=== PATIENT | male | born 1960 | race Caucasian/White ===

== ENCOUNTER 2021-06-01 22:07 | Inpatient (IN) | payer MEDICARE ==
[~2021-06-01] VITALS: Ht 177.8 cm; Wt 138.5 kg
[2021-06-01] MEDS ORDERED: IV NORMAL SALINE 1000ML BAG 1,000 ML IV ONE ×2 (22:45→23:45)
[2021-06-01 23:13] LABS: BASO % 0 % (0-3); EOS % 0 % (0-3); HEMATOCRIT 36.7 % (39.0-53.0); HEMOGLOBIN 12.5 g/dL (13.0-17.5); LYMPH # 1.3 x10^3/uL (1.0-4.8); LYMPH % 7 % (24-48); MEAN CORPUSCULAR HEMOGLOBIN 28 pg (25-35); MEAN CORPUSCULAR HGB CONC 34 g/dL (31-37); MEAN CORPUSCULAR VOLUME 83 fL (79-100); MONO # 2.2 x10^3/uL (0.0-1.1); MONO % 12 % (0-9); NEUT # 15.6 x10^3/uL (1.8-7.7); NEUT % 81 % (31-73); PLATELET COUNT 576 x10^3/uL (140-400); RED BLOOD COUNT 4.44 x10^6/uL (4.30-5.70); RED CELL DISTRIBUTION WIDTH 17.9 % (11.5-14.5); WHITE BLOOD COUNT 19.2 x10^3/uL (4.0-11.0)
[2021-06-01 23:22] LABS: CALCIUM 8.9 mg/dL (8.5-10.1); CREATININE 10.7 mg/dL (0.7-1.3); GFR 4.9; POTASSIUM 5.5 mmol/L (3.5-5.1)
[2021-06-01 23:27] LABS: ALBUMIN 2.8 g/dL (3.4-5.0); ALBUMIN/GLOBULIN RATIO 0.5 (1.0-1.7); MAGNESIUM 2.2 mg/dL (1.8-2.4); TOTAL BILIRUBIN 0.7 mg/dL (0.2-1.0); TOTAL PROTEIN 7.9 g/dL (6.4-8.2)
--- NOTE | 2021-06-01 23:50 | PHYS DOC ---
Past Medical History Past Medical History: DVT General Adult EDM: Chief Complaint: WEAKNESS/GENERALIZED HPI: HPI: Patient is a 60 year old male who was brought here by EMS from home for generalized weakness. Patient lives alone by himself, he called EMS to come out to help lift him out of his bed. EMS stated that his house is really filthy, patient was covered in feces and urine in his lower extremity. Patient has history of hypertension and DVT in the past. Patient is currently on Coumadin. Patient denies any chest pain, denies any trouble breathing. Patient denies any abdominal pain, no nausea vomiting. Review of Systems: Review of Systems: Constitutional: Denies fever or chills. Positive for general weakness. Eyes: Denies change in visual acuity. [] HENT: Denies nasal congestion or sore throat. [] Respiratory: Denies cough or shortness of breath. [] Cardiovascular: Denies chest pain or edema. [] GI: Denies abdominal pain, nausea, vomiting, bloody stools or diarrhea. [] : Denies dysuria. [] Musculoskeletal: Denies back pain or joint pain. [] Integument: Positive for rash in lower extremity. Neurologic: Denies headache, focal weakness or sensory changes. [] Endocrine: Denies polyuria or polydipsia. [] Lymphatic: Denies swollen glands. [] Psychiatric: Denies depression or anxiety. [] Heart Score: C/O Chest Pain: N/A Risk Factors: Risk Factors: DM, Current or recent (<one month) smoker, HTN, HLP, family history of CAD, obesity. Risk Scores: Score 0 - 3: 2.5% MACE over next 6 weeks - Discharge Home Score 4 - 6: 20.3% MACE over next 6 weeks - Admit for Clinical Observation Score 7 - 10: 72.7% MACE over next 6 weeks - Early Invasive Strategies Current Medications: Current Medications Medications (Trade) Dose Ordered Sig/Steve Start Time Stop Time Status Last Admin Dose Admin Sodium Chloride 1,000 ml @ 1,000 mls/hr 1X ONCE 06/01/21 23:45 06/02/21 00:44 UNV Physical Exam: PE: Constitutional: Well developed, well nourished,MORBIDLY OBESE, PATIENT WAS SOILED WITH URINE AND FECES IN HIS PERIGENITAL AREA AND LOWER EXTREMITIES AREA. HENT: Normocephalic, atraumatic, bilateral external ears normal, oropharynx moist, no oral exudates, nose normal. [] Eyes: PERRLA, EOMI, conjunctiva normal, no discharge. [] Neck: Normal range of motion, no tenderness, supple, no stridor. [] Cardiovascular:Heart rate regular rhythm, no murmur [] Lungs & Thorax: Bilateral breath sounds clear to auscultation [] Abdomen: Bowel sounds normal, soft, no tenderness, no masses, no pulsatile masses. [] Skin: Warm, dry, SKIN BLISTER, ERYTHEMA WITH WEEPING CLEAR DRAINAGE IN LEGS. Back: No tenderness, no CVA tenderness. [] Extremities: ENTIRE BILATERAL LEGS WITH ERYTHEMA, SKIN BLISTERS AND EDEMA, WARM TO TOUCH. Neurologic: Alert and oriented X 3, normal motor function, normal sensory function, no focal deficits noted. [] Psychologic: Affect normal, judgement normal, mood normal. [] Current Patient Data: Labs: Laboratory Tests Test 06/01/21 23:00 White Blood Count 19.2 x10^3/uL (4.0-11.0) H Red Blood Count 4.44 x10^6/uL (4.30-5.70) Hemoglobin 12.5 g/dL (13.0-17.5) L Hematocrit 36.7 % (39.0-53.0) L Mean Corpuscular Volume 83 fL (79-100) Mean Corpuscular Hemoglobin 28 pg (25-35) Mean Corpuscular Hemoglobin Concent 34 g/dL (31-37) Red Cell Distribution Width 17.9 % (11.5-14.5) H Platelet Count 576 x10^3/uL (140-400) H Neutrophils (%) (Auto) 81 % (31-73) H Lymphocytes (%) (Auto) 7 % (24-48) L Monocytes (%) (Auto) 12 % (0-9) H Eosinophils (%) (Auto) 0 % (0-3) Basophils (%) (Auto) 0 % (0-3) Neutrophils # (Auto) 15.6 x10^3/uL (1.8-7.7) H Lymphocytes # (Auto) 1.3 x10^3/uL (1.0-4.8) Monocytes # (Auto) 2.2 x10^3/uL (0.0-1.1) H Eosinophils # (Auto) 0.0 x10^3/uL (0.0-0.7) Basophils # (Auto) 0.0 x10^3/uL (0.0-0.2) Platelet Estimate Pending Sodium Level 137 mmol/L (136-145) Potassium Level 5.5 mmol/L (3.5-5.1) H Chloride Level 99 mmol/L (98-107) Carbon Dioxide Level 18 mmol/L (21-32) L Anion Gap 20 (6-14) H Blood Urea Nitrogen 79 mg/dL (8-26) H Creatinine 10.7 mg/dL (0.7-1.3) H Estimated GFR (Cockcroft-Gault) 4.9 BUN/Creatinine Ratio 7 (6-20) Glucose Level 129 mg/dL (70-99) H Lactic Acid Level 3.3 mmol/L (0.4-2.0) H Calcium Level 8.9 mg/dL (8.5-10.1) Magnesium Level 2.2 mg/dL (1.8-2.4) Total Bilirubin 0.7 mg/dL (0.2-1.0) Aspartate Amino Transferase (AST) 89 U/L (15-37) H Alanine Aminotransferase (ALT) 35 U/L (16-63) Alkaline Phosphatase 66 U/L (46-116) Total Protein 7.9 g/dL (6.4-8.2) Albumin 2.8 g/dL (3.4-5.0) L Albumin/Globulin Ratio 0.5 (1.0-1.7) L Laboratory Tests 06/01/21 23:00 Laboratory Tests 06/01/21 23:00 EKG: EKG: [] Radiology/Procedures: Radiology/Procedures: [][facility] [address] [place] [address] IMAGING REPORT Signed PATIENT: TODD RICO ACCOUNT: [id number] : 1960 LOCATION: ER AGE: 60 SEX: M EXAM STATUS: REG ER ORD. PHYSICIAN: FANTASMA TOLEDO DO REASON: SOA PROCEDURE: CHEST AP ONLY EXAM: XR CHEST 1V 06/01/2021 12:05 AM CLINICAL INDICATION: Shortness of air COMPARISON: None TECHNIQUE: AP semierect view of the chest FINDINGS: The heart and mediastinum are normal. Lungs are adequately expanded. No consolidation, pleural effusion, or pneumothorax. Mild linear atelectasis in the left lower lobe. Pulmonary vascularity is normal. No acute osseous abnormality. IMPRESSION: No acute cardiopulmonary abnormality. Electronically signed by: Yuli Ramirez MD (06/02/2021 12:34 AM) [id number] DICTATED and SIGNED BY: YULI RAMIREZ MD DATE: 06/02/21 [id number] 0 Course & Med Decision Making: Course & Med Decision Making Pertinent Labs and Imaging studies reviewed. (See chart for details) Patient is a 60-year-old male who was brought here by EMS from home due to generalized weakness. Patient was found to be soiled with urine and feces in his extremity, patient has bilateral lower extremity cellulitis. EMS reported that his house was very filthy. Patient was found in acute renal failure, severe sepsis. Patient was given IV fluid in the ER, patient was started IV antibiotic in the ER. Patient will be admitted to hospital for further evaluation and treatment. Due to a high probability of clinically significant, life-threatening deterioration, the patient required my highest level of preparedness to intervene emergently and I personally spent this critical care time directly and personally managing the patient. This critical care time included obtaining the history; examining the patient; pulse oximetry; real-time ordering and review of studies; arranging urgent treatment with development of a management plan; evaluation of patient's response to treatment; frequent reassessment; and, discussions with other providers. This critical care time was performed to a ssess and manage the high probability of imminent, life-threatening deterioration that could result in multi-organ failure. It was not inclusive of separately billable procedures. Please see the Course and Medical Decision Making section and the rest of the note for further information on patient as sessment and treatment. Critical care time was [45] minutes which includes time at bedside, spent in discussion of patient's care with specialist and/or family members, with interpretation of laboratory and/or radiological studies and is exclusive of procedures. Guerita Disclaimer: Guerita Disclaimer: This electronic medical record was generated, in whole or in part, using a voice recognition dictation system. Departure Departure Impression: Primary Impression: Severe sepsis Additional Impressions: Bilateral cellulitis of lower leg Renal failure Disposition: ADMITTED INPATIENT Admitting Physician: ALEJANDRA (Dr. WILSON) Condition: IMPROVED Referrals: KEHINDE HOANG (PCP) FANTASMA TOLEDO DO Jun 01, 2021 23:50
[2021-06-02] VITALS (23 sets, daily range): BP systolic 57–159; BP diastolic 33–63
[2021-06-02] MEDS ORDERED: VANCOMYCIN PER PHARMACY MC PRN
[2021-06-02] MEDS ORDERED: IV NORMAL SALINE 1000ML BAG 1,000 ML IV ONE
[2021-06-02] MEDS ORDERED: ONDANSETRON PF 4 MG/2 ML VIAL. IVP PRN (00:30)
[2021-06-02] MEDS ORDERED: ACETAMINOPHEN 325 MG TABLET. PO PRN (00:30)
--- NOTE | 2021-06-02 00:36 | RAD ---
EXAM: XR CHEST 1V 06/01/2021 12:05 AM CLINICAL INDICATION: Shortness of air COMPARISON: None TECHNIQUE: AP semierect view of the chest FINDINGS: The heart and mediastinum are normal. Lungs are adequately expanded. No consolidation, pl eural effusion, or pneumothorax. Mild linear atelectasis in the left lower lobe. Pulmonary vascularit y is normal. No acute osseous abnormality. IMPRESSION: No acute cardiopulmonary abnormality. Electronically signed by: Yuli Ramirez MD (06/02/2021 12:34 AM) [id number]
[2021-06-02] MEDS: IV NORMAL SALINE 1000ML BAG 1,000 ML IV SCH ×3 (01:01→16:30)
[2021-06-02 03:11] LABS: PROTHROMBIN TIME PATIENT 36.4 SEC (11.7-14.0)
[2021-06-02 04:54] LABS: % BANDS 5 % (0-9); % LYMPHS 11 % (24-48); % MONOS 7 % (0-10); % SEGS 77 % (35-66); ANISOCYTOSIS SLIGHT; PLT ESTIMATE ADEQUATE (ADEQUATE); POLYCHROMASIA SLIGHT
--- NOTE | 2021-06-02 05:45 | NUR ---
Patient admitted to room 114 via cart from ED accompanied by ED RN. Patient alert/oriented x4, friendly, cooperative and denies pain. Patient reports weakness and unable to get up so EMS called for lift assist and EMS brought patient to ED. Per ED RN, patient with poor hygiene and found to have maggots in bilat LE dressing--patient bathed in ED. He reports living alone at home with use of wheelchair and lift chair. He states it is difficulty to clean himself and his mother helps when she can. Patient has multiple areas of wounds on bilat LE which are edematous and weeping, excoriation under pannus which is also weeping/bleeding, and excoriation under breasts. Will consult wound nurse for evaluation/picturing and care for wounds. Sepsis screen positive for severe Sepsis--treatment starte din ED with 3L NS administer and dose of Linezolid given. Patient oriented to room, Nursing call light, TV/Bed contol, diet, activity and POC. Patient verbalized understanding of above. See admission information and assessment.
[2021-06-02] MEDS ORDERED: NOREPINEPHRINE VIAL 8 MG in IV DEXTROSE 5% 250 ML IV PRN (06:15)
--- NOTE | 2021-06-02 07:31 | PDOC1 ---
History and Physical Date of Admission Date of Admission DATE: 06/02/21 TIME: 07:22 Identification/Chief Complaint Chief Complaint Weakness Source Source: Caregiver, Chart review, Patient History of Present Illness History of Present Illness Mr Du is a 60 year old male with PMHx Multiple sclerosis, lymphedema, HTN, RLE DVT and PE (2013) who was brought here by EMS from home for generalized weakness. Complain of increased tremors and weakness and multiple wounds. Patient's mother called EMS for help transferring. Patient does live alone. EMS stated that his house is in poor condition, patient was covered in feces and urine on his lower extremities which were found to be red, swollen, hot. Temp 98.8 F pulse 102 bpm respirations 24/min initial blood pressure 82/46. Patient denies any chest pain, denies any trouble breathing. Patient denies any abdominal pain, no nausea vomiting. WBC 19.2, Hb 12.5, platelets 576, NA 137, K5.5, BUN 79, CR 10.7, glucose 129, lactic acid 3.3 calcium 8.9, mag 2.2, bilirubin 0.7, AST 89, ALT 35, alk phos 66, albumin 2.8, NT proBNP 791, INR 3.8, rapid COVID-19 negative Chest radiograph no acute abnormalities. Given IV fluids and empiric antibiotics and admitted to ICU for severe sepsis. Past Medical History Cardiovascular: HTN CENTRAL NERVOUS SYSTEM: Other (MS) Past Surgical History Past Surgical History: No pertinent history Family History Family History: Hypertension Social History Smoke: No ALCOHOL: none Drugs: None Current Problem List Problem List Problems Medical Problems: (1) Bilateral cellulitis of lower leg Status: Acute (2) Renal failure Status: Acute (3) Severe sepsis Status: Acute Current Medications Current Medications Current Medications Sodium Chloride 1,000 ml @ 1,000 mls/hr 1X ONCE IV Last administered on 06/02/21at 01:00; Start 06/01/21 at 22:45; Stop 06/02/21 at 00:53; Status DC Sodium Chloride 1,000 ml @ 1,000 mls/hr 1X ONCE IV Last administered on 06/02/21at 01:00; Start 06/01/21 at 23:45; Stop 06/02/21 at 00:53; Status DC Vancomycin HCl (Vanco Per Pharmacy) 1 each PRN DAILY PRN MC SEE COMMENTS; St art 06/02/21 at 00:00; Status UNV Sodium Chloride 1,000 ml @ 1,000 mls/hr 1X ONCE IV Last administered on 06/02/21at 01:00; Start 06/02/21 at 00:00; Stop 06/02/21 at 00:59; Status DC Enoxaparin Sodium (Lovenox 150mg Syringe) 150 mg 1X ONCE SQ ; Start 06/02/21 at 00:30; Stop 06/02/21 at 01:05; Status DC Ondansetron HCl (Zofran) 4 mg PRN Q8HRS PRN IVP NAUSEA/VOMITING; Start 06/02/21 at 00:30; Stop 06/03/21 at 00:29 Sodium Chloride 1,000 ml @ 125 mls/hr Q8H IV Last administered on 06/02/21at 01:01; Start 06/02/21 at 00:30; Stop 06/03/21 at 00:29 Acetaminophen (Tylenol) 650 mg PRN Q4HRS PRN PO FEVER > 100.3'F; Start 06/02/21 at 00:30; Stop 06/03/21 at 00:29 Linezolid/Dextrose 300 ml @ 300 mls/hr Q12HR IV Last administered on 06/02/21at 02:39; Start 06/02/21 at 01:30 Norepinephrine Bitartrate 8 mg/ Dextrose 258 ml @ 8.708 mls/ hr CONT PRN IV PER PROTOCOL Last administered on 06/02/21at 06:27; Start 06/02/21 at 06:15 Allergies Allergies: Coded Allergies: No Known Drug Allergies (Unverified , 06/02/21) ROS General: YES: Fatigue, Malaise, Appetite; No: Chills, Night Sweats, Other PSYCHOLOGICAL ROS: No: Anxiety, Behavioral Disorder, Concentration difficultie, Decreased libido, Depression, Disorientation, Hallucinations, Hostility, Irritablity, Memory difficulties, Mood Swings, Obsessive thoughts, Physical abuse, Sexual abuse, Sleep disturbances, Suicidal ideation, Other Eyes: No Blurry vision, No Decreased vision, No Double vision, No Dry eyes, No Excessive tearing, No Eye Pain, No Itchy Eyes, No Loss of vision, No Photophobia, No Scotomata, No Uses contacts, No Uses glasses, No Other HEENT: No: Heacaches, Visual Changes, Hearing change, Nasal congestion, Nasal discharge, Oral lesions, Sinus pain, Sore Throat, Epistaxis, Sneezing, Snoring, Tinnitus, Vertigo, Vocal changes, Other ALLERGY AND IMMUNOLOGY: No: Hives, Insect Bite Sensitivity, Itchy/Watery Eyes, Nasal Congestion, Post Nasal Drip, Seasonal Allergies, Other Hematological and Lymphatic: YES: Blood Clots; No: Bleeding Problems, Blood Transfusions, Brusing, Night Sweats, Pallor, Swollen Lymph Nodes, Other ENDOCRINE: No: Breast Changes, Galactorrhea, Hair Pattern Changes, Hot Flashes, Malaise/lethargy, Mood Swings, Palpitations, Polydipsia/polyuria, Skin Changes, Temperature Intolerance, Unexpected Weight Changes, Other Breast: No New/Changing Breast Lumps, No Nipple changes, No Nipple discharge, No Other Respiratory: No: Cough, Hemoptysis, Orthopnea, Pleuritic Pain, Shortness of breath, SOB with excertion, Sputum Changes, Stridor, Tachypnea, Wheezing, Other Cardiovascular: No Chest Pain, No Palpitations, No Orthopnea, No Paroxysmal Noc. Dyspnea, No Edema, No Lt Headedness, No Other Gastrointestinal: No Nausea, No Vomiting, No Abdominal Pain, No Diarrhea, No Constipation, No Melena, No Hematochezia, No Other Genitourinary: No Dysuria, No Frequency, No Incontinence, No Hematuria, No Retention, No Discharge, No Urgency, No Pain, No Flank Pain, No Other, No , No , No , No , No , No , No Musculoskeletal: Yes Gait Disturbance; No Joint Pain, No Joint Stiffness, No Joint Swelling, No Muscle Pain, No Muscular Weakness, No Pain In:, No Swelling In:, No Other Neurological: No Behavorial Changes, No Bowel/Bladder ControlChng, No Confusion, No Dizziness, No Gait Disturbance, No Headaches, No Impaired Coord/balance, No Memory Loss, No Numbness/Tingling, No Seizures, No Speech Pro blems, No Tremors, No Visual Changes, No Weakness, No Other Skin: No Dry Skin, No Eczema, No Hair Changes, No Lumps, No Mole Changes, No Mottling, No Nail Changes, No Pruritus, No Rash, No Skin Lesion Changes, No Other, No Acne Physical Exam General: Alert, Oriented X3, Cooperative, moderate distress HEENT: PERRLA, Other (skin breakdown on face) Lungs: Clear to auscultation, Normal air movement Heart: S1S2, RRR, no thrills, no rubs, no gallops, no murmurs Abdomen: Normal bowel sounds, Soft, Other (Panniculitis) Extremities: No clubbing, No cyanosis, Other (Red, angry, swollen bilateral lower extremities with weeping, stool caked) Neuro: Other (Spasms bilaterally) Psych/Mental Status: Mental status NL, Mood NL Vitals Vitals Vital Signs Date Time Temp Pulse Resp B/P (MAP) Pulse Ox O2 Delivery O2 Flow Rate FiO2 06/02/21 04:21 92 32 102/56 (71) 99 Room Air 06/01/21 22:07 98.8 98.8 Labs Labs Laboratory Tests Test 06/01/21 23:00 06/02/21 02:40 06/02/21 02:45 White Blood Count 19.2 x10^3/uL (4.0-11.0) Red Blood Count 4.44 x10^6/uL (4.30-5.70) Hemoglobin 12.5 g/dL (13.0-17.5) Hematocrit 36.7 % (39.0-53.0) Mean Corpuscular Volume 83 fL (79-100) Mean Corpuscular Hemoglobin 28 pg (25-35) Mean Corpuscular Hemoglobin Concent 34 g/dL (31-37) Red Cell Distribution Width 17.9 % (11.5-14.5) Platelet Count 576 x10^3/uL (140-400) Neutrophils (%) (Auto) 81 % (31-73) Lymphocytes (%) (Auto) 7 % (24-48) Monocytes (%) (Auto) 12 % (0-9) Eosinophils (%) (Auto) 0 % (0-3) Basophils (%) (Auto) 0 % (0-3) Neutrophils # (Auto) 15.6 x10^3/uL (1.8-7.7) Lymphocytes # (Auto) 1.3 x10^3/uL (1.0-4.8) Monocytes # (Auto) 2.2 x10^3/uL (0.0-1.1) Eosinophils # (Auto) 0.0 x10^3/uL (0.0-0.7) Basophils # (Auto) 0.0 x10^3/uL (0.0-0.2) Segmented Neutrophils % 77 % (35-66) Band Neutrophils % 5 % (0-9) Lymphocytes % 11 % (24-48) Monocytes % 7 % (0-10) Platelet Estimate Adequate (ADEQUATE) Giant Platelets Polychromasia Slight Anisocytosis Slight Sodium Level 137 mmol/L (136-145) Potassium Level 5.5 mmol/L (3.5-5.1) Chloride Level 99 mmol/L (98-107) Carbon Dioxide Level 18 mmol/L (21-32) Anion Gap 20 (6-14) Blood Urea Nitrogen 79 mg/dL (8-26) Creatinine 10.7 mg/dL (0.7-1.3) Estimated GFR (Cockcroft-Gault) 4.9 BUN/Creatinine Ratio 7 (6-20) Glucose Level 129 mg/dL (70-99) Lactic Acid Level 3.3 mmol/L (0.4-2.0) 2.3 mmol/L (0.4-2.0) Calcium Level 8.9 mg/dL (8.5-10.1) Magnesium Level 2.2 mg/dL (1.8-2.4) Total Bilirubin 0.7 mg/dL (0.2-1.0) Aspartate Amino Transf (AST/SGOT) 89 U/L (15-37) Alanine Aminotransferase (ALT/SGPT) 35 U/L (16-63) Alkaline Phosphatase 66 U/L (46-116) IQ-Ikz-K-Type Natriuretic Peptide 791 pg/mL (0-124) Total Protein 7.9 g/dL (6.4-8.2) Albumin 2.8 g/dL (3.4-5.0) Albumin/Globulin Ratio 0.5 (1.0-1.7) SARS-CoV-2 Antigen (Rapid) Negative (NEGATIVE) Prothrombin Time 36.4 SEC (11.7-14.0) Prothromb Time International Ratio 3.8 (0.8-1.1) Activated Partial Thromboplast Time 75 SEC (24-38) Laboratory Tests Test 06/01/21 23:00 06/02/21 02:40 06/02/21 02:45 White Blood Count 19.2 x10^3/uL (4.0-11.0) Red Blood Count 4.44 x10^6/uL (4.30-5.70) Hemoglobin 12.5 g/dL (13.0-17.5) Hematocrit 36.7 % (39.0-53.0) Mean Corpuscular Volume 83 fL (79-100) Mean Corpuscular Hemoglobin 28 pg (25-35) Mean Corpuscular Hemoglobin Concent 34 g/dL (31-37) Red Cell Distribution Width 17.9 % (11.5-14.5) Platelet Count 576 x10^3/uL (140-400) Neutrophils (%) (Auto) 81 % (31-73) Lymphocytes (%) (Auto) 7 % (24-48) Monocytes (%) (Auto) 12 % (0-9) Eosinophils (%) (Auto) 0 % (0-3) Basophils (%) (Auto) 0 % (0-3) Neutrophils # (Auto) 15.6 x10^3/uL (1.8-7.7) Lymphocytes # (Auto) 1.3 x10^3/uL (1.0-4.8) Monocytes # (Auto) 2.2 x10^3/uL (0.0-1.1) Eosinophils # (Auto) 0.0 x10^3/uL (0.0-0.7) Basophils # (Auto) 0.0 x10^3/uL (0.0-0.2) Segmented Neutrophils % 77 % (35-66) Band Neutrophils % 5 % (0-9) Lymphocytes % 11 % (24-48) Monocytes % 7 % (0-10) Platelet Estimate Adequate (ADEQUATE) Giant Platelets Polychromasia Slight Anisocytosis Slight Sodium Level 137 mmol/L (136-145) Potassium Level 5.5 mmol/L (3.5-5.1) Chloride Level 99 mmol/L (98-107) Carbon Dioxide Level 18 mmol/L (21-32) Anion Gap 20 (6-14) Blood Urea Nitrogen 79 mg/dL (8-26) Creatinine 10.7 mg/dL (0.7-1.3) Estimated GFR (Cockcroft-Gault) 4.9 BUN/Creatinine Ratio 7 (6-20) Glucose Level 129 mg/dL (70-99) Lactic Acid Level 3.3 mmol/L (0.4-2.0) 2.3 mmol/L (0.4-2.0) Calcium Level 8.9 mg/dL (8.5-10.1) Magnesium Level 2.2 mg/dL (1.8-2.4) Total Bilirubin 0.7 mg/dL (0.2-1.0) Aspartate Amino Transf (AST/SGOT) 89 U/L (15-37) Alanine Aminotransferase (ALT/SGPT) 35 U/L (16-63) Alkaline Phosphatase 66 U/L (46-116) GT-Zft-Y-Type Natriuretic Peptide 791 pg/mL (0-124) Total Protein 7.9 g/dL (6.4-8.2) Albumin 2.8 g/dL (3.4-5.0) Albumin/Globulin Ratio 0.5 (1.0-1.7) SARS-CoV-2 Antigen (Rapid) Negative (NEGATIVE) Prothrombin Time 36.4 SEC (11.7-14.0) Prothromb Time International Ratio 3.8 (0.8-1.1) Activated Partial Thromboplast Time 75 SEC (24-38) Images Images Chest radiograph: The heart and mediastinum are normal. Lungs are adequately expanded. No consolidation, pleural effusion, or pneumothorax. Mild linear atelectasis in the left lower lobe. Pulmonary vascularity is normal. No acute osseous abnormality. IMPRESSION: No acute cardiopulmonary abnormality. VTE Prophylaxis Ordered VTE Prophylaxis Devices: No VTE Pharmacological Prophylaxi: Yes Assessment/Plan Assessment/Plan A/P: Bilateral lower extremity cellulitis - up to thighs with likely fungal involvement. ID consulted. Zyvox and diflucan Weakness and debility - worsening progressive MS combined with sepsis and renal failure Sepsis - given almost 5 liters NSS at this point. Albumin in addition to levophed. empiric antibiotics Lactic acidosis - with septic shock DIONNE - vasomotor nephropathy. Hydrate, hold HCTZ and lisinopril. 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 Hold today, decrease to 7.5mg while on diflucan FEN - General diet PPX - warfarin FULL CODE Dispo - ICU cc time 37 minutes Justifications for Admission Other Justification STEPHANIA LOZA MD Jun 02, 2021 07:31
[2021-06-02] MEDS ORDERED: ALBUMIN HUMAN 5% 500 ML IV ONE (07:45)
[2021-06-02] MEDS ORDERED: SAW160CA3 PO (08:00)
[2021-06-02] MEDS ORDERED: CHOL10004 PO (08:00)
[2021-06-02] MEDS ORDERED: WARF10TA40 PO (08:00)
[2021-06-02] MEDS ORDERED: AZAT50TA20 PO (08:00)
[2021-06-02] MEDS ORDERED: WARF7.5T45 PO (08:00)
[2021-06-02] MEDS ORDERED: LISI1TAB23 PO (08:00)
--- NOTE | 2021-06-02 08:26 | CONS ---
DATE OF CONSULTATION: 06/02/2021 REQUESTING PHYSICIAN: Hank Braswell MD REASON FOR CONSULTATION: Sepsis. HISTORY OF PRESENT ILLNESS: This is a 60-year-old gentleman who has multiple sclerosis and very limited ability to function in the house who called ambulance for weakness and muscle spasms in the leg and unable to do anything. The patient was brought in. The patient has extensive redness of both the legs, also redness under the pannus, lactic acidosis. Creatinine is up to 10, which we do not know the baseline. White count of 19,000. The patient is COVID negative. The patient is admitted, requiring vasopressor support, received about at least 3 liters, fourth liter going on fluids. The patient is started on linezolid and consult has been requested. The patient is alert, awake. The patient says he has been not feeling well for 2 weeks. Denies any nausea, vomiting, diarrhea. Denies any fever. Denies any chest pain, shortness of breath, abdominal pain. PAST MEDICAL HISTORY: Positive for multiple sclerosis, has history of deep venous thrombosis, pulmonary embolism, lymphedema, obesity, cardiac disorder. SOCIAL HISTORY: Negative for smoking, alcohol, illicit drug use. ALLERGIES: No known drug allergies. CURRENT MEDICATIONS: Reviewed. REVIEW OF SYSTEMS: As in HPI. All other systems reviewed are negative. PHYSICAL EXAMINATION: GENERAL: Alert, oriented gentleman, not in distress. VITAL SIGNS: Temperature 98.1, pulse 96, respirations 20, blood pressure 85/38 on vasopressor support. HEENT: Both pupils are round and reacting. No conjunctival lesion, no lesion in the mouth. NECK: Supple, no JVP, no lymphadenopathy. LUNGS: Clear. HEART: S1, S2 regular. ABDOMEN: Soft, nontender, no organomegaly. EXTREMITIES: Extensive erythema of both the legs present all the way to the groin and he has erythema under the pannus of the abdomen, some minor superficial skin breakdowns, edema of the legs. Peripheral pulses unable to palpate. NEUROLOGIC: The patient is alert, awake, and appropriate. No focal neurologic deficit. The patient also has a rash on the face, which he says is new in the last two weeks. LABORATORY DATA: White count is 19.2, hemoglobin 12.5, platelets are 576,000. BUN and creatinine 79 and 10.7. Lactic acid 3.3. Liver functions: AST is 89, ALT is 35. Chest x-ray unremarkable. Lower extremity ultrasound: Chronic unchanged deep venous thrombosis of the right lower extremity. IMPRESSION: 1. Leukocytosis. 2. Extensive cellulitis of the legs. 3. Sepsis with lactic acidosis. 4. Renal insufficiency. 5. Yeast under the skin into the pannus. 6. Morbid obesity. 7. Multiple sclerosis. RECOMMENDATIONS: Would use Zyvox, Zosyn and Diflucan, supportive care, hydration, may need dialysis. Thank you very much, Dr. Braswell, for giving me opportunity to participate in this patient's care. SHAWN/TRACY DR: Jose TID: [id number]
[2021-06-02 09:15] LABS: MAGNESIUM 2.2 mg/dL (1.8-2.4); POTASSIUM 4.7 mmol/L (3.5-5.1)
--- NOTE | 2021-06-02 09:15 | PDOC2 ---
CONSULT Date of Consult Date of Consult DATE: 06/02/21 TIME: 09:05 Reason for Consult Reason for Consult: Ac Renal failure Source Source: Chart review History of Present Illness Reason for Visit: Patient is a 60 year old CM with PMHx Multiple sclerosis, lymphedema, HTN, RLE DVT and PE (2013) who was brought here by EMS from home for generalized weakness. Complain of increased tremors and weakness and multiple wounds. Patient's mother called EMS for help transferring Per EMS his house was in poor condition, he was covered in feces and urine. His lower extremities were found to be red, swollen, hot. In the ED - Temp 98.8 F pulse 102 bpm , initial blood pressure 82/46. Patient denies any chest pain, denies any sob . Patient denies any abdominal pain, no nausea vomiting.Denies any urinary complaint Denies Dx of DM . No Hx of NSAID use. No Urinary complaints , No Hx of Kidney stones . He has been on Lisinopril/HCTZ at home- Not new. Not aware of Dx of CKD Chest radiograph no acute abnormalities. Past Medical History Cardiovascular: HTN CENTRAL NERVOUS SYSTEM: Other (MS) Past Surgical History Past Surgical History: No pertinent history Family History Family History: Hypertension Social History No ALCOHOL: none Drugs: None Current Problem List Problem List Problems Medical Problems: (1) Bilateral cellulitis of lower leg Status: Acute (2) Renal failure Status: Acute (3) Severe sepsis Status: Acute Current Medications Current Medications Current Medications Sodium Chloride 1,000 ml @ 1,000 mls/hr 1X ONCE IV Last administered on 06/02/21at 01:00; Start 06/01/21 at 22:45; Stop 06/02/21 at 00:53; Status DC Sodium Chloride 1,000 ml @ 1,000 mls/hr 1X ONCE IV Last administered on 06/02/21at 01:00; Start 06/01/21 at 23:45; Stop 06/02/21 at 00:53; Status DC Vancomycin HCl (Vanco Per Pharmacy) 1 each PRN DAILY PRN MC SEE COMMENTS; Start 06/02/21 at 00:00; Status UNV Sodium Chloride 1,000 ml @ 1,000 mls/hr 1X ONCE IV Last administered on 06/02/21at 01:00; Start 06/02/21 at 00:00; Stop 06/02/21 at 00:59; Status DC Enoxaparin Sodium (Lovenox 150mg Syringe) 150 mg 1X ONCE SQ ; Start 06/02/21 at 00:30; Stop 06/02/21 at 01:05; Status DC Ondansetron HCl (Zofran) 4 mg PRN Q8HRS PRN IVP NAUSEA/VOMITING; Start 06/02/21 at 00:30; Stop 06/03/21 at 00:29 Sodium Chloride 1,000 ml @ 125 mls/hr Q8H IV Last administered on 06/02/21at 01:01; Start 06/02/21 at 00:30; Stop 06/03/21 at 00:29 Acetaminophen (Tylenol) 650 mg PRN Q4HRS PRN PO FEVER > 100.3'F; Start 06/02/21 at 00:30; Stop 06/03/21 at 00:29 Linezolid/Dextrose 300 ml @ 300 mls/hr Q12HR IV Last administered on 06/02/21at 02:39; Start 06/02/21 at 01:30 Norepinephrine Bitartrate 8 mg/ Dextrose 258 ml @ 8.708 mls/ hr CONT PRN IV PER PROTOCOL Last administered on 06/02/21at 06:27; Start 06/02/21 at 06:15 Albumin Human 500 ml @ 125 mls/hr 1X ONCE IV ; Start 06/02/21 at 07:45; Stop 06/02/21 at 11:44 Piperacillin Sod/ Tazobactam Sod 2.25 gm/Sodium Chloride 50 ml @ 100 mls/hr Q6HRS IV ; Start 06/02/21 at 10:00 Fluconazole (Diflucan) 100 mg DAILY PO ; Start 06/02/21 at 09:00 Vitamin D (Vitamin D3) 1,000 unit DAILY PO ; Start 06/02/21 at 09:00 Warfarin Sodium (Coumadin) 7.5 mg DAILY16 PO ; Start 06/03/21 at 16:00 Warfarin Sodium (Coumadin Per Physician) 1 each PRN DAILY PRN [facility] SEE COMMENTS; Start 06/02/21 at 09:00 Active Scripts Active Reported [facility] 160 Mg Capsule 160 Mg PO BID Vitamin D3 (Vitamin D) 25 Mcg Tablet 1,000 Mg PO DAILY 1,000 UNITS = 25 MCG Imuran (Azathioprine) 50 Mg Tablet 50 Mg PO TID Lisinopril-Hctz 10-12.5 Mg Tab (Lisinopril/Hydrochlorothiazide) 1 Each Tablet 0.5 Tab PO DAILY Warfarin Sodium 10 Mg Tablet 10 Mg PO DAILY Warfarin Sodium 7.5 Mg Tablet 7.5 Mg PO DAILY Allergies Allergies: Coded Allergies: No Known Drug Allergies (Unverified , 06/02/21) ROS Review of System As per HPI, rest of the ROS is negative Physical Exam Physical Exam GENERAL: NAD HEENT: Both pupils are round and reacting. No conjunctival lesion OM dry NECK: Supple, LUNGS: Clear.Non labored HEART: S1, S2 regular. ABDOMEN: Soft, nontender, no organomegaly. EXTREMITIES: Extensive erythema of both the legs up to the groin, erythema und er the pannus of the abdomen NEUROLOGIC: alert, awake, and appropriate. No focal neurologic deficit. DERM rash on the face, new per patient in the last two weeks. PSYCH STABLE , Cooperative Fields + Vital Signs Vital Signs Date Time Temp Pulse Resp B/P (MAP) Pulse Ox O2 Delivery O2 Flow Rate FiO2 06/02/21 08:01 98.1 109 16 135/52 (79) 94 Room Air 98.1 Assessment & Plan DIONNE - baseline unknown , Non Oliguric suspect ATN 2/2 sepsis/Hypotension . UA not done in the ER , now has joseluis , Check UA, Renal US , supportive care, IVF , avoid nephrotoxins . Trialysis catheter ordered , monitor closely HyperKalemia- Mild Metabolic acidosis- 2/2AKI/sepsis switch to Bicarb gtt Extensive cellulitis of the legs/ Sepsis with lactic acidosis. Morbid obesity. Multiple sclerosis. Labs Labs Laboratory Tests Test 06/01/21 23:00 06/02/21 02:40 06/02/21 02:45 White Blood Count 19.2 x10^3/uL (4.0-11.0) Red Blood Count 4.44 x10^6/uL (4.30-5.70) Hemoglobin 12.5 g/dL (13.0-17.5) Hematocrit 36.7 % (39.0-53.0) Mean Corpuscular Volume 83 fL (79-100) Mean Corpuscular Hemoglobin 28 pg (25-35) Mean Corpuscular Hemoglobin Concent 34 g/dL (31-37) Red Cell Distribution Width 17.9 % (11.5-14.5) Platelet Count 576 x10^3/uL (140-400) Neutrophils (%) (Auto) 81 % (31-73) Lymphocytes (%) (Auto) 7 % (24-48) Monocytes (%) (Auto) 12 % (0-9) Eosinophils (%) (Auto) 0 % (0-3) Basophils (%) (Auto) 0 % (0-3) Neutrophils # (Auto) 15.6 x10^3/uL (1.8-7.7) Lymphocytes # (Auto) 1.3 x10^3/uL (1.0-4.8) Monocytes # (Auto) 2.2 x10^3/uL (0.0-1.1) Eosinophils # (Auto) 0.0 x10^3/uL (0.0-0.7) Basophils # (Auto) 0.0 x10^3/uL (0.0-0.2) Segmented Neutrophils % 77 % (35-66) Band Neutrophils % 5 % (0-9) Lymphocytes % 11 % (24-48) Monocytes % 7 % (0-10) Platelet Estimate Adequate (ADEQUATE) Giant Platelets Polychromasia Slight Anisocytosis Slight Sodium Level 137 mmol/L (136-145) Potassium Level 5.5 mmol/L (3.5-5.1) Chloride Level 99 mmol/L (98-107) Carbon Dioxide Level 18 mmol/L (21-32) Anion Gap 20 (6-14) Blood Urea Nitrogen 79 mg/dL (8-26) Creatinine 10.7 mg/dL (0.7-1.3) Estimated GFR (Cockcroft-Gault) 4.9 BUN/Creatinine Ratio 7 (6-20) Glucose Level 129 mg/dL (70-99) Lactic Acid Level 3.3 mmol/L (0.4-2.0) 2.3 mmol/L (0.4-2.0) Calcium Level 8.9 mg/dL (8.5-10.1) Magnesium Level 2.2 mg/dL (1.8-2.4) Total Bilirubin 0.7 mg/dL (0.2-1.0) Aspartate Amino Transf (AST/SGOT) 89 U/L (15-37) Alanine Aminotransferase (ALT/SGPT) 35 U/L (16-63) Alkaline Phosphatase 66 U/L (46-116) BW-Wgt-O-Type Natriuretic Peptide 791 pg/mL (0-124) Total Protein 7.9 g/dL (6.4-8.2) Albumin 2.8 g/dL (3.4-5.0) Albumin/Globulin Ratio 0.5 (1.0-1.7) SARS-CoV-2 Antigen (Rapid) Negative (NEGATIVE) Prothrombin Time 36.4 SEC (11.7-14.0) Prothromb Time International Ratio 3.8 (0.8-1.1) Activated Partial Thromboplast Time 75 SEC (24-38) Laboratory Tests Test 06/01/21 23:00 06/02/21 02:40 06/02/21 02:45 White Blood Count 19.2 x10^3/uL (4.0-11.0) Red Blood Count 4.44 x10^6/uL (4.30-5.70) Hemoglobin 12.5 g/dL (13.0-17.5) Hematocrit 36.7 % (39.0-53.0) Mean Corpuscular Volume 83 fL (79-100) Mean Corpuscular Hemoglobin 28 pg (25-35) Mean Corpuscular Hemoglobin Concent 34 g/dL (31-37) Red Cell Distribution Width 17.9 % (11.5-14.5) Platelet Count 576 x10^3/uL (140-400) Neutrophils (%) (Auto) 81 % (31-73) Lymphocytes (%) (Auto) 7 % (24-48) Monocytes (%) (Auto) 12 % (0-9) Eosinophils (%) (Auto) 0 % (0-3) Basophils (%) (Auto) 0 % (0-3) Neutrophils # (Auto) 15.6 x10^3/uL (1.8-7.7) Lymphocytes # (Auto) 1.3 x10^3/uL (1.0-4.8) Monocytes # (Auto) 2.2 x10^3/uL (0.0-1.1) Eosinophils # (Auto) 0.0 x10^3/uL (0.0-0.7) Basophils # (Auto) 0.0 x10^3/uL (0.0-0.2) Segmented Neutrophils % 77 % (35-66) Band Neutrophils % 5 % (0-9) Lymphocytes % 11 % (24-48) Monocytes % 7 % (0-10) Platelet Estimate Adequate (ADEQUATE) Giant Platelets Polychromasia Slight Anisocytosis Slight Sodium Level 137 mmol/L (136-145) Potassium Level 5.5 mmol/L (3.5-5.1) Chloride Level 99 mmol/L (98-107) Carbon Dioxide Level 18 mmol/L (21-32) Anion Gap 20 (6-14) Blood Urea Nitrogen 79 mg/dL (8-26) Creatinine 10.7 mg/dL (0.7-1.3) Estimated GFR (Cockcroft-Gault) 4.9 BUN/Creatinine Ratio 7 (6-20) Glucose Level 129 mg/dL (70-99) Lactic Acid Level 3.3 mmol/L (0.4-2.0) 2.3 mmol/L (0.4-2.0) Calcium Level 8.9 mg/dL (8.5-10.1) Magnesium Level 2.2 mg/dL (1.8-2.4) Total Bilirubin 0.7 mg/dL (0.2-1.0) Aspartate Amino Transf (AST/SGOT) 89 U/L (15-37) Alanine Aminotransferase (ALT/SGPT) 35 U/L (16-63) Alkaline Phosphatase 66 U/L (46-116) WZ-Wny-L-Type Natriuretic Peptide 791 pg/mL (0-124) Total Protein 7.9 g/dL (6.4-8.2) Albumin 2.8 g/dL (3.4-5.0) Albumin/Globulin Ratio 0.5 (1.0-1.7) SARS-CoV-2 Antigen (Rapid) Negative (NEGATIVE) Prothrombin Time 36.4 SEC (11.7-14.0) Prothromb Time International Ratio 3.8 (0.8-1.1) Activated Partial Thromboplast Time 75 SEC (24-38) Review All relevant outside records, renal labs, imaging studies, telemetry/EKG's were reviewed. TOBY BUSTILLO MD Jun 02, 2021 09:15
[2021-06-02] MEDS ORDERED: LIDOCAINE WITH 8.4% SOD BICARB 3 ML DISP.SYRIN. ONE (10:27)
--- NOTE | 2021-06-02 11:15 | RAD ---
EXAM: Renal sonogram. HISTORY: Renal insufficiency. TECHNIQUE: Sonographic imaging the kidneys and bladder was performed. COMPARISON: None. FINDINGS: The kidneys are normal in size. No solid or cystic renal lesion is seen. There is no hydron ephrosis. There is incidental hepatic steatosis. There is a Fields catheter within the bladder. IMPRESSION: 1. No acute sonographic finding. 2. Incidental hepatic steatosis. 3. Fields catheter within the bladder. Electronically signed by: Tammie Wolff MD (06/02/2021 11:12 AM) [id number]
[2021-06-02] MEDS ORDERED: LIDOCAINE WITH 8.4% SOD BICARB 3 ML DISP.SYRIN. INJ ONE (11:30)
--- NOTE | 2021-06-02 12:02 | RAD ---
AP chest. HISTORY: Dialysis catheter placement AP view was taken of the chest. There is a right temporary dialysis catheter extending to the right a trium. There is no pneumothorax. There are no new infiltrates. There is no effusion. IMPRESSION: 1. Right dialysis catheter extends to the right atrium. Electronically signed by: Lb Cody MD (06/02/2021 12:00 PM) [facility]
[2021-06-02] MEDS: SODIUM BICARBONATE VIAL 150 MEQ in IV DEXTROSE 5% 1,000 ML IV SCH ×2 (12:19→21:35)
[2021-06-02] MEDS: CHOLECALCIFEROL (VITAMIN D3) 1,000 UNIT TABLET PO SCH (12:20)
[2021-06-02] MEDS: FLUCONAZOLE 100 MG TABLET. PO SCH (12:20)
[2021-06-02] MEDS: PIPERACILLIN/TAZOBACTAM 2.25 GM in IV NORMAL SALINE 50ML 50 ML IV SCH ×2 (12:20→17:48)
[2021-06-02 12:57] LABS: BILIRUBIN,URINE NEGATIVE (NEG); CLARITY,URINE CLOUDY; COLOR,URINE YELLOW; NITRITE,URINE NEGATIVE (NEG); PH,URINE 5.5 (<5.0-8.0); PROTEIN,URINE 30 mg/dL (NEG-TRACE); UROBILINOGEN,URINE 0.2 mg/dL (0.2 mg/dL)
[2021-06-02 13:12] LABS: AMORPHOUS SEDIMENT,UR PRESENT /HPF; HYALINE CASTS, URINE MODERATE /HPF
[2021-06-02 13:13] LABS: BACTERIA,URINE 0 /HPF (0-FEW); RBC,URINE 20-40 /HPF (0-2)
--- NOTE | 2021-06-02 13:19 | RAD ---
Procedure: Ultrasound-guided placement of right internal jugular Temporary hemodialysis catheter Sterility: All elements of maximal sterile barrier technique including the use of a cap, mask, steril e gown, sterile gloves, large sterile sheet, appropriate hand hygiene, and 2% chlorhexidine for cutan eous antisepsis (or acceptable alternative antiseptic per current guidelines) were followed for this procedure. Consent: The procedure was explained in its entirety to the patient or the patients designated repres entative by a member of the treatment team, including a discussion of the risks, benefits and commonl y accepted alternatives to the procedure, as well as the expected consequences of no therapy whatsoev er. Discussion of the risks included, but was not limited to, those that are most frequent and thos e that are rare but possibly severe or life-threatening, as well as the possibility of unforeseen com plications. Technique and Findings: Following informed consent, the patient was prepped and draped in the usual s terile fashion. Ultrasound interrogation of the right neck revealed patency and compressibility of t he right internal jugular vein. A 21-gauge micropuncture was then used to gain access to this vein u nder ultrasound guidance. A hard copy ultrasound image was recorded. A guidewire was advanced centra lly over which, following dilatation, a temporary dialysis catheter was placed. The new catheter wa s found to flush and aspirate normally. The catheter was secured in place. Sterile dressings were pedro lied. No immediate complications were identified. IMPRESSION: Placement of a temporary dialysis catheter Electronically signed by: Aleksandar Damon MD (06/02/2021 1:16 PM) [id number]
--- NOTE | 2021-06-02 16:58 | NUR ---
Wound/Ostomy Care Wound Type/Assessment: Patient seen per wound care consult. See wound assessment. Patient was said to have been at home for several days laying in urine and feces, pt has MS and resides at home alone. Patient has excoriation, maceration, yeast, IAD all throughout his groins/pannus/under breasts, he has IAD with multiple stage II PU's with DTI throughout his coccyx/buttocks/posterior thighs, he has bilateral lower extremity VLUs and maceration to the left lateral heel. All areas caused for concern where cleansed, assessed, measured, and pictured. Its evident that he laid on something for quite sometime to have these noted wounds. Patient is very pleasant and cooperative but does not seem to be able to offer much information when asked about these wounds or his current living situation . Treatment Recommendations/Plan: Recommendations for lotion, xeroform gauze, ABD pads, and wrap with kerlix to bilateral lower extremities, to the coccyx/buttocks/posterior thighs apply A&D ointment, lastly apply Nystatin powder to groins/pannus/breast/scrotum and any area that is reddened with yeast, also chux should be cut and folded to be placed in these folds to keep skin from touching skin as much as possible. Patient should be turned every 2 hours right and left turns only; using the purple wedge and pillows, the only time patient should be on his back is during meals. all dressings applied and patient tolerated well. Education provided: Patient educated on dressing changes, pressure ulcer treatment and management, and current wound care POC. Offloading surface/device: Patient is currently on a P-500 bed, patient repositioned to the left side using wedge, and bilateral heels floated. Recommended Referrals/Tests: N/A Discharge Recommendations for dressings: Dressing change instructions left in room. Bed lowered and call light in reach. Spoke with RN regarding Nystain and A&D ointment, RN will order.Wound care will follow up with this patient on 06/08/21.
[2021-06-02] MEDS: NYSTATIN TOPICAL POWDER 15GM BOTTLE. TP SCH ×2 (17:00→21:37)
[2021-06-03] VITALS (16 sets, daily range): BP systolic 90–124; BP diastolic 40–60
[2021-06-03] MEDS: PIPERACILLIN/TAZOBACTAM 2.25 GM in IV NORMAL SALINE 50ML 50 ML IV SCH ×4 (00:13→18:00)
[2021-06-03 06:42] LABS: BASO # 0.1 x10^3/uL (0.0-0.2); BASO % 1 % (0-3); EOS # 0.1 x10^3/uL (0.0-0.7); EOS % 1 % (0-3); HEMATOCRIT 31.6 % (39.0-53.0); HEMOGLOBIN 10.9 g/dL (13.0-17.5); LYMPH # 1.7 x10^3/uL (1.0-4.8); LYMPH % 15 % (24-48); MEAN CORPUSCULAR HEMOGLOBIN 29 pg (25-35); MEAN CORPUSCULAR HGB CONC 34 g/dL (31-37); MEAN CORPUSCULAR VOLUME 83 fL (79-100); MONO # 1.3 x10^3/uL (0.0-1.1); MONO % 11 % (0-9); NEUT # 8.1 x10^3/uL (1.8-7.7); NEUT % 72 % (31-73); PLATELET COUNT 444 x10^3/uL (140-400); RED BLOOD COUNT 3.82 x10^6/uL (4.30-5.70); RED CELL DISTRIBUTION WIDTH 17.7 % (11.5-14.5); WHITE BLOOD COUNT 11.3 x10^3/uL (4.0-11.0)
[2021-06-03 06:50] LABS: PROTHROMBIN TIME PATIENT 32.6 SEC (11.7-14.0)
[2021-06-03] MEDS: CHOLECALCIFEROL (VITAMIN D3) 1,000 UNIT TABLET PO SCH (08:23)
[2021-06-03] MEDS: SODIUM BICARBONATE VIAL 150 MEQ in IV DEXTROSE 5% 1,000 ML IV SCH ×2 (08:23→14:06)
[2021-06-03] MEDS: VITS A & D/LANOLIN TOPICAL OINTMENT 42GM TUBE. TP PRN (08:24)
[2021-06-03] MEDS: FLUCONAZOLE 100 MG TABLET. PO SCH (08:24)
[2021-06-03] MEDS: NYSTATIN TOPICAL POWDER 15GM BOTTLE. TP SCH ×2 (08:24→21:00)
--- NOTE | 2021-06-03 10:22 | PDOC ---
[employer] PROGRESS NOTE Date of Service DOS: DATE: 06/03/21 TIME: 10:14 Chief Complaint Chief Complaint A/P: Bilateral lower extremity cellulitis - up to thighs with likely fungal involvement. ID consulted. Zyvox and diflucan Weakness and debility - worsening progressive MS combined with sepsis and renal failure Sepsis - given almost 5 liters NSS at this point. Albumin in addition to levophed. empiric antibiotics Lactic acidosis - with septic shock DIONNE - vasomotor nephropathy. Hydrate, hold HCTZ and lisinopril. 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 Will add marinol for appetite, anxiety, nausea H/o RLE DVT and PE - on warfarin, supratherapeutic. Hold today, decrease to 7.5mg while on diflucan FEN - General diet PPX - warfarin FULL CODE Dispo - ICU cc time 37 minutes History of Present Illness History of Present Illness Mr Du is a 60 year old male with PMHx Multiple sclerosis, lymphedema, HTN, RLE DVT and PE (2013) who was brought here by EMS from home for generalized weakness. Complain of increased tremors and weakness and multiple wounds. Patient's mother called EMS for help transferring. Patient does live alone. EMS stated that his house is in poor condition, patient was covered in feces and urine on his lower extremities which were found to be red, swollen, hot. Temp 98.8 F pulse 102 bpm respirations 24/min initial blood pressure 82/46. Patient denies any chest pain, denies any trouble breathing. Patient denies any abdominal pain, no nausea vomiting. WBC 19.2, Hb 12.5, platelets 576, NA 137, K5.5, BUN 79, CR 10.7, glucose 129, lactic acid 3.3 calcium 8.9, mag 2.2, bilirubin 0.7, AST 89, ALT 35, alk phos 66, albumin 2.8, NT proBNP 791, INR 3.8, rapid COVID-19 negative Chest radiograph no acute abnormalities. Given IV fluids and empiric antibiotics and admitted to ICU for severe sepsis. Consulted ID and nephrology. Trialysis catheter placed for pressor support and in anticipation of potential need for urgent renal replacement therapy. WBC down to 11.3, Hb 10.9, platelets 444, CR improved to 3.5 BUN 59, INR 3.3 urine output greater than 4 L. Vitals/I&O Vitals/I&O: Vital Signs Date Time Temp Pulse Resp B/P (MAP) Pulse Ox O2 Delivery O2 Flow Rate FiO2 06/03/21 06:15 80 26 90/47 (61) 99 Nasal Cannula 2.0 06/03/21 04:00 98.1 98.1 I & O 06/02/21 06/02/21 06/03/21 15:00 23:00 07:00 Intake Total 240 ml 170 ml 0 ml Output Total 1150 ml 850 ml 1750 ml Balance -910 ml -680 ml -1750 ml Physical Exam General: Alert, Oriented X3, Cooperative, moderate distress Abdomen: Normal bowel sounds, Soft, Other (Panniculitis) Extremities: No clubbing, No cyanosis, Other (Red, angry, swollen bilateral lower extremities with weeping, stool caked) Labs Labs: Laboratory Tests Test 06/02/21 12:30 06/03/21 06:15 Urine Color Yellow Urine Clarity Cloudy Urine pH 5.5 (<5.0-8.0) Urine Specific [place] 1.015 (1.000-1.030) Urine Protein 30 mg/dL (NEG-TRACE) Urine Glucose (UA) Negative mg/dL (NEG) Urine Ketones (Stick) Negative mg/dL (NEG) Urine Blood Large (NEG) Urine Nitrite Negative (NEG) Urine Bilirubin Negative (NEG) Urine Urobilinogen Dipstick 0.2 mg/dL (0.2 mg/dL) Urine Leukocyte Esterase Trace (NEG) Urine RBC 20-40 /HPF (0-2) Urine WBC 1-4 /HPF (0-4) Urine Amorphous Sediment Present /HPF Urine Bacteria 0 /HPF (0-FEW) Urine Hyaline Casts Moderate /HPF Urine Mucus Mod /LPF White Blood Count 11.3 x10^3/uL (4.0-11.0) Red Blood Count 3.82 x10^6/uL (4.30-5.70) Hemoglobin 10.9 g/dL (13.0-17.5) Hematocrit 31.6 % (39.0-53.0) Mean Corpuscular Volume 83 fL (79-100) Mean Corpuscular Hemoglobin 29 pg (25-35) Mean Corpuscular Hemoglobin Concent 34 g/dL (31-37) Red Cell Distribution Width 17.7 % (11.5-14.5) Platelet Count 444 x10^3/uL (140-400) Neutrophils (%) (Auto) 72 % (31-73) Lymphocytes (%) (Auto) 15 % (24-48) Monocytes (%) (Auto) 11 % (0-9) Eosinophils (%) (Auto) 1 % (0-3) Basophils (%) (Auto) 1 % (0-3) Neutrophils # (Auto) 8.1 x10^3/uL (1.8-7.7) Lymphocytes # (Auto) 1.7 x10^3/uL (1.0-4.8) Monocytes # (Auto) 1.3 x10^3/uL (0.0-1.1) Eosinophils # (Auto) 0.1 x10^3/uL (0.0-0.7) Basophils # (Auto) 0.1 x10^3/uL (0.0-0.2) Prothrombin Time 32.6 SEC (11.7-14.0) Prothromb Time International Ratio 3.3 (0.8-1.1) Sodium Level 143 mmol/L (136-145) Potassium Level 3.7 mmol/L (3.5-5.1) Chloride Level 108 mmol/L (98-107) Carbon Dioxide Level 29 mmol/L (21-32) Anion Gap 6 (6-14) Blood Urea Nitrogen 59 mg/dL (8-26) Creatinine 3.5 mg/dL (0.7-1.3) Estimated GFR (Cockcroft-Gault) 18.0 Glucose Level 156 mg/dL (70-99) Calcium Level 8.0 mg/dL (8.5-10.1) Assessment and Plan Assessmemt and Plan Problems Medical Problems: (1) Bilateral cellulitis of lower leg Status: Acute (2) Renal failure Status: Acute (3) Severe sepsis Status: Acute Comment Review of Relevant I have reviewed the following items taniya (where applicable) has been applied. Medications: Current Medications Medications (Trade) Dose Ordered Sig/Steve Route PRN Reason Start Time Stop Time Status Last Admin Dose Admin Sodium Bicarbonate 150 meq/Dextrose 1,150 ml @ 125 mls/hr Q9H12M IV 06/02/21 10:30 06/03/21 08:23 Lidocaine HCl (Buffered Lidocaine 1%) 3 ml 1X ONCE INJ 06/02/21 11:30 06/02/21 11:31 DC 06/02/21 11:26 Nystatin (Nystop) 1 pedro BID TP 06/02/21 17:00 06/03/21 08:24 Vitamin A/Vitamin D (Vitamin A & D Ointment) 1 pedro TID PRN TP SKIN PROTECTION 06/02/21 16:45 06/03/21 08:24 Justifications for Admission Other Justification STEPHANIA LOZA MD Jun 03, 2021 10:22
[2021-06-03 12:03] LABS: ALBUMIN/GLOBULIN RATIO 0.5 (1.0-1.7); CALCIUM 8.1 mg/dL (8.5-10.1); CREATININE 3.6 mg/dL (0.7-1.3); GFR 17.4; POTASSIUM 3.7 mmol/L (3.5-5.1); TOTAL BILIRUBIN 0.7 mg/dL (0.2-1.0)
--- NOTE | 2021-06-03 12:34 | PDOC ---
PROGRESS NOTES Date of Service DATE: 06/03/21 TIME: 12:32 Subjective Subjective SEEN IN FOLLOWUP OF ARF Objective Objective Vital Signs Date Time Temp Pulse Resp B/P (MAP) Pulse Ox O2 Delivery O2 Flow Rate FiO2 06/03/21 11:00 82 26 115/51 (72) 96 Room Air 2.0 06/03/21 08:00 98.5 98.5 Intake and Output 06/03/21 07:00 Intake Total 410 ml Output Total 3750 ml Balance -3340 ml Intake Oral 410 ml Output Urine Total 3750 ml Physical Exam Heart: Regular rate, Normal S1, Normal S2, No murmurs, Gallops Extremities: No clubbing, No cyanosis, No edema, Normal pulses, No tenderness/swelling General: Alert, Oriented X3, Cooperative, No acute distress Lungs: Clear to auscultation, Normal air movement Psych/Mental Status: Mental status NL, Mood NL Diagnosis RENAL FAILURE: Acute (Acute tubular necrosis) Assessment Assessment Problems Medical Problems: (1) Bilateral cellulitis of lower leg Status: Acute (2) Renal failure Status: Acute (3) Severe sepsis Status: Acute Plan Plan of Care RENAL FUNCTION IS IMPROVING. GFR NOW 18 CC/MIN. CONT ANTIBIOTICS AND FLUID BALANCE. TREND LAB Comment Review of Relevant I have reviewed the following items taniya (where applicable) has been applied. Labs Laboratory Tests Test 06/01/21 23:00 06/02/21 02:40 06/02/21 02:45 06/02/21 08:30 White Blood Count 19.2 x10^3/uL (4.0-11.0) Red Blood Count 4.44 x10^6/uL (4.30-5.70) Hemoglobin 12.5 g/dL (13.0-17.5) Hematocrit 36.7 % (39.0-53.0) Mean Corpuscular Volume 83 fL (79-100) Mean Corpuscular Hemoglobin 28 pg (25-35) Mean Corpuscular Hemoglobin Concent 34 g/dL (31-37) Red Cell Distribution Width 17.9 % (11.5-14.5) Platelet Count 576 x10^3/uL (140-400) Neutrophils (%) (Auto) 81 % (31-73) Lymphocytes (%) (Auto) 7 % (24-48) Monocytes (%) (Auto) 12 % (0-9) Eosinophils (%) (Auto) 0 % (0-3) Basophils (%) (Auto) 0 % (0-3) Neutrophils # (Auto) 15.6 x10^3/uL (1.8-7.7) Lymphocytes # (Auto) 1.3 x10^3/uL (1.0-4.8) Monocytes # (Auto) 2.2 x10^3/uL (0.0-1.1) Eosinophils # (Auto) 0.0 x10^3/uL (0.0-0.7) Basophils # (Auto) 0.0 x10^3/uL (0.0-0.2) Segmented Neutrophils % 77 % (35-66) Band Neutrophils % 5 % (0-9) Lymphocytes % 11 % (24-48) Monocytes % 7 % (0-10) Platelet Estimate Adequate (ADEQUATE) Giant Platelets Polychromasia Slight Anisocytosis Slight Sodium Level 137 mmol/L (136-145) 141 mmol/L (136-145) Potassium Level 5.5 mmol/L (3.5-5.1) 4.7 mmol/L (3.5-5.1) Chloride Level 99 mmol/L (98-107) 106 mmol/L (98-107) Carbon Dioxide Level 18 mmol/L (21-32) 18 mmol/L (21-32) Anion Gap 20 (6-14) 17 (6-14) Blood Urea Nitrogen 79 mg/dL (8-26) 83 mg/dL (8-26) Creatinine 10.7 mg/dL (0.7-1.3) 9.0 mg/dL (0.7-1.3) Estimated GFR (Cockcroft-Gault) 4.9 6.0 BUN/Creatinine Ratio 7 (6-20) Glucose Level 129 mg/dL (70-99) 102 mg/dL (70-99) Lactic Acid Level 3.3 mmol/L (0.4-2.0) 2.3 mmol/L (0.4-2.0) Calcium Level 8.9 mg/dL (8.5-10.1) 8.0 mg/dL (8.5-10.1) Magnesium Level 2.2 mg/dL (1.8-2.4) 2.2 mg/dL (1.8-2.4) Total Bilirubin 0.7 mg/dL (0.2-1.0) Aspartate Amino Transf (AST/SGOT) 89 U/L (15-37) Alanine Aminotransferase (ALT/SGPT) 35 U/L (16-63) Alkaline Phosphatase 66 U/L (46-116) XO-Wdh-Y-Type Natriuretic Peptide 791 pg/mL (0-124) Total Protein 7.9 g/dL (6.4-8.2) Albumin 2.8 g/dL (3.4-5.0) Albumin/Globulin Ratio 0.5 (1.0-1.7) SARS-CoV-2 RNA (HELEN) Negative (Negative) SARS-CoV-2 Antigen (Rapid) Negative (NEGATIVE) Prothrombin Time 36.4 SEC (11.7-14.0) Prothromb Time International Ratio 3.8 (0.8-1.1) Activated Partial Thromboplast Time 75 SEC (24-38) Test 06/02/21 12:30 06/03/21 06:15 Urine Color Yellow Urine Clarity Cloudy Urine pH 5.5 (<5.0-8.0) Urine Specific [place] 1.015 (1.000-1.030) Urine Protein 30 mg/dL (NEG-TRACE) Urine Glucose (UA) Negative mg/dL (NEG) Urine Ketones (Stick) Negative mg/dL (NEG) Urine Blood Large (NEG) Urine Nitrite Negative (NEG) Urine Bilirubin Negative (NEG) Urine Urobilinogen Dipstick 0.2 mg/dL (0.2 mg/dL) Urine Leukocyte Esterase Trace (NEG) Urine RBC 20-40 /HPF (0-2) Urine WBC 1-4 /HPF (0-4) Urine Amorphous Sediment Present /HPF Urine Bacteria 0 /HPF (0-FEW) Urine Hyaline Casts Moderate /HPF Urine Mucus Mod /LPF White Blood Count 11.3 x10^3/uL (4.0-11.0) Red Blood Count 3.82 x10^6/uL (4.30-5.70) Hemoglobin 10.9 g/dL (13.0-17.5) Hematocrit 31.6 % (39.0-53.0) Mean Corpuscular Volume 83 fL (79-100) Mean Corpuscular Hemoglobin 29 pg (25-35) Mean Corpuscular Hemoglobin Concent 34 g/dL (31-37) Red Cell Distribution Width 17.7 % (11.5-14.5) Platelet Count 444 x10^3/uL (140-400) Neutrophils (%) (Auto) 72 % (31-73) Lymphocytes (%) (Auto) 15 % (24-48) Monocytes (%) (Auto) 11 % (0-9) Eosinophils (%) (Auto) 1 % (0-3) Basophils (%) (Auto) 1 % (0-3) Neutrophils # (Auto) 8.1 x10^3/uL (1.8-7.7) Lymphocytes # (Auto) 1.7 x10^3/uL (1.0-4.8) Monocytes # (Auto) 1.3 x10^3/uL (0.0-1.1) Eosinophils # (Auto) 0.1 x10^3/uL (0.0-0.7) Basophils # (Auto) 0.1 x10^3/uL (0.0-0.2) Prothrombin Time 32.6 SEC (11.7-14.0) Prothromb Time International Ratio 3.3 (0.8-1.1) Sodium Level 141 mmol/L (136-145) Potassium Level 3.7 mmol/L (3.5-5.1) Chloride Level 104 mmol/L (98-107) Carbon Dioxide Level 29 mmol/L (21-32) Anion Gap 8 (6-14) Blood Urea Nitrogen 56 mg/dL (8-26) Creatinine 3.6 mg/dL (0.7-1.3) Estimated GFR (Cockcroft-Gault) 17.4 BUN/Creatinine Ratio 16 (6-20) Glucose Level 155 mg/dL (70-99) Calcium Level 8.1 mg/dL (8.5-10.1) Total Bilirubin 0.7 mg/dL (0.2-1.0) Aspartate Amino Transf (AST/SGOT) 115 U/L (15-37) Alanine Aminotransferase (ALT/SGPT) 35 U/L (16-63) Alkaline Phosphatase 50 U/L (46-116) Total Protein 6.0 g/dL (6.4-8.2) Albumin 2.0 g/dL (3.4-5.0) Albumin/Globulin Ratio 0.5 (1.0-1.7) Laboratory Tests Test 06/03/21 06:15 White Blood Count 11.3 x10^3/uL (4.0-11.0) Red Blood Count 3.82 x10^6/uL (4.30-5.70) Hemoglobin 10.9 g/dL (13.0-17.5) Hematocrit 31.6 % (39.0-53.0) Mean Corpuscular Volume 83 fL (79-100) Mean Corpuscular Hemoglobin 29 pg (25-35) Mean Corpuscular Hemoglobin Concent 34 g/dL (31-37) Red Cell Distribution Width 17.7 % (11.5-14.5) Platelet Count 444 x10^3/uL (140-400) Neutrophils (%) (Auto) 72 % (31-73) Lymphocytes (%) (Auto) 15 % (24-48) Monocytes (%) (Auto) 11 % (0-9) Eosinophils (%) (Auto) 1 % (0-3) Basophils (%) (Auto) 1 % (0-3) Neutrophils # (Auto) 8.1 x10^3/uL (1.8-7.7) Lymphocytes # (Auto) 1.7 x10^3/uL (1.0-4.8) Monocytes # (Auto) 1.3 x10^3/uL (0.0-1.1) Eosinophils # (Auto) 0.1 x10^3/uL (0.0-0.7) Basophils # (Auto) 0.1 x10^3/uL (0.0-0.2) Prothrombin Time 32.6 SEC (11.7-14.0) Prothromb Time International Ratio 3.3 (0.8-1.1) Sodium Level 141 mmol/L (136-145) Potassium Level 3.7 mmol/L (3.5-5.1) Chloride Level 104 mmol/L (98-107) Carbon Dioxide Level 29 mmol/L (21-32) Anion Gap 8 (6-14) Blood Urea Nitrogen 56 mg/dL (8-26) Creatinine 3.6 mg/dL (0.7-1.3) Estimated GFR (Cockcroft-Gault) 17.4 BUN/Creatinine Ratio 16 (6-20) Glucose Level 155 mg/dL (70-99) Calcium Level 8.1 mg/dL (8.5-10.1) Total Bilirubin 0.7 mg/dL (0.2-1.0) Aspartate Amino Transf (AST/SGOT) 115 U/L (15-37) Alanine Aminotransferase (ALT/SGPT) 35 U/L (16-63) Alkaline Phosphatase 50 U/L (46-116) Total Protein 6.0 g/dL (6.4-8.2) Albumin 2.0 g/dL (3.4-5.0) Albumin/Globulin Ratio 0.5 (1.0-1.7) Microbiology 06/02/21 Blood Culture - Preliminary, Resulted NO GROWTH AFTER 1 DAY Medications Current Medications Sodium Chloride 1,000 ml @ 1,000 mls/hr 1X ONCE IV Last administered on 06/02/21at 01:00; Start 06/01/21 at 22:45; Stop 06/02/21 at 00:53; Status DC Sodium Chloride 1,000 ml @ 1,000 mls/hr 1X ONCE IV Last administered on 06/02/21at 01:00; Start 06/01/21 at 23:45; Stop 06/02/21 at 00:53; Status DC Vancomycin HCl (Vanco Per Pharmacy) 1 each PRN DAILY PRN MC SEE COMMENTS; Start 06/02/21 at 00:00; Status UNV Sodium Chloride 1,000 ml @ 1,000 mls/hr 1X ONCE IV Last administered on 06/02/21at 01:00; Start 06/02/21 at 00:00; Stop 06/02/21 at 00:59; Status DC Enoxaparin Sodium (Lovenox 150mg Syringe) 150 mg 1X ONCE SQ ; Start 06/02/21 at 00:30; Stop 06/02/21 at 01:05; Status DC Ondansetron HCl (Zofran) 4 mg PRN Q8HRS PRN IVP NAUSEA/VOMITING; Start 06/02/21 at 00:30; Stop 06/03/21 at 00:29; Status DC Sodium Chloride 1,000 ml @ 125 mls/hr Q8H IV Last administered on 06/02/21at 01:01; Start 06/02/21 at 00:30; Stop 06/03/21 at 00:29; Status DC Acetaminophen (Tylenol) 650 mg PRN Q4HRS PRN PO FEVER > 100.3'F; Start 06/02/21 at 00:30; Stop 06/03/21 at 00:29; Status DC Linezolid/Dextrose 300 ml @ 300 mls/hr Q12HR IV Last administered on 06/02/21at 21:42; Start 06/02/21 at 01:30 Norepinephrine Bitartrate 8 mg/ Dextrose 258 ml @ 8.708 mls/ hr CONT PRN IV PER PROTOCOL Last administered on 06/02/21at 06:27; Start 06/02/21 at 06:15 Albumin Human 500 ml @ 125 mls/hr 1X ONCE IV Last administered on 06/02/21at 12:23; Start 06/02/21 at 07:45; Stop 06/02/21 at 11:44; Status DC Piperacillin Sod/ Tazobactam Sod 2.25 gm/Sodium Chloride 50 ml @ 100 mls/hr Q6HRS IV Last administered on 06/03/21at 06:19; Start 06/02/21 at 10:00 Fluconazole (Diflucan) 100 mg DAILY PO Last administered on 06/03/21at 08:24; Start 06/02/21 at 09:00 Vitamin D (Vitamin D3) 1,000 unit DAILY PO Last administered on 06/03/21at 08:23; Start 06/02/21 at 09:00 Warfarin Sodium (Coumadin) 7.5 mg DAILY16 PO ; Start 06/03/21 at 16:00 Warfarin Sodium (Coumadin Per Physician) 1 each PRN DAILY PRN MC SEE COMMENTS; Start 06/02/21 at 09:00 Lidocaine HCl (Buffered Lidocaine 1%) 3 ml STK-MED ONCE .ROUTE ; Start 06/02/21 at 10:27; Stop 06/02/21 at 10:27; Status DC Sodium Bicarbonate 150 meq/Dextrose 1,150 ml @ 125 mls/hr Q9H12M IV Last administered on 06/03/21at 08:23; Start 06/02/21 at 10:30 Lidocaine HCl (Buffered Lidocaine 1%) 3 ml 1X ONCE INJ Last administered on 06/02/21at 11:26; Start 06/02/21 at 11:30; Stop 06/02/21 at 11:31; Status DC Nystatin (Nystop) 1 pedro BID TP Last administered on 06/03/21at 08:24; Start 06/02/21 at 17:00 Vitamin A/Vitamin D (Vitamin A & D Ointment) 1 pedro TID PRN TP SKIN PROTECTION Last administered on 06/03/21at 08:24; Start 06/02/21 at 16:45 Dronabinol (Marinol) 2.5 mg BIDACLD PO ; Start 06/03/21 at 11:30 Active Scripts Active Reported [place] 160 Mg Capsule 160 Mg PO BID Vitamin D3 (Vitamin D) 25 Mcg Tablet 1,000 Mg PO DAILY 1,000 UNITS = 25 MCG Imuran (Azathioprine) 50 Mg Tablet 50 Mg PO TID Lisinopril-Hctz 10-12.5 Mg Tab (Lisinopril/Hydrochlorothiazide) 1 Each Tablet 0.5 Tab PO DAILY Warfarin Sodium 10 Mg Tablet 10 Mg PO DAILY Warfarin Sodium 7.5 Mg Tablet 7.5 Mg PO DAILY Vitals/I & O Vital Sign - Last 24 Hours 06/02/21 06/02/21 06/02/21 06/02/21 12:41 13:00 14:00 15:00 Temp 98.5 98.5 Pulse 109 114 104 Resp 20 B/P (MAP) 137/55 (82) 159/63 (95) 119/48 (71) Pulse Ox 94 96 98 O2 Delivery Room Air Room Air Room Air Room Air 06/02/21 06/02/21 06/02/21 06/02/21 15:52 16:00 17:00 18:00 Temp 98.2 98.2 Pulse 96 85 89 Resp 22 B/P (MAP) 100/51 (67) 96/42 (60) 103/55 (71) Pulse Ox 96 96 98 O2 Delivery Room Air Room Air Room Air Room Air 06/02/21 06/02/21 06/02/21 06/02/21 18:30 20:00 20:00 21:00 Temp 98.4 98.4 Pulse 91 90 88 Resp 24 29 B/P (MAP) 104/54 (71) 119/59 (79) 104/50 (68) Pulse Ox 98 97 97 O2 Delivery Room Air Nasal Cannula Nasal Cannula Nasal Cannula O2 Flow Rate 2.0 2.0 2.0 06/02/21 06/02/21 06/02/21 06/03/21 22:13 23:06 23:56 00:06 Temp 97.7 97.7 Pulse 90 86 88 Resp B/P (MAP) 102/51 (68) 116/48 (70) 94/41 (58) Pulse Ox 98 98 96 O2 Delivery Nasal Cannula Nasal Cannula Nasal Cannula Nasal Cannula O2 Flow Rate 2.0 2.0 2.0 2.0 06/03/21 06/03/21 06/03/21 06/03/21 01:00 02:00 03:07 04:00 Temp 98.1 98.1 Pulse 88 88 90 86 Resp B/P (MAP) 103/46 (65) 92/44 (60) 114/53 (73) 119/48 (71) Pulse Ox 97 99 98 96 O2 Delivery Nasal Cannula Nasal Cannula Nasal Cannula Nasal Cannula O2 Flow Rate 2.0 2.0 2.0 2.0 06/03/21 06/03/21 06/03/21 06/03/21 04:04 05:00 06:15 07:00 Pulse 84 80 84 Resp B/P (MAP) 115/54 (74) 90/47 (61) 113/54 (73) Pulse Ox 97 99 97 O2 Delivery Nasal Cannula Nasal Cannula Nasal Cannula Nasal Cannula O2 Flow Rate 2.0 2.0 2.0 2.0 06/03/21 06/03/21 06/03/21 06/03/21 08:00 08:00 09:00 10:00 Temp 98.5 98.5 Pulse 82 88 88 Resp B/P (MAP) 123/54 (77) 110/60 (77) 124/57 (79) Pulse Ox 99 97 95 O2 Delivery Nasal Cannula Nasal Cannula Room Air Room Air O2 Flow Rate 2.0 2.0 2.0 06/03/21 11:00 Pulse 82 Resp 26 B/P (MAP) 115/51 (72) Pulse Ox 96 O2 Delivery Room Air O2 Flow Rate 2.0 Intake and Output 06/02/21 06/02/21 06/03/21 15:00 23:00 07:00 Intake Total 240 ml 170 ml 0 ml Output Total 1150 ml 850 ml 1750 ml Balance -910 ml -680 ml -1750 ml Justifications for Admission Other Justification Nutrition Consultation Dietary Evaluation: Recommendations by RD: Dietary education by RD, Increase Calorie Intake, Protein supplementation Comments: Renal diet increased protein needs if HD:rec DBL meats, Oral nutrition supplements Nepro bid monitor po intake Expected Outcomes/Goals: to meet >75% est nutr needs via po intake Malnutrition Findings: Weight Status: Morbidly Obese Fluid Accumulation (Non-Severe: Mild depletion CELIO WILLSON MD Jun 03, 2021 12:34
--- NOTE | 2021-06-03 13:30 | PDOC ---
Infectious Disease Note Subjective Subjective Pt is alert awake afebrile ROS ROS no n/v/d/sob Vital Sign Vital Signs Vital Signs Date Time Temp Pulse Resp B/P (MAP) Pulse Ox O2 Delivery O2 Flow Rate FiO2 06/03/21 11:00 82 26 115/51 (72) 96 Room Air 2.0 06/03/21 08:00 98.5 98.5 Physical Exam PHYSICAL EXAM GENERAL: Alert, oriented gentleman, not in distress. HEENT: Both pupils are round and reacting. No conjunctival lesion, no lesion in the mouth. NECK: Supple, no JVP, no lymphadenopathy. LUNGS: Clear. HEART: S1, S2 regular. ABDOMEN: Soft, nontender, no organomegaly. EXTREMITIES: Extensive erythema of both the legs present all the way to the groin and he has erythema under the pannus of the abdomen, some minor superficial skin breakdowns, edema of the legs. Peripheral pulses unable to palpate. NEUROLOGIC: The patient is alert, awake, and appropriate. No focal neurologic deficit. The patient also has a rash on the face, which he says is new in the last two weeks. Labs Lab Laboratory Tests Test 06/03/21 06:15 White Blood Count 11.3 x10^3/uL (4.0-11.0) Red Blood Count 3.82 x10^6/uL (4.30-5.70) Hemoglobin 10.9 g/dL (13.0-17.5) Hematocrit 31.6 % (39.0-53.0) Mean Corpuscular Volume 83 fL (79-100) Mean Corpuscular Hemoglobin 29 pg (25-35) Mean Corpuscular Hemoglobin Concent 34 g/dL (31-37) Red Cell Distribution Width 17.7 % (11.5-14.5) Platelet Count 444 x10^3/uL (140-400) Neutrophils (%) (Auto) 72 % (31-73) Lymphocytes (%) (Auto) 15 % (24-48) Monocytes (%) (Auto) 11 % (0-9) Eosinophils (%) (Auto) 1 % (0-3) Basophils (%) (Auto) 1 % (0-3) Neutrophils # (Auto) 8.1 x10^3/uL (1.8-7.7) Lymphocytes # (Auto) 1.7 x10^3/uL (1.0-4.8) Monocytes # (Auto) 1.3 x10^3/uL (0.0-1.1) Eosinophils # (Auto) 0.1 x10^3/uL (0.0-0.7) Basophils # (Auto) 0.1 x10^3/uL (0.0-0.2) Prothrombin Time 32.6 SEC (11.7-14.0) Prothromb Time International Ratio 3.3 (0.8-1.1) Sodium Level 141 mmol/L (136-145) Potassium Level 3.7 mmol/L (3.5-5.1) Chloride Level 104 mmol/L (98-107) Carbon Dioxide Level 29 mmol/L (21-32) Anion Gap 8 (6-14) Blood Urea Nitrogen 56 mg/dL (8-26) Creatinine 3.6 mg/dL (0.7-1.3) Estimated GFR (Cockcroft-Gault) 17.4 BUN/Creatinine Ratio 16 (6-20) Glucose Level 155 mg/dL (70-99) Calcium Level 8.1 mg/dL (8.5-10.1) Total Bilirubin 0.7 mg/dL (0.2-1.0) Aspartate Amino Transf (AST/SGOT) 115 U/L (15-37) Alanine Aminotransferase (ALT/SGPT) 35 U/L (16-63) Alkaline Phosphatase 50 U/L (46-116) Total Protein 6.0 g/dL (6.4-8.2) Albumin 2.0 g/dL (3.4-5.0) Albumin/Globulin Ratio 0.5 (1.0-1.7) Micro Microbiology 06/02/21 Blood Culture - Preliminary, Resulted NO GROWTH AFTER 1 DAY Objective Assessment 1. Leukocytosis. 2. Extensive cellulitis of the legs. 3. Sepsis with lactic acidosis. 4. Renal insufficiency. 5. Yeast under the skin into the pannus. 6. Morbid obesity. 7. Multiple sclerosis. Plan Plan of Care Cont Zyvox, Zosyn and Diflucan, BC negative Monitor labs and cults supportive care, BREA BROWNE MD Jun 03, 2021 13:30
[2021-06-03] MEDS: DRONABINOL 2.5 MG CAPSULE. PO SCH ×2 (15:17→16:30)
[2021-06-03] MEDS ORDERED: WARFARIN 7.5 MG TABLET. PO SCH (16:00)
[2021-06-04] MEDS: PIPERACILLIN/TAZOBACTAM 2.25 GM in IV NORMAL SALINE 50ML 50 ML IV SCH ×4 (01:50→18:05)
[2021-06-04] MEDS: SODIUM BICARBONATE VIAL 150 MEQ in IV DEXTROSE 5% 1,000 ML IV SCH ×3 (01:50→16:49)
[2021-06-04 07:00] VITALS: BP 128/65
[2021-06-04] MEDS: CHOLECALCIFEROL (VITAMIN D3) 1,000 UNIT TABLET PO SCH (09:51)
[2021-06-04] MEDS: FLUCONAZOLE 100 MG TABLET. PO SCH (09:51)
[2021-06-04] MEDS: NYSTATIN TOPICAL POWDER 15GM BOTTLE. TP SCH ×2 (09:51→20:58)
[2021-06-04 10:47] LABS: BASO # 0.1 x10^3/uL (0.0-0.2); BASO % 1 % (0-3); EOS # 0.3 x10^3/uL (0.0-0.7); EOS % 3 % (0-3); HEMOGLOBIN 10.7 g/dL (13.0-17.5); LYMPH # 1.6 x10^3/uL (1.0-4.8); LYMPH % 19 % (24-48); MEAN CORPUSCULAR HEMOGLOBIN 28 pg (25-35); MEAN CORPUSCULAR HGB CONC 34 g/dL (31-37); MEAN CORPUSCULAR VOLUME 84 fL (79-100); MONO # 0.8 x10^3/uL (0.0-1.1); MONO % 10 % (0-9); NEUT # 5.4 x10^3/uL (1.8-7.7); NEUT % 67 % (31-73); PLATELET COUNT 408 x10^3/uL (140-400); RED BLOOD COUNT 3.83 x10^6/uL (4.30-5.70); RED CELL DISTRIBUTION WIDTH 18.2 % (11.5-14.5)
[2021-06-04 11:00] VITALS: BP 125/72
[2021-06-04 11:11] LABS: ALBUMIN 1.9 g/dL (3.4-5.0); ALBUMIN/GLOBULIN RATIO 0.5 (1.0-1.7); CREATININE 1.8 mg/dL (0.7-1.3); GFR 38.7; POTASSIUM 3.7 mmol/L (3.5-5.1); TOTAL BILIRUBIN 0.5 mg/dL (0.2-1.0); TOTAL PROTEIN 6.1 g/dL (6.4-8.2)
--- NOTE | 2021-06-04 12:44 | PDOC ---
[employer] PROGRESS NOTE Date of Service DOS: DATE: 06/04/21 TIME: 12:20 Chief Complaint Chief Complaint A/P: Bilateral lower extremity cellulitis - up to thighs with likely fungal involvement. ID consulted. Zyvox and diflucan Weakness and debility - worsening progressive MS combined with sepsis and renal failure Sepsis - given almost 5 liters NSS at this point. Albumin in addition to levophed. empiric antibiotics Lactic acidosis - with septic shock DIONNE - vasomotor nephropathy. Hydrate, hold HCTZ and lisinopril. 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 Will add marinol for appetite, anxiety, nausea H/o RLE DVT and PE - on warfarin, supratherapeutic. Hold today, decrease to 7.5mg while on diflucan FEN - General diet PPX - warfarin FULL CODE Dispo - ICU cc time 37 minutes History of Present Illness History of Present Illness Mr Du is a 60 year old male with PMHx Multiple sclerosis, lymphedema, HTN, RLE DVT and PE (2013) who was brought here by EMS from home for generalized weakness. Complain of increased tremors and weakness and multiple wounds. Patient's mother called EMS for help transferring. Patient does live alone. EMS stated that his house is in poor condition, patient was covered in feces and urine on his lower extremities which were found to be red, swollen, hot. Temp 98.8 F pulse 102 bpm respirations 24/min initial blood pressure 82/46. Patient denies any chest pain, denies any trouble breathing. Patient denies any abdominal pain, no nausea vomiting. WBC 19.2, Hb 12.5, platelets 576, NA 137, K5.5, BUN 79, CR 10.7, glucose 129, lactic acid 3.3 calcium 8.9, mag 2.2, bilirubin 0.7, AST 89, ALT 35, alk phos 66, albumin 2.8, NT proBNP 791, INR 3.8, rapid COVID-19 negative Chest radiograph no acute abnormalities. Given IV fluids and empiric antibiotics and admitted to ICU for severe sepsis. Consulted ID and nephrology. Trialysis catheter placed for pressor support and in anticipation of potential need for urgent renal replacement therapy. 06/03: WBC down to 11.3, Hb 10.9, platelets 444, CR improved to 3.5 BUN 59, INR 3.3 urine output greater than 4 L. Off pressors. Transferred from ICU. Afebrile. slept well overnight. WBC 8, Cr 1.8 BUN 28. Vitals/I&O Vitals/I&O: Vital Signs Date Time Temp Pulse Resp B/P (MAP) Pulse Ox O2 Delivery O2 Flow Rate FiO2 06/04/21 07:00 98.0 74 18 128/65 (86) 96 Room Air 98.0 06/03/21 20:00 2.0 I & O 06/03/21 06/03/21 06/04/21 15:00 23:00 07:00 Output Total 500 ml 900 ml Balance -500 ml -900 ml Physical Exam Physical Exam: GENERAL: Alert, oriented gentleman, not in distress. HEENT: Both pupils are round and reacting. No conjunctival lesion, no lesion in the mouth. NECK: Supple, no JVP, no lymphadenopathy. LUNGS: Clear. HEART: S1, S2 regular. ABDOMEN: Soft, nontender, no organomegaly. EXTREMITIES: Extensive erythema of both the legs present all the way to the groin and he has erythema under the pannus of the abdomen, some minor superficial skin breakdowns, edema of the legs. Peripheral pulses unable to palpate. NEUROLOGIC: The patient is alert, awake, and appropriate. No focal neurologic deficit. The patient also has a rash on the face, which he says is new in the last two weeks. General: Alert, Oriented X3, Cooperative, No acute distress Heart: Regular rate, Normal S1, Normal S2, No murmurs, Gallops Abdomen: Normal bowel sounds, Soft, Other (Panniculitis) Extremities: No clubbing, No cyanosis, No edema, Normal pulses, No tenderness/swelling Labs Labs: Laboratory Tests Test 06/04/21 09:42 White Blood Count 8.0 x10^3/uL (4.0-11.0) Red Blood Count 3.83 x10^6/uL (4.30-5.70) Hemoglobin 10.7 g/dL (13.0-17.5) Hematocrit 32.0 % (39.0-53.0) Mean Corpuscular Volume 84 fL (79-100) Mean Corpuscular Hemoglobin 28 pg (25-35) Mean Corpuscular Hemoglobin Concent 34 g/dL (31-37) Red Cell Distribution Width 18.2 % (11.5-14.5) Platelet Count 408 x10^3/uL (140-400) Neutrophils (%) (Auto) 67 % (31-73) Lymphocytes (%) (Auto) 19 % (24-48) Monocytes (%) (Auto) 10 % (0-9) Eosinophils (%) (Auto) 3 % (0-3) Basophils (%) (Auto) 1 % (0-3) Neutrophils # (Auto) 5.4 x10^3/uL (1.8-7.7) Lymphocytes # (Auto) 1.6 x10^3/uL (1.0-4.8) Monocytes # (Auto) 0.8 x10^3/uL (0.0-1.1) Eosinophils # (Auto) 0.3 x10^3/uL (0.0-0.7) Basophils # (Auto) 0.1 x10^3/uL (0.0-0.2) Sodium Level 143 mmol/L (136-145) Potassium Level 3.7 mmol/L (3.5-5.1) Chloride Level 104 mmol/L (98-107) Carbon Dioxide Level 34 mmol/L (21-32) Anion Gap 5 (6-14) Blood Urea Nitrogen 28 mg/dL (8-26) Creatinine 1.8 mg/dL (0.7-1.3) Estimated GFR (Cockcroft-Gault) 38.7 BUN/Creatinine Ratio 16 (6-20) Glucose Level 130 mg/dL (70-99) Calcium Level 8.0 mg/dL (8.5-10.1) Total Bilirubin 0.5 mg/dL (0.2-1.0) Aspartate Amino Transf (AST/SGOT) 81 U/L (15-37) Alanine Aminotransferase (ALT/SGPT) 36 U/L (16-63) Alkaline Phosphatase 52 U/L (46-116) Total Protein 6.1 g/dL (6.4-8.2) Albumin 1.9 g/dL (3.4-5.0) Albumin/Globulin Ratio 0.5 (1.0-1.7) Assessment and Plan Assessmemt and Plan Problems Medical Problems: (1) Bilateral cellulitis of lower leg Status: Acute (2) Renal failure Status: Acute (3) Severe sepsis Status: Acute Comment Review of Relevant I have reviewed the following items taniya (where applicable) has been applied. Justifications for Admission Other Justification STEPHANIA LOZA MD Jun 04, 2021 12:44
[2021-06-04] MEDS: DRONABINOL 2.5 MG CAPSULE. PO SCH ×2 (12:45→16:48)
--- NOTE | 2021-06-04 13:27 | PDOC ---
Infectious Disease Note Subjective Subjective Pt is alert awake afebrile ROS ROS no n/v/d/sob Vital Sign Vital Signs Vital Signs Date Time Temp Pulse Resp B/P (MAP) Pulse Ox O2 Delivery O2 Flow Rate FiO2 06/04/21 07:00 98.0 74 18 128/65 (86) 96 Room Air 98.0 06/03/21 20:00 2.0 Physical Exam PHYSICAL EXAM GENERAL: Alert, oriented gentleman, not in distress. HEENT: Both pupils are round and reacting. No conjunctival lesion, no lesion in the mouth. NECK: Supple, no JVP, no lymphadenopathy. LUNGS: Clear. HEART: S1, S2 regular. ABDOMEN: Soft, nontender, no organomegaly. EXTREMITIES: Extensive erythema of both the legs present all the way to the groin and he has erythema under the pannus of the abdomen, some minor superficial skin breakdowns, edema of the legs. Peripheral pulses unable to palpate. NEUROLOGIC: The patient is alert, awake, and appropriate. No focal neurologic deficit. The patient also has a rash on the face, which he says is new in the last two weeks. Labs Lab Laboratory Tests Test 06/04/21 09:42 White Blood Count 8.0 x10^3/uL (4.0-11.0) Red Blood Count 3.83 x10^6/uL (4.30-5.70) Hemoglobin 10.7 g/dL (13.0-17.5) Hematocrit 32.0 % (39.0-53.0) Mean Corpuscular Volume 84 fL (79-100) Mean Corpuscular Hemoglobin 28 pg (25-35) Mean Corpuscular Hemoglobin Concent 34 g/dL (31-37) Red Cell Distribution Width 18.2 % (11.5-14.5) Platelet Count 408 x10^3/uL (140-400) Neutrophils (%) (Auto) 67 % (31-73) Lymphocytes (%) (Auto) 19 % (24-48) Monocytes (%) (Auto) 10 % (0-9) Eosinophils (%) (Auto) 3 % (0-3) Basophils (%) (Auto) 1 % (0-3) Neutrophils # (Auto) 5.4 x10^3/uL (1.8-7.7) Lymphocytes # (Auto) 1.6 x10^3/uL (1.0-4.8) Monocytes # (Auto) 0.8 x10^3/uL (0.0-1.1) Eosinophils # (Auto) 0.3 x10^3/uL (0.0-0.7) Basophils # (Auto) 0.1 x10^3/uL (0.0-0.2) Sodium Level 143 mmol/L (136-145) Potassium Level 3.7 mmol/L (3.5-5.1) Chloride Level 104 mmol/L (98-107) Carbon Dioxide Level 34 mmol/L (21-32) Anion Gap 5 (6-14) Blood Urea Nitrogen 28 mg/dL (8-26) Creatinine 1.8 mg/dL (0.7-1.3) Estimated GFR (Cockcroft-Gault) 38.7 BUN/Creatinine Ratio 16 (6-20) Glucose Level 130 mg/dL (70-99) Calcium Level 8.0 mg/dL (8.5-10.1) Total Bilirubin 0.5 mg/dL (0.2-1.0) Aspartate Amino Transf (AST/SGOT) 81 U/L (15-37) Alanine Aminotransferase (ALT/SGPT) 36 U/L (16-63) Alkaline Phosphatase 52 U/L (46-116) Total Protein 6.1 g/dL (6.4-8.2) Albumin 1.9 g/dL (3.4-5.0) Albumin/Globulin Ratio 0.5 (1.0-1.7) Micro Microbiology 06/02/21 Blood Culture - Preliminary, Resulted NO GROWTH AFTER 1 DAY Objective Assessment 1. Leukocytosis. 2. Extensive cellulitis of the legs. 3. Sepsis with lactic acidosis. 4. Renal insufficiency. 5. Yeast under the skin into the pannus. 6. Morbid obesity. 7. Multiple sclerosis. Plan Plan of Care Cont Zyvox, Zosyn and Diflucan, BC negative Monitor labs and cults supportive care, BREA BROWNE MD Jun 04, 2021 13:27
[2021-06-04] MEDS: WARFARIN 7.5 MG TABLET. PO SCH (16:48)
[2021-06-04 19:55] VITALS: BP 123/50
[2021-06-04 22:35] VITALS: BP 124/52
[2021-06-05] MEDS: SODIUM BICARBONATE VIAL 150 MEQ in IV DEXTROSE 5% 1,000 ML IV SCH ×3 (02:54→21:25)
[2021-06-05 03:30] VITALS: BP 131/62
[2021-06-05] MEDS: PIPERACILLIN/TAZOBACTAM 2.25 GM in IV NORMAL SALINE 50ML 50 ML IV SCH ×5 (06:14→23:36)
[2021-06-05 07:04] LABS: BASO # 0.1 x10^3/uL (0.0-0.2); BASO % 1 % (0-3); EOS # 0.4 x10^3/uL (0.0-0.7); EOS % 4 % (0-3); HEMATOCRIT 33.4 % (39.0-53.0); HEMOGLOBIN 11.3 g/dL (13.0-17.5); LYMPH # 2.5 x10^3/uL (1.0-4.8); LYMPH % 27 % (24-48); MEAN CORPUSCULAR HEMOGLOBIN 28 pg (25-35); MEAN CORPUSCULAR HGB CONC 34 g/dL (31-37); MEAN CORPUSCULAR VOLUME 84 fL (79-100); MONO # 0.8 x10^3/uL (0.0-1.1); MONO % 9 % (0-9); NEUT # 5.5 x10^3/uL (1.8-7.7); NEUT % 60 % (31-73); PLATELET COUNT 401 x10^3/uL (140-400); RED BLOOD COUNT 3.99 x10^6/uL (4.30-5.70); RED CELL DISTRIBUTION WIDTH 17.9 % (11.5-14.5); WHITE BLOOD COUNT 9.2 x10^3/uL (4.0-11.0)
[2021-06-05 07:15] LABS: PROTHROMBIN TIME PATIENT 22.1 SEC (11.7-14.0)
[2021-06-05 07:20] VITALS: BP 132/49
[2021-06-05 07:49] LABS: ALBUMIN 1.9 g/dL (3.4-5.0); ALBUMIN/GLOBULIN RATIO 0.4 (1.0-1.7); CALCIUM 8.1 mg/dL (8.5-10.1); CREATININE 1.6 mg/dL (0.7-1.3); GFR 44.3; POTASSIUM 3.9 mmol/L (3.5-5.1); TOTAL BILIRUBIN 0.4 mg/dL (0.2-1.0); TOTAL PROTEIN 6.2 g/dL (6.4-8.2)
[2021-06-05] MEDS: NYSTATIN TOPICAL POWDER 15GM BOTTLE. TP SCH ×2 (08:17→20:58)
[2021-06-05] MEDS: FLUCONAZOLE 100 MG TABLET. PO SCH (08:17)
[2021-06-05] MEDS: CHOLECALCIFEROL (VITAMIN D3) 1,000 UNIT TABLET PO SCH (08:17)
--- NOTE | 2021-06-05 08:20 | PDOC ---
Infectious Disease Note Subjective Subjective Pt is alert awake afebrile Says feeling good ROS ROS No nausea vomiting diarrhea chest pain shortness of breath Vital Sign Vital Signs Vital Signs Date Time Temp Pulse Resp B/P (MAP) Pulse Ox O2 Delivery O2 Flow Rate FiO2 06/05/21 07:20 98.7 63 20 132/49 (76) 94 Room Air 98.7 06/04/21 20:00 2.0 Physical Exam PHYSICAL EXAM GENERAL: Alert, oriented gentleman, not in distress. HEENT: Both pupils are round and reacting. No conjunctival lesion, no lesion in the mouth. NECK: Supple, no JVP, no lymphadenopathy. LUNGS: Clear. HEART: S1, S2 regular. ABDOMEN: Soft, nontender, no organomegaly. EXTREMITIES: Extensive erythema of both the legs present all the way to the groin and he has erythema under the pannus of the abdomen, some minor superficial skin breakdowns, edema of the legs. Peripheral pulses unable to palpate. NEUROLOGIC: The patient is alert, awake, and appropriate. No focal neurologic deficit. The patient also has a rash on the face, which he says is new in the last two weeks. Labs Lab Laboratory Tests Test 06/04/21 09:42 06/05/21 06:45 White Blood Count 8.0 x10^3/uL (4.0-11.0) 9.2 x10^3/uL (4.0-11.0) Red Blood Count 3.83 x10^6/uL (4.30-5.70) 3.99 x10^6/uL (4.30-5.70) Hemoglobin 10.7 g/dL (13.0-17.5) 11.3 g/dL (13.0-17.5) Hematocrit 32.0 % (39.0-53.0) 33.4 % (39.0-53.0) Mean Corpuscular Volume 84 fL (79-100) 84 fL (79-100) Mean Corpuscular Hemoglobin 28 pg (25-35) 28 pg (25-35) Mean Corpuscular Hemoglobin Concent 34 g/dL (31-37) 34 g/dL (31-37) Red Cell Distribution Width 18.2 % (11.5-14.5) 17.9 % (11.5-14.5) Platelet Count 408 x10^3/uL (140-400) 401 x10^3/uL (140-400) Neutrophils (%) (Auto) 67 % (31-73) 60 % (31-73) Lymphocytes (%) (Auto) 19 % (24-48) 27 % (24-48) Monocytes (%) (Auto) 10 % (0-9) 9 % (0-9) Eosinophils (%) (Auto) 3 % (0-3) 4 % (0-3) Basophils (%) (Auto) 1 % (0-3) 1 % (0-3) Neutrophils # (Auto) 5.4 x10^3/uL (1.8-7.7) 5.5 x10^3/uL (1.8-7.7) Lymphocytes # (Auto) 1.6 x10^3/uL (1.0-4.8) 2.5 x10^3/uL (1.0-4.8) Monocytes # (Auto) 0.8 x10^3/uL (0.0-1.1) 0.8 x10^3/uL (0.0-1.1) Eosinophils # (Auto) 0.3 x10^3/uL (0.0-0.7) 0.4 x10^3/uL (0.0-0.7) Basophils # (Auto) 0.1 x10^3/uL (0.0-0.2) 0.1 x10^3/uL (0.0-0.2) Sodium Level 143 mmol/L (136-145) 139 mmol/L (136-145) Potassium Level 3.7 mmol/L (3.5-5.1) 3.9 mmol/L (3.5-5.1) Chloride Level 104 mmol/L (98-107) 103 mmol/L (98-107) Carbon Dioxide Level 34 mmol/L (21-32) 32 mmol/L (21-32) Anion Gap 5 (6-14) 4 (6-14) Blood Urea Nitrogen 28 mg/dL (8-26) 19 mg/dL (8-26) Creatinine 1.8 mg/dL (0.7-1.3) 1.6 mg/dL (0.7-1.3) Estimated GFR (Cockcroft-Gault) 38.7 44.3 BUN/Creatinine Ratio 16 (6-20) 12 (6-20) Glucose Level 130 mg/dL (70-99) 107 mg/dL (70-99) Calcium Level 8.0 mg/dL (8.5-10.1) 8.1 mg/dL (8.5-10.1) Total Bilirubin 0.5 mg/dL (0.2-1.0) 0.4 mg/dL (0.2-1.0) Aspartate Amino Transf (AST/SGOT) 81 U/L (15-37) 74 U/L (15-37) Alanine Aminotransferase (ALT/SGPT) 36 U/L (16-63) 42 U/L (16-63) Alkaline Phosphatase 52 U/L (46-116) 54 U/L (46-116) Total Protein 6.1 g/dL (6.4-8.2) 6.2 g/dL (6.4-8.2) Albumin 1.9 g/dL (3.4-5.0) 1.9 g/dL (3.4-5.0) Albumin/Globulin Ratio 0.5 (1.0-1.7) 0.4 (1.0-1.7) Prothrombin Time 22.1 SEC (11.7-14.0) Prothromb Time International Ratio 2.0 (0.8-1.1) Micro Microbiology 06/02/21 Blood Culture - Preliminary, Resulted NO GROWTH AFTER 1 DAY Objective Assessment 1. Leukocytosis. 2. Extensive cellulitis of the legs. 3. Sepsis with lactic acidosis. 4. Renal insufficiency. 5. Yeast under the skin into the pannus. 6. Morbid obesity. 7. Multiple sclerosis. Plan Plan of Care Extensive excoriation Cont Zyvox, Zosyn and Diflucan, BC negative Monitor labs and cults supportive care, PT OT BREA BROWNE MD Jun 05, 2021 08:20
[2021-06-05] MEDS: DRONABINOL 2.5 MG CAPSULE. PO SCH ×2 (11:02→17:48)
[2021-06-05 11:09] VITALS: BP 114/40
--- NOTE | 2021-06-05 13:21 | PDOC ---
PROGRESS NOTES Date of Service DATE: 06/05/21 TIME: 13:19 Subjective Subjective SEEN IN FOLLOW UP OF ARF Objective Objective Vital Signs Date Time Temp Pulse Resp B/P (MAP) Pulse Ox O2 Delivery O2 Flow Rate FiO2 06/05/21 11:09 98.3 58 18 114/40 (64) 94 Room Air 98.3 06/04/21 20:00 2.0 Intake and Output 06/05/21 07:00 Intake Total 100 ml Output Total 4050 ml Balance -3950 ml Intake Oral 100 ml Output Urine Total 4050 ml Physical Exam Heart: Regular rate, Normal S1, Normal S2, No murmurs, Gallops Extremities: No clubbing, No cyanosis, No edema, Normal pulses, No tenderness/swelling General: Alert, Oriented X3, Cooperative, No acute distress Lungs: Clear to auscultation, Normal air movement Psych/Mental Status: Mental status NL, Mood NL Diagnosis RENAL FAILURE: Acute (Acute tubular necrosis) Assessment Assessment Problems Medical Problems: (1) Bilateral cellulitis of lower leg Status: Acute (2) Renal failure Status: Acute (3) Severe sepsis Status: Acute Plan Plan of Care RENAL FUNCTION IS IMPROVING. WILL CONT IVF. CONT ANTIBIOTICS Comment Review of Relevant I have reviewed the following items taniya (where applicable) has been applied. Labs Laboratory Tests Test 06/04/21 09:42 06/05/21 06:45 White Blood Count 8.0 x10^3/uL (4.0-11.0) 9.2 x10^3/uL (4.0-11.0) Red Blood Count 3.83 x10^6/uL (4.30-5.70) 3.99 x10^6/uL (4.30-5.70) Hemoglobin 10.7 g/dL (13.0-17.5) 11.3 g/dL (13.0-17.5) Hematocrit 32.0 % (39.0-53.0) 33.4 % (39.0-53.0) Mean Corpuscular Volume 84 fL (79-100) 84 fL (79-100) Mean Corpuscular Hemoglobin 28 pg (25-35) 28 pg (25-35) Mean Corpuscular Hemoglobin Concent 34 g/dL (31-37) 34 g/dL (31-37) Red Cell Distribution Width 18.2 % (11.5-14.5) 17.9 % (11.5-14.5) Platelet Count 408 x10^3/uL (140-400) 401 x10^3/uL (140-400) Neutrophils (%) (Auto) 67 % (31-73) 60 % (31-73) Lymphocytes (%) (Auto) 19 % (24-48) 27 % (24-48) Monocytes (%) (Auto) 10 % (0-9) 9 % (0-9) Eosinophils (%) (Auto) 3 % (0-3) 4 % (0-3) Basophils (%) (Auto) 1 % (0-3) 1 % (0-3) Neutrophils # (Auto) 5.4 x10^3/uL (1.8-7.7) 5.5 x10^3/uL (1.8-7.7) Lymphocytes # (Auto) 1.6 x10^3/uL (1.0-4.8) 2.5 x10^3/uL (1.0-4.8) Monocytes # (Auto) 0.8 x10^3/uL (0.0-1.1) 0.8 x10^3/uL (0.0-1.1) Eosinophils # (Auto) 0.3 x10^3/uL (0.0-0.7) 0.4 x10^3/uL (0.0-0.7) Basophils # (Auto) 0.1 x10^3/uL (0.0-0.2) 0.1 x10^3/uL (0.0-0.2) Sodium Level 143 mmol/L (136-145) 139 mmol/L (136-145) Potassium Level 3.7 mmol/L (3.5-5.1) 3.9 mmol/L (3.5-5.1) Chloride Level 104 mmol/L (98-107) 103 mmol/L (98-107) Carbon Dioxide Level 34 mmol/L (21-32) 32 mmol/L (21-32) Anion Gap 5 (6-14) 4 (6-14) Blood Urea Nitrogen 28 mg/dL (8-26) 19 mg/dL (8-26) Creatinine 1.8 mg/dL (0.7-1.3) 1.6 mg/dL (0.7-1.3) Estimated GFR (Cockcroft-Gault) 38.7 44.3 BUN/Creatinine Ratio 16 (6-20) 12 (6-20) Glucose Level 130 mg/dL (70-99) 107 mg/dL (70-99) Calcium Level 8.0 mg/dL (8.5-10.1) 8.1 mg/dL (8.5-10.1) Total Bilirubin 0.5 mg/dL (0.2-1.0) 0.4 mg/dL (0.2-1.0) Aspartate Amino Transf (AST/SGOT) 81 U/L (15-37) 74 U/L (15-37) Alanine Aminotransferase (ALT/SGPT) 36 U/L (16-63) 42 U/L (16-63) Alkaline Phosphatase 52 U/L (46-116) 54 U/L (46-116) Total Protein 6.1 g/dL (6.4-8.2) 6.2 g/dL (6.4-8.2) Albumin 1.9 g/dL (3.4-5.0) 1.9 g/dL (3.4-5.0) Albumin/Globulin Ratio 0.5 (1.0-1.7) 0.4 (1.0-1.7) Prothrombin Time 22.1 SEC (11.7-14.0) Prothromb Time International Ratio 2.0 (0.8-1.1) Laboratory Tests Test 06/05/21 06:45 White Blood Count 9.2 x10^3/uL (4.0-11.0) Red Blood Count 3.99 x10^6/uL (4.30-5.70) Hemoglobin 11.3 g/dL (13.0-17.5) Hematocrit 33.4 % (39.0-53.0) Mean Corpuscular Volume 84 fL (79-100) Mean Corpuscular Hemoglobin 28 pg (25-35) Mean Corpuscular Hemoglobin Concent 34 g/dL (31-37) Red Cell Distribution Width 17.9 % (11.5-14.5) Platelet Count 401 x10^3/uL (140-400) Neutrophils (%) (Auto) 60 % (31-73) Lymphocytes (%) (Auto) 27 % (24-48) Monocytes (%) (Auto) 9 % (0-9) Eosinophils (%) (Auto) 4 % (0-3) Basophils (%) (Auto) 1 % (0-3) Neutrophils # (Auto) 5.5 x10^3/uL (1.8-7.7) Lymphocytes # (Auto) 2.5 x10^3/uL (1.0-4.8) Monocytes # (Auto) 0.8 x10^3/uL (0.0-1.1) Eosinophils # (Auto) 0.4 x10^3/uL (0.0-0.7) Basophils # (Auto) 0.1 x10^3/uL (0.0-0.2) Prothrombin Time 22.1 SEC (11.7-14.0) Prothromb Time International Ratio 2.0 (0.8-1.1) Sodium Level 139 mmol/L (136-145) Potassium Level 3.9 mmol/L (3.5-5.1) Chloride Level 103 mmol/L (98-107) Carbon Dioxide Level 32 mmol/L (21-32) Anion Gap 4 (6-14) Blood Urea Nitrogen 19 mg/dL (8-26) Creatinine 1.6 mg/dL (0.7-1.3) Estimated GFR (Cockcroft-Gault) 44.3 BUN/Creatinine Ratio 12 (6-20) Glucose Level 107 mg/dL (70-99) Calcium Level 8.1 mg/dL (8.5-10.1) Total Bilirubin 0.4 mg/dL (0.2-1.0) Aspartate Amino Transf (AST/SGOT) 74 U/L (15-37) Alanine Aminotransferase (ALT/SGPT) 42 U/L (16-63) Alkaline Phosphatase 54 U/L (46-116) Total Protein 6.2 g/dL (6.4-8.2) Albumin 1.9 g/dL (3.4-5.0) Albumin/Globulin Ratio 0.4 (1.0-1.7) Microbiology 06/02/21 Urine Culture - Final, Complete 06/02/21 Blood Culture - Preliminary, Resulted NO GROWTH AFTER 3 DAYS Medications Current Medications Sodium Chloride 1,000 ml @ 1,000 mls/hr 1X ONCE IV Last administered on at 01:00; Start 06/01/21 at 22:45; Stop 06/02/21 at 00:53; Status DC Sodium Chloride 1,000 ml @ 1,000 mls/hr 1X ONCE IV Last administered on 06/02/21at 01:00; Start 06/01/21 at 23:45; Stop 06/02/21 at 00:53; Status DC Vancomycin HCl (Vanco Per Pharmacy) 1 each PRN DAILY PRN MC SEE COMMENTS; Start 06/02/21 at 00:00; Status UNV Sodium Chloride 1,000 ml @ 1,000 mls/hr 1X ONCE IV Last administered on 06/02/21at 01:00; Start 06/02/21 at 00:00; Stop 06/02/21 at 00:59; Status DC Enoxaparin Sodium (Lovenox 150mg Syringe) 150 mg 1X ONCE SQ ; Start 06/02/21 at 00:30; Stop 06/02/21 at 01:05; Status DC Ondansetron HCl (Zofran) 4 mg PRN Q8HRS PRN IVP NAUSEA/VOMITING; Start 06/02/21 at 00:30; Stop 06/03/21 at 00:29; Status DC Sodium Chloride 1,000 ml @ 125 mls/hr Q8H IV Last administered on 06/02/21at 01:01; Start 06/02/21 at 00:30; Stop 06/03/21 at 00:29; Status DC Acetaminophen (Tylenol) 650 mg PRN Q4HRS PRN PO FEVER > 100.3'F; Start 06/02/21 at 00:30; Stop 06/03/21 at 00:29; Status DC Linezolid/Dextrose 300 ml @ 300 mls/hr Q12HR IV Last administered on 06/05/21at 08:17; Start 06/02/21 at 01:30 Norepinephrine Bitartrate 8 mg/ Dextrose 258 ml @ 8.708 mls/ hr CONT PRN IV PER PROTOCOL Last administered on 06/02/21at 06:27; Start 06/02/21 at 06:15; Stop 06/03/21 at 15:29; Status DC Albumin Human 500 ml @ 125 mls/hr 1X ONCE IV Last administered on 06/02/21at 12:23; Start 06/02/21 at 07:45; Stop 06/02/21 at 11:44; Status DC Piperacillin Sod/ Tazobactam Sod 2.25 gm/Sodium Chloride 50 ml @ 100 mls/hr Q6HRS IV Last administered on 06/05/21at 11:02; Start 06/02/21 at 10:00 Fluconazole (Diflucan) 100 mg DAILY PO Last administered on 06/05/21at 08:17; Start 06/02/21 at 09:00 Vitamin D (Vitamin D3) 1,000 unit DAILY PO Last administered on 06/05/21at 08:17; Start 06/02/21 at 09:00 Warfarin Sodium (Coumadin) 7.5 mg DAILY16 PO ; Start 06/03/21 at 16:00; Stop 06/03/21 at 14:24; Status DC Warfarin Sodium (Coumadin Per Physician) 1 each PRN DAILY PRN MC SEE COMMENTS Last administered on 06/03/21at 14:26; Start 06/02/21 at 09:00 Lidocaine HCl (Buffered Lidocaine 1%) 3 ml STK-MED ONCE .ROUTE ; Start 06/02/21 at 10:27; Stop 06/02/21 at 10:27; Status DC Sodium Bicarbonate 150 meq/Dextrose 1,150 ml @ 125 mls/hr Q9H12M IV Last administered on 06/05/21at 11:03; Start 06/02/21 at 10:30 Lidocaine HCl (Buffered Lidocaine 1%) 3 ml 1X ONCE INJ Last administered on 06/02/21at 11:26; Start 06/02/21 at 11:30; Stop 06/02/21 at 11:31; Status DC Nystatin (Nystop) 1 pedro BID TP Last administered on 06/05/21at 08:17; Start 06/02/21 at 17:00 Vitamin A/Vitamin D (Vitamin A & D Ointment) 1 pedro TID PRN TP SKIN PROTECTION Last administered on 06/03/21at 08:24; Start 06/02/21 at 16:45 Dronabinol (Marinol) 2.5 mg BIDACLD PO Last administered on 06/05/21at 11:02; Start 06/03/21 at 11:30 Warfarin Sodium (Coumadin) 7.5 mg DAILY16 PO Last administered on 06/04/21at 16:48; Start 06/04/21 at 16:00 Active Scripts Active Reported Saw Crucible 160 Mg Capsule 160 Mg PO BID Vitamin D3 (Vitamin D) 25 Mcg Tablet 1,000 Mg PO DAILY 1,000 UNITS = 25 MCG Imuran (Azathioprine) 50 Mg Tablet 50 Mg PO TID Lisinopril-Hctz 10-12.5 Mg Tab (Lisinopril/Hydrochlorothiazide) 1 Each Tablet 0.5 Tab PO DAILY Warfarin Sodium 10 Mg Tablet 10 Mg PO DAILY Warfarin Sodium 7.5 Mg Tablet 7.5 Mg PO DAILY Vitals/I & O Vital Sign - Last 24 Hours 06/04/21 06/04/21 06/04/21 06/05/21 19:55 20:00 22:35 03:30 Temp 98.9 98.5 98.4 98.9 98.5 98.4 Pulse 69 67 60 Resp 24 24 22 B/P (MAP) 123/50 (74) 124/52 (76) 131/62 (85) Pulse Ox 92 92 92 O2 Delivery Room Air Nasal Cannula Room Air Room Air O2 Flow Rate 2.0 06/05/21 06/05/21 07:20 11:09 Temp 98.7 98.3 98.7 98.3 Pulse 63 58 Resp 20 18 B/P (MAP) 132/49 (76) 114/40 (64) Pulse Ox 94 94 O2 Delivery Room Air Room Air Intake and Output 06/04/21 06/04/21 06/05/21 15:00 23:00 07:00 Intake Total 100 ml Output Total 1950 ml 1400 ml 700 ml Balance -1950 ml -1400 ml -600 ml Justifications for Admission Other Justification Nutrition Consultation Dietary Evaluation: Recommendations by RD: Dietary education by RD, Increase Calorie Intake, Protein supplementation Comments: Renal diet increased protein needs if HD:rec DBL meats, Oral nutrition supplements Nepro bid monitor po intake Expected Outcomes/Goals: to meet >75% est nutr needs via po intake Malnutrition Findings: Weight Status: Morbidly Obese Fluid Accumulation (Non-Severe: Mild depletion CELIO WILLSON MD Jun 05, 2021 13:21
--- NOTE | 2021-06-05 13:38 | PDOC ---
[employer] PROGRESS NOTE Date of Service DOS: DATE: 06/05/21 TIME: 13:22 Chief Complaint Chief Complaint Bilateral lower extremity cellulitis Weakness and debility Sepsis Lactic acidosis DIONNE - vasomotor nephropathy Fungal dermatitis Morbid obesity Multiple sclerosis H/o RLE DVT and PE History of Present Illness History of Present Illness Mr Du is a 60 year old male with PMHx Multiple sclerosis, lymphedema, HTN, RLE DVT and PE (2013) who was brought here by EMS from home for generalized weakness. Complain of increased tremors and weakness and multiple wounds. Patient's mother called EMS for help transferring. Patient does live alone. EMS stated that his house is in poor condition, patient was covered in feces and urine on his lower extremities which were found to be red, swollen, hot. Temp 98.8 F pulse 102 bpm respirations 24/min initial blood pressure 82/46. Patient denies any chest pain, denies any trouble breathing. Patient denies any abdominal pain, no nausea vomiting. WBC 19.2, Hb 12.5, platelets 576, NA 137, K5.5, BUN 79, CR 10.7, glucose 129, lactic acid 3.3 calcium 8.9, mag 2.2, bilirubin 0.7, AST 89, ALT 35, alk phos 66, albumin 2.8, NT proBNP 791, INR 3.8, rapid COVID-19 negative Chest radiograph no acute abnormalities. Given IV fluids and empiric antibiotics and admitted to ICU for severe sepsis. Consulted ID and nephrology. Trialysis catheter placed for pressor support and in anticipation of potential need for urgent renal replacement therapy. 06/03: WBC down to 11.3, Hb 10.9, platelets 444, CR improved to 3.5 BUN 59, INR 3.3 urine output greater than 4 L. 06/04: Off pressors. Transferred from ICU. Afebrile. slept well overnight. WBC 8, Cr 1.8 BUN 28. 06/05: Patient seen and examined. Discussed with RN. Chart reviewed. Patient in NAD. Cr trending down (1.6); BUN has normalized (19). PT (22.1) and INR (2) decreased from previous day. Tinea Unguium identified on foot exam, consult podiatry. Patient has Fields to BSD. Discussed with patients's mother (Blessing). Vitals/I&O Vitals/I&O: Vital Signs Date Time Temp Pulse Resp B/P (MAP) Pulse Ox O2 Delivery O2 Flow Rate FiO2 06/05/21 11:09 98.3 58 18 114/40 (64) 94 Room Air 98.3 06/04/21 20:00 2.0 I & O 06/04/21 06/04/21 06/05/21 15:00 23:00 07:00 Intake Total 100 ml Output Total 1950 ml 1400 ml 700 ml Balance -1950 ml -1400 ml -600 ml Physical Exam Physical Exam: GENERAL: Alert, oriented gentleman, not in distress. HEENT: Both pupils are round and reacting. No conjunctival lesion, no lesion in the mouth. NECK: Supple, no JVP, no lymphadenopathy. LUNGS: Clear. HEART: S1, S2 regular. ABDOMEN: Soft, nontender, no organomegaly. EXTREMITIES: Extensive erythema of both the legs present all the way to the groin and he has erythema under the pannus of the abdomen, some minor superficial skin breakdowns, edema of the legs. Peripheral pulses unable to palpate. NEUROLOGIC: The patient is alert, awake, and appropriate. No focal neurologic deficit. The patient also has a rash on the face, which he says is new in the last two weeks. General: Alert, Oriented X3, Cooperative, No acute distress Heart: Regular rate, Normal S1, Normal S2, No murmurs, Gallops Abdomen: Normal bowel sounds, Soft, Other (Panniculitis) Extremities: No clubbing, No cyanosis, No edema, Normal pulses, No tenderness/swelling Labs Labs: Laboratory Tests Test 06/05/21 06:45 White Blood Count 9.2 x10^3/uL (4.0-11.0) Red Blood Count 3.99 x10^6/uL (4.30-5.70) Hemoglobin 11.3 g/dL (13.0-17.5) Hematocrit 33.4 % (39.0-53.0) Mean Corpuscular Volume 84 fL (79-100) Mean Corpuscular Hemoglobin 28 pg (25-35) Mean Corpuscular Hemoglobin Concent 34 g/dL (31-37) Red Cell Distribution Width 17.9 % (11.5-14.5) Platelet Count 401 x10^3/uL (140-400) Neutrophils (%) (Auto) 60 % (31-73) Lymphocytes (%) (Auto) 27 % (24-48) Monocytes (%) (Auto) 9 % (0-9) Eosinophils (%) (Auto) 4 % (0-3) Basophils (%) (Auto) 1 % (0-3) Neutrophils # (Auto) 5.5 x10^3/uL (1.8-7.7) Lymphocytes # (Auto) 2.5 x10^3/uL (1.0-4.8) Monocytes # (Auto) 0.8 x10^3/uL (0.0-1.1) Eosinophils # (Auto) 0.4 x10^3/uL (0.0-0.7) Basophils # (Auto) 0.1 x10^3/uL (0.0-0.2) Prothrombin Time 22.1 SEC (11.7-14.0) Prothromb Time International Ratio 2.0 (0.8-1.1) Sodium Level 139 mmol/L (136-145) Potassium Level 3.9 mmol/L (3.5-5.1) Chloride Level 103 mmol/L (98-107) Carbon Dioxide Level 32 mmol/L (21-32) Anion Gap 4 (6-14) Blood Urea Nitrogen 19 mg/dL (8-26) Creatinine 1.6 mg/dL (0.7-1.3) Estimated GFR (Cockcroft-Gault) 44.3 BUN/Creatinine Ratio 12 (6-20) Glucose Level 107 mg/dL (70-99) Calcium Level 8.1 mg/dL (8.5-10.1) Total Bilirubin 0.4 mg/dL (0.2-1.0) Aspartate Amino Transf (AST/SGOT) 74 U/L (15-37) Alanine Aminotransferase (ALT/SGPT) 42 U/L (16-63) Alkaline Phosphatase 54 U/L (46-116) Total Protein 6.2 g/dL (6.4-8.2) Albumin 1.9 g/dL (3.4-5.0) Albumin/Globulin Ratio 0.4 (1.0-1.7) Review of Systems Review of Systems: Patient denied nausea and vomiting. Assessment and Plan Assessmemt and Plan Problems Medical Problems: (1) Bilateral cellulitis of lower leg Status: Acute (2) Renal failure Status: Acute (3) Severe sepsis Status: Acute Assessment: Bilateral lower extremity cellulitis Weakness and debility Sepsis Lactic acidosis DIONNE - vasomotor nephropathy Fungal dermatitis Morbid obesity Multiple sclerosis H/o RLE DVT and PE Plan: 1. Wound care 2. Continue IV Antibiotics and Anti-fungals (Zyvox, Zosyn, Diflucan) 3. Consult Podiatry (tinea unguium) 4. Appreciate Nephrology subspecialty input 5. Appreciate Infectious Disease subspecialty input 6. DVT Prophylaxis - Warfarin 7. Trend labs 8. Continue Marinol for appetite, anxiety, nausea 9. Encourage PO intake-general diet 10. Home meds 11. FULL CODE 12. Discharge disposition pending Comment Review of Relevant I have reviewed the following items taniya (where applicable) has been applied. Medications: Current Medications Medications (Trade) Dose Ordered Sig/Steve Route PRN Reason Start Time Stop Time Status Last Admin Dose Admin Warfarin Sodium (Coumadin) 7.5 mg DAILY16 PO 06/04/21 16:00 06/04/21 16:48 Justifications for Admission Other Justification XIAO WILSON III DO Jun 05, 2021 13:38
[2021-06-05 14:49] VITALS: BP 123/46
[2021-06-05] MEDS: WARFARIN 7.5 MG TABLET. PO SCH (17:48)
[2021-06-05 19:00] VITALS: BP 110/65
[2021-06-05 23:00] VITALS: BP 108/65
[2021-06-06 03:00] VITALS: BP 121/54
[2021-06-06] MEDS: PIPERACILLIN/TAZOBACTAM 2.25 GM in IV NORMAL SALINE 50ML 50 ML IV SCH (05:27)
[2021-06-06] MEDS: SODIUM BICARBONATE VIAL 150 MEQ in IV DEXTROSE 5% 1,000 ML IV SCH (06:15)
[2021-06-06 06:35] LABS: PROTHROMBIN TIME PATIENT 25.6 SEC (11.7-14.0)
[2021-06-06 07:37] VITALS: BP 135/62
[2021-06-06] MEDS: CHOLECALCIFEROL (VITAMIN D3) 1,000 UNIT TABLET PO SCH (07:55)
[2021-06-06] MEDS: FLUCONAZOLE 100 MG TABLET. PO SCH (07:56)
[2021-06-06] MEDS: NYSTATIN TOPICAL POWDER 15GM BOTTLE. TP SCH ×2 (07:58→21:12)
--- NOTE | 2021-06-06 08:25 | PDOC ---
Infectious Disease Note Subjective Subjective Pt is alert awake afebrile Says feeling good ROS ROS No nausea vomiting diarrhea chest pain shortness of breath Vital Sign Vital Signs Vital Signs Date Time Temp Pulse Resp B/P (MAP) Pulse Ox O2 Delivery O2 Flow Rate FiO2 06/06/21 07:37 98.0 67 18 135/62 (86) 95 Room Air 98.0 06/05/21 19:50 2.0 Physical Exam PHYSICAL EXAM GENERAL: Alert, oriented gentleman, not in distress. HEENT: Both pupils are round and reacting. No conjunctival lesion, no lesion in the mouth. NECK: Supple, no JVP, no lymphadenopathy. LUNGS: Clear. HEART: S1, S2 regular. ABDOMEN: Soft, nontender, no organomegaly. EXTREMITIES: Extensive erythema of both the legs present all the way to the groin and he has erythema under the pannus of the abdomen, some minor superficial skin breakdowns, edema of the legs. Peripheral pulses unable to palpate. NEUROLOGIC: The patient is alert, awake, and appropriate. No focal neurologic deficit. The patient also has a rash on the face, which he says is new in the last two weeks. Labs Lab Laboratory Tests Test 06/06/21 06:10 Prothrombin Time 25.6 SEC (11.7-14.0) Prothromb Time International Ratio 2.4 (0.8-1.1) Micro Microbiology 06/02/21 Blood Culture - Preliminary, Resulted NO GROWTH AFTER 1 DAY Objective Assessment 1. Leukocytosis. 2. Extensive cellulitis of the legs. 3. Sepsis with lactic acidosis. 4. Renal insufficiency. 5. Yeast under the skin into the pannus. 6. Morbid obesity. 7. Multiple sclerosis. Plan Plan of Care Extensive excoriation Antibiotic can be changed to p.o. Patient needs to go to long-term facility BC negative Monitor labs and cults supportive care, PT OT BREA BROWNE MD Jun 06, 2021 08:25
--- NOTE | 2021-06-06 10:18 | NUR ---
SW following. Discussed with RN. pt from home alone, 2L (does not use oxygen at home), renal diet. Pt having dialysis day by day. COVID-19 negative. Pt uses a chair lift at home to get in and out of bed to scooter. Therapy recommending LTC. 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 SW will continue to follow.
[2021-06-06 11:15] VITALS: BP 140/70
--- NOTE | 2021-06-06 11:15 | PDOC ---
Renal-Progress Notes Subjective Notes Notes NO NEW COMPLAINTS History of Present Illness Hx of present illness STABLE, IMPROVED Vitals Vitals Vital Signs Date Time Temp Pulse Resp B/P (MAP) Pulse Ox O2 Delivery O2 Flow Rate FiO2 06/06/21 07:37 98.0 67 18 135/62 (86) 95 Room Air 98.0 06/05/21 19:50 2.0 Weight Weight [ ] I.O. Intake and Output Intake and Output 06/06/21 07:00 Intake Total 550 ml Output Total 2400 ml Balance -1850 ml Intake Oral 200 ml IV Total 350 ml Output Urine Total 2400 ml Labs Labs Laboratory Tests Test 06/06/21 06:10 Prothrombin Time 25.6 SEC (11.7-14.0) Prothromb Time International Ratio 2.4 (0.8-1.1) Micro Micro Microbiology 06/02/21 Urine Culture - Final, Complete 06/02/21 Blood Culture - Preliminary, Resulted NO GROWTH AFTER 4 DAYS Review of Systems Constitutional: yes: weakness, alert Ears/Nose/Throat: Yes: no symptom reported Eyes: Yes: no symptom reported Pulmonary: Yes no symptom reported Cardiovascular: Yes no symptom reported Gastrointestional: Yes: no symptom reported Musculoskeletal: Yes: no symptom reported Skin: Yes no symptom reported Psychiatric/Neurological: Yes: no symptom reported Endocrine: Yes: no symptom reported Physical Exam General Appearance: no apparent distress Skin: warm Respiratory: bilateral CTA Heart: S1S2 Abdomen: soft, bowel sounds present Genitourinary: bladder flat Extremities: pulses present Neurology: alert Assessment Assessment IMP DIONNE-CR DOWN TO 1.6 FROM 9.0 ACIDOSIS-RESOLVED SEPSIS LE CELLULITIS LEUCOCYTOSIS OBESITY MS PLAN STOP HCO3 GTT ANTIBIOTICS LABS IN AM WILL FOLLOW ALMAZ CHAMBERS MD Jun 06, 2021 11:15
[2021-06-06] MEDS: DRONABINOL 2.5 MG CAPSULE. PO SCH ×2 (12:02→16:40)
[2021-06-06] MEDS: IV 1/2 NORMAL SALINE 1,000 ML IV SCH (12:02)
--- NOTE | 2021-06-06 12:57 | PDOC ---
[employer] PROGRESS NOTE Date of Service DOS: DATE: 06/06/21 TIME: 12:43 Chief Complaint Chief Complaint Bilateral lower extremity cellulitis Weakness and debility Sepsis Lactic acidosis DIONNE - vasomotor nephropathy Fungal dermatitis Morbid obesity Multiple sclerosis H/o RLE DVT and PE History of Present Illness History of Present Illness Mr Du is a 60 year old male with PMHx Multiple sclerosis, lymphedema, HTN, RLE DVT and PE (2013) who was brought here by EMS from home for generalized weakness. Complain of increased tremors and weakness and multiple wounds. Patient's mother called EMS for help transferring. Patient does live alone. EMS stated that his house is in poor condition, patient was covered in feces and urine on his lower extremities which were found to be red, swollen, hot. Temp 98.8 F pulse 102 bpm respirations 24/min initial blood pressure 82/46. Patient denies any chest pain, denies any trouble breathing. Patient denies any abdominal pain, no nausea vomiting. WBC 19.2, Hb 12.5, platelets 576, NA 137, K5.5, BUN 79, CR 10.7, glucose 129, lactic acid 3.3 calcium 8.9, mag 2.2, bilirubin 0.7, AST 89, ALT 35, alk phos 66, albumin 2.8, NT proBNP 791, INR 3.8, rapid COVID-19 negative Chest radiograph no acute abnormalities. Given IV fluids and empiric antibiotics and admitted to ICU for severe sepsis. Consulted ID and nephrology. Trialysis catheter placed for pressor support and in anticipation of potential need for urgent renal replacement therapy. 06/03: WBC down to 11.3, Hb 10.9, platelets 444, CR improved to 3.5 BUN 59, INR 3.3 urine output greater than 4 L. 06/04: Off pressors. Transferred from ICU. Afebrile. slept well overnight. WBC 8, Cr 1.8 BUN 28. 06/05: Patient seen and examined. Discussed with RN. Chart reviewed. Patient in NAD. Cr trending down (1.6); BUN has normalized (19). PT (22.1) and INR (2) decreased from previous day. Tinea Unguium identified on foot exam, consult podiatry. Patient has Fields to BSD. Discussed with patients's mother (Blessing). 06/06: Patient seen and examined. Discussed with RN. Chart reviewed. Patient in NAD. He endorses feeling well. On bed rest. On examination, wounds CDI. INR is therapeutic range (2.4). Discussed tinea unguium with podiatry, Dr. Mejia is planning to see patient today. stage set up worker planning to discuss discharge planning with patient. Vitals/I&O Vitals/I&O: Vital Signs Date Time Temp Pulse Resp B/P (MAP) Pulse Ox O2 Delivery O2 Flow Rate FiO2 06/06/21 11:15 97.8 68 20 140/70 (93) 96 Room Air 97.8 06/05/21 19:50 2.0 I & O 06/05/21 06/05/21 06/06/21 15:00 23:00 07:00 Intake Total 100 ml 400 ml 50 ml Output Total 900 ml 500 ml 1000 ml Balance -800 ml -100 ml -950 ml Physical Exam Physical Exam: GENERAL: Alert, oriented gentleman, not in distress. HEENT: Both pupils are round and reacting. No conjunctival lesion, no lesion in the mouth. NECK: Supple, no JVP, no lymphadenopathy. LUNGS: Clear. HEART: S1, S2 regular. ABDOMEN: Soft, nontender, no organomegaly. EXTREMITIES: Extensive erythema of both the legs present all the way to the groin and he has erythema under the pannus of the abdomen, some minor superficial skin breakdowns, edema of the legs. Peripheral pulses unable to palpate. NEUROLOGIC: The patient is alert, awake, and appropriate. No focal neurologic deficit. The patient also has a rash on the face, which he says is new in the last two weeks. General: Alert, Oriented X3, Cooperative, No acute distress Heart: Regular rate, Normal S1, Normal S2, No murmurs, Gallops Abdomen: Normal bowel sounds, Soft, Other (Panniculitis) Extremities: No clubbing, No cyanosis, No edema, Normal pulses, No tenderness/swelling Labs Labs: Laboratory Tests Test 06/06/21 06:10 Prothrombin Time 25.6 SEC (11.7-14.0) Prothromb Time International Ratio 2.4 (0.8-1.1) Review of Systems Review of Systems: Patient denies nausea and vomiting . Assessment and Plan Assessmemt and Plan Problems Medical Problems: (1) Bilateral cellulitis of lower leg Status: Acute (2) Renal failure Status: Acute (3) Severe sepsis Status: Acute Assessment: Bilateral lower extremity cellulitis Weakness and debility Sepsis Lactic acidosis DIONNE - vasomotor nephropathy Fungal dermatitis Morbid obesity Multiple sclerosis H/o RLE DVT and PE Plan: 1. Continue wound care as directed 2. Continue Antibiotics and Anti-fungals (Zyvox, Zosyn, Diflucan) -Can be switched from IV to p.o. per ID input 3. Appreciate Podiatry consult (tinea unguium) 4. Appreciate Nephrology and Infectious Disease subspecialty input 5. DVT Prophylaxis - Warfarin (INR 2.4 on 06/06) 6. Trend labs 7. Continue Marinol for appetite, anxiety, nausea 8. Encourage PO intake-general diet 9. Home meds 10. FULL CODE 11. Discharge disposition pending Comment Review of Relevant I have reviewed the following items taniya (where applicable) has been applied. Medications: Current Medications Medications (Trade) Dose Ordered Sig/Steve Route PRN Reason Start Time Stop Time Status Last Admin Dose Admin Sodium Chloride 1,000 ml @ 75 mls/hr [id number] IV 06/06/21 11:15 06/06/21 12:02 Justifications for Admission Other Justification XIAO WILSON III DO Jun 06, 2021 12:57
[2021-06-06 14:29] VITALS: BP 120/48
[2021-06-06] MEDS: WARFARIN 7.5 MG TABLET. PO SCH (16:41)
[2021-06-06 19:15] VITALS: BP 153/66
[2021-06-06] MEDS: AMOXICILLIN/K CLAV 500/125MG TABLET. PO SCH (21:12)
[2021-06-06 23:03] VITALS: BP 125/70
[2021-06-07] MEDS: IV 1/2 NORMAL SALINE 1,000 ML IV SCH ×2 (00:18→13:47)
[2021-06-07 03:30] VITALS: BP 130/72
[2021-06-07 07:27] LABS: PROTHROMBIN TIME PATIENT 32.2 SEC (11.7-14.0)
[2021-06-07 07:30] VITALS: BP 114/48
[2021-06-07 07:32] LABS: CALCIUM 8.2 mg/dL (8.5-10.1); CREATININE 1.2 mg/dL (0.7-1.3); GFR 61.8; POTASSIUM 4.1 mmol/L (3.5-5.1)
[2021-06-07] MEDS: CHOLECALCIFEROL (VITAMIN D3) 1,000 UNIT TABLET PO SCH (07:52)
[2021-06-07] MEDS: FLUCONAZOLE 100 MG TABLET. PO SCH (07:53)
[2021-06-07] MEDS: AMOXICILLIN/K CLAV 500/125MG TABLET. PO SCH ×2 (07:53→20:38)
[2021-06-07] MEDS: NYSTATIN TOPICAL POWDER 15GM BOTTLE. TP SCH ×2 (07:53→20:38)
--- NOTE | 2021-06-07 07:57 | PDOC ---
Infectious Disease Note Subjective Subjective Pt is alert awake afebrile Says feeling good ROS ROS No nausea vomiting diarrhea Vital Sign Vital Signs Vital Signs Date Time Temp Pulse Resp B/P (MAP) Pulse Ox O2 Delivery O2 Flow Rate FiO2 06/07/21 03:30 98.5 70 18 130/72 (91) 97 Nasal Cannula 2.0 98.5 Physical Exam PHYSICAL EXAM GENERAL: Alert, oriented gentleman, not in distress. HEENT: Both pupils are round and reacting. No conjunctival lesion, no lesion in the mouth. NECK: Supple, no JVP, no lymphadenopathy. LUNGS: Clear. HEART: S1, S2 regular. ABDOMEN: Soft, nontender, no organomegaly. EXTREMITIES: Extensive erythema of both the legs present all the way to the groin and he has erythema under the pannus of the abdomen, some minor superficial skin breakdowns, edema of the legs. Peripheral pulses unable to palpate. NEUROLOGIC: The patient is alert, awake, and appropriate. No focal neurologic deficit. The patient also has a rash on the face, which he says is new in the last two weeks. Labs Lab Laboratory Tests Test 06/07/21 06:45 Prothrombin Time 32.2 SEC (11.7-14.0) Prothromb Time International Ratio 3.2 (0.8-1.1) Sodium Level 141 mmol/L (136-145) Potassium Level 4.1 mmol/L (3.5-5.1) Chloride Level 107 mmol/L (98-107) Carbon Dioxide Level 28 mmol/L (21-32) Anion Gap 6 (6-14) Blood Urea Nitrogen 11 mg/dL (8-26) Creatinine 1.2 mg/dL (0.7-1.3) Estimated GFR (Cockcroft-Gault) 61.8 Glucose Level 86 mg/dL (70-99) Calcium Level 8.2 mg/dL (8.5-10.1) Micro Microbiology 06/02/21 Blood Culture - Preliminary, Resulted NO GROWTH AFTER 1 DAY Objective Assessment 1. Leukocytosis. 2. Extensive cellulitis of the legs. 3. Sepsis with lactic acidosis. 4. Renal insufficiency. 5. Yeast under the skin into the pannus. 6. Morbid obesity. 7. Multiple sclerosis. Plan Plan of Care Extensive excoriation Antibiotic can be changed to p.o. Augmentin and Diflucan with the caution with drug interaction with Coumadin Patient needs to go to [facility] facility BC negative Monitor labs and cults supportive care, PT OT BREA BROWNE MD Jun 07, 2021 07:57
[2021-06-07] MEDS ORDERED: NYST15PO2 TP (08:38)
[2021-06-07] MEDS ORDERED: AMOX1TAB10 PO (08:38)
[2021-06-07] MEDS ORDERED: Fluconazole PO (08:38)
--- NOTE | 2021-06-07 08:40 | SNU/HH DC ---
DISCHARGE ORDERS DISCHARGE INFORMATION: FINAL DIAGNOSIS Problems Medical Problems: (1) Bilateral cellulitis of lower leg Status: Acute (2) Renal failure Status: Acute (3) Severe sepsis Status: Acute CONDITION ON DISCHARGE: Stable CODE STATUS: Code Status: Full FDC: SNF STAY <30 DAYS: Yes HOSPICE: HOSPICE: No HOSPICE EVAL & TREAT: No LTAC: ADMIT TO LTAC: No POST DISCHARGE ORDERS: ACTIVITY ORDERS: Bedrest today DIET AFTER DISCHARGE: Cardiac TREATMENT/EQUIPMENT ORDERS: Physical Therapy For: Evalulation/Treatment Occupational Therapy For: Evaluation/Treatment DISCHARGE MEDICATIONS: Home Meds Reported Medications Saw [place] (SAW PALMETTO) 160 Mg Capsule, 160 MG PO BID for Prostate, CAP 06/02/21 Cholecalciferol (Vitamin D3) (Vitamin D3 ) 25 Mcg Tablet, 1000 MG PO DAILY for SUPPLEMENT, TAB 1,000 UNITS = 25 MCG 06/02/21 Azathioprine (IMURAN) 50 Mg Tablet, 50 MG PO TID for MS, TAB 06/02/21 Lisinopril/Hydrochlorothiazide (LISINOPRIL-HCTZ 10-12.5 MG TAB) 1 Each Tablet, 0.5 TAB PO DAILY for BP, #30 TAB 5 Refills 06/02/21 Warfarin Sodium (WARFARIN SODIUM) 10 Mg Tablet, 10 MG PO DAILY for PE/DVT, TAB 06/02/21 Warfarin Sodium (WARFARIN SODIUM) 7.5 Mg Tablet, 7.5 MG PO DAILY for PE/DVT, TAB 06/02/21 XIAO WILSON III DO Jun 07, 2021 08:40
--- NOTE | 2021-06-07 08:48 | PDOC ---
[employer] PROGRESS NOTE Date of Service DOS: DATE: 06/07/21 TIME: 08:31 Chief Complaint Chief Complaint Bilateral lower extremity cellulitis Weakness and debility Sepsis Lactic acidosis DIONNE - vasomotor nephropathy Fungal dermatitis Morbid obesity Multiple sclerosis H/o RLE DVT and PE History of Present Illness History of Present Illness Mr Du is a 60 year old male with PMHx Multiple sclerosis, lymphedema, HTN, RLE DVT and PE (2013) who was brought here by EMS from home for generalized weakness. Complain of increased tremors and weakness and multiple wounds. Patient's mother called EMS for help transferring. Patient does live alone. EMS stated that his house is in poor condition, patient was covered in feces and urine on his lower extremities which were found to be red, swollen, hot. Temp 98.8 F pulse 102 bpm respirations 24/min initial blood pressure 82/46. Patient denies any chest pain, denies any trouble breathing. Patient denies any abdominal pain, no nausea vomiting. WBC 19.2, Hb 12.5, platelets 576, NA 137, K5.5, BUN 79, CR 10.7, glucose 129, lactic acid 3.3 calcium 8.9, mag 2.2, bilirubin 0.7, AST 89, ALT 35, alk phos 66, albumin 2.8, NT proBNP 791, INR 3.8, rapid COVID-19 negative Chest radiograph no acute abnormalities. Given IV fluids and empiric antibiotics and admitted to ICU for severe sepsis. Consulted ID and nephrology. Trialysis catheter placed for pressor support and in anticipation of potential need for urgent renal replacement therapy. 06/03: WBC down to 11.3, Hb 10.9, platelets 444, CR improved to 3.5 BUN 59, INR 3.3 urine output greater than 4 L. 06/04: Off pressors. Transferred from ICU. Afebrile. slept well overnight. WBC 8, Cr 1.8 BUN 28. 06/05: Patient seen and examined. Discussed with RN. Chart reviewed. Patient in NAD. Cr trending down (1.6); BUN has normalized (19). PT (22.1) and INR (2) decreased from previous day. Tinea Unguium identified on foot exam, consult podiatry. Patient has Fields to BSD. Discussed with patients's mother (Blessing). 06/06: Patient seen and examined. Discussed with RN. Chart reviewed. Patient in NAD. He endorses feeling well. On bed rest. On examination, wounds CDI. INR is therapeutic range (2.4). Discussed tinea unguium with podiatry, Dr. Mejia is planning to see patient today. social staff worker planning to discuss discharge planning with patient. 06/07: Patient seen and examined. Discussed with RN. Chart reviewed. Patient in NAD. IV zosyn and zyvox have been discontinued and P.O. augmentin was initiated. Continuing P.O. diflucan. Wound CDI on examination. Podiatry addressed patient's tinea unguium. Discussed with Dr. Kaplan. Patient hoping to be discharged to senior living today. Vitals/I&O Vitals/I&O: Vital Signs Date Time Temp Pulse Resp B/P (MAP) Pulse Ox O2 Delivery O2 Flow Rate FiO2 06/07/21 07:30 98.0 64 20 114/48 (70) 95 Nasal Cannula 2.0 98.0 I & O 0 06/06/21 06/06/21 06/07/21 15:00 23:00 07:00 Intake Total 120 ml 360 ml Output Total 1125 ml 750 ml Balance 120 ml -1125 ml -390 ml Physical Exam Physical Exam: GENERAL: Alert, oriented gentleman, not in distress. HEENT: Both pupils are round and reacting. No conjunctival lesion, no lesion in the mouth. NECK: Supple, no JVP, no lymphadenopathy. LUNGS: Clear. HEART: S1, S2 regular. ABDOMEN: Soft, nontender, no organomegaly. EXTREMITIES: Extensive erythema of both the legs present all the way to the groin and he has erythema under the pannus of the abdomen, some minor superficial skin breakdowns, edema of the legs. Peripheral pulses unable to palpate. NEUROLOGIC: The patient is alert, awake, and appropriate. No focal neurologic deficit. The patient also has a rash on the face, which he says is new in the last two weeks. General: Alert, Oriented X3, Cooperative, No acute distress Heart: Regular rate, Normal S1, Normal S2, No murmurs, Gallops Abdomen: Normal bowel sounds, Soft, Other (Panniculitis) Extremities: No clubbing, No cyanosis, No edema, Normal pulses, No tenderness/swelling Labs Labs: Laboratory Tests Test 06/07/21 06:45 Prothrombin Time 32.2 SEC (11.7-14.0) Prothromb Time International Ratio 3.2 (0.8-1.1) Sodium Level 141 mmol/L (136-145) Potassium Level 4.1 mmol/L (3.5-5.1) Chloride Level 107 mmol/L (98-107) Carbon Dioxide Level 28 mmol/L (21-32) Anion Gap 6 (6-14) Blood Urea Nitrogen 11 mg/dL (8-26) Creatinine 1.2 mg/dL (0.7-1.3) Estimated GFR (Cockcroft-Gault) 61.8 Glucose Level 86 mg/dL (70-99) Calcium Level 8.2 mg/dL (8.5-10.1) Review of Systems Review of Systems: Patient denies changes in weight or appetite. Assessment and Plan Assessmemt and Plan Problems Medical Problems: (1) Bilateral cellulitis of lower leg Status: Acute (2) Renal failure Status: Acute (3) Severe sepsis Status: Acute Assessment: Bilateral lower extremity cellulitis Weakness and debility Sepsis Lactic acidosis DIONNE - vasomotor nephropathy Fungal dermatitis Morbid obesity Multiple sclerosis H/o RLE DVT and PE Plan: 1. Continue wound care 2. Continue Antibiotics and Anti-fungals -IV Zyvox and Zosyn switched to p.o. augmentin -Continue p.o. diflucan 3. Appreciate Nephrology and Infectious Disease subspecialty input 4. DVT Prophylaxis - warfarin 5. Trend labs 6. Continue Marinol for appetite, anxiety, nausea 7. Encourage PO intake-general diet 8. Home meds 9. FULL CODE 10. Discharge disposition pending Comment Review of Relevant I have reviewed the following items taniya (where applicable) has been applied. Medications: Current Medications Medications (Trade) Dose Ordered Sig/Steve Route PRN Reason Start Time Stop Time Status Last Admin Dose Admin Amoxicillin/ Clavulanate Potassium (Augmentin 500/ 125mg) 1 tab BID PO 06/06/21 21:00 06/07/21 07:53 Fluconazole (Diflucan) 200 mg DAILY PO 06/07/21 09:00 06/07/21 07:53 Sodium Chloride 1,000 ml @ 75 mls/hr [id number] IV 06/06/21 11:15 06/07/21 00:18 Justifications for Admission Other Justification XIAO WILSON III DO Jun 07, 2021 08:48
[2021-06-07] MEDS ORDERED: FLUCONAZOLE 100 MG TABLET. PO SCH (09:00)
--- NOTE | 2021-06-07 10:37 | PDOC ---
Renal-Progress Notes Subjective Notes Notes NO NEW COMPLAINTS History of Present Illness Hx of present illness STABLE Vitals Vitals Vital Signs Date Time Temp Pulse Resp B/P (MAP) Pulse Ox O2 Delivery O2 Flow Rate FiO2 06/07/21 07:30 98.0 64 20 114/48 (70) 95 Nasal Cannula 2.0 98.0 Weight Weight [ ] I.O. Intake and Output Intake and Output 06/07/21 07:00 Intake Total 480 ml Output Total 1875 ml Balance -1395 ml Intake Oral 480 ml Output Urine Total 1875 ml # Bowel Movements 1 Labs Labs Laboratory Tests Test 06/07/21 06:45 Prothrombin Time 32.2 SEC (11.7-14.0) Prothromb Time International Ratio 3.2 (0.8-1.1) Sodium Level 141 mmol/L (136-145) Potassium Level 4.1 mmol/L (3.5-5.1) Chloride Level 107 mmol/L (98-107) Carbon Dioxide Level 28 mmol/L (21-32) Anion Gap 6 (6-14) Blood Urea Nitrogen 11 mg/dL (8-26) Creatinine 1.2 mg/dL (0.7-1.3) Estimated GFR (Cockcroft-Gault) 61.8 Glucose Level 86 mg/dL (70-99) Calcium Level 8.2 mg/dL (8.5-10.1) Micro Micro Microbiology 06/02/21 Urine Culture - Final, Complete 06/02/21 Blood Culture - Final, Complete NO GROWTH AFTER 5 DAYS Review of Systems Constitutional: yes: weakness, alert Ears/Nose/Throat: Yes: no symptom reported Eyes: Yes: no symptom reported Pulmonary: Yes no symptom reported Cardiovascular: Yes no symptom reported Gastrointestional: Yes: no symptom reported Musculoskeletal: Yes: no symptom reported Skin: Yes no symptom reported Psychiatric/Neurological: Yes: no symptom reported Endocrine: Yes: no symptom reported Physical Exam General Appearance: no apparent distress Skin: warm Respiratory: bilateral CTA Heart: S1S2 Abdomen: soft, bowel sounds present Genitourinary: bladder flat Extremities: pulses present Neurology: alert Assessment Assessment IMP DIONNE-CR DOWN TO 1.2 FROM 9.0 ACIDOSIS-RESOLVED SEPSIS LE CELLULITIS LEUCOCYTOSIS OBESITY MS PLAN HYPOTONIC SALINE ANTIBIOTICS WILL FOLLOW PRN ALMAZ CHAMBERS MD Jun 07, 2021 10:37
[2021-06-07 10:53] VITALS: BP 125/65
[2021-06-07] MEDS: DRONABINOL 2.5 MG CAPSULE. PO SCH ×2 (11:22→16:47)
[2021-06-07 14:38] VITALS: BP 120/59
--- NOTE | 2021-06-07 15:45 | NUR ---
Wound Care Wound Type/Assessment: Patient seen per f/u of wound care consult. Patient had excoriation, maceration, yeast, IAD all throughout his groins/pannus/under breasts, this is improving. He also has IAD and an unstageable pressure ulcer to the coccyx/buttocks/posterior thighs, he has bilateral lower extremity VLUs and had maceration to the left lateral heel this is now resolved. The wounds were all cleaned, assessed and redressed at this time. Treatment Recommendations/Plan: Recommendations for lotion, Xeroform gauze, ABD pads, and wrap with Kerlix to left lower extremity and to the right lower extremity recommendations of lotion Xeroform gauze with a foam. For the coccyx/buttocks/posterior thighs apply A&D ointment, lastly apply Nystatin powder to groins/pannus/breast/scrotum and any area that is reddened with yeast in these folds. Patient should be turned every 2 hours right and left turns only; using the purple wedge and pillows, the only time patient should be on his back is during meals. all dressings applied and patient tolerated well. Education provided: Patient educated on dressing changes, pressure ulcer treatment and management, and current wound care POC. Offloading surface/device: Patient is currently on a P-500 bed, patient repositioned to the right side using wedge, and bilateral heels floated. Recommended Referrals/Tests: N/A Discharge Recommendations for dressings: Dressing change instructions left in room. Bed lowered and call light in reach.Wound care will continue to f/u.
--- NOTE | 2021-06-07 16:19 | NUR ---
SW following. Discussed with RN, PT now recommending SNF. SW met with pt, pt agreeable. Would like [facility] in [facility] and [facility] second. BIBIANA faxed referral and discharge orders to [facility]. BIBIANA will continue to follow.
--- NOTE | 2021-06-07 17:18 | DS ---
DATE OF DISCHARGE: 06/07/2021 ADMISSION DIAGNOSES: Severe sepsis. DISCHARGE DIAGNOSES: Resolving severe sepsis, bilateral lower extremity cellulitis, obesity, multiple sclerosis, acute kidney injury, fungal dermatitis, history of right lower extremity deep vein thrombosis and pulmonary embolism. CONSULTS: Dr. El, Dr. Rosales Kaplan. PROCEDURES: None. HOSPITAL COURSE: The patient is a pleasant middle-aged male who has multiple comorbidities including multiple sclerosis for the past 15 years. He was admitted with sepsis and severe lower extremity cellulitis bilaterally. The above consults were obtained. We gave him IV antibiotics. We did give him IV fluids. Did some physical therapy and occupational therapy. Today, I saw and examined him. He is at his baseline. His creatinine is down to 1.2 from 9. He looks great, but is weak. We plan to discharge to senior care. DISPOSITION: [facility]. ACTIVITY: As tolerated. DIET: Low sodium. DISCHARGE MEDICATIONS: Please see the [facility]. Augmentin 500 b.i.d., fluconazole 200 a day, nystatin powder, Imuran 50 t.i.d., vitamin D, lisinopril/hydrochlorothiazide 10/12.5 one a day, saw palmetto 160 b.i.d., Coumadin 7.5 a day. TOTAL TIME: [address]: Rusty TID: [id number]
[2021-06-07] MEDS: LOPERAMIDE 2 MG CAPSULE PO PRN (17:30)
[2021-06-07] MEDS: diphenhydrAMINE HCL 25 MG CAPSULE PO PRN (17:30)
[2021-06-07 19:00] VITALS: BP 105/48
[2021-06-07 22:41] VITALS: BP 114/51
[2021-06-08 03:00] VITALS: BP 135/61
[2021-06-08] MEDS: diphenhydrAMINE HCL 25 MG CAPSULE PO PRN (03:30)
[2021-06-08] MEDS: LOPERAMIDE 2 MG CAPSULE PO PRN ×2 (03:30→09:17)
[2021-06-08] MEDS: IV 1/2 NORMAL SALINE 1,000 ML IV SCH ×2 (03:33→16:08)
[2021-06-08 07:00] VITALS: BP 131/66
[2021-06-08 08:42] LABS: CALCIUM 8.3 mg/dL (8.5-10.1); GFR 76.2
--- NOTE | 2021-06-08 08:49 | PDOC ---
Infectious Disease Note Subjective Subjective Pt is alert awake afebrile Says feeling good ROS ROS no n/v/d/sob Vital Sign Vital Signs Vital Signs Date Time Temp Pulse Resp B/P (MAP) Pulse Ox O2 Delivery O2 Flow Rate FiO2 06/08/21 07:00 98.0 89 16 131/66 (87) 98 Room Air 98.0 06/08/21 03:00 2.0 Physical Exam PHYSICAL EXAM GENERAL: Alert, oriented gentleman, not in distress. HEENT: Both pupils are round and reacting. No conjunctival lesion, no lesion in the mouth. NECK: Supple, no JVP, no lymphadenopathy. LUNGS: Clear. HEART: S1, S2 regular. ABDOMEN: Soft, nontender, no organomegaly. EXTREMITIES: Extensive erythema of both the legs present all the way to the groin and he has erythema under the pannus of the abdomen, some minor superficial skin breakdowns, edema of the legs. Peripheral pulses unable to palpate. NEUROLOGIC: The patient is alert, awake, and appropriate. No focal neurologic deficit. The patient also has a rash on the face, which he says is new in the last two weeks. Labs Lab Laboratory Tests Test 06/07/21 11:25 SARS-CoV-2 RNA (HELEN) Negative (Negative) SARS-CoV-2 Antigen (Rapid) Negative (NEGATIVE) Micro Microbiology 06/02/21 Blood Culture - Preliminary, Resulted NO GROWTH AFTER 1 DAY Objective Assessment 1. Leukocytosis. 2. Extensive cellulitis of the legs. 3. Sepsis with lactic acidosis. 4. Renal insufficiency. 5. Yeast under the skin into the pannus. 6. Morbid obesity. 7. Multiple sclerosis. Plan Plan of Care Extensive excoriation Antibiotic can be changed to p.o. Augmentin and Diflucan with the caution with drug interaction with Coumadin Patient needs to go to [facility] facility BC negative Monitor labs and cults supportive care, PT OT BREA BROWNE MD Jun 08, 2021 08:49
[2021-06-08] MEDS: CHOLECALCIFEROL (VITAMIN D3) 1,000 UNIT TABLET PO SCH (09:11)
[2021-06-08] MEDS: AMOXICILLIN/K CLAV 500/125MG TABLET. PO SCH ×2 (09:11→20:11)
[2021-06-08] MEDS: FLUCONAZOLE 100 MG TABLET. PO SCH (09:11)
[2021-06-08] MEDS: NYSTATIN TOPICAL POWDER 15GM BOTTLE. TP SCH ×2 (09:12→20:12)
--- NOTE | 2021-06-08 10:13 | NUR ---
[facility] following. Discussed with RN, [facility] are out of network. [facility] faxed referral to [facility] at 0830 this morning. Awaiting acceptance decision. [facility] will continue to follow. Addendum: 06/08/21 at 1205 by ELSA MCCARTY [facility] declined to take pt. [facility]NA met with pt, pt does not really have a preference of facility. Pt's caregiver requested [facility] try [facility] in [place]. B[facility]NA attempted to call this facility, no answer but sent referral to fax from facility website. [facility]NA sent message to [facility] and [facility] to check insurance. Awaiting fax to clear to send referral to more facilities. [facility] are not taking admissions at this time. [facility] does not have any male beds at this time - but may know more later today. Addendum: 06/08/21 at 1435 by ELSA MCCARTY Pt accepted at [facility], awaiting insurance auth. RN notified.
--- NOTE | 2021-06-08 10:16 | PDOC ---
[employer] PROGRESS NOTE Date of Service DOS: DATE: 06/08/21 TIME: 10:02 Chief Complaint Chief Complaint Bilateral lower extremity cellulitis Weakness and debility Sepsis Lactic acidosis DIONNE - vasomotor nephropathy Fungal dermatitis Morbid obesity Multiple sclerosis H/o RLE DVT and PE History of Present Illness History of Present Illness Mr Du is a 60 year old male with PMHx Multiple sclerosis, lymphedema, HTN, RLE DVT and PE (2013) who was brought here by EMS from home for generalized weakness. Complain of increased tremors and weakness and multiple wounds. Patient's mother called EMS for help transferring. Patient does live alone. EMS stated that his house is in poor condition, patient was covered in feces and urine on his lower extremities which were found to be red, swollen, hot. Temp 98.8 F pulse 102 bpm respirations 24/min initial blood pressure 82/46. Patient denies any chest pain, denies any trouble breathing. Patient denies any abdominal pain, no nausea vomiting. WBC 19.2, Hb 12.5, platelets 576, NA 137, K5.5, BUN 79, CR 10.7, glucose 129, lactic acid 3.3 calcium 8.9, mag 2.2, bilirubin 0.7, AST 89, ALT 35, alk phos 66, albumin 2.8, NT proBNP 791, INR 3.8, rapid COVID-19 negative Chest radiograph no acute abnormalities. Given IV fluids and empiric antibiotics and admitted to ICU for severe sepsis. Consulted ID and nephrology. Trialysis catheter placed for pressor support and in anticipation of potential need for urgent renal replacement therapy. 06/03: WBC down to 11.3, Hb 10.9, platelets 444, CR improved to 3.5 BUN 59, INR 3.3 urine output greater than 4 L. 06/04: Off pressors. Transferred from ICU. Afebrile. slept well overnight. WBC 8, Cr 1.8 BUN 28. 06/05: Patient seen and examined. Discussed with RN. Chart reviewed. Patient in NAD. Cr trending down (1.6); BUN has normalized (19). PT (22.1) and INR (2) decreased from previous day. Tinea Unguium identified on foot exam, consult podiatry. Patient has Fields to BSD. Discussed with patients's mother (Blessing). 06/06: Patient seen and examined. Discussed with RN. Chart reviewed. Patient in NAD. He endorses feeling well. On bed rest. On examination, wounds CDI. INR is therapeutic range (2.4). Discussed tinea unguium with podiatry, Dr. Mejia is planning to see patient today. belt worker planning to discuss discharge planning with patient. 06/07: Patient seen and examined. Discussed with RN. Chart reviewed. Patient in NAD. IV zosyn and zyvox have been discontinued and P.O. augmentin was initiated. Continuing P.O. diflucan. Wound CDI on examination. Podiatry addressed patient's tinea unguium. Discussed with Dr. Kaplan. Patient hoping to be discharged to snf today. 06/08: Patient seen and examined. Discussed with RN. Chart reviewed. Patient awake, alert, and in NAD. Denies SOB. On examination, wound CDI. INR 3.2. Cr has normalized to 1.2. Continuing p.o. Augmentin and Diflucan with caution for warfarin interaction. Patient expected to be discharged today to snf. Vitals/I&O Vitals/I&O: Vital Signs Date Time Temp Pulse Resp B/P (MAP) Pulse Ox O2 Delivery O2 Flow Rate FiO2 06/08/21 07:00 98.0 89 16 131/66 (87) 98 Room Air 98.0 06/08/21 03:00 2.0 I & O 06/07/21 06/07/21 06/08/21 15:00 23:00 07:00 Intake Total 420 ml 300 ml Output Total 700 ml 650 ml Balance 420 ml -700 ml -350 ml Physical Exam Physical Exam: GENERAL: Alert, oriented gentleman, not in distress. HEENT: Both pupils are round and reacting. No conjunctival lesion, no lesion in the mouth. NECK: Supple, no JVP, no lymphadenopathy. LUNGS: Clear. HEART: S1, S2 regular. ABDOMEN: Soft, nontender, no organomegaly. EXTREMITIES: Extensive erythema of both the legs present all the way to the groin and he has erythema under the pannus of the abdomen, some minor superficial skin breakdowns, edema of the legs. Peripheral pulses unable to palpate. NEUROLOGIC: The patient is alert, awake, and appropriate. No focal neurologic deficit. The patient also has a rash on the face, which he says is new in the last two weeks. General: Alert, Oriented X3, Cooperative, No acute distress Heart: Regular rate, Normal S1, Normal S2, No murmurs, Gallops Abdomen: Normal bowel sounds, Soft, Other (Panniculitis) Extremities: No clubbing, No cyanosis, No edema, Normal pulses, No tenderness/swelling Labs Labs: Laboratory Tests Test 06/07/21 11:25 06/08/21 06:45 SARS-CoV-2 RNA (HELEN) Negative (Negative) SARS-CoV-2 Antigen (Rapid) Negative (NEGATIVE) Sodium Level 140 mmol/L (136-145) Potassium Level 4.0 mmol/L (3.5-5.1) Chloride Level 107 mmol/L (98-107) Carbon Dioxide Level 24 mmol/L (21-32) Anion Gap 9 (6-14) Blood Urea Nitrogen 22 mg/dL (8-26) Creatinine 1.0 mg/dL (0.7-1.3) Estimated GFR (Cockcroft-Gault) 76.2 Glucose Level 80 mg/dL (70-99) Calcium Level 8.3 mg/dL (8.5-10.1) Review of Systems Review of Systems: Denies nausea and vomiting Assessment and Plan Assessmemt and Plan Problems Medical Problems: (1) Bilateral cellulitis of lower leg Status: Acute (2) Renal failure Status: Acute (3) Severe sepsis Status: Acute Assessment: Bilateral lower extremity cellulitis Weakness and debility Sepsis Lactic acidosis DIONNE - vasomotor nephropathy Fungal dermatitis Morbid obesity Multiple sclerosis H/o RLE DVT and PE Plan: 1. Continue wound care as directed 2. Continue Antibiotics and Anti-fungals -p.o. augmentin and diflucan 3. Appreciate Nephrology and Infectious Disease subspecialty input 4. DVT Prophylaxis - warfarin (INR 3.2 on 06/07) 5. Trend labs 6. Continue Marinol for appetite, anxiety, nausea 7. Encourage PO intake-general diet 8. Home meds 9. FULL CODE 10. Discharge disposition pending- expected to discharge today to snf Comment Review of Relevant I have reviewed the following items taniya (where applicable) has been applied. Medications: Current Medications Medications (Trade) Dose Ordered Sig/Steve Route PRN Reason Start Time Stop Time Status Last Admin Dose Admin Loperamide HCl (Imodium) 2 mg PRN Q15MIN PRN PO DIARRHEA 06/07/21 17:30 06/08/21 09:17 Diphenhydramine HCl (Benadryl) 50 mg PRN Q8HRS PRN PO ITCHING 06/07/21 17:30 06/08/21 03:30 Justifications for Admission Other Justification XIAO WILSON III DO Jun 08, 2021 10:16
--- NOTE | 2021-06-08 10:33 | PDOC ---
Renal-Progress Notes Subjective Notes Notes NO NEW COMPLAINTS History of Present Illness Hx of present illness STABLE Vitals Vitals Vital Signs Date Time Temp Pulse Resp B/P (MAP) Pulse Ox O2 Delivery O2 Flow Rate FiO2 06/08/21 07:00 98.0 89 16 131/66 (87) 98 Room Air 98.0 06/08/21 03:00 2.0 Weight Weight [ ] I.O. Intake and Output Intake and Output 06/08/21 07:00 Intake Total 720 ml Output Total 1350 ml Balance -630 ml Intake Oral 720 ml Output Urine Total 1350 ml # Bowel Movements 3 Labs Labs Laboratory Tests Test 06/07/21 11:25 06/08/21 06:45 SARS-CoV-2 RNA (HELEN) Negative (Negative) SARS-CoV-2 Antigen (Rapid) Negative (NEGATIVE) Sodium Level 140 mmol/L (136-145) Potassium Level 4.0 mmol/L (3.5-5.1) Chloride Level 107 mmol/L (98-107) Carbon Dioxide Level 24 mmol/L (21-32) Anion Gap 9 (6-14) Blood Urea Nitrogen 22 mg/dL (8-26) Creatinine 1.0 mg/dL (0.7-1.3) Estimated GFR (Cockcroft-Gault) 76.2 Glucose Level 80 mg/dL (70-99) Calcium Level 8.3 mg/dL (8.5-10.1) Micro Micro Microbiology 06/02/21 Urine Culture - Final, Complete 06/02/21 Blood Culture - Final, Complete NO GROWTH AFTER 5 DAYS Review of Systems Constitutional: yes: weakness, alert Ears/Nose/Throat: Yes: no symptom reported Eyes: Yes: no symptom reported Pulmonary: Yes no symptom reported Cardiovascular: Yes no symptom reported Gastrointestional: Yes: no symptom reported Musculoskeletal: Yes: no symptom reported Skin: Yes no symptom reported Psychiatric/Neurological: Yes: no symptom reported Endocrine: Yes: no symptom reported Physical Exam General Appearance: no apparent distress Skin: warm Respiratory: bilateral CTA Heart: S1S2 Abdomen: soft, bowel sounds present Genitourinary: bladder flat Extremities: pulses present Neurology: alert Assessment Assessment IMP DIONNE-RESOLVED ACIDOSIS-RESOLVED SEPSIS LE CELLULITIS LEUCOCYTOSIS OBESITY MS PLAN HYPOTONIC SALINE ANTIBIOTICS WILL SIGN OFF PLEASE CALL IF NEEDED ALMAZ CHAMBERS MD Jun 08, 2021 10:33
[2021-06-08 11:00] VITALS: BP 109/79
[2021-06-08 11:21] LABS: PROTHROMBIN TIME PATIENT 39.2 SEC (11.7-14.0)
[2021-06-08] MEDS: DRONABINOL 2.5 MG CAPSULE. PO SCH ×2 (11:23→16:07)
[2021-06-08] MEDS: MULTIVITAMIN with MINERAL TABLET. PO SCH (11:23)
[2021-06-08] MEDS: ASCORBIC ACID 500 MG TABLET PO SCH (11:23)
--- NOTE | 2021-06-08 12:22 | NUR ---
Pharmacy Warfarin Dosing Note S:Pharmacy consulted to assist with anticoagulation therapy started with target INR: 2 -3 O:TODD RICO is a 60 year old M with h/o VTE LABS: Last INR: 4.2 Last HGB: 11.3 Last HCT: 33.4 Last PLT: 401 Last dose of warfarin held 06/07/21 Previous Regimen: alterantes 7.5 mg and 10 mg daily Vitamin K given: N Drug Interaction Changes: Same Interacting Drug Ongoing Drug Interactions: fluconazole A:INR of 4.2 is above desired range. Target range for this patient is: 2 -3 P: Warfarin dose: Hold Today Bridge Therapy: None Next INR due 06/09/21 Pharmacy anticoagulation service will continue to follow. GENIE MONROY RPH, 06/08/21 0162
[2021-06-08 15:00] VITALS: BP 118/54
[2021-06-08] MEDS ORDERED: WARFARIN 5 MG TABLET. PO SCH (16:00)
[2021-06-08 19:25] VITALS: BP 127/44
[2021-06-08 22:51] VITALS: BP 106/49
[2021-06-09] MEDS: diphenhydrAMINE HCL 25 MG CAPSULE PO PRN (00:04)
[2021-06-09] MEDS: LOPERAMIDE 2 MG CAPSULE PO PRN (00:04)
[2021-06-09 02:51] VITALS: BP 118/50
[2021-06-09] MEDS: VITS A & D/LANOLIN TOPICAL OINTMENT 42GM TUBE. TP PRN (03:36)
[2021-06-09 04:08] LABS: PROTHROMBIN TIME PATIENT 42.2 SEC (11.7-14.0)
[2021-06-09] MEDS: IV 1/2 NORMAL SALINE 1,000 ML IV SCH ×2 (04:25→17:01)
[2021-06-09 07:15] VITALS: BP 133/45
[2021-06-09 07:20] LABS: BASO # 0.1 x10^3/uL (0.0-0.2); BASO % 1 % (0-3); EOS # 0.6 x10^3/uL (0.0-0.7); EOS % 5 % (0-3); HEMATOCRIT 30.2 % (39.0-53.0); LYMPH # 2.6 x10^3/uL (1.0-4.8); LYMPH % 20 % (24-48); MEAN CORPUSCULAR HEMOGLOBIN 28 pg (25-35); MEAN CORPUSCULAR HGB CONC 33 g/dL (31-37); MEAN CORPUSCULAR VOLUME 85 fL (79-100); MONO % 8 % (0-9); NEUT # 8.9 x10^3/uL (1.8-7.7); NEUT % 67 % (31-73); PLATELET COUNT 325 x10^3/uL (140-400); RED BLOOD COUNT 3.56 x10^6/uL (4.30-5.70); RED CELL DISTRIBUTION WIDTH 17.7 % (11.5-14.5); WHITE BLOOD COUNT 13.2 x10^3/uL (4.0-11.0)
[2021-06-09] MEDS: AMOXICILLIN/K CLAV 500/125MG TABLET. PO SCH ×2 (08:10→20:34)
[2021-06-09] MEDS: ASCORBIC ACID 500 MG TABLET PO SCH (08:10)
[2021-06-09] MEDS: CHOLECALCIFEROL (VITAMIN D3) 1,000 UNIT TABLET PO SCH (08:10)
[2021-06-09] MEDS: MULTIVITAMIN with MINERAL TABLET. PO SCH (08:10)
[2021-06-09] MEDS: FLUCONAZOLE 100 MG TABLET. PO SCH (08:11)
[2021-06-09] MEDS: NYSTATIN TOPICAL POWDER 15GM BOTTLE. TP SCH ×2 (08:41→20:36)
--- NOTE | 2021-06-09 09:02 | PDOC ---
Infectious Disease Note Subjective Subjective Pt is alert awake afebrile Says feeling good ROS ROS No nausea vomiting Vital Sign Vital Signs Vital Signs Date Time Temp Pulse Resp B/P (MAP) Pulse Ox O2 Delivery O2 Flow Rate FiO2 06/09/21 08:28 Room Air 06/09/21 07:15 98.2 80 18 133/45 (74) 96 98.2 06/08/21 20:00 2.0 Physical Exam PHYSICAL EXAM GENERAL: Alert, oriented gentleman, not in distress. HEENT: Both pupils are round and reacting. No conjunctival lesion, no lesion in the mouth. NECK: Supple, no JVP, no lymphadenopathy. LUNGS: Clear. HEART: S1, S2 regular. ABDOMEN: Soft, nontender, no organomegaly. EXTREMITIES: Extensive erythema of both the legs present all the way to the groin and he has erythema under the pannus of the abdomen, some minor superficial skin breakdowns, edema of the legs. Peripheral pulses unable to palpate. NEUROLOGIC: The patient is alert, awake, and appropriate. No focal neurologic deficit. The patient also has a rash on the face, which he says is new in the last two weeks. Labs Lab Laboratory Tests Test 06/08/21 10:55 06/09/21 03:50 Prothrombin Time 39.2 SEC (11.7-14.0) 42.2 SEC (11.7-14.0) Prothromb Time International Ratio 4.2 (0.8-1.1) 4.6 (0.8-1.1) White Blood Count 13.2 x10^3/uL (4.0-11.0) Red Blood Count 3.56 x10^6/uL (4.30-5.70) Hemoglobin 10.0 g/dL (13.0-17.5) Hematocrit 30.2 % (39.0-53.0) Mean Corpuscular Volume 85 fL (79-100) Mean Corpuscular Hemoglobin 28 pg (25-35) Mean Corpuscular Hemoglobin Concent 33 g/dL (31-37) Red Cell Distribution Width 17.7 % (11.5-14.5) Platelet Count 325 x10^3/uL (140-400) Neutrophils (%) (Auto) 67 % (31-73) Lymphocytes (%) (Auto) 20 % (24-48) Monocytes (%) (Auto) 8 % (0-9) Eosinophils (%) (Auto) 5 % (0-3) Basophils (%) (Auto) 1 % (0-3) Neutrophils # (Auto) 8.9 x10^3/uL (1.8-7.7) Lymphocytes # (Auto) 2.6 x10^3/uL (1.0-4.8) Monocytes # (Auto) 1.0 x10^3/uL (0.0-1.1) Eosinophils # (Auto) 0.6 x10^3/uL (0.0-0.7) Basophils # (Auto) 0.1 x10^3/uL (0.0-0.2) Micro Microbiology 06/02/21 Blood Culture - Preliminary, Resulted NO GROWTH AFTER 1 DAY Objective Assessment 1. Leukocytosis. 2. Extensive cellulitis of the legs. 3. Sepsis with lactic acidosis. 4. Renal insufficiency. 5. Yeast under the skin into the pannus. 6. Morbid obesity. 7. Multiple sclerosis. Plan Plan of Care Extensive excoriation p.o. Augmentin and Diflucan with the caution with drug interaction with Co umadin Patient needs to go to long term facility BC negative Monitor labs and cults supportive care, PT OT BREA BROWNE MD Jun 09, 2021 09:02
--- NOTE | 2021-06-09 09:18 | PDOC2 ---
GI CONSULT Date of Service: DATE: 06/09/21 TIME: 09:18 Reason For Consult: black loose stools HPI: HPI: 60 y/o male admitted last week w/ BLE cellulitis, fungal dermatitis, DIONNE (required HD), sepsis (cultures negative). At home was covered in urine and feces apparently. On atbx per ID. H/o DVT/PE on Warfarin - INR 4.6 today. H/o MS on Imuran. We are asked to see re: black loose stools - nurse noted yesterday and today. He is pleasant, not a very specific historian, doesn't seem concerned/aware w/ diarrhea or what stools look like. Denies reflux, dysphagia, n/v, abd pain, constipation, and hematochezia. Not a great appetite since admission but was apparently eating and stooling normally at home. No previous EGD or colonoscopy. Denies GB, liver, pancreas, or PUD history. Denies NSAIDs. PMH: PMH: MS, lymphedema, HTN, DVT/PE FH: Family History: No pertinent hx Social History: Smoke: No ALCOHOL: none Drugs: None ROS: GEN: Denies fevers, chills, sweats HEENT: Denies blurred vision, sore throat CV: Denies chest pain RESP: Denies shortness of air, cough GI: Per HPI : +Fields ENDO: Denies weight changes NEURO: Denies confusion, dizziness MSK: +weakness SKIN: cellulitis Vitals: Vitals: Vital Signs Date Time Temp Pulse Resp B/P (MAP) Pulse Ox O2 Delivery O2 Flow Rate FiO2 06/09/21 08:28 Room Air 06/09/21 07:15 98.2 80 18 133/45 (74) 96 98.2 06/08/21 20:00 2.0 Labs: Labs: Laboratory Tests Test 06/08/21 10:55 06/09/21 03:50 Prothrombin Time 39.2 SEC (11.7-14.0) 42.2 SEC (11.7-14.0) Prothromb Time International Ratio 4.2 (0.8-1.1) 4.6 (0.8-1.1) White Blood Count 13.2 x10^3/uL (4.0-11.0) Red Blood Count 3.56 x10^6/uL (4.30-5.70) Hemoglobin 10.0 g/dL (13.0-17.5) Hematocrit 30.2 % (39.0-53.0) Mean Corpuscular Volume 85 fL (79-100) Mean Corpuscular Hemoglobin 28 pg (25-35) Mean Corpuscular Hemoglobin Concent 33 g/dL (31-37) Red Cell Distribution Width 17.7 % (11.5-14.5) Platelet Count 325 x10^3/uL (140-400) Neutrophils (%) (Auto) 67 % (31-73) Lymphocytes (%) (Auto) 20 % (24-48) Monocytes (%) (Auto) 8 % (0-9) Eosinophils (%) (Auto) 5 % (0-3) Basophils (%) (Auto) 1 % (0-3) Neutrophils # (Auto) 8.9 x10^3/uL (1.8-7.7) Lymphocytes # (Auto) 2.6 x10^3/uL (1.0-4.8) Monocytes # (Auto) 1.0 x10^3/uL (0.0-1.1) Eosinophils # (Auto) 0.6 x10^3/uL (0.0-0.7) Basophils # (Auto) 0.1 x10^3/uL (0.0-0.2) URINE CULTURE Final Final No Growth on 06/03/21 at 1350 BLOOD CULTURE Final NO GROWTH AFTER 5 DAYS Allergies: Coded Allergies: No Known Drug Allergies (Unverified , 06/02/21) Medications: Current Medications Medications (Trade) Dose Ordered Sig/Steve Route PRN Reason Start Time Stop Time Status Last Admin Dose Admin Multivitamins (Thera M Plus) 1 tab DAILY PO 06/08/21 12:00 06/09/21 08:10 Ascorbic Acid (Vitamin C) 500 mg DAILY PO 06/08/21 12:00 06/09/21 08:10 Imaging: Imaging: CXR 06/01 IMPRESSION: No acute cardiopulmonary abnormality. 06/02 Placement of a temporary dialysis catheter. CXR IMPRESSION: 1. Right dialysis catheter extends to the right atrium. Renal US 06/02 IMPRESSION: 1. No acute sonographic finding. 2. Incidental hepatic steatosis. 3. Fields catheter within the bladder. PE: GEN: NAD - many staff present cleaning up HEENT: Atraumatic, PERRL LUNGS: CTAB anteriorly HEART: RRR ABD: obese, soft, non-tender EXTREMITY/SKIN: BLE erythema, excoriations NEURO/PSYCH: A & O 3, bit flat OTHER: black stool w/ green tinge, liquid/thick in specimen cup collected by nurse A/P: A/P: BLE cellulitis, fungal dermatitis, DIONNE - better Leukocytosis, anemia Dark/loose stools CRC screen - none Coumadin coagulopathy, h/o PVT/PE MS on Imuran, BMI 43 COVID negative -- Check C Diff for completeness considering antibiotic use. Check anemia parameters for completeness sake as well. Monitor Hgb, observe. Empiric PPI. INR/Warfarin management per primary. Recommend outpt screening colonoscopy +/- EGD. Consider rectal tube if indicated. JAYDEN LOWERY Jun 09, 2021 09:18
--- NOTE | 2021-06-09 09:21 | NUR ---
Pharmacy Warfarin Dosing Note S:Pharmacy consulted to assist with anticoagulation therapy started with target INR: 2 -3 O:TODD RICO is a 60 year old M with h/o VTE LABS: Last INR: 4.6 Last HGB: 10 Last HCT: 30.2 Last PLT: 325 Last dose of warfarin held 06/08/21 Previous Regimen: alterantes 7.5 mg and 10 mg daily Vitamin K given: N Drug Interaction Changes: Same Interacting Drug Ongoing Drug Interactions: fluconazole A:INR of 4.6 is above desired range. Target range for this patient is: 2 -3 P: Warfarin dose: Hold Today Bridge Therapy: None Next INR due 06/10/21 Pharmacy anticoagulation service will continue to follow. GENIE MONROY RPH, 06/09/21 [id number]
--- NOTE | 2021-06-09 10:23 | NUR ---
[facility] following. Discussed with RN, pt accepted at [facility] pending insurance auth. GI has been consulted due to dark stool. Unsure if pt ready for discharge at this time. [facility]NA will continue to follow. Addendum: 06/09/21 at 1409 by ELSA MCCARTY Insurance approved transfer to SNF. GI wants pt to stay tonight and recheck INR tomorrow. [facility] notified. Pt added to weekend discharge list. RN notified.
[2021-06-09 10:40] VITALS: BP 127/58
[2021-06-09] MEDS: PANTOPRAZOLE 40 MG TABLET.DR. PO SCH (10:52)
[2021-06-09] MEDS: DRONABINOL 2.5 MG CAPSULE. PO SCH ×2 (10:52→16:32)
--- NOTE | 2021-06-09 12:09 | PDOC ---
[employer] PROGRESS NOTE Date of Service DOS: DATE: 06/09/21 TIME: 11:51 Chief Complaint Chief Complaint Bilateral lower extremity cellulitis Weakness and debility Sepsis Lactic acidosis DIONNE - vasomotor nephropathy Fungal dermatitis Morbid obesity Multiple sclerosis H/o RLE DVT and PE History of Present Illness History of Present Illness Mr Du is a 60 year old male with PMHx Multiple sclerosis, lymphedema, HTN, RLE DVT and PE (2013) who was brought here by EMS from home for generalized weakness. Complain of increased tremors and weakness and multiple wounds. Patient's mother called EMS for help transferring. Patient does live alone. EMS stated that his house is in poor condition, patient was covered in feces and urine on his lower extremities which were found to be red, swollen, hot. Temp 98.8 F pulse 102 bpm respirations 24/min initial blood pressure 82/46. Patient denies any chest pain, denies any trouble breathing. Patient denies any abdominal pain, no nausea vomiting. WBC 19.2, Hb 12.5, platelets 576, NA 137, K5.5, BUN 79, CR 10.7, glucose 129, lactic acid 3.3 calcium 8.9, mag 2.2, bilirubin 0.7, AST 89, ALT 35, alk phos 66, albumin 2.8, NT proBNP 791, INR 3.8, rapid COVID-19 negative Chest radiograph no acute abnormalities. Given IV fluids and empiric antibiotics and admitted to ICU for severe sepsis. Consulted ID and nephrology. Trialysis catheter placed for pressor support and in anticipation of potential need for urgent renal replacement therapy. 06/03: WBC down to 11.3, Hb 10.9, platelets 444, CR improved to 3.5 BUN 59, INR 3.3 urine output greater than 4 L. 06/04: Off pressors. Transferred from ICU. Afebrile. slept well overnight. WBC 8, Cr 1.8 BUN 28. 06/05: Patient seen and examined. Discussed with RN. Chart reviewed. Patient in NAD. Cr trending down (1.6); BUN has normalized (19). PT (22.1) and INR (2) decreased from previous day. Tinea Unguium identified on foot exam, consult podiatry. Patient has Fields to BSD. Discussed with patients's mother (Blessing). 06/06: Patient seen and examined. Discussed with RN. Chart reviewed. Patient in NAD. He endorses feeling well. On bed rest. On examination, wounds CDI. INR is therapeutic range (2.4). Discussed tinea unguium with podiatry, Dr. Mejia is planning to see patient today. farmworker machine planning to discuss discharge planning with patient. 06/07: Patient seen and examined. Discussed with RN. Chart reviewed. Patient in NAD. IV zosyn and zyvox have been discontinued and P.O. augmentin was initiated. Continuing P.O. diflucan. Wound CDI on examination. Podiatry addressed patient's tinea unguium. Discussed with Dr. Kaplan. Patient hoping to be discharged to custodial today. 06/08: Patient seen and examined. Discussed with RN. Chart reviewed. Patient awake, alert, and in NAD. Denies SOB. On examination, wound CDI. INR 3.2. Cr has normalized to 1.2. Continuing p.o. Augmentin and Diflucan with caution for warfarin interaction. Patient expected to be discharged today to custodial. 06/09: Patient seen and examined. Discussed with RN. Chart reviewed. Patient awake, alert, and in NAD. Denies nausea and vomiting. Afebrile. On examination, wound CDI. INR 4.6, plan to hold warfarin per pharmacy. Cr. 1.0, DIONNE has resolved. Patient has passed black loose stool yesterday and today, per nurse report. Hgb has decreased to 10.0. GI was consulted. Patient accepted for discharge to [facility]. Await discharge until approved by GI. Vitals/I&O Vitals/I&O: Vital Signs Date Time Temp Pulse Resp B/P (MAP) Pulse Ox O2 Delivery O2 Flow Rate FiO2 06/09/21 10:40 98.7 84 16 127/58 (81) 97 Room Air 98.7 06/08/21 20:00 2.0 I & O 06/08/21 06/08/21 06/09/21 15:00 23:00 07:00 Intake Total 100 ml Output Total 600 ml 250 ml 750 ml Balance -600 ml -150 ml -750 ml Physical Exam Physical Exam: GENERAL: Alert, oriented gentleman, not in distress. HEENT: Both pupils are round and reacting. No conjunctival lesion, no lesion in the mouth. NECK: Supple, no JVP, no lymphadenopathy. LUNGS: Clear. HEART: S1, S2 regular. ABDOMEN: Soft, nontender, no organomegaly. EXTREMITIES: Extensive erythema of both the legs present all the way to the groin and he has erythema under the pannus of the abdomen, some minor superficial skin breakdowns, edema of the legs. Peripheral pulses unable to palpate. NEUROLOGIC: The patient is alert, awake, and appropriate. No focal neurologic deficit. The patient also has a rash on the face, which he says is new in the last two weeks. General: Alert, Oriented X3, Cooperative, No acute distress Heart: Regular rate, Normal S1, Normal S2, No murmurs, Gallops Abdomen: Normal bowel sounds, Soft, Other (Panniculitis) Extremities: No clubbing, No cyanosis, No edema, Normal pulses, No tenderness/swelling Labs Labs: Laboratory Tests Test 06/09/21 03:50 White Blood Count 13.2 x10^3/uL (4.0-11.0) Red Blood Count 3.56 x10^6/uL (4.30-5.70) Hemoglobin 10.0 g/dL (13.0-17.5) Hematocrit 30.2 % (39.0-53.0) Mean Corpuscular Volume 85 fL (79-100) Mean Corpuscular Hemoglobin 28 pg (25-35) Mean Corpuscular Hemoglobin Concent 33 g/dL (31-37) Red Cell Distribution Width 17.7 % (11.5-14.5) Platelet Count 325 x10^3/uL (140-400) Neutrophils (%) (Auto) 67 % (31-73) Lymphocytes (%) (Auto) 20 % (24-48) Monocytes (%) (Auto) 8 % (0-9) Eosinophils (%) (Auto) 5 % (0-3) Basophils (%) (Auto) 1 % (0-3) Neutrophils # (Auto) 8.9 x10^3/uL (1.8-7.7) Lymphocytes # (Auto) 2.6 x10^3/uL (1.0-4.8) Monocytes # (Auto) 1.0 x10^3/uL (0.0-1.1) Eosinophils # (Auto) 0.6 x10^3/uL (0.0-0.7) Basophils # (Auto) 0.1 x10^3/uL (0.0-0.2) Prothrombin Time 42.2 SEC (11.7-14.0) Prothromb Time International Ratio 4.6 (0.8-1.1) Iron Level 66 ug/dL (65-175) Total Iron Binding Capacity 258 ug/dL (250-450) Iron Saturation 26 % (15-34) Review of Systems Review of Systems: Denies blurry vision. Denies dizziness. Assessment and Plan Assessmemt and Plan Problems Medical Problems: (1) Bilateral cellulitis of lower leg Status: Acute (2) Renal failure Status: Acute (3) Severe sepsis Status: Acute Assessment: Bilateral lower extremity cellulitis Dark loose stools Weakness and debility Sepsis Lactic acidosis DIONNE - vasomotor nephropathy Fungal dermatitis Morbid obesity Multiple sclerosis H/o RLE DVT and PE Plan: 1. Appreciate GI consultation input 2. Check for C. Diff (due to recent antibiotics use) 3. Trend Hgb (10.0 on 06/09) 4. Continue wound care as directed 5. Continue Antibiotics and Anti-fungals -p.o. augmentin and diflucan 6. Appreciate Nephrology and Infectious Disease subspecialty input 7. DVT Prophylaxis - warfarin - Hold warfarin per pharmacy recommendations (INR 4.6 on 06/08) 8. Continue Marinol for appetite, anxiety, nausea 9. Encourage PO intake-general diet 10. Home meds 11. FULL CODE 12. Discharge to [facility] when approved by GI Comment Review of Relevant I have reviewed the following items taniya (where applicable) has been applied. Medications: Current Medications Medications (Trade) Dose Ordered Sig/Steve Route PRN Reason Start Time Stop Time Status Last Admin Dose Admin Multivitamins (Thera M Plus) 1 tab DAILY PO 06/08/21 12:00 06/09/21 08:10 Ascorbic Acid (Vitamin C) 500 mg DAILY PO 06/08/21 12:00 06/09/21 08:10 Pantoprazole Sodium (Protonix) 40 mg DAILYAC PO 06/09/21 10:30 06/09/21 10:52 Justifications for Admission Other Justification CASTPHIL DANIELL K III DO Jun 09, 2021 12:09
[2021-06-09 15:06] VITALS: BP 115/69
[2021-06-09 19:20] VITALS: BP 124/57
[2021-06-09 23:19] VITALS: BP 105/44
[2021-06-10] VITALS (11 sets, daily range): BP systolic 96–124; BP diastolic 36–56
[2021-06-10] MEDS: IV 1/2 NORMAL SALINE 1,000 ML IV SCH ×2 (05:54→21:55)
[2021-06-10 07:08] LABS: HEMATOCRIT 24.9 % (39.0-53.0); HEMOGLOBIN 8.1 g/dL (13.0-17.5); RED BLOOD COUNT 2.94 x10^6/uL (4.30-5.70); RED CELL DISTRIBUTION WIDTH 17.5 % (11.5-14.5); WHITE BLOOD COUNT 18.9 x10^3/uL (4.0-11.0)
[2021-06-10 07:15] LABS: PROTHROMBIN TIME PATIENT 41.6 SEC (11.7-14.0)
[2021-06-10] MEDS: LOPERAMIDE 2 MG CAPSULE PO PRN (08:45)
[2021-06-10] MEDS: AMOXICILLIN/K CLAV 500/125MG TABLET. PO SCH ×2 (08:45→21:14)
[2021-06-10] MEDS: ASCORBIC ACID 500 MG TABLET PO SCH (08:45)
[2021-06-10] MEDS: MULTIVITAMIN with MINERAL TABLET. PO SCH (08:45)
[2021-06-10] MEDS: FLUCONAZOLE 100 MG TABLET. PO SCH (08:46)
[2021-06-10] MEDS: CHOLECALCIFEROL (VITAMIN D3) 1,000 UNIT TABLET PO SCH (08:46)
[2021-06-10] MEDS: PANTOPRAZOLE 40 MG TABLET.DR. PO SCH (08:46)
[2021-06-10] MEDS: NYSTATIN TOPICAL POWDER 15GM BOTTLE. TP SCH ×2 (08:49→21:00)
[2021-06-10] MEDS ORDERED: PHYTONADIONE 10 MG/ML ORAL SOLUTION. PO ONE (10:00)
--- NOTE | 2021-06-10 10:10 | NUR ---
Pharmacy Warfarin Dosing Note S: Pharmacy consulted to assist with anticoagulation therapy O: TODD RICO is a 60 year old M with h/o VTE LABS: Last INR: 4.5 Last HGB: 8.1 Last HCT: 24.9 Last PLT: 307 Last dose of Hold given on 06/08/21 at 1748 Vitamin K given: 5MG PO 1X 06/10 Ongoing Drug Interactions: fluconazole A:INR of 4.5 is above desired range. Target range for this patient is: 2 -3 P: Warfarin dose: Hold dose today Bridge Therapy: None Next INR due tomorrow Pharmacy anticoagulation service will continue to follow. Loren Schwartz RPH, 06/10/21 1011
--- NOTE | 2021-06-10 10:52 | PDOC ---
[employer] PROGRESS NOTE Date of Service DOS: DATE: 06/10/21 TIME: 10:43 Chief Complaint Chief Complaint Bilateral lower extremity cellulitis Weakness and debility Sepsis Lactic acidosis DIONNE - vasomotor nephropathy Fungal dermatitis Morbid obesity Multiple sclerosis H/o RLE DVT and PE History of Present Illness History of Present Illness Mr Du is a 60 year old male with PMHx Multiple sclerosis, lymphedema, HTN, RLE DVT and PE (2013) who was brought here by EMS from home for generalized weakness. Complain of increased tremors and weakness and multiple wounds. Patient's mother called EMS for help transferring. Patient does live alone. EMS stated that his house is in poor condition, patient was covered in feces and urine on his lower extremities which were found to be red, swollen, hot. Temp 98.8 F pulse 102 bpm respirations 24/min initial blood pressure 82/46. Patient denies any chest pain, denies any trouble breathing. Patient denies any abdominal pain, no nausea vomiting. WBC 19.2, Hb 12.5, platelets 576, NA 137, K5.5, BUN 79, CR 10.7, glucose 129, lactic acid 3.3 calcium 8.9, mag 2.2, bilirubin 0.7, AST 89, ALT 35, alk phos 66, albumin 2.8, NT proBNP 791, INR 3.8, rapid COVID-19 negative Chest radiograph no acute abnormalities. Given IV fluids and empiric antibiotics and admitted to ICU for severe sepsis. Consulted ID and nephrology. Trialysis catheter placed for pressor support and in anticipation of potential need for urgent renal replacement therapy. 06/03: WBC down to 11.3, Hb 10.9, platelets 444, CR improved to 3.5 BUN 59, INR 3.3 urine output greater than 4 L. 06/04: Off pressors. Transferred from ICU. Afebrile. slept well overnight. WBC 8, Cr 1.8 BUN 28. 06/05: Patient seen and examined. Discussed with RN. Chart reviewed. Patient in NAD. Cr trending down (1.6); BUN has normalized (19). PT (22.1) and INR (2) decreased from previous day. Tinea Unguium identified on foot exam, consult podiatry. Patient has Fields to BSD. Discussed with patients's mother (Blessing). 06/06: Patient seen and examined. Discussed with RN. Chart reviewed. Patient in NAD. He endorses feeling well. On bed rest. On examination, wounds CDI. INR is therapeutic range (2.4). Discussed tinea unguium with podiatry, Dr. Mejia is planning to see patient today. workers compensation administrator planning to discuss discharge planning with patient. 06/07: Patient seen and examined. Discussed with RN. Chart reviewed. Patient in NAD. IV zosyn and zyvox have been discontinued and P.O. augmentin was initiated. Continuing P.O. diflucan. Wound CDI on examination. Podiatry addressed patient's tinea unguium. Discussed with Dr. Kaplan. Patient hoping to be discharged to custodial today. 06/08: Patient seen and examined. Discussed with RN. Chart reviewed. Patient awake, alert, and in NAD. Denies SOB. On examination, wound CDI. INR 3.2. Cr has normalized to 1.2. Continuing p.o. Augmentin and Diflucan with caution for warfarin interaction. Patient expected to be discharged today to custodial. 06/09: Patient seen and examined. Discussed with RN. Chart reviewed. Patient awake, alert, and in NAD. Denies nausea and vomiting. Afebrile. On examination, wound CDI. INR 4.6, plan to hold warfarin per pharmacy. Cr. 1.0, DIONNE has resolved. Patient has passed black loose stool yesterday and today, per nurse report. Hgb has decreased to 10.0. GI was consulted. Patient accepted for discharge to [facility]. Await discharge until approved by GI. 06/10: Patient seen and examined. Discussed with RN. Chart reviewed. Patient was awake, alert, and NAD. Continues to have black loose stool. Hgb has decreased to 8.1. INR 4.5. Plan to reverse INR with FFP and vitamin k. Place rectal tube. Discussed with mother, Blessing. When stable, patient will be transferred to SNF. Vitals/I&O Vitals/I&O: Vital Signs Date Time Temp Pulse Resp B/P (MAP) Pulse Ox O2 Delivery O2 Flow Rate FiO2 06/10/21 07:43 Room Air 06/10/21 07:00 98.5 97 16 99/56 (70) 95 98.5 I & O 06/09/21 06/09/2121 15:00 23:00 07:00 Intake Total 1000 ml Output Total 250 ml 600 ml 500 ml Balance -250 ml -600 ml 500 ml Physical Exam Physical Exam: GENERAL: Alert, oriented gentleman, not in distress. HEENT: Both pupils are round and reacting. No conjunctival lesion, no lesion in the mouth. NECK: Supple, no JVP, no lymphadenopathy. LUNGS: Clear. HEART: S1, S2 regular. ABDOMEN: Soft, nontender, no organomegaly. EXTREMITIES: Extensive erythema of both the legs present all the way to the groin and he has erythema under the pannus of the abdomen, some minor superficial skin breakdowns, edema of the legs. Peripheral pulses unable to palpate. NEUROLOGIC: The patient is alert, awake, and appropriate. No focal neurologic deficit. The patient also has a rash on the face, which he says is new in the last two weeks. General: Alert, Oriented X3, Cooperative, No acute distress Heart: Regular rate, Normal S1, Normal S2, No murmurs, Gallops Abdomen: Normal bowel sounds, Soft, Other (Panniculitis) Extremities: No clubbing, No cyanosis, No edema, Normal pulses, No tenderness/swelling Labs Labs: Laboratory Tests Test 06/10/21 06:40 White Blood Count 18.9 x10^3/uL (4.0-11.0) Red Blood Count 2.94 x10^6/uL (4.30-5.70) Hemoglobin 8.1 g/dL (13.0-17.5) Hematocrit 24.9 % (39.0-53.0) Mean Corpuscular Volume 85 fL (79-100) Mean Corpuscular Hemoglobin 28 pg (25-35) Mean Corpuscular Hemoglobin Concent 33 g/dL (31-37) Red Cell Distribution Width 17.5 % (11.5-14.5) Platelet Count 307 x10^3/uL (140-400) Prothrombin Time 41.6 SEC (11.7-14.0) Prothromb Time International Ratio 4.5 (0.8-1.1) Sodium Level 145 mmol/L (136-145) Potassium Level 4.1 mmol/L (3.5-5.1) Chloride Level 112 mmol/L (98-107) Carbon Dioxide Level 23 mmol/L (21-32) Anion Gap 10 (6-14) Blood Urea Nitrogen 19 mg/dL (8-26) Creatinine 1.1 mg/dL (0.7-1.3) Estimated GFR (Cockcroft-Gault) 68.3 Glucose Level 103 mg/dL (70-99) Calcium Level 7.8 mg/dL (8.5-10.1) Review of Systems Review of Systems: Denies cough. Denies dizziness. Assessment and Plan Assessmemt and Plan Problems Medical Problems: (1) Bilateral cellulitis of lower leg Status: Acute (2) Renal failure Status: Acute (3) Severe sepsis Status: Acute Assessment: Bilateral lower extremity cellulitis Dark loose stools Weakness and debility Sepsis Lactic acidosis DIONNE - vasomotor nephropathy Fungal dermatitis Morbid obesity Multiple sclerosis H/o RLE DVT and PE Plan: 1. Appreciate GI input 2. Administer FFP and Vitamin K for INR reversal (INR 4.5) 3. Trend Hgb -06/09: 10.0 -06/10: 8.1 4. Continue wound care as directed 5. Continue Antibiotics and Anti-fungals -p.o. augmentin and diflucan 6. DVT Prophylaxis - warfarin - Hold warfarin per pharmacy recommendations 7. Encourage PO intake-general diet 8. Home meds 9. FULL CODE 10. Discharge to [facility] when approved by GI Comment Review of Relevant I have reviewed the following items taniya (where applicable) has been applied. Justifications for Admission Other Justification XIAO WILSON III DO Jun 10, 2021 10:52
[2021-06-10 11:12] LABS: ALBUMIN/GLOBULIN RATIO 0.5 (1.0-1.7); CALCIUM 7.8 mg/dL (8.5-10.1); CREATININE 1.1 mg/dL (0.7-1.3); GFR 68.3; TOTAL BILIRUBIN 0.4 mg/dL (0.2-1.0); TOTAL PROTEIN 5.8 g/dL (6.4-8.2)
[2021-06-10] MEDS: DRONABINOL 2.5 MG CAPSULE. PO SCH ×2 (11:33→17:42)
--- NOTE | 2021-06-10 14:49 | PDOC ---
Infectious Disease Note Subjective Subjective Pt is alert awake afebrile Says feeling good Vital Sign Vital Signs Vital Signs Date Time Temp Pulse Resp B/P (MAP) Pulse Ox O2 Delivery O2 Flow Rate FiO2 06/10/21 11:00 98.2 95 18 115/46 (69) 100 Room Air 98.2 Physical Exam PHYSICAL EXAM GENERAL: Alert, oriented gentleman, not in distress. HEENT: Both pupils are round and reacting. No conjunctival lesion, no lesion in the mouth. NECK: Supple, no JVP, no lymphadenopathy. LUNGS: Clear. HEART: S1, S2 regular. ABDOMEN: Soft, nontender, no organomegaly. EXTREMITIES: Extensive erythema of both the legs present all the way to the groin and he has erythema under the pannus of the abdomen, some minor superficial skin breakdowns, edema of the legs. Peripheral pulses unable to palpate. NEUROLOGIC: The patient is alert, awake, and appropriate. No focal neurologic deficit. The patient also has a rash on the face, which he says is new in the last two weeks. Labs Lab Laboratory Tests Test 06/10/21 06:40 White Blood Count 18.9 x10^3/uL (4.0-11.0) Red Blood Count 2.94 x10^6/uL (4.30-5.70) Hemoglobin 8.1 g/dL (13.0-17.5) Hematocrit 24.9 % (39.0-53.0) Mean Corpuscular Volume 85 fL (79-100) Mean Corpuscular Hemoglobin 28 pg (25-35) Mean Corpuscular Hemoglobin Concent 33 g/dL (31-37) Red Cell Distribution Width 17.5 % (11.5-14.5) Platelet Count 307 x10^3/uL (140-400) Prothrombin Time 41.6 SEC (11.7-14.0) Prothromb Time International Ratio 4.5 (0.8-1.1) Sodium Level 142 mmol/L (136-145) Potassium Level 4.0 mmol/L (3.5-5.1) Chloride Level 109 mmol/L (98-107) Carbon Dioxide Level 22 mmol/L (21-32) Anion Gap 11 (6-14) Blood Urea Nitrogen 20 mg/dL (8-26) Creatinine 1.1 mg/dL (0.7-1.3) Estimated GFR (Cockcroft-Gault) 68.3 BUN/Creatinine Ratio 18 (6-20) Glucose Level 100 mg/dL (70-99) Calcium Level 7.8 mg/dL (8.5-10.1) Total Bilirubin 0.4 mg/dL (0.2-1.0) Aspartate Amino Transf (AST/SGOT) 82 U/L (15-37) Alanine Aminotransferase (ALT/SGPT) 93 U/L (16-63) Alkaline Phosphatase 51 U/L (46-116) Total Protein 5.8 g/dL (6.4-8.2) Albumin 2.0 g/dL (3.4-5.0) Albumin/Globulin Ratio 0.5 (1.0-1.7) Micro Microbiology 06/02/21 Blood Culture - Preliminary, Resulted NO GROWTH AFTER 1 DAY Objective Assessment 1. Leukocytosis. 2. Extensive cellulitis of the legs. 3. Sepsis with lactic acidosis. 4. Renal insufficiency. 5. Yeast under the skin into the pannus. 6. Morbid obesity. 7. Multiple sclerosis. Plan Plan of Care WBC 18 K,, likely sec to GI bleed Extensive excoriation p.o. Augmentin and Diflucan with the caution with drug interaction with Coumad in Patient needs to go to retirement facility BC negative C diff neg Monitor labs and cults supportive care, PT OT BREA BROWNE MD Jun 10, 2021 14:49
[2021-06-11] VITALS (12 sets, daily range): BP systolic 108–129; BP diastolic 36–63
[2021-06-11] MEDS: PANTOPRAZOLE 40 MG TABLET.DR. PO SCH (08:36)
[2021-06-11] MEDS: NYSTATIN TOPICAL POWDER 15GM BOTTLE. TP SCH ×2 (08:36→20:26)
[2021-06-11] MEDS: AMOXICILLIN/K CLAV 500/125MG TABLET. PO SCH ×2 (08:36→20:26)
[2021-06-11] MEDS: ASCORBIC ACID 500 MG TABLET PO SCH (08:36)
[2021-06-11] MEDS: FLUCONAZOLE 100 MG TABLET. PO SCH (08:36)
[2021-06-11] MEDS: MULTIVITAMIN with MINERAL TABLET. PO SCH (08:36)
[2021-06-11] MEDS: CHOLECALCIFEROL (VITAMIN D3) 1,000 UNIT TABLET PO SCH (08:36)
[2021-06-11] MEDS: diphenhydrAMINE HCL 25 MG CAPSULE PO PRN (08:38)
[2021-06-11 10:03] LABS: BASO # 0.1 x10^3/uL (0.0-0.2); BASO % 0 % (0-3); EOS # 0.4 x10^3/uL (0.0-0.7); EOS % 2 % (0-3); LYMPH # 1.6 x10^3/uL (1.0-4.8); LYMPH % 9 % (24-48); MEAN CORPUSCULAR HEMOGLOBIN 29 pg (25-35); MEAN CORPUSCULAR HGB CONC 34 g/dL (31-37); MEAN CORPUSCULAR VOLUME 86 fL (79-100); MONO # 0.8 x10^3/uL (0.0-1.1); MONO % 4 % (0-9); NEUT # 14.6 x10^3/uL (1.8-7.7); NEUT % 84 % (31-73); PLATELET COUNT 319 x10^3/uL (140-400); RED BLOOD COUNT 2.25 x10^6/uL (4.30-5.70); RED CELL DISTRIBUTION WIDTH 17.9 % (11.5-14.5); WHITE BLOOD COUNT 17.5 x10^3/uL (4.0-11.0)
[2021-06-11 10:08] LABS: HEMATOCRIT 19.3 % (39.0-53.0); HEMOGLOBIN 6.5 g/dL (13.0-17.5)
[2021-06-11 10:10] LABS: PROTHROMBIN TIME PATIENT 16.6 SEC (11.7-14.0)
[2021-06-11] MEDS: IV 1/2 NORMAL SALINE 1,000 ML IV SCH (11:15)
--- NOTE | 2021-06-11 11:21 | PDOC ---
[employer] PROGRESS NOTE Date of Service DOS: DATE: 06/11/21 TIME: 11:07 Chief Complaint Chief Complaint Acute GI bleed - anemia Bilateral lower extremity cellulitis Weakness and debility Sepsis Lactic acidosis DIONNE - vasomotor nephropathy Fungal dermatitis Morbid obesity Multiple sclerosis H/o RLE DVT and PE History of Present Illness History of Present Illness Mr Du is a 60 year old male with PMHx Multiple sclerosis, lymphedema, HTN, RLE DVT and PE (2013) who was brought here by EMS from home for generalized weakness. Complain of increased tremors and weakness and multiple wounds. Patient's mother called EMS for help transferring. Patient does live alone. EMS stated that his house is in poor condition, patient was covered in feces and urine on his lower extremities which were found to be red, swollen, hot. Temp 98.8 F pulse 102 bpm respirations 24/min initial blood pressure 82/46. Patient denies any chest pain, denies any trouble breathing. Patient denies any abdominal pain, no nausea vomiting. WBC 19.2, Hb 12.5, platelets 576, NA 137, K5.5, BUN 79, CR 10.7, glucose 129, lactic acid 3.3 calcium 8.9, mag 2.2, bilirubin 0.7, AST 89, ALT 35, alk phos 66, albumin 2.8, NT proBNP 791, INR 3.8, rapid COVID-19 negative Chest radiograph no acute abnormalities. Given IV fluids and empiric antibiotics and admitted to ICU for severe sepsis. Consulted ID and nephrology. Trialysis catheter placed for pressor support and in anticipation of potential need for urgent renal replacement therapy. 06/03: WBC down to 11.3, Hb 10.9, platelets 444, CR improved to 3.5 BUN 59, INR 3.3 urine output greater than 4 L. 06/04: Off pressors. Transferred from ICU. Afebrile. slept well overnight. WBC 8, Cr 1.8 BUN 28. 06/05: Patient seen and examined. Discussed with RN. Chart reviewed. Patient in NAD. Cr trending down (1.6); BUN has normalized (19). PT (22.1) and INR (2) decreased from previous day. Tinea Unguium identified on foot exam, consult podiatry. Patient has Fields to BSD. Discussed with patients's mother (Blessing). 06/06: Patient seen and examined. Discussed with RN. Chart reviewed. Patient in NAD. He endorses feeling well. On bed rest. On examination, wounds CDI. INR is therapeutic range (2.4). Discussed tinea unguium with podiatry, Dr. Mejia is planning to see patient today. 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 06/07: Patient seen and examined. Discussed with RN. Chart reviewed. Patient in NAD. IV zosyn and zyvox have been discontinued and P.O. augmentin was initiated. Continuing P.O. diflucan. Wound CDI on examination. Podiatry addressed patient's tinea unguium. Discussed with Dr. Kaplan. Patient hoping to be discharged to care home today. 06/08: Patient seen and examined. Discussed with RN. Chart reviewed. Patient awake, alert, and in NAD. Denies SOB. On examination, wound CDI. INR 3.2. Cr has normalized to 1.2. Continuing p.o. Augmentin and Diflucan with caution for warfarin interaction. Patient expected to be discharged today to care home. 06/09: Patient seen and examined. Discussed with RN. Chart reviewed. Patient awake, alert, and in NAD. Denies nausea and vomiting. Afebrile. On examination, wound CDI. INR 4.6, plan to hold warfarin per pharmacy. Cr. 1.0, IDONNE has resolved. Patient has passed black loose stool yesterday and today, per nurse report. Hgb has decreased to 10.0. GI was consulted. Patient accepted for discharge to [facility]. Await discharge until approved by GI. 06/10: Patient seen and examined. Discussed with RN. Chart reviewed. Patient was awake, alert, and NAD. Continues to have black loose stool. Hgb has decreased to 8.1. INR 4.5. Plan to reverse INR with FFP and vitamin k. Place rectal tube. Discussed with mother, Blessing. When stable, patient will be transferred to SNF. 06/11: Patient seen and examined. Discussed with RN. Chart reviewed, Patient awake, alert, and NAD. Afebrile. Fields to BSD. Endorses dizziness and weakness. Hgb decreased to 6.5. Ordered transfusion. INR 1.4. Notify GI due to evidence of GI bleed. Vitals/I&O Vitals/I&O: Vital Signs Date Time Temp Pulse Resp B/P (MAP) Pulse Ox O2 Delivery O2 Flow Rate FiO2 06/11/21 08:00 Room Air 06/11/21 07:00 98.1 85 18 129/63 (85) 96 98.1 I & O 06/10/21 06/10/21 06/11/21 15:00 23:00 07:00 Intake Total 350 ml 200 ml Output Total 970 ml 650 ml Balance 350 ml -770 ml -650 ml Physical Exam Physical Exam: GENERAL: Alert, oriented gentleman, not in distress. HEENT: Both pupils are round and reacting. No conjunctival lesion, no lesion in the mouth. NECK: Supple, no JVP, no lymphadenopathy. LUNGS: Clear. HEART: S1, S2 regular. ABDOMEN: Soft, nontender, no organomegaly. EXTREMITIES: Extensive erythema of both the legs present all the way to the groin and he has erythema under the pannus of the abdomen, some minor superficial skin breakdowns, edema of the legs. Peripheral pulses unable to palpate. NEUROLOGIC: The patient is alert, awake, and appropriate. No focal neurologic deficit. The patient also has a rash on the face, which he says is new in the last two weeks. General: Alert, Oriented X3, Cooperative, No acute distress Heart: Regular rate, Normal S1, Normal S2, No murmurs, Gallops Abdomen: Normal bowel sounds, Soft, Other (Panniculitis) Extremities: No clubbing, No cyanosis, No edema, Normal pulses, No tenderness/swelling Labs Labs: Laboratory Tests Test 06/11/21 09:45 White Blood Count 17.5 x10^3/uL (4.0-11.0) Red Blood Count 2.25 x10^6/uL (4.30-5.70) Hemoglobin 6.5 g/dL (13.0-17.5) Hematocrit 19.3 % (39.0-53.0) Mean Corpuscular Volume 86 fL (79-100) Mean Corpuscular Hemoglobin 29 pg (25-35) Mean Corpuscular Hemoglobin Concent 34 g/dL (31-37) Red Cell Distribution Width 17.9 % (11.5-14.5) Platelet Count 319 x10^3/uL (140-400) Neutrophils (%) (Auto) 84 % (31-73) Lymphocytes (%) (Auto) 9 % (24-48) Monocytes (%) (Auto) 4 % (0-9) Eosinophils (%) (Auto) 2 % (0-3) Basophils (%) (Auto) 0 % (0-3) Neutrophils # (Auto) 14.6 x10^3/uL (1.8-7.7) Lymphocytes # (Auto) 1.6 x10^3/uL (1.0-4.8) Monocytes # (Auto) 0.8 x10^3/uL (0.0-1.1) Eosinophils # (Auto) 0.4 x10^3/uL (0.0-0.7) Basophils # (Auto) 0.1 x10^3/uL (0.0-0.2) Prothrombin Time 16.6 SEC (11.7-14.0) Prothromb Time International Ratio 1.4 (0.8-1.1) Review of Systems Review of Systems: Denies cough. Denies blurry vision. Assessment and Plan Assessmemt and Plan Problems Medical Problems: (1) Bilateral cellulitis of lower leg Status: Acute (2) Renal failure Status: Acute (3) Severe sepsis Status: Acute Assessment: Bilateral lower extremity cellulitis Dark loose stools - GI bleed causing severe anemia Weakness and debility Sepsis Lactic acidosis DIONNE - vasomotor nephropathy Fungal dermatitis Morbid obesity Multiple sclerosis H/o RLE DVT and PE Plan: 1. Transfuse RBC (Hgb 6.5) 2. Consult GI per evidence of GI bleed 2. Monitor INR: 1.4 on 06/11 3. Trend Hgb 4. Continue wound care as directed 5. Continue Antibiotics and Anti-fungals -p.o. augmentin and diflucan 6. Continue Fields to BSD 7. DVT Prophylaxis - warfarin 8. Encourage PO intake-general diet 9. Home meds 10. FULL CODE 11. Discharge to [facility] when approved by GI Comment Review of Relevant I have reviewed the following items taniya (where applicable) has been applied. Medications: Current Medications Medications (Trade) Dose Ordered Sig/Steve Route PRN Reason Start Time Stop Time Status Last Admin Dose Admin Warfarin Sodium (Coumadin - No Dose Today) 1 each 1X WARF ONCE 06/10/21 16:00 06/10/21 16:01 DC 06/10/21 16:00 Justifications for Admission Other Justification XIAO WILSON III DO Jun 11, 2021 11:21
--- NOTE | 2021-06-11 11:35 | PDOC ---
Infectious Disease Note Subjective Subjective Pt is alert awake afebrile Says feeling good ROS ROS No nausea vomiting diarrhea Vital Sign Vital Signs Vital Signs Date Time Temp Pulse Resp B/P (MAP) Pulse Ox O2 Delivery O2 Flow Rate FiO2 06/11/21 08:00 Room Air 06/11/21 07:00 98.1 85 18 129/63 (85) 96 98.1 Physical Exam PHYSICAL EXAM GENERAL: Alert, oriented gentleman, not in distress. HEENT: Both pupils are round and reacting. No conjunctival lesion, no lesion in the mouth. NECK: Supple, no JVP, no lymphadenopathy. LUNGS: Clear. HEART: S1, S2 regular. ABDOMEN: Soft, nontender, no organomegaly. EXTREMITIES: Extensive erythema of both the legs present all the way to the groin and he has erythema under the pannus of the abdomen, some minor superficial skin breakdowns, edema of the legs. Peripheral pulses unable to palpate. NEUROLOGIC: The patient is alert, awake, and appropriate. No focal neurologic deficit. The patient also has a rash on the face, which he says is new in the last two weeks. Labs Lab Laboratory Tests Test 06/11/21 09:45 White Blood Count 17.5 x10^3/uL (4.0-11.0) Red Blood Count 2.25 x10^6/uL (4.30-5.70) Hemoglobin 6.5 g/dL (13.0-17.5) Hematocrit 19.3 % (39.0-53.0) Mean Corpuscular Volume 86 fL (79-100) Mean Corpuscular Hemoglobin 29 pg (25-35) Mean Corpuscular Hemoglobin Concent 34 g/dL (31-37) Red Cell Distribution Width 17.9 % (11.5-14.5) Platelet Count 319 x10^3/uL (140-400) Neutrophils (%) (Auto) 84 % (31-73) Lymphocytes (%) (Auto) 9 % (24-48) Monocytes (%) (Auto) 4 % (0-9) Eosinophils (%) (Auto) 2 % (0-3) Basophils (%) (Auto) 0 % (0-3) Neutrophils # (Auto) 14.6 x10^3/uL (1.8-7.7) Lymphocytes # (Auto) 1.6 x10^3/uL (1.0-4.8) Monocytes # (Auto) 0.8 x10^3/uL (0.0-1.1) Eosinophils # (Auto) 0.4 x10^3/uL (0.0-0.7) Basophils # (Auto) 0.1 x10^3/uL (0.0-0.2) Prothrombin Time 16.6 SEC (11.7-14.0) Prothromb Time International Ratio 1.4 (0.8-1.1) Micro Microbiology 06/02/21 Blood Culture - Preliminary, Resulted NO GROWTH AFTER 1 DAY Objective Assessment 1. Leukocytosis. 2. Extensive cellulitis of the legs. 3. Sepsis with lactic acidosis. 4. Renal insufficiency. 5. Yeast under the skin into the pannus. 6. Morbid obesity. 7. Multiple sclerosis. Plan Plan of Care Elevated WBC, likely sec to GI bleed Extensive excoriation p.o. Augmentin and Diflucan with the caution with drug interaction with Coumadin Patient needs to go to intermediate facility BC negative C diff neg Monitor labs and cults supportive care, PT OT BREA BROWNE MD Jun 11, 2021 11:35
--- NOTE | 2021-06-11 12:49 | NUR ---
Pharmacy Warfarin Dosing Note S:Pharmacy consulted to assist with anticoagulation therapy started with target INR: 2 -3 O:TODD RICO is a 60 year old M with h/o VTE LABS: Last INR: 1.4 Last HGB: 6.5 Last HCT: 19.3 Last PLT: 319 Last dose of Hold given on 06/10/21 at 1600 Previous Regimen: alternates 7.5 mg and 10 mg daily Vitamin K given: Y 5MG PO 1X 06/10 Drug Interaction Changes: Same Interacting Drug Ongoing Drug Interactions: fluconazole A:INR of 1.4 is below desired range. Target range for this patient is: 2 -3 P: Warfarin dose: Hold Today at 1600 Bridge Therapy: None Next INR due in am Pharmacy anticoagulation service will continue to follow. [facility], 06/11/21 [id number]
[2021-06-11] MEDS: DRONABINOL 2.5 MG CAPSULE. PO SCH ×2 (13:08→16:54)
--- NOTE | 2021-06-11 14:33 | PDOC ---
[facility] PROGRESS NOTE Reason for Follow-up anemia/melena Subjective Patient without complaints Physical Exam Lungs decreased BS CV S1 S2 ABD +BS, soft Review of Relevant I have reviewed the following items taniya (where applicable) has been applied. Labs Laboratory Tests Test 06/10/21 06:40 06/11/21 09:45 White Blood Count 18.9 x10^3/uL (4.0-11.0) 17.5 x10^3/uL (4.0-11.0) Red Blood Count 2.94 x10^6/uL (4.30-5.70) 2.25 x10^6/uL (4.30-5.70) Hemoglobin 8.1 g/dL (13.0-17.5) 6.5 g/dL (13.0-17.5) Hematocrit 24.9 % (39.0-53.0) 19.3 % (39.0-53.0) Mean Corpuscular Volume 85 fL (79-100) 86 fL (79-100) Mean Corpuscular Hemoglobin 28 pg (25-35) 29 pg (25-35) Mean Corpuscular Hemoglobin Concent 33 g/dL (31-37) 34 g/dL (31-37) Red Cell Distribution Width 17.5 % (11.5-14.5) 17.9 % (11.5-14.5) Platelet Count 307 x10^3/uL (140-400) 319 x10^3/uL (140-400) Prothrombin Time 41.6 SEC (11.7-14.0) 16.6 SEC (11.7-14.0) Prothromb Time International Ratio 4.5 (0.8-1.1) 1.4 (0.8-1.1) Sodium Level 142 mmol/L (136-145) Potassium Level 4.0 mmol/L (3.5-5.1) Chloride Level 109 mmol/L (98-107) Carbon Dioxide Level 22 mmol/L (21-32) Anion Gap 11 (6-14) Blood Urea Nitrogen 20 mg/dL (8-26) Creatinine 1.1 mg/dL (0.7-1.3) Estimated GFR (Cockcroft-Gault) 68.3 BUN/Creatinine Ratio 18 (6-20) Glucose Level 100 mg/dL (70-99) Calcium Level 7.8 mg/dL (8.5-10.1) Total Bilirubin 0.4 mg/dL (0.2-1.0) Aspartate Amino Transf (AST/SGOT) 82 U/L (15-37) Alanine Aminotransferase (ALT/SGPT) 93 U/L (16-63) Alkaline Phosphatase 51 U/L (46-116) Total Protein 5.8 g/dL (6.4-8.2) Albumin 2.0 g/dL (3.4-5.0) Albumin/Globulin Ratio 0.5 (1.0-1.7) Neutrophils (%) (Auto) 84 % (31-73) Lymphocytes (%) (Auto) 9 % (24-48) Monocytes (%) (Auto) 4 % (0-9) Eosinophils (%) (Auto) 2 % (0-3) Basophils (%) (Auto) 0 % (0-3) Neutrophils # (Auto) 14.6 x10^3/uL (1.8-7.7) Lymphocytes # (Auto) 1.6 x10^3/uL (1.0-4.8) Monocytes # (Auto) 0.8 x10^3/uL (0.0-1.1) Eosinophils # (Auto) 0.4 x10^3/uL (0.0-0.7) Basophils # (Auto) 0.1 x10^3/uL (0.0-0.2) Laboratory Tests Test 06/11/21 09:45 White Blood Count 17.5 x10^3/uL (4.0-11.0) Red Blood Count 2.25 x10^6/uL (4.30-5.70) Hemoglobin 6.5 g/dL (13.0-17.5) Hematocrit 19.3 % (39.0-53.0) Mean Corpuscular Volume 86 fL (79-100) Mean Corpuscular Hemoglobin 29 pg (25-35) Mean Corpuscular Hemoglobin Concent 34 g/dL (31-37) Red Cell Distribution Width 17.9 % (11.5-14.5) Platelet Count 319 x10^3/uL (140-400) Neutrophils (%) (Auto) 84 % (31-73) Lymphocytes (%) (Auto) 9 % (24-48) Monocytes (%) (Auto) 4 % (0-9) Eosinophils (%) (Auto) 2 % (0-3) Basophils (%) (Auto) 0 % (0-3) Neutrophils # (Auto) 14.6 x10^3/uL (1.8-7.7) Lymphocytes # (Auto) 1.6 x10^3/uL (1.0-4.8) Monocytes # (Auto) 0.8 x10^3/uL (0.0-1.1) Eosinophils # (Auto) 0.4 x10^3/uL (0.0-0.7) Basophils # (Auto) 0.1 x10^3/uL (0.0-0.2) Prothrombin Time 16.6 SEC (11.7-14.0) Prothromb Time International Ratio 1.4 (0.8-1.1) Microbiology 06/02/21 Urine Culture - Final, Complete 06/02/21 Blood Culture - Final, Complete NO GROWTH AFTER 5 DAYS Medications Current Medications Sodium Chloride 1,000 ml @ 1,000 mls/hr 1X ONCE IV Last administered on 06/02/21at 01:00; Start 06/01/21 at 22:45; Stop 06/02/21 at 00:53; Status DC Sodium Chloride 1,000 ml @ 1,000 mls/hr 1X ONCE IV Last administered on 06/02/21at 01:00; Start 06/01/21 at 23:45; Stop 06/02/21 at 00:53; Status DC Vancomycin HCl (Vanco Per Pharmacy) 1 each PRN DAILY PRN MC SEE COMMENTS; Start 06/02/21 at 00:00; Status UNV Sodium Chloride 1,000 ml @ 1,000 mls/hr 1X ONCE IV Last administered on 06/02/21at 01:00; Start 06/02/21 at 00:00; Stop 06/02/21 at 00:59; Status DC Enoxaparin Sodium (Lovenox 150mg Syringe) 150 mg 1X ONCE SQ ; Start 06/02/21 at 00:30; Stop 06/02/21 at 01:05; Status DC Ondansetron HCl (Zofran) 4 mg PRN Q8HRS PRN IVP NAUSEA/VOMITING; Start 06/02/21 at 00:30; Stop 06/03/21 at 00:29; Status DC Sodium Chloride 1,000 ml @ 125 mls/hr Q8H IV Last administered on 06/02/21at 01:01; Start 06/02/21 at 00:30; Stop 06/03/21 at 00:29; Status DC Acetaminophen (Tylenol) 650 mg PRN Q4HRS PRN PO FEVER > 100.3'F; Start 06/02/21 at 00:30; Stop 06/03/21 at 00:29; Status DC Linezolid/Dextrose 300 ml @ 300 mls/hr Q12HR IV Last administered on 06/06/21at 07:56; Start 06/02/21 at 01:30; Stop 06/06/21 at 09:17; Status DC Norepinephrine Bitartrate 8 mg/ Dextrose 258 ml @ 8.708 mls/ hr CONT PRN IV PER PROTOCOL Last administered on 06/02/21at 06:27; Start 06/02/21 at 06:15; Stop 06/03/21 at 15:29; Status DC Albumin Human 500 ml @ 125 mls/hr 1X ONCE IV Last administered on 06/02/21at 12:23; Start 06/02/21 at 07:45; Stop 06/02/21 at 11:44; Status DC Piperacillin Sod/ Tazobactam Sod 2.25 gm/Sodium Chloride 50 ml @ 100 mls/hr Q6HRS IV Last administered on 06/06/21at 05:27; Start 06/02/21 at 10:00; Stop 06/06/21 at 09:17; Status DC Fluconazole (Diflucan) 100 mg DAILY PO Last administered on 06/06/21at 07:56; Start 06/02/21 at 09:00; Stop 06/06/21 at 09:17; Status DC Vitamin D (Vitamin D3) 1,000 unit DAILY PO Last administered on 06/11/21at 08:36; Start 06/02/21 at 09:00 Warfarin Sodium (Coumadin) 7.5 mg DAILY16 PO ; Start 06/03/21 at 16:00; Stop 06/03/21 at 14:24; Status DC Warfarin Sodium (Coumadin Per Physician) 1 each PRN DAILY PRN MC SEE COMMENTS Last administered on 06/06/21at 11:29; Start 06/02/21 at 09:00; Stop 06/07/21 at 10:15; Status DC Lidocaine HCl (Buffered Lidocaine 1%) 3 ml STK-MED ONCE .ROUTE ; Start 06/02/21 at 10:27; Stop 06/02/21 at 10:27; Status DC Sodium Bicarbonate 150 meq/Dextrose 1,150 ml @ 125 mls/hr Q9H12M IV Last administered on 06/06/21at 06:15; Start 06/02/21 at 10:30; Stop 06/06/21 at 11:17; Status DC Lidocaine HCl (Buffered Lidocaine 1%) 3 ml 1X ONCE INJ Last administered on 06/02/21at 11:26; Start 06/02/21 at 11:30; Stop 06/02/21 at 11:31; Status DC Nystatin (Nystop) 1 moses BID TP Last administered on 06/11/21at 08:36; Start 06/02/21 at 17:00 Vitamin A/Vitamin D (Vitamin A & D Ointment) 1 moses TID PRN TP SKIN PROTECTION Last administered on 06/09/21at 03:36; Start 06/02/21 at 16:45 Dronabinol (Marinol) 2.5 mg BIDACLD PO Last administered on 06/11/21at 13:08; Start 06/03/21 at 11:30 Warfarin Sodium (Coumadin) 7.5 mg DAILY16 PO Last administered on 06/06/21at 16:41; Start 06/04/21 at 16:00; Stop 06/07/21 at 10:14; Status DC Amoxicillin/ Clavulanate Potassium (Augmentin 500/ 125mg) 1 tab BID PO Last administered on 06/11/21at 08:36; Start 06/06/21 at 21:00 Fluconazole (Diflucan) 200 mg DAILY PO Last administered on 06/11/21at 08:36; Start 06/07/21 at 09:00 Fluconazole (Diflucan) 100 mg DAILY PO ; Start 06/07/21 at 09:00; Status Cancel Sodium Chloride 1,000 ml @ 75 mls/hr [id number] IV Last administered on 06/10/21at 21:55; Start 06/06/21 at 11:15 Warfarin Sodium (Coumadin) 5 mg DAILY16 PO ; Start 06/08/21 at 16:00; Status Cancel Warfarin Sodium (Coumadin Per Pharmacy) 1 each PRN DAILY PRN MC SEE COMMENTS Last administered on 06/11/21at 12:48; Start 06/07/21 at 10:30 Loperamide HCl (Imodium) 2 mg PRN Q15MIN PRN PO DIARRHEA Last administered on 06/10/21at 08:45; Start 06/07/21 at 17:30 Diphenhydramine HCl (Benadryl) 50 mg PRN Q8HRS PRN PO ITCHING Last administered on 06/11/21at 08:38; Start 06/07/21 at 17:30 Multivitamins (Thera M Plus) 1 tab DAILY PO Last administered on 06/11/21at 08:36; Start 06/08/21 at 12:00 Ascorbic Acid (Vitamin C) 500 mg DAILY PO Last administered on 06/11/21at 08:36; Start 06/08/21 at 12:00 Warfarin Sodium (Coumadin - No Dose Today) 1 each 1X WARF ONCE MC ; Start 06/08/21 at 16:00; Stop 06/08/21 at 16:01; Status DC Warfarin Sodium (Coumadin - No Dose Today) 1 each 1X WARF ONCE MC ; Start 06/09/21 at 16:00; Stop 06/09/21 at 16:01; Status DC Pantoprazole Sodium (Protonix) 40 mg DAILYAC PO Last administered on 06/11/21at 08:36; Start 06/09/21 at 10:30 Phytonadione (Mephyton Oral Soln) 5 mg 1X ONCE PO Last administered on 06/10/21at 11:33; Start 06/10/21 at 10:00; Stop 06/10/21 at 10:01; Status DC Warfarin Sodium (Coumadin - No Dose Today) 1 each 1X WARF ONCE MC Last administered on 06/10/21at 16:00; Start 06/10/21 at 16:00; Stop 06/10/21 at 16:01; Status DC Active Scripts Active Nyamyc (Nystatin) 15 Gm Powder 1 Moses TP BID 30 Days [Fluconazole] 100 MG Tablet 200 Mg PO DAILY 14 Days Amox Tr-K Clv 500-125 Mg Tab (Amoxicillin/Potassium Clav) 1 Each Tablet 1 Tab PO BID 14 Days Reported [place] 160 Mg Capsule 160 Mg PO BID Vitamin D3 (Vitamin D) 25 Mcg Tablet 1,000 Mg PO DAILY 1,000 UNITS = 25 MCG Imuran (Azathioprine) 50 Mg Tablet 50 Mg PO TID Lisinopril-Hctz 10-12.5 Mg Tab (Lisinopril/Hydrochlorothiazide) 1 Each Tablet 0.5 Tab PO DAILY Warfarin Sodium 10 Mg Tablet 10 Mg PO DAILY Warfarin Sodium 7.5 Mg Tablet 7.5 Mg PO DAILY Vitals/I & O Vital Sign - Last 24 Hours 06/10/21 06/10/21 06/10/21 06/10/21 15:00 15:03 15:15 16:00 Temp 98.8 98.8 98.6 98.3 98.8 98.8 98.6 98.3 Pulse 101 98 96 94 Resp 18 18 18 18 B/P (MAP) 101/41 101/41 (61) 102/45 112/38 Pulse Ox 97 O2 Delivery Room Air 06/10/21 06/10/21 06/10/21 06/10/21 17:00 18:00 19:30 20:00 Temp 99.3 98.6 99.2 99.3 98.6 99.2 Pulse 95 99 92 Resp 18 18 18 B/P (MAP) 107/37 123/48 124/42 (69) Pulse Ox 94 O2 Delivery Room Air Room Air 06/10/21 06/11/21 06/11/21 06/11/21 23:35 03:32 07:00 08:00 Temp 99.7 98.4 98.1 99.7 98.4 98.1 Pulse 93 88 85 Resp 18 18 18 B/P (MAP) 102/36 (58) 114/43 (66) 129/63 (85) Pulse Ox 94 93 96 O2 Delivery Room Air Room Air Room Air Room Air 06/11/21 11:00 Temp 98.1 98.1 Pulse 94 Resp 18 B/P (MAP) 124/48 (73) Pulse Ox 95 O2 Delivery Room Air Intake and Output 06/10/21 06/10/21 06/11/21 14:59 22:59 06:59 Intake Total 100 ml 450 ml Output Total 970 ml 650 ml Balance 100 ml -520 ml -650 ml Problem List Problems Medical Problems: (1) Bilateral cellulitis of lower leg Status: Acute (2) Renal failure Status: Acute (3) Severe sepsis Status: Acute Assessment Anemia- with cellulitus, Hg drifting downward, transfusions in progress, BUN stable. Etiology unclear with hemolysis , bone marrow dysfunction, chronic illness and/or acute blood loss in differential. Plan retic/haptoglobin levels transfusional support to maintain Hg >8 possible EGD while inpatient pending response to transfusiosn and other heme labs. Justicifation of Admission Dx: Justifications for Admission: Justification of Admission Dx: Yes FELIPE ZABALA MD Jun 11, 2021 14:33
[2021-06-12] VITALS (11 sets, daily range): BP systolic 115–147; BP diastolic 43–60
[2021-06-12] MEDS: IV 1/2 NORMAL SALINE 1,000 ML IV SCH ×2 (00:35→13:55)
[2021-06-12 06:32] LABS: PROTHROMBIN TIME PATIENT 14.6 SEC (11.7-14.0)
[2021-06-12 07:12] LABS: BASO % 0 % (0-3); EOS # 0.5 x10^3/uL (0.0-0.7); EOS % 5 % (0-3); LYMPH # 1.6 x10^3/uL (1.0-4.8); LYMPH % 15 % (24-48); MEAN CORPUSCULAR HEMOGLOBIN 29 pg (25-35); MEAN CORPUSCULAR HGB CONC 34 g/dL (31-37); MEAN CORPUSCULAR VOLUME 86 fL (79-100); MONO # 0.8 x10^3/uL (0.0-1.1); MONO % 7 % (0-9); NEUT # 7.8 x10^3/uL (1.8-7.7); NEUT % 73 % (31-73); PLATELET COUNT 337 x10^3/uL (140-400); RED BLOOD COUNT 2.39 x10^6/uL (4.30-5.70); RED CELL DISTRIBUTION WIDTH 17.7 % (11.5-14.5); WHITE BLOOD COUNT 10.7 x10^3/uL (4.0-11.0)
[2021-06-12 07:21] LABS: HEMATOCRIT 20.6 % (39.0-53.0)
[2021-06-12] MEDS: PANTOPRAZOLE 40 MG TABLET.DR. PO SCH (07:30)
--- NOTE | 2021-06-12 07:42 | NUR ---
Dr. Scott was paged and notified about patient critical results of Hgb = 7.0 and Hct = 20.6. Order received.
--- NOTE | 2021-06-12 08:21 | PDOC ---
Infectious Disease Note Subjective Subjective Pt is alert awake afebrile Says feeling good ROS ROS Appears to be having still GI bleed Vital Sign Vital Signs Vital Signs Date Time Temp Pulse Resp B/P (MAP) Pulse Ox O2 Delivery O2 Flow Rate FiO2 06/12/21 03:00 98.2 73 18 125/48 (73) 93 Room Air 98.2 Physical Exam PHYSICAL EXAM GENERAL: Alert, oriented gentleman, not in distress. HEENT: Both pupils are round and reacting. No conjunctival lesion, no lesion in the mouth. NECK: Supple, no JVP, no lymphadenopathy. LUNGS: Clear. HEART: S1, S2 regular. ABDOMEN: Soft, nontender, no organomegaly. EXTREMITIES: Extensive erythema of both the legs present all the way to the groin and he has erythema under the pannus of the abdomen, some minor superficial skin breakdowns, edema of the legs. Peripheral pulses unable to palpate. NEUROLOGIC: The patient is alert, awake, and appropriate. No focal neurologic deficit. The patient also has a rash on the face, which he says is new in the last two weeks. Labs Lab Laboratory Tests Test 06/11/21 09:45 06/12/21 06:00 White Blood Count 17.5 x10^3/uL (4.0-11.0) 10.7 x10^3/uL (4.0-11.0) Red Blood Count 2.28 x10^6/uL (4.30-5.70) 2.39 x10^6/uL (4.30-5.70) Hemoglobin 6.5 g/dL (13.0-17.5) 7.0 g/dL (13.0-17.5) Hematocrit 19.3 % (39.0-53.0) 20.6 % (39.0-53.0) Mean Corpuscular Volume 86 fL (79-100) 86 fL (79-100) Mean Corpuscular Hemoglobin 29 pg (25-35) 29 pg (25-35) Mean Corpuscular Hemoglobin Concent 34 g/dL (31-37) 34 g/dL (31-37) Red Cell Distribution Width 17.9 % (11.5-14.5) 17.7 % (11.5-14.5) Platelet Count 319 x10^3/uL (140-400) 337 x10^3/uL (140-400) Neutrophils (%) (Auto) 84 % (31-73) 73 % (31-73) Lymphocytes (%) (Auto) 9 % (24-48) 15 % (24-48) Monocytes (%) (Auto) 4 % (0-9) 7 % (0-9) Eosinophils (%) (Auto) 2 % (0-3) 5 % (0-3) Basophils (%) (Auto) 0 % (0-3) 0 % (0-3) Neutrophils # (Auto) 14.6 x10^3/uL (1.8-7.7) 7.8 x10^3/uL (1.8-7.7) Lymphocytes # (Auto) 1.6 x10^3/uL (1.0-4.8) 1.6 x10^3/uL (1.0-4.8) Monocytes # (Auto) 0.8 x10^3/uL (0.0-1.1) 0.8 x10^3/uL (0.0-1.1) Eosinophils # (Auto) 0.4 x10^3/uL (0.0-0.7) 0.5 x10^3/uL (0.0-0.7) Basophils # (Auto) 0.1 x10^3/uL (0.0-0.2) 0.0 x10^3/uL (0.0-0.2) Absolute Reticulocyte Count 0.106 x10^6/uL (0.020-0.120) Percent Reticulocyte Count 4.6 % (0.5-2.3) Immature Reticulocyte Fraction 0.78 (0.20-0.60) Prothrombin Time 16.6 SEC (11.7-14.0) 14.6 SEC (11.7-14.0) Prothromb Time International Ratio 1.4 (0.8-1.1) 1.1 (0.8-1.1) Micro Microbiology 06/02/21 Blood Culture - Preliminary, Resulted NO GROWTH AFTER 1 DAY Objective Assessment 1. Leukocytosis. 2. Extensive cellulitis of the legs. 3. Sepsis with lactic acidosis. 4. Renal insufficiency. 5. Yeast under the skin into the pannus. 6. Morbid obesity. 7. Multiple sclerosis. Plan Plan of Care Elevated WBC, likely sec to GI bleed Extensive excoriation p.o. Augmentin and Diflucan with the caution with drug interaction with Coumadin Patient needs to go to [facility] BC negative C diff neg Monitor labs and cults supportive care, PT OT BREA BROWNE MD Jun 12, 2021 08:21
[2021-06-12] MEDS: NYSTATIN TOPICAL POWDER 15GM BOTTLE. TP SCH ×2 (10:27→20:34)
--- NOTE | 2021-06-12 10:52 | NUR ---
SW following. Discussed with RN, pt still accepted at [facility]. Pt getting blood today, and having an EGD. SW awaiting confirmation of when pt can discharge to SNF. SW will continue to follow.
[2021-06-12] MEDS: DRONABINOL 2.5 MG CAPSULE. PO SCH ×2 (11:30→17:15)
--- NOTE | 2021-06-12 12:41 | PDOC ---
[employer] PROGRESS NOTE Date of Service DOS: DATE: 06/12/21 TIME: 12:38 Chief Complaint Chief Complaint Acute GI bleed - anemia Bilateral lower extremity cellulitis Weakness and debility Sepsis Lactic acidosis DIONNE - vasomotor nephropathy Fungal dermatitis Morbid obesity Multiple sclerosis H/o RLE DVT and PE History of Present Illness History of Present Illness Mr Du is a 60 year old male with PMHx Multiple sclerosis, lymphedema, HTN, RLE DVT and PE (2013) who was brought here by EMS from home for generalized weakness. Complain of increased tremors and weakness and multiple wounds. Patient's mother called EMS for help transferring. Patient does live alone. EMS stated that his house is in poor condition, patient was covered in feces and urine on his lower extremities which were found to be red, swollen, hot. Temp 98.8 F pulse 102 bpm respirations 24/min initial blood pressure 82/46. Patient denies any chest pain, denies any trouble breathing. Patient denies any abdominal pain, no nausea vomiting. WBC 19.2, Hb 12.5, platelets 576, NA 137, K5.5, BUN 79, CR 10.7, glucose 129, lactic acid 3.3 calcium 8.9, mag 2.2, bilirubin 0.7, AST 89, ALT 35, alk phos 66, albumin 2.8, NT proBNP 791, INR 3.8, rapid COVID-19 negative Chest radiograph no acute abnormalities. Given IV fluids and empiric antibiotics and admitted to ICU for severe sepsis. Consulted ID and nephrology. Trialysis catheter placed for pressor support and in anticipation of potential need for urgent renal replacement therapy. 06/03: WBC down to 11.3, Hb 10.9, platelets 444, CR improved to 3.5 BUN 59, INR 3.3 urine output greater than 4 L. 06/04: Off pressors. Transferred from ICU. Afebrile. slept well overnight. WBC 8, Cr 1.8 BUN 28. 06/05: Patient seen and examined. Discussed with RN. Chart reviewed. Patient in NAD. Cr trending down (1.6); BUN has normalized (19). PT (22.1) and INR (2) decreased from previous day. Tinea Unguium identified on foot exam, consult podiatry. Patient has Fields to BSD. Discussed with patients's mother (Blessing). 06/06: Patient seen and examined. Discussed with RN. Chart reviewed. Patient in NAD. He endorses feeling well. On bed rest. On examination, wounds CDI. INR is therapeutic range (2.4). Discussed tinea unguium with podiatry, Dr. Mejia is planning to see patient today. gathering worker planning to discuss discharge planning with patient. 06/07: Patient seen and examined. Discussed with RN. Chart reviewed. Patient in NAD. IV zosyn and zyvox have been discontinued and P.O. augmentin was initiated. Continuing P.O. diflucan. Wound CDI on examination. Podiatry addressed patient's tinea unguium. Discussed with Dr. Kaplan. Patient hoping to be discharged to residential today. 06/08: Patient seen and examined. Discussed with RN. Chart reviewed. Patient awake, alert, and in NAD. Denies SOB. On examination, wound CDI. INR 3.2. Cr has normalized to 1.2. Continuing p.o. Augmentin and Diflucan with caution for warfarin interaction. Patient expected to be discharged today to residential. 06/09: Patient seen and examined. Discussed with RN. Chart reviewed. Patient awake, alert, and in NAD. Denies nausea and vomiting. Afebrile. On examination, wound CDI. INR 4.6, plan to hold warfarin per pharmacy. Cr. 1.0, DIONNE has resolved. Patient has passed black loose stool yesterday and today, per nurse report. Hgb has decreased to 10.0. GI was consulted. Patient accepted for discharge to [facility]. Await discharge until approved by GI. 06/10: Patient seen and examined. Discussed with RN. Chart reviewed. Patient was awake, alert, and NAD. Continues to have black loose stool. Hgb has decreased to 8.1. INR 4.5. Plan to reverse INR with FFP and vitamin k. Place rectal tube. Discussed with mother, Blessing. When stable, patient will be transferred to SNF. 06/11: Patient seen and examined. Discussed with RN. Chart reviewed, Patient awake, alert, and NAD. Afebrile. Fields to BSD. Endorses dizziness and weakness. Hgb decreased to 6.5. Ordered transfusion. INR 1.4. Notify GI due to evidence of GI bleed. 06/12: Patient seen and evaluated. Hemoglobin 7.0 today; will transfuse 1 unit PRBC. He is to have EGD today. Further recommendations likely following EGD re sults. Continue p.o. Augmentin and fluconazole, per ID. He has been accepted to [facility] once stable for discharge. Vitals/I&O Vitals/I&O: Vital Signs Date Time Temp Pulse Resp B/P (MAP) Pulse Ox O2 Delivery O2 Flow Rate FiO2 06/12/21 12:00 98.2 77 18 121/49 98.2 06/12/21 11:23 94 Room Air 06/12/21 08:05 2.0 I & O 06/11/21 06/11/21 06/12/21 15:00 23:00 07:00 Intake Total 350 ml Output Total 1400 ml 550 ml Balance 350 ml -1400 ml -550 ml Physical Exam Physical Exam: GENERAL: Alert, oriented gentleman, not in distress. HEENT: Both pupils are round and reacting. No conjunctival lesion, no lesion in the mouth. NECK: Supple, no JVP, no lymphadenopathy. LUNGS: Clear. HEART: S1, S2 regular. ABDOMEN: Soft, nontender, no organomegaly. EXTREMITIES: Extensive erythema of both the legs present all the way to the groin and he has erythema under the pannus of the abdomen, some minor superficial skin breakdowns, edema of the legs. Peripheral pulses unable to palpate. NEUROLOGIC: The patient is alert, awake, and appropriate. No focal neurologic deficit. The patient also has a rash on the face, which he says is new in the last two weeks. General: Alert, Oriented X3, Cooperative, No acute distress Heart: Regular rate, Normal S1, Normal S2, No murmurs, Gallops Abdomen: Normal bowel sounds, Soft, Other (Panniculitis) Extremities: No clubbing, No cyanosis, No edema, Normal pulses, No tenderness /swelling Labs Labs: Laboratory Tests Test 06/12/21 06:00 White Blood Count 10.7 x10^3/uL (4.0-11.0) Red Blood Count 2.39 x10^6/uL (4.30-5.70) Hemoglobin 7.0 g/dL (13.0-17.5) Hematocrit 20.6 % (39.0-53.0) Mean Corpuscular Volume 86 fL (79-100) Mean Corpuscular Hemoglobin 29 pg (25-35) Mean Corpuscular Hemoglobin Concent 34 g/dL (31-37) Red Cell Distribution Width 17.7 % (11.5-14.5) Platelet Count 337 x10^3/uL (140-400) Neutrophils (%) (Auto) 73 % (31-73) Lymphocytes (%) (Auto) 15 % (24-48) Monocytes (%) (Auto) 7 % (0-9) Eosinophils (%) (Auto) 5 % (0-3) Basophils (%) (Auto) 0 % (0-3) Neutrophils # (Auto) 7.8 x10^3/uL (1.8-7.7) Lymphocytes # (Auto) 1.6 x10^3/uL (1.0-4.8) Monocytes # (Auto) 0.8 x10^3/uL (0.0-1.1) Eosinophils # (Auto) 0.5 x10^3/uL (0.0-0.7) Basophils # (Auto) 0.0 x10^3/uL (0.0-0.2) Prothrombin Time 14.6 SEC (11.7-14.0) Prothromb Time International Ratio 1.1 (0.8-1.1) Assessment and Plan Assessmemt and Plan Problems Medical Problems: (1) Bilateral cellulitis of lower leg Status: Acute (2) Renal failure Status: Acute (3) Severe sepsis Status: Acute Comment Review of Relevant I have reviewed the following items taniya (where applicable) has been applied. Justifications for Admission Other Justification MARJORIE BORREGO MD Jun 12, 2021 12:41
[2021-06-12] MEDS: IV RINGERS,LACTATED 1000ML 1,000 ML IV SCH (13:02)
--- NOTE | 2021-06-12 13:58 | PDOC4 ---
PROCEDURE Procedure EGD/biopsies Indication: melena/anemia Meds: per anesthesia. Findings: E--Normal. GEJ at 42cm. G--Striped erythema body through antrum. Pyloric deformity; prior ulcer? Biopsies antrum. D--erythema bulb. normal second portion. Riley. well. IMP: Gastric erythema Pyloric deformity. REC: continue PPI. Await biopsies. OK to feed. CELIO GUILLERMO MD Jun 12, 2021 13:58
[2021-06-12] MEDS ORDERED: LIDOCAINE 2% PF 5 ML VIAL. ONE (14:05)
[2021-06-12] MEDS ORDERED: PROPOFOL 10 MG/ML (20ML) VIAL. IV ONE (14:05)
[2021-06-12 15:30] LABS: HEMATOCRIT 24.3 % (39.0-53.0); HEMOGLOBIN 8.2 g/dL (13.0-17.5)
[2021-06-12] MEDS: FLUCONAZOLE 100 MG TABLET. PO SCH (15:43)
[2021-06-12] MEDS: CHOLECALCIFEROL (VITAMIN D3) 1,000 UNIT TABLET PO SCH (15:43)
[2021-06-12] MEDS: AMOXICILLIN/K CLAV 500/125MG TABLET. PO SCH ×2 (15:43→20:33)
[2021-06-12] MEDS: MULTIVITAMIN with MINERAL TABLET. PO SCH (15:43)
[2021-06-12] MEDS: ASCORBIC ACID 500 MG TABLET PO SCH (15:44)
[2021-06-12] MEDS: diphenhydrAMINE HCL 25 MG CAPSULE PO PRN (23:35)
[2021-06-13] MEDS: IV 1/2 NORMAL SALINE 1,000 ML IV SCH (00:45)
[2021-06-13] MEDS: IV RINGERS,LACTATED 1000ML 1,000 ML IV SCH (01:56)
[2021-06-13 03:00] VITALS: BP 102/42
[2021-06-13 04:40] LABS: BASO % 0 % (0-3); EOS # 0.4 x10^3/uL (0.0-0.7); EOS % 6 % (0-3); HEMATOCRIT 23.7 % (39.0-53.0); HEMOGLOBIN 8.1 g/dL (13.0-17.5); LYMPH # 1.4 x10^3/uL (1.0-4.8); LYMPH % 20 % (24-48); MEAN CORPUSCULAR HEMOGLOBIN 29 pg (25-35); MEAN CORPUSCULAR HGB CONC 34 g/dL (31-37); MEAN CORPUSCULAR VOLUME 86 fL (79-100); MONO # 0.7 x10^3/uL (0.0-1.1); MONO % 10 % (0-9); NEUT # 4.5 x10^3/uL (1.8-7.7); NEUT % 64 % (31-73); PLATELET COUNT 343 x10^3/uL (140-400); RED BLOOD COUNT 2.75 x10^6/uL (4.30-5.70); RED CELL DISTRIBUTION WIDTH 17.3 % (11.5-14.5); WHITE BLOOD COUNT 7.1 x10^3/uL (4.0-11.0)
[2021-06-13 04:51] LABS: PROTHROMBIN TIME PATIENT 14.6 SEC (11.7-14.0)
[2021-06-13 07:00] VITALS: BP 122/43
[2021-06-13] MEDS: CHOLECALCIFEROL (VITAMIN D3) 1,000 UNIT TABLET PO SCH (08:35)
[2021-06-13] MEDS: FLUCONAZOLE 100 MG TABLET. PO SCH (08:35)
[2021-06-13] MEDS: PANTOPRAZOLE 40 MG TABLET.DR. PO SCH (08:35)
[2021-06-13] MEDS: ASCORBIC ACID 500 MG TABLET PO SCH (08:35)
[2021-06-13] MEDS: AMOXICILLIN/K CLAV 500/125MG TABLET. PO SCH (08:35)
[2021-06-13] MEDS: MULTIVITAMIN with MINERAL TABLET. PO SCH (08:35)
[2021-06-13] MEDS: NYSTATIN TOPICAL POWDER 15GM BOTTLE. TP SCH (08:36)
--- NOTE | 2021-06-13 09:00 | PDOC ---
Infectious Disease Note Subjective Subjective Pt is alert awake afebrile Says feeling good ROS ROS No nausea vomiting diarrhea Vital Sign Vital Signs Vital Signs Date Time Temp Pulse Resp B/P (MAP) Pulse Ox O2 Delivery O2 Flow Rate FiO2 06/13/21 07:00 98.2 68 22 122/43 (69) 97 Room Air 98.2 06/12/21 14:01 3 Physical Exam PHYSICAL EXAM GENERAL: Alert, oriented gentleman, not in distress. HEENT: Both pupils are round and reacting. No conjunctival lesion, no lesion in the mouth. NECK: Supple, no JVP, no lymphadenopathy. LUNGS: Clear. HEART: S1, S2 regular. ABDOMEN: Soft, nontender, no organomegaly. EXTREMITIES: Extensive erythema of both the legs present all the way to the groin and he has erythema under the pannus of the abdomen, some minor superficial skin breakdowns, edema of the legs. Peripheral pulses unable to palpate. NEUROLOGIC: The patient is alert, awake, and appropriate. No focal neurologic deficit. The patient also has a rash on the face, which he says is new in the last two weeks. Labs Lab Laboratory Tests Test 06/12/21 15:20 06/13/21 03:55 Hemoglobin 8.2 g/dL (13.0-17.5) 8.1 g/dL (13.0-17.5) Hematocrit 24.3 % (39.0-53.0) 23.7 % (39.0-53.0) Mean Corpuscular Hemoglobin Concent 34 g/dL (31-37) 34 g/dL (31-37) White Blood Count 7.1 x10^3/uL (4.0-11.0) Red Blood Count 2.75 x10^6/uL (4.30-5.70) Mean Corpuscular Volume 86 fL (79-100) Mean Corpuscular Hemoglobin 29 pg (25-35) Red Cell Distribution Width 17.3 % (11.5-14.5) Platelet Count 343 x10^3/uL (140-400) Neutrophils (%) (Auto) 64 % (31-73) Lymphocytes (%) (Auto) 20 % (24-48) Monocytes (%) (Auto) 10 % (0-9) Eosinophils (%) (Auto) 6 % (0-3) Basophils (%) (Auto) 0 % (0-3) Neutrophils # (Auto) 4.5 x10^3/uL (1.8-7.7) Lymphocytes # (Auto) 1.4 x10^3/uL (1.0-4.8) Monocytes # (Auto) 0.7 x10^3/uL (0.0-1.1) Eosinophils # (Auto) 0.4 x10^3/uL (0.0-0.7) Basophils # (Auto) 0.0 x10^3/uL (0.0-0.2) Prothrombin Time 14.6 SEC (11.7-14.0) Prothromb Time International Ratio 1.1 (0.8-1.1) Micro Microbiology 06/02/21 Blood Culture - Preliminary, Resulted NO GROWTH AFTER 1 DAY Objective Assessment 1. Leukocytosis. 2. Extensive cellulitis of the legs. 3. Sepsis with lactic acidosis. 4. Renal insufficiency. 5. Yeast under the skin into the pannus. 6. Morbid obesity. 7. Multiple sclerosis. Plan Plan of Care Elevated WBC, likely sec to GI bleed Extensive excoriation p.o. Augmentin and Diflucan with the caution with drug interaction with Coumadin [facility] BC negative C diff neg Monitor labs and cults supportive care, PT OT BREA BROWNE MD Jun 13, 2021 09:00
--- NOTE | 2021-06-13 10:35 | PDOC ---
Date of Service: DATE: 06/13/21 TIME: 10:29 Subjective: Subjective: Says ongoing dark stools. Eating better. No abd pain. Indicates difficultly with Coumadin coagulopathy in the past, though doesn't recall anemia, etc. Objective: Vital Signs: Vital Signs Date Time Temp Pulse Resp B/P (MAP) Pulse Ox O2 Delivery O2 Flow Rate FiO2 06/13/21 07:00 98.2 68 22 122/43 (69) 97 Room Air 98.2 06/12/21 14:01 3 Labs: Laboratory Tests Test 06/12/21 15:20 06/13/21 03:55 Hemoglobin 8.2 g/dL 8.1 g/dL Hematocrit 24.3 % 23.7 % Mean Corpuscular Hemoglobin Concent 34 g/dL 34 g/dL White Blood Count 7.1 x10^3/uL Red Blood Count 2.75 x10^6/uL Mean Corpuscular Volume 86 fL Mean Corpuscular Hemoglobin 29 pg Red Cell Distribution Width 17.3 % Platelet Count 343 x10^3/uL Neutrophils (%) (Auto) 64 % Lymphocytes (%) (Auto) 20 % Monocytes (%) (Auto) 10 % Eosinophils (%) (Auto) 6 % Basophils (%) (Auto) 0 % Neutrophils # (Auto) 4.5 x10^3/uL Lymphocytes # (Auto) 1.4 x10^3/uL Monocytes # (Auto) 0.7 x10^3/uL Eosinophils # (Auto) 0.4 x10^3/uL Basophils # (Auto) 0.0 x10^3/uL Prothrombin Time 14.6 SEC Prothromb Time International Ratio 1.1 Imaging: EGD 06/12 E--Normal. GEJ at 42cm. G--Striped erythema body through antrum. Pyloric deformity; prior ulcer? Biopsies antrum. D--erythema bulb. normal second portion. Riley. well. IMP: Gastric erythema Pyloric deformity. REC: continue PPI. Await biopsies. OK to feed. PE: GEN: NAD LUNGS: CTAB HEART: RRR ABD: soft, non-tender, rectal tube w/ dark brown liquid stool SKIN: dry and flakey NEURO/PSYCH: A & O 3 A/P: BLE cellulitis, fungal dermatitis, h/o MS H/o DVT/PE, Coumadin coagulopathy (resolved w/ FFP, vit K) Dark stools/diarrhea - stool tests negative Anemia - did require transfusions, now stable COVID negative -- EGD unrevealing for UGI source of blood loss. Hgb stable today. Looks like back on Warfarin as of yesterday afternoon. Consider outpt colonoscopy +/ SBCE though would be a difficult prep. Will review any additional inpatient GI recs w/ Dr. Gómez. Justicifation of Admission Dx: Justifications for Admission: Justification of Admission Dx: Yes JAYDEN LOWERY Jun 13, 2021 10:35
[2021-06-13 10:44] VITALS: BP 103/50
--- NOTE | 2021-06-13 11:50 | PDOC ---
[employer] PROGRESS NOTE Date of Service DOS: DATE: 06/13/21 TIME: 11:44 Chief Complaint Chief Complaint Acute GI bleed - anemia Bilateral lower extremity cellulitis Weakness and debility Sepsis Lactic acidosis IDONNE - vasomotor nephropathy Fungal dermatitis Morbid obesity Multiple sclerosis H/o RLE DVT and PE History of Present Illness History of Present Illness Mr Du is a 60 year old male with PMHx Multiple sclerosis, lymphedema, HTN, RLE DVT and PE (2013) who was brought here by EMS from home for generalized weakness. Complain of increased tremors and weakness and multiple wounds. Patient's mother called EMS for help transferring. Patient does live alone. EMS stated that his house is in poor condition, patient was covered in feces and urine on his lower extremities which were found to be red, swollen, hot. Temp 98.8 F pulse 102 bpm respirations 24/min initial blood pressure 82/46. Patient denies any chest pain, denies any trouble breathing. Patient denies any abdominal pain, no nausea vomiting. WBC 19.2, Hb 12.5, platelets 576, NA 137, K5.5, BUN 79, CR 10.7, glucose 129, lactic acid 3.3 calcium 8.9, mag 2.2, bilirubin 0.7, AST 89, ALT 35, alk phos 66, albumin 2.8, NT proBNP 791, INR 3.8, rapid COVID-19 negative Chest radiograph no acute abnormalities. Given IV fluids and empiric antibiotics and admitted to ICU for severe sepsis. Consulted ID and nephrology. Trialysis catheter placed for pressor support and in anticipation of potential need for urgent renal replacement therapy. 06/03: WBC down to 11.3, Hb 10.9, platelets 444, CR improved to 3.5 BUN 59, INR 3.3 urine output greater than 4 L. 06/04: Off pressors. Transferred from ICU. Afebrile. slept well overnight. WBC 8, Cr 1.8 BUN 28. 06/05: Patient seen and examined. Discussed with RN. Chart reviewed. Patient in NAD. Cr trending down (1.6); BUN has normalized (19). PT (22.1) and INR (2) decreased from previous day. Tinea Unguium identified on foot exam, consult podiatry. Patient has Fields to BSD. Discussed with patients's mother (Blessing). 06/06: Patient seen and examined. Discussed with RN. Chart reviewed. Patient in NAD. He endorses feeling well. On bed rest. On examination, wounds CDI. INR is therapeutic range (2.4). Discussed tinea unguium with podiatry, Dr. Mejia is planning to see patient today. music worker planning to discuss discharge planning with patient. 06/07: Patient seen and examined. Discussed with RN. Chart reviewed. Patient in NAD. IV zosyn and zyvox have been discontinued and P.O. augmentin was initiated. Continuing P.O. diflucan. Wound CDI on examination. Podiatry addressed patient's tinea unguium. Discussed with Dr. Kaplan. Patient hoping to be discharged to half-way today. 06/08: Patient seen and examined. Discussed with RN. Chart reviewed. Patient awake, alert, and in NAD. Denies SOB. On examination, wound CDI. INR 3.2. Cr has normalized to 1.2. Continuing p.o. Augmentin and Diflucan with caution for warfarin interaction. Patient expected to be discharged today to half-way. 06/09: Patient seen and examined. Discussed with RN. Chart reviewed. Patient awake, alert, and in NAD. Denies nausea and vomiting. Afebrile. On examination, wound CDI. INR 4.6, plan to hold warfarin per pharmacy. Cr. 1.0, DIONNE has resolved. Patient has passed black loose stool yesterday and today, per nurse report. Hgb has decreased to 10.0. GI was consulted. Patient accepted for discharge to [facility]. Await discharge until approved by GI. 06/10: Patient seen and examined. Discussed with RN. Chart reviewed. Patient was awake, alert, and NAD. Continues to have black loose stool. Hgb has decreased to 8.1. INR 4.5. Plan to reverse INR with FFP and vitamin k. Place rectal tube. Discussed with mother, Blessing. When stable, patient will be transferred to SNF. 06/11: Patient seen and examined. Discussed with RN. Chart reviewed, Patient awake, alert, and NAD. Afebrile. Fields to BSD. Endorses dizziness and weakness. Hgb decreased to 6.5. Ordered transfusion. INR 1.4. Notify GI due to evidence of GI bleed. 06/12: Patient seen and evaluated. Hemoglobin 7.0 today; will transfuse 1 unit PRBC. He is to have EGD today. Further recommendations likely following EGD re sults. Continue p.o. Augmentin and fluconazole, per ID. He has been accepted to [facility] once stable for discharge. 06/13: Afebrile. Denies any significant pain. Hemoglobin stable at 8.1. Had EGD yesterday that showed gastric erythema and pyloric deformity. Recommended to continue PPI, biopsies pending. Kidney function improved and stable; nephrology signed off. Will discharge back to [facility] on fluconazole, Augmentin, iron, and PPI. Greater than 30 minutes spent managing the discharge of this patient. Vitals/I&O Vitals/I&O: Vital Signs Date Time Temp Pulse Resp B/P (MAP) Pulse Ox O2 Delivery O2 Flow Rate FiO2 06/13/21 10:44 98.2 75 20 103/50 (67) 97 Room Air 98.2 06/12/21 14:01 3 I & O 06/12/21 06/12/21 06/13/21 15:00 23:00 07:00 Intake Total 250 ml 300 ml 120 ml Output Total 850 ml 1325 ml Balance 250 ml -550 ml -1205 ml Physical Exam Physical Exam: General: Alert, Oriented X3, Cooperative, No acute distress Heart: Regular rate, Normal S1, Normal S2, No murmurs, Gallops Abdomen: Normal bowel sounds, Soft, Other (Panniculitis) Extremities: No clubbing, No cyanosis, No edema, Normal pulses, No tenderness/swelling Skin: Other (erythema under abdominal pannus, some minor superficial skin breakdown to bilateral legs, sacral ulcer noted that was present on admission.) Labs Labs: Laboratory Tests Test 06/12/21 15:20 06/13/21 03:55 Hemoglobin 8.2 g/dL (13.0-17.5) 8.1 g/dL (13.0-17.5) Hematocrit 24.3 % (39.0-53.0) 23.7 % (39.0-53.0) Mean Corpuscular Hemoglobin Concent 34 g/dL (31-37) 34 g/dL (31-37) White Blood Count 7.1 x10^3/uL (4.0-11.0) Red Blood Count 2.75 x10^6/uL (4.30-5.70) Mean Corpuscular Volume 86 fL (79-100) Mean Corpuscular Hemoglobin 29 pg (25-35) Red Cell Distribution Width 17.3 % (11.5-14.5) Platelet Count 343 x10^3/uL (140-400) Neutrophils (%) (Auto) 64 % (31-73) Lymphocytes (%) (Auto) 20 % (24-48) Monocytes (%) (Auto) 10 % (0-9) Eosinophils (%) (Auto) 6 % (0-3) Basophils (%) (Auto) 0 % (0-3) Neutrophils # (Auto) 4.5 x10^3/uL (1.8-7.7) Lymphocytes # (Auto) 1.4 x10^3/uL (1.0-4.8) Monocytes # (Auto) 0.7 x10^3/uL (0.0-1.1) Eosinophils # (Auto) 0.4 x10^3/uL (0.0-0.7) Basophils # (Auto) 0.0 x10^3/uL (0.0-0.2) Prothrombin Time 14.6 SEC (11.7-14.0) Prothromb Time International Ratio 1.1 (0.8-1.1) Assessment and Plan Assessmemt and Plan Problems Medical Problems: (1) Bilateral cellulitis of lower leg Status: Acute (2) Renal failure Status: Acute (3) Severe sepsis Status: Acute Comment Review of Relevant I have reviewed the following items taniya (where applicable) has been applied. Medications: Current Medications Medications (Trade) Dose Ordered Sig/Steve Route PRN Reason Start Time Stop Time Status Last Admin Dose Admin Ringer's Solution 1,000 ml @ 75 mls/hr [id number] IV 06/12/21 13:00 06/12/21 13:02 Justifications for Admission Other Justification MARJORIE BORREGO MD Jun 13, 2021 11:50
--- NOTE | 2021-06-13 11:55 | PDOC3 ---
Discharge Summary Visit Information Date of Admission: Jun 02, 2021 Date of Discharge: Jun 13, 2021 Final Diagnosis Problems Medical Problems: (1) Bilateral cellulitis of lower leg Status: Acute (2) Renal failure Status: Acute (3) Severe sepsis Status: Acute Brief Hospital Course Allergies Allergies Coded Allergies Type Severity Reaction Last Updated Verified No Known Drug Allergies 06/12/21 No Vital Signs Vital Signs Date Time Temp Pulse Resp B/P (MAP) Pulse Ox O2 Delivery O2 Flow Rate FiO2 06/13/21 10:44 98.2 75 20 103/50 (67) 97 Room Air 98.2 06/12/21 14:01 3 Lab Results Laboratory Tests Test 06/12/21 06:00 06/12/21 15:20 06/13/21 03:55 White Blood Count 10.7 x10^3/uL (4.0-11.0) 7.1 x10^3/uL (4.0-11.0) Red Blood Count 2.39 x10^6/uL (4.30-5.70) 2.75 x10^6/uL (4.30-5.70) Hemoglobin 7.0 g/dL (13.0-17.5) 8.2 g/dL (13.0-17.5) 8.1 g/dL (13.0-17.5) Hematocrit 20.6 % (39.0-53.0) 24.3 % (39.0-53.0) 23.7 % (39.0-53.0) Mean Corpuscular Volume 86 fL (79-100) 86 fL (79-100) Mean Corpuscular Hemoglobin 29 pg (25-35) 29 pg (25-35) Mean Corpuscular Hemoglobin Concent 34 g/dL (31-37) 34 g/dL (31-37) 34 g/dL (31-37) Red Cell Distribution Width 17.7 % (11.5-14.5) 17.3 % (11.5-14.5) Platelet Count 337 x10^3/uL (140-400) 343 x10^3/uL (140-400) Neutrophils (%) (Auto) 73 % (31-73) 64 % (31-73) Lymphocytes (%) (Auto) 15 % (24-48) 20 % (24-48) Monocytes (%) (Auto) 7 % (0-9) 10 % (0-9) Eosinophils (%) (Auto) 5 % (0-3) 6 % (0-3) Basophils (%) (Auto) 0 % (0-3) 0 % (0-3) Neutrophils # (Auto) 7.8 x10^3/uL (1.8-7.7) 4.5 x10^3/uL (1.8-7.7) Lymphocytes # (Auto) 1.6 x10^3/uL (1.0-4.8) 1.4 x10^3/uL (1.0-4.8) Monocytes # (Auto) 0.8 x10^3/uL (0.0-1.1) 0.7 x10^3/uL (0.0-1.1) Eosinophils # (Auto) 0.5 x10^3/uL (0.0-0.7) 0.4 x10^3/uL (0.0-0.7) Basophils # (Auto) 0.0 x10^3/uL (0.0-0.2) 0.0 x10^3/uL (0.0-0.2) Prothrombin Time 14.6 SEC (11.7-14.0) 14.6 SEC (11.7-14.0) Prothromb Time International Ratio 1.1 (0.8-1.1) 1.1 (0.8-1.1) Laboratory Tests Test 06/12/21 15:20 06/13/21 03:55 Hemoglobin 8.2 g/dL (13.0-17.5) 8.1 g/dL (13.0-17.5) Hematocrit 24.3 % (39.0-53.0) 23.7 % (39.0-53.0) Mean Corpuscular Hemoglobin Concent 34 g/dL (31-37) 34 g/dL (31-37) White Blood Count 7.1 x10^3/uL (4.0-11.0) Red Blood Count 2.75 x10^6/uL (4.30-5.70) Mean Corpuscular Volume 86 fL (79-100) Mean Corpuscular Hemoglobin 29 pg (25-35) Red Cell Distribution Width 17.3 % (11.5-14.5) Platelet Count 343 x10^3/uL (140-400) Neutrophils (%) (Auto) 64 % (31-73) Lymphocytes (%) (Auto) 20 % (24-48) Monocytes (%) (Auto) 10 % (0-9) Eosinophils (%) (Auto) 6 % (0-3) Basophils (%) (Auto) 0 % (0-3) Neutrophils # (Auto) 4.5 x10^3/uL (1.8-7.7) Lymphocytes # (Auto) 1.4 x10^3/uL (1.0-4.8) Monocytes # (Auto) 0.7 x10^3/uL (0.0-1.1) Eosinophils # (Auto) 0.4 x10^3/uL (0.0-0.7) Basophils # (Auto) 0.0 x10^3/uL (0.0-0.2) Prothrombin Time 14.6 SEC (11.7-14.0) Prothromb Time International Ratio 1.1 (0.8-1.1) Brief Hospital Course Mr Du is a 60 year old male with PMHx Multiple sclerosis, lymphedema, HTN, RLE DVT and PE (2013) who was brought here by EMS from home for generalized weakness. Complain of increased tremors and weakness and multiple wounds. Patient's mother called EMS for help transferring. Patient does live alone. EMS stated that his house is in poor condition, patient was covered in feces and urine on his lower extremities which were found to be red, swollen, hot. Temp 98.8 F pulse 102 bpm respirations 24/min initial blood pressure 82/46. Patient denies any chest pain, denies any trouble breathing. Patient denies any abdominal pain, no nausea vomiting. WBC 19.2, Hb 12.5, platelets 576, NA 137, K5.5, BUN 79, CR 10.7, glucose 129, lactic acid 3.3 calcium 8.9, mag 2.2, bilirubin 0.7, AST 89, ALT 35, alk phos 66, albumin 2.8, NT proBNP 791, INR 3.8, rapid COVID-19 negative Chest radiograph no acute abnormalities. Given IV fluids and empiric antibiotics and admitted to ICU for severe sepsis. Consulted ID and nephrology. Trialysis catheter placed for pressor support and in anticipation of potential need for urgent renal replacement therapy. 06/03: WBC down to 11.3, Hb 10.9, platelets 444, CR improved to 3.5 BUN 59, INR 3.3 urine output greater than 4 L. 06/04: Off pressors. Transferred from ICU. Afebrile. slept well overnight. WBC 8, Cr 1.8 BUN 28. 06/05: Patient seen and examined. Discussed with RN. Chart reviewed. Patient in NAD. Cr trending down (1.6); BUN has normalized (19). PT (22.1) and INR (2) decreased from previous day. Tinea Unguium identified on foot exam, consult p odiatry. Patient has Fields to BSD. Discussed with patients's mother (Blessing). 06/06: Patient seen and examined. Discussed with RN. Chart reviewed. Patient in NAD. He endorses feeling well. On bed rest. On examination, wounds CDI. INR is therapeutic range (2.4). Discussed tinea unguium with podiatry, Dr. Mejia is planning to see patient today. plaster and stucco worker planning to discuss discharge planning with patient. 06/07: Patient seen and examined. Discussed with RN. Chart reviewed. Patient in NAD. IV zosyn and zyvox have been discontinued and P.O. augmentin was initiated. Continuing P.O. diflucan. Wound CDI on examination. Podiatry addressed patient's tinea unguium. Discussed with Dr. Kaplan. [facility]. 06/08: Patient seen and examined. Discussed with RN. Chart reviewed. Patient awake, alert, and in NAD. Denies SOB. On examination, wound CDI. INR 3.2. Cr has normalized to 1.2. Continuing p.o. Augmentin and Diflucan with caution for warfarin interaction. Patient expected [facility] to [facility]. 06/09: Patient seen and examined. Discussed with RN. Chart reviewed. Patient awake, alert, and in NAD. Denies nausea and vomiting. Afebrile. On examination, wound CDI. INR 4.6, plan to hold warfarin per pharmacy. Cr. 1.0, DIONNE has resolved. Patient has passed black loose stool yesterday and today, per nurse report. Hgb has decreased to 10.0. GI was consulted. Patient accepted for discharge to [facility]. Await discharge until approved by GI. 06/10: Patient seen and examined. Discussed with RN. Chart reviewed. Patient was awake, alert, and NAD. Continues to have black loose stool. Hgb has decreased to 8.1. INR 4.5. Plan to reverse INR with FFP and vitamin k. Place rectal tube. Discussed with mother, Blessing. When stable, patient will be transferred to SNF. 06/11: Patient seen and examined. Discussed with RN. Chart reviewed, Patient shaniqua ke, alert, and NAD. Afebrile. Fields to BSD. Endorses dizziness and weakness. Hgb decreased to 6.5. Ordered transfusion. INR 1.4. Notify GI due to evidence of GI bleed. 06/12: Patient seen and evaluated. Hemoglobin 7.0 today; will transfuse 1 unit PRBC. He is to have EGD today. Further recommendations likely following EGD results. Continue p.o. Augmentin and fluconazole, per ID. He has been accepted to [facility] once stable for discharge. 06/13: Afebrile. Denies any significant pain. Hemoglobin stable at 8.1. Had EGD yesterday that showed gastric erythema and pyloric deformity. Recommended to continue PPI, biopsies pending. Kidney function improved and stable; nephrology signed off. Will discharge back to [facility] on fluconazole, Augmentin, iron, and PPI. Greater than 30 minutes spent managing the discharge of this patient. Discharge Information Condition at Discharge: Stable Disposition/Orders: D/C to Another Facility Scheduled Amoxicillin/Potassium Clav (Amox Tr-K Clv 500-125 Mg Tab) 1 Each Tablet, 1 TAB PO BID for . for 14 Days, #28 Prescribed by: XIAO WILSON on 06/07/21 0838 Azathioprine (Imuran) 50 Mg Tablet, 50 MG PO TID for MS, (Reported) Entered as Reported by: DUNCAN BECKER on 06/02/21 0800 Last Taken: Unknown Dose on 05/31/21 Last Action: New Order on 06/02/21 08 by DUNCAN BECKER Cholecalciferol (Vitamin D3) (Vitamin D3 ) 25 Mcg Tablet, 1,000 MG PO DAILY for SUPPLEMENT, (Reported) 1,000 UNITS = 25 MCG Entered as Reported by: DUNCAN BECKER on 06/02/21799 Last Taken: Unknown Dose on 05/31/21 Last Action: Continued on 06/02/21832 by STEPHANIA LOZA MD Lisinopril/Hydrochlorothiazide (Lisinopril-Hctz 10-12.5 Mg Tab) 1 Each Tablet, 0.5 TAB PO DAILY for BP, #30 Ref 5 (Reported) Entered as Reported by: DUNCAN BECKER on 06/02/21799 Last Taken: Unknown Dose on 05/31/21 Last Action: HELD on 06/02/21831 by STEPHANIA LOZA MD Nystatin ([facility]) 15 Gm Powder, 1 CELY TP BID for . for 30 Days, #1 Prescribed by: XIAO WILSON on 06/07/21837 [place] (Saw [place]) 160 Mg Capsule, 160 MG PO BID for Prostate, (Reported) Entered as Reported by: DUNCAN BECKER on 06/02/21799 Last Action: HELD on 06/02/21831 by STEPHANIA LOZA MD Warfarin Sodium (Warfarin Sodium) 7.5 Mg Tablet, 7.5 MG PO DAILY for PE/DVT, (Reported) Entered as Reported by: DUNCAN BECKER on 06/02/21799 Last Taken: Unknown Dose on 05/31/21 Last Action: Continued on 06/02/21832 by STEPHANIA LOZA MD Warfarin Sodium (Warfarin Sodium) 10 Mg Tablet, 10 MG PO DAILY for PE/DVT, (Reported) Entered as Reported by: DUNCAN BECKER on 06/02/21799 Last Action: New Order on 06/02/21799 by DUNCAN BECKER [Fluconazole] 100 MG TABLET, 200 MG PO DAILY for 14 Days, #28 Prescribed by: XIAO WILSON on 06/07/21837 Justicifation of Admission Dx: Justifications for Admission: Justification of Admission Dx: Yes MARJORIE BORREGO MD Jun 13, 2021 11:55
[2021-06-13] MEDS ORDERED: FERR325T14 PO (12:02)
[2021-06-13] MEDS ORDERED: DOCU100C28 PO (12:02)
[2021-06-13] MEDS ORDERED: PANT40TA77 PO (12:02)
--- NOTE | 2021-06-13 12:06 | NUR ---
Wound Care Wound Type/Assessment: Patient seen per f/u of wound care. Patient had excoriation, maceration, yeast, IAD all throughout his groins/pannus/under breasts, this is improving. He also has IAD and an stage III pressure ulcer to the coccyx/buttocks/posterior thighs, he had bilateral lower extremity VLUs that are resolved and had maceration to the left lateral heel this is now resolved. The wounds were all cleaned, assessed and redressed at this time. Treatment Recommendations/Plan: Recommendations for hydrofera blue and foam dressing to sacrum, change every 3 days. Contact layer and foam to left posterior thigh, change every 3 days. Lastly apply Nystatin powder to groins/pannus/breast/scrotum and any area that is reddened with yeast in these folds. Patient should be turned every 2 hours right and left turns only; using the purple wedge and pillows, the only time patient should be on his back is during meals. all dressings applied and patient tolerated well. Education provided: Patient educated on dressing changes, pressure ulcer treatment and management, and current wound care POC. Offloading surface/device: Patient is currently on a P-500 bed, patient repositioned to the right side using wedge, and bilateral heels floated. Recommended Referrals/Tests: N/A Discharge Recommendations for dressings: Dressing change instructions left in room. Bed lowered and call light in reach.Wound care will continue to f/u.
--- NOTE | 2021-06-13 12:07 | SNU/HH DC ---
DISCHARGE ORDERS DISCHARGE INFORMATION: DISCHARGE DATE: Jun 13, 2021 FINAL DIAGNOSIS Problems Medical Problems: (1) Bilateral cellulitis of lower leg Status: Acute (2) Renal failure Status: Acute (3) Severe sepsis Status: Acute CONDITION ON DISCHARGE: Stable CODE STATUS: Code Status: Full USP: SNF STAY <30 DAYS: Yes POST DISCHARGE ORDERS: ACTIVITY ORDERS: Bedrest today WEIGHT BEARING STATUS: As tolerated DIET AFTER DISCHARGE: Cardiac WOUND/INCISION CARE: Change dressing TREATMENT/EQUIPMENT ORDERS: Physical Therapy For: Evalulation/Treatment Occupational Therapy For: Evaluation/Treatment DISCHARGE MEDICATIONS: Home Meds Active Scripts Pantoprazole Sodium (PANTOPRAZOLE SODIUM ) 40 Mg Tablet.dr, 40 MG PO DAILYAC for Gastritis for 60 Days, #60 TAB.SR 0 Refills Prov:MARJORIE BORREGO MD 06/13/21 Docusate Sodium (DOCUSATE SODIUM) 100 Mg Capsule, 1 CAP PO DAILY for constipation for 30 Days, #30 CAP 0 Refills Prov:MARJORIE BORREGO MD 06/13/21 Ferrous Sulfate (FERROUS SULFATE) 325 Mg Tablet, 1 TAB PO DAILY for Anemia, #30 TAB 3 Refills Prov:MARJORIE BORREGO MD 06/13/21 Nystatin (NYAMYC) 15 Gm Powder, 1 CELY TP BID for . for 30 Days, #1 MISC Prov:CASTLE,NIAL K III DO 06/07/21 [Fluconazole] 100 MG TABLET No Conflict Check, 200 MG PO DAILY for 14 Days, #28 TAB Prov:CASTLE,NIAL K III DO 06/07/21 Amoxicillin/Potassium Clav (AMOX TR-K CLV 500-125 MG TAB) 1 Each Tablet, 1 TAB PO BID for . for 14 Days, #28 TAB Prov:CASTLE,NIAL K III DO 06/07/21 Reported Medications Saw [place] (SAW PALMETTO) 160 Mg Capsule, 160 MG PO BID for Prostate, CAP 06/02/21 Cholecalciferol (Vitamin D3) (Vitamin D3 ) 25 Mcg Tablet, 1000 MG PO DAILY for SUPPLEMENT, TAB 1,000 UNITS = 25 MCG 06/02/21 Azathioprine (IMURAN) 50 Mg Tablet, 50 MG PO TID for MS, TAB 06/02/21 Lisinopril/Hydrochlorothiazide (LISINOPRIL-HCTZ 10-12.5 MG TAB) 1 Each Tablet, 0.5 TAB PO DAILY for BP, #30 TAB 5 Refills 06/02/21 Warfarin Sodium (WARFARIN SODIUM) 10 Mg Tablet, 10 MG PO DAILY for PE/DVT, TAB 06/02/21 Warfarin Sodium (WARFARIN SODIUM) 7.5 Mg Tablet, 7.5 MG PO DAILY for PE/DVT, TAB 06/02/21 MARJORIE BORREGO MD Jun 13, 2021 12:07
[2021-06-13] MEDS: DRONABINOL 2.5 MG CAPSULE. PO SCH (12:49)
--- NOTE | 2021-06-13 12:53 | NUR ---
SW following. Discussed with RN, pt discharging to [facility] today between [id number]. RN notified. SW left voicemail for pt's mother. No further SW needs.
--- NOTE | 2021-06-13 13:52 | NUR ---
Pharmacy Warfarin Dosing Note S:Pharmacy consulted to assist with anticoagulation therapy started with target INR: 2 -3 O:TODD RICO is a 60 year old M with h/o VTE LABS: Last INR: 1.1 Last HGB: 8.1 Last HCT: 23.7 Last PLT: 343 Last dose of Hold given on 06/10/21 at 1600 Previous Regimen: alternates 7.5 mg and 10 mg daily Vitamin K given: Y 5MG PO 1X 06/10 Drug Interaction Changes: Same Interacting Drug Ongoing Drug Interactions: fluconazole . A:INR of 1.1 is [g RX.ACOAG] desired range. Target range for this patient is: 2 -3 P: Warfarin dose: 7.5 mg [g ACOAG.TIME] Bridge Therapy: None Next [g ACOAG.LABS] due [] Pharmacy anticoagulation service will continue to follow. Christiano Cast [facility], 06/13/21 1009
--- NOTE | 2021-06-13 14:45 | NUR ---
Called and gave report to Stephenie at [facility].
[2021-06-13 15:18] VITALS: BP 117/48
--- NOTE | 2021-06-13 15:23 | PATHOLOGY ---
[facility] Accession Number: [id number] . 01 Material submitted: . ANTRUM - ANTRAL BX . 01 Clinical history: . ANEMIA, MELENA EGD . 02 Diagnosis: Gastric biopsy, antrum: - Superficial mucosal congestion and focal edema, and slight chronic inflammation. (JPM:gideon; 06/13/2021) S 06/13/2021 1444 Local . 02 Comment: Sections of the gastric biopsy reveal segments of gastric body mucosa showing superficial mucosal congestion and focal edema, and slight chronic inflammation. A properly controlled immunoperoxidase stain for Helicobacter is negative for Helicobacter organisms. There is no evidence of malignancy. (JPM:gideon; 06/13/2021) . Special stain performed: Immunoperoxidase stain for Helicobacter on A1 . 02 Electronically signed: . Ji Fields MD, Pathologist NPI- [id number] . 01 Gross description: . The specimen is received in formalin, labeled "Severino Du, antral BX". Received are 2 segments of pale freitas tissue ranging in size from 0.3 to 0.9 cm in maximum dimensions. The specimen is submitted entirely in cassette A1.([facility]; 06/12/2021) [facility] 06/13/2021 1402 Local . 02 Pathologist provided ICD-10: K29.50 . 02 CPT . 666030, [id number] Specimen Comment: A courtesy copy of this report has been sent to [phone], [phone] Specimen Comment: [id number] Specimen Comment: Report sent to / DR HOANG Performed at: [address], [place], [place] [id number] MD Johnie Sanchez MD Phone: [phone] Performed at: 02 [facility] [address] [place], [place] [id number] MD Ji Fields MD Phone: [phone]
--- NOTE | 2021-06-13 15:55 | NUR ---
Pt discharged to [facility]. Trialysis catheter removed without complications. Fields intact, rectal tube intact. Pt transferred to [facility] and was taken via transportation.
[2021-06-13] MEDS ORDERED: WARFARIN 7.5 MG TABLET. PO ONE (16:00)
== END 2021-06-13 15:57 | DRG 871 ==
LOC: ER 22:07 → ED HOLD 06-02 00:20 → 4 NORTH 06-02 01:11 → 1 WEST ICU 06-02 05:20 → 4 NORTH 06-03 17:09
PROVIDERS: ADMIT Internal Medicine; ATTEND Internal Medicine
PROC: 02H633Z Insertion of Infusion Device into Right Atrium, Percutaneous Approach (ICD-10-PCS; 2021-06-02)
PROC: B548ZZA Ultrasonography of Superior Vena Cava, Guidance (ICD-10-PCS; 2021-06-02)
PROC: 30233K1 Transfusion of Nonautologous Frozen Plasma into Peripheral Vein, Percutaneous Approach (ICD-10-PCS; principal; 2021-06-11)
PROC: 30233N1 Transfusion of Nonautologous Red Blood Cells into Peripheral Vein, Percutaneous Approach (ICD-10-PCS; 2021-06-11)
PROC: 0DB68ZX Excision of Stomach, Via Natural or Artificial Opening Endoscopic, Diagnostic (ICD-10-PCS; 2021-06-12)
DX: A41.9 Sepsis, unspecified organism (principal); N17.0 Acute kidney failure with tubular necrosis; R65.21 Severe sepsis with septic shock; D68.9 Coagulation defect, unspecified; L03.115 Cellulitis of right lower limb; L03.116 Cellulitis of left lower limb; Z68.41 Body mass index [BMI] 40.0-44.9, adult; K92.2 Gastrointestinal hemorrhage, unspecified; B35.1 Tinea unguium; B36.9 Superficial mycosis, unspecified; D64.9 Anemia, unspecified; E66.01 Morbid (severe) obesity due to excess calories; G35 Multiple sclerosis; I11.9 Hypertensive heart disease without heart failure; I89.0 Lymphedema, not elsewhere classified; K76.0 Fatty (change of) liver, not elsewhere classified; Z20.822 Contact with and (suspected) exposure to COVID-19; Z82.49 Family history of ischemic heart disease and other diseases of the circulatory system; Z86.711 Personal history of pulmonary embolism; Z86.718 Personal history of other venous thrombosis and embolism; Z79.899 Other long term (current) drug therapy; E87.5 Hyperkalemia
CPT/HCPCS: 36415; 36430; 36556; 43239; 71045; 76770; 76937; 80048; 80053; 81001; 82607; 83010; 83540; 83550; 83605; 83735; 83880; 85007; 85014; 85018; 85025; 85027; 85045; 85610; 85730; 86850; 86900; 86901; 86920; 86927; 87040; 87086; 87426; 87493; 87505; 88305; 88342; 96360; 96361; C1892; J2020; J2543; J2704; J3490; J7030; J7060; J7120; P9016; P9017; P9045; P9612; U0003; U0005; 97110-GP; 97530-GO; 97530-GP; 97535-GO; 99291-25; G0378; Q0163; Q0167

== ENCOUNTER 2021-06-26 23:38 | Inpatient (IN) | payer MEDICARE ==
[~2021-06-26] VITALS: Ht 177.8 cm; Wt 121.1 kg
[~2021-06-26 23:38] MED LIST: AMOX1TAB10 PO; AZAT50TA20 PO; CHOL10004 PO; DOCU100C28 PO; FERR325T14 PO; Fluconazole PO; LISI1TAB23 PO; NYST15PO2 TP; PANT40TA77 PO; SAW160CA3 PO; WARF10TA40 PO; WARF7.5T45 PO
--- NOTE | 2021-06-26 23:54 | PHYS DOC ---
Past Medical History Past Medical History: DVT Additional Past Medical Histor: MS, LYMPHEDEMA Past Surgical History: No Surgical History Smoking Status: Former Smoker Alcohol Use: None General Adult HPI: HPI: Patient is a 60-year-old male presenting from local assisted via EMS for bleeding sacral wound. He has complex past medical history significant for multiple sclerosis, lymphedema, HTN, RLE DVT and PE (2013). He was recently at our facility and discharged several weeks ago to assisted after being treated for severe sepsis. He receives wound care therapy at his assisted for longstanding history of decubitus ulcer that has been complicated by ongoing warfarin use given history of DVT and PE. Today, after receiving local wound care therapy earlier in the morning, patient sacral ulcer was noted to be bleeding. Bleeding was not severe or hemorrhaging, but it was brisk and ongoing prompting facility to check patient's INR level later that evening, INR level was found to be 12. Given ongoing bleeding and elevated INR, patient was subsequently transferred to our facility for evaluation. On arrival, patient has no complaints. Denies any vision changes, shortness of breath, chest pain, ripping or tearing sensation in the torso, dizziness or other concerning findings. States he takes all medications as prescribed. Review of Systems: Review of Systems: Fourteen body systems of review of systems have been reviewed. See HPI for pertinent positives and negative responses, other vaughan all other systems are negative, non-pertinent or non-contributory Heart Score: C/O Chest Pain: No Risk Factors: Risk Factors: DM, Current or recent (<one month) smoker, HTN, HLP, family history of CAD, obesity. Risk Scores: Score 0 - 3: 2.5% MACE over next 6 weeks - Discharge Home Score 4 - 6: 20.3% MACE over next 6 weeks - Admit for Clinical Observation Score 7 - 10: 72.7% MACE over next 6 weeks - Early Invasive Strategies Allergies: Allergies: Allergies Coded Allergies Type Severity Reaction Last Updated Verified No Known Drug Allergies 06/12/21 No Physical Exam: PE: Constitutional: Age-appropriate male appears disheveled with narvaez skin flaking and poor hygiene globally HENT: Normocephalic, atraumatic, bilateral external ears normal, oropharynx dry, no oral exudates, nose normal. Eyes: PERRLA, EOMI, conjunctiva normal, no discharge. Neck: Normal range of motion, no tenderness, supple, no stridor. Cardiovascular: Heart rate regular, sinus rhythm, no murmurs rubs or gallops Lungs & Thorax: Bilateral breath sounds clear to auscultation Abdomen: Bowel sounds normal, soft, no tenderness, no masses, no pulsatile masses. Nonsurgical abdomen, no peritoneal signs. Fields catheter present and well-appearing Skin: Warm, dry, no erythema, no rash. Patient has extensive dry skin globally. Patient has known decubitus ulcer that is unstageable and covered, not actively bleeding, approximately 2 x 3 cm and probes down several inches to what appears to be muscle and/or bone Back: No tenderness, no CVA tenderness. Extremities: No tenderness, no cyanosis, no clubbing, ROM intact, no edema. Neurologic: Alert and oriented X 3, grossly normal motor & sensory function, no focal deficits noted. Psychologic: Affect normal, judgement normal, mood normal. Current Patient Data: Labs: Laboratory Tests Test 06/26/21 23:38 White Blood Count 7.8 x10^3/uL Red Blood Count 4.32 x10^6/uL Hemoglobin 11.8 g/dL Hematocrit 36.7 % Mean Corpuscular Volume 85 fL Mean Corpuscular Hemoglobin 27 pg Mean Corpuscular Hemoglobin Concent 32 g/dL Red Cell Distribution Width 18.0 % Platelet Count 536 x10^3/uL Neutrophils (%) (Auto) 39 % Lymphocytes (%) (Auto) 37 % Monocytes (%) (Auto) 11 % Eosinophils (%) (Auto) 12 % Basophils (%) (Auto) 1 % Neutrophils # (Auto) 3.0 x10^3/uL Lymphocytes # (Auto) 2.9 x10^3/uL Monocytes # (Auto) 0.9 x10^3/uL Eosinophils # (Auto) 0.9 x10^3/uL Basophils # (Auto) 0.1 x10^3/uL Prothrombin Time 73.2 SEC Prothromb Time International Ratio 9.4 Activated Partial Thromboplast Time 142 SEC Sodium Level 145 mmol/L Potassium Level 4.0 mmol/L Chloride Level 108 mmol/L Carbon Dioxide Level 27 mmol/L Anion Gap 10 Blood Urea Nitrogen 7 mg/dL Creatinine 1.0 mg/dL Estimated GFR (Cockcroft-Gault) 76.2 BUN/Creatinine Ratio 7 Glucose Level 90 mg/dL Calcium Level 8.9 mg/dL Total Bilirubin 0.3 mg/dL Aspartate Amino Transf (AST/SGOT) 30 U/L Alanine Aminotransferase (ALT/SGPT) 23 U/L Alkaline Phosphatase 74 U/L Troponin I Quantitative < 0.017 ng/mL Total Protein 7.3 g/dL Albumin 2.8 g/dL Albumin/Globulin Ratio 0.6 Current Medications Medications (Trade) Dose Ordered Sig/Steve Route PRN Reason Start Time Stop Time Status Last Admin Dose Admin Acetaminophen (Tylenol) 650 mg PRN Q4HRS PRN PO FEVER > 100.3'F 06/27/21 00:45 06/28/21 00:44 Nitroglycerin (Nitrostat) 0.4 mg PRN Q5MIN PRN SL CHEST PAIN 06/27/21 00:45 06/28/21 00:44 Vital Signs: Vital Signs Date Time Temp Pulse Resp B/P (MAP) Pulse Ox O2 Delivery O2 Flow Rate FiO2 06/26/21 23:42 98.1 65 14 136/62 (86) 98 Room Air 98.1 Vital Signs Date Time Temp Pulse Resp B/P (MAP) Pulse Ox O2 Delivery O2 Flow Rate FiO2 06/26/21 23:42 98.1 65 14 136/62 (86) 98 Room Air 98.1 EKG: EKG: EKG ordered and interpreted by myself 00 31 hours as sinus rhythm at 67 bpm, unremarkable intervals, left axis deviation, no obvious ischemic findings, no STEMI Radiology/Procedures: Radiology/Procedures: [] Course & Med Decision Making: Course & Med Decision Making ABCs unremarkable HPI, physical exam and comprehensive ER work-up nonconcerning for any emergent and/or surgical issues With that said, patient has reported ongoing bleeding throughout the day with a supratherapeutic INR of 9.4 with normal goal being 2-3 I discussed case with hospitalist and need for admission, they agreed and accepted patient under their care. Given no active/obvious bleeding of sacral area or other site on body, will hold warfarin until INR in therapeutic range, will forego supplemental vitamin K at this time I updated patient on proposed plan of care that included hospital admission and he was amenable to, all questions and concerns addressed prior to admission Guerita Disclaimer: Guerita Disclaimer: This electronic medical record was generated, in whole or in part, using a voice recognition dictation system. Departure Departure Impression: Primary Impression: Supratherapeutic INR Additional Impressions: Warfarin anticoagulation History of deep vein thrombosis History of pulmonary embolism Chronic ulcer of sacral region Disposition: 09 ADMITTED INPATIENT Admitting Physician: ALEJANDRA (DR BORREGO) Condition: STABLE Referrals: KEHINDE HOANG (PCP) MARLON VALLES DO Jun 26, 2021 23:54
[2021-06-27 00:06] LABS: BASO # 0.1 x10^3/uL (0.0-0.2); BASO % 1 % (0-3); EOS # 0.9 x10^3/uL (0.0-0.7); EOS % 12 % (0-3); HEMATOCRIT 36.7 % (39.0-53.0); HEMOGLOBIN 11.8 g/dL (13.0-17.5); LYMPH # 2.9 x10^3/uL (1.0-4.8); LYMPH % 37 % (24-48); MEAN CORPUSCULAR HEMOGLOBIN 27 pg (25-35); MEAN CORPUSCULAR HGB CONC 32 g/dL (31-37); MEAN CORPUSCULAR VOLUME 85 fL (79-100); MONO # 0.9 x10^3/uL (0.0-1.1); MONO % 11 % (0-9); NEUT % 39 % (31-73); PLATELET COUNT 536 x10^3/uL (140-400); RED BLOOD COUNT 4.32 x10^6/uL (4.30-5.70); WHITE BLOOD COUNT 7.8 x10^3/uL (4.0-11.0)
[2021-06-27 00:13] LABS: CALCIUM 8.9 mg/dL (8.5-10.1); GFR 76.2
[2021-06-27 00:18] LABS: PROTHROMBIN TIME PATIENT 73.2 SEC (11.7-14.0)
[2021-06-27 00:19] LABS: ALBUMIN 2.8 g/dL (3.4-5.0); ALBUMIN/GLOBULIN RATIO 0.6 (1.0-1.7); TOTAL BILIRUBIN 0.3 mg/dL (0.2-1.0); TOTAL PROTEIN 7.3 g/dL (6.4-8.2)
[2021-06-27] MEDS ORDERED: ACETAMINOPHEN 325 MG TABLET. PO PRN ×2 (00:45→07:15)
[2021-06-27] MEDS ORDERED: NITROGLYCERIN SUBLINGUAL 0.4 MG BOTTLE OF 25. SL PRN (00:45)
[2021-06-27 02:00] VITALS: BP 147/61
--- NOTE | 2021-06-27 03:00 | EKG ---
[facility] [address] [place] [address] Test Date: 2021-06-27 Test Time: 00:29:17 Pat Name: TODD RICO Department: Room: Gender: M Architect In Training: : 1960 Requested By: MARLON VALLES Order Number: [id number] Reading MD: Measurements Intervals Ferriday Rate: 67 P: 47 NC: 156 QRS: -14 QRSD: 94 T: 66 QT: 422 QTc: 449 Interpretive Statements SINUS RHYTHM LEFTWARD AXIS ST & T ABNORMALITY, CONSIDER HIGH LATERAL ISCHEMIA OR LEFT VENTRICULAR STRAIN ABNORMAL ECG RI6.02 No previous ECG available for comparison
[2021-06-27] MEDS ORDERED: CRAN250C PO (03:08)
[2021-06-27] MEDS ORDERED: LACT1CAP37 PO (03:08)
[2021-06-27] MEDS ORDERED: COLL226C TP (03:08)
[2021-06-27] MEDS ORDERED: ASCO500C PO (03:08)
[2021-06-27] MEDS ORDERED: AMIN30LI24 PO (03:08)
[2021-06-27] MEDS ORDERED: FLUC100T4 PO (03:08)
[2021-06-27 07:00] VITALS: BP 130/56
--- NOTE | 2021-06-27 07:00 | PDOC1 ---
History and Physical Date of Admission Date of Admission DATE: 06/27/21 TIME: 06:31 Identification/Chief Complaint Chief Complaint Supratherapeutic INR Source Source: Chart review, Patient History of Present Illness History of Present Illness Patient is a 60-year-old male with past medical history multiple sclerosis, lymphedema, HTN, DVT/PE on warfarin, who presents from his senior living for ongoing bleeding to his chronic chronic decubitus ulcer. He was receiving local wound care at his senior living when he was noted to have ongoing bleeding, for which she was sent to the ED. At his senior living bleeding was not noted to be severe or hemorrhagic, but was ongoing. At his senior living INR was reportedly 12. Labs upon arrival in the ED showed hemoglobin 11.8, hematocrit 36.7, platelet 536, albumin 2.8, INR 9.4, PT 73.2, PTT 142. Discussed with ED attending, due to no active bleeding upon his evaluation, vitamin K was held. Will admit patient for further medical management. Past Medical History Cardiovascular: HTN CENTRAL NERVOUS SYSTEM: Other Past Surgical History Past Surgical History: No pertinent history Family History Family History: Hypertension Social History Smoke: Quit ALCOHOL: none Drugs: None Current Problem List Problem List Problems Medical Problems: (1) Chronic ulcer of sacral region Status: Acute (2) History of deep vein thrombosis Status: Acute (3) History of pulmonary embolism Status: Acute (4) Supratherapeutic INR Status: Acute (5) Warfarin anticoagulation Status: Acute Current Medications Current Medications Current Medications Acetaminophen (Tylenol) 650 mg PRN Q4HRS PRN PO FEVER > 100.3'F; Start 06/27/21 at 00:45; Stop 06/28/21 at 00:44 Nitroglycerin (Nitrostat) 0.4 mg PRN Q5MIN PRN SL CHEST PAIN; Start 06/27/21 at 00:45; Stop 06/28/21 at 00:44 Active Scripts Active Pantoprazole Sodium (Pantoprazole Sodium) 40 Mg Tablet.dr 40 Mg PO DAILYAC 60 Days Docusate Sodium 100 Mg Capsule 1 Cap PO DAILY 30 Days Ferrous Sulfate 325 Mg Tablet 1 Tab PO DAILY Nyamyc (Nystatin) 15 Gm Powder 1 Moses TP BID 30 Days Amox Tr-K Clv 500-125 Mg Tab (Amoxicillin/Potassium Clav) 1 Each Tablet 1 Tab PO BID 14 Days Reported Prosource No Carb Liquid Pkt (Amino Acids/Protein Hydrolys) 30 Ml Liquid.pkt 30 Ml PO DAILY Probiotic (Lactobacillus Combo No.10) 1 Each Capsule 1 Each PO BID Fluconazole 100 Mg Tablet 100 Mg PO DAILY Cranberry (Cranberry Extract) 250 Mg Capsule 450 Mg PO BID Vitamin C (Ascorbic Acid) 500 Mg Capsule.er 500 Mg PO DAILY Eucerin Eczema Relief (Colloidal Oatmeal) 226 Gm Cream..g. 1 Moses TP BID Vitamin D3 (Vitamin D) 25 Mcg Tablet 25 Mcg PO DAILY 1,000 UNITS = 25 MCG Imuran (Azathioprine) 50 Mg Tablet 50 Mg PO TID Warfarin Sodium 7.5 Mg Tablet 7.5 Mg PO DAILY Allergies Allergies: Coded Allergies: No Known Drug Allergies (Unverified , 06/12/21) ROS Review of System GENERAL: No history of weight change, weakness or fevers. SKIN: No bruising, hair changes or rashes. EYES: No blurred, double or loss of vision. NOSE AND THROAT: No history of nosebleeds, hoarseness or sore throat. HEART: Denies chest pain, denies palpitations. LUNGS: Denies cough, hemoptysis, wheezing or shortness of breath. GASTROINTESTINAL: Denies nausea, vomiting, abdominal pain. GENITOURINARY: Denies dysuria, frequency, urgency, hematuria. NEUROLOGIC: Denies history of numbness, tingling, tremor or weakness. PSYCHIATRIC: Denies anxiety, denies depression. ENDOCRINE: No history of heat or cold intolerance, polyuria or polydipsia. EXTREMITIES: Denies muscle weakness, joint pain, pain on walking or stiffness. Physical Exam Physical Exam General: Alert, Oriented X3, Cooperative, No acute distress HEENT: PERRLA, EOMI Lungs: Clear to auscultation, Normal air movement Heart: RRR, no murmurs Cardiovascular: S1, S2 Abdomen: Normal bowel sounds, Soft, No tenderness Extremities: No clubbing, No cyanosis Skin: Extensive dry skin. 2x3 cm unstageable decubitus ulcer that probes several inches, not actively bleeding. Neuro: Normal speech, Normal tone, Sensation intact Psych/Mental Status: Mental status NL, Mood NL Vitals Vitals Vital Signs Date Time Temp Pulse Resp B/P (MAP) Pulse Ox O2 Delivery O2 Flow Rate FiO2 06/27/21 02:28 Room Air 06/27/21 02:00 98.4 75 20 147/61 (89) 97 98.4 Labs Labs Laboratory Tests Test 06/26/21 23:38 White Blood Count 7.8 x10^3/uL (4.0-11.0) Red Blood Count 4.32 x10^6/uL (4.30-5.70) Hemoglobin 11.8 g/dL (13.0-17.5) Hematocrit 36.7 % (39.0-53.0) Mean Corpuscular Volume 85 fL (79-100) Mean Corpuscular Hemoglobin 27 pg (25-35) Mean Corpuscular Hemoglobin Concent 32 g/dL (31-37) Red Cell Distribution Width 18.0 % (11.5-14.5) Platelet Count 536 x10^3/uL (140-400) Neutrophils (%) (Auto) 39 % (31-73) Lymphocytes (%) (Auto) 37 % (24-48) Monocytes (%) (Auto) 11 % (0-9) Eosinophils (%) (Auto) 12 % (0-3) Basophils (%) (Auto) 1 % (0-3) Neutrophils # (Auto) 3.0 x10^3/uL (1.8-7.7) Lymphocytes # (Auto) 2.9 x10^3/uL (1.0-4.8) Monocytes # (Auto) 0.9 x10^3/uL (0.0-1.1) Eosinophils # (Auto) 0.9 x10^3/uL (0.0-0.7) Basophils # (Auto) 0.1 x10^3/uL (0.0-0.2) Prothrombin Time 73.2 SEC (11.7-14.0) Prothromb Time International Ratio 9.4 (0.8-1.1) Activated Partial Thromboplast Time 142 SEC (24-38) Sodium Level 145 mmol/L (136-145) Potassium Level 4.0 mmol/L (3.5-5.1) Chloride Level 108 mmol/L (98-107) Carbon Dioxide Level 27 mmol/L (21-32) Anion Gap 10 (6-14) Blood Urea Nitrogen 7 mg/dL (8-26) Creatinine 1.0 mg/dL (0.7-1.3) Estimated GFR (Cockcroft-Gault) 76.2 BUN/Creatinine Ratio 7 (6-20) Glucose Level 90 mg/dL (70-99) Calcium Level 8.9 mg/dL (8.5-10.1) Total Bilirubin 0.3 mg/dL (0.2-1.0) Aspartate Amino Transf (AST/SGOT) 30 U/L (15-37) Alanine Aminotransferase (ALT/SGPT) 23 U/L (16-63) Alkaline Phosphatase 74 U/L (46-116) Troponin I Quantitative < 0.017 ng/mL (0.000-0.055) Total Protein 7.3 g/dL (6.4-8.2) Albumin 2.8 g/dL (3.4-5.0) Albumin/Globulin Ratio 0.6 (1.0-1.7) Laboratory Tests Test 06/26/21 23:38 White Blood Count 7.8 x10^3/uL (4.0-11.0) Red Blood Count 4.32 x10^6/uL (4.30-5.70) Hemoglobin 11.8 g/dL (13.0-17.5) Hematocrit 36.7 % (39.0-53.0) Mean Corpuscular Volume 85 fL (79-100) Mean Corpuscular Hemoglobin 27 pg (25-35) Mean Corpuscular Hemoglobin Concent 32 g/dL (31-37) Red Cell Distribution Width 18.0 % (11.5-14.5) Platelet Count 536 x10^3/uL (140-400) Neutrophils (%) (Auto) 39 % (31-73) Lymphocytes (%) (Auto) 37 % (24-48) Monocytes (%) (Auto) 11 % (0-9) Eosinophils (%) (Auto) 12 % (0-3) Basophils (%) (Auto) 1 % (0-3) Neutrophils # (Auto) 3.0 x10^3/uL (1.8-7.7) Lymphocytes # (Auto) 2.9 x10^3/uL (1.0-4.8) Monocytes # (Auto) 0.9 x10^3/uL (0.0-1.1) Eosinophils # (Auto) 0.9 x10^3/uL (0.0-0.7) Basophils # (Auto) 0.1 x10^3/uL (0.0-0.2) Prothrombin Time 73.2 SEC (11.7-14.0) Prothromb Time International Ratio 9.4 (0.8-1.1) Activated Partial Thromboplast Time 142 SEC (24-38) Sodium Level 145 mmol/L (136-145) Potassium Level 4.0 mmol/L (3.5-5.1) Chloride Level 108 mmol/L (98-107) Carbon Dioxide Level 27 mmol/L (21-32) Anion Gap 10 (6-14) Blood Urea Nitrogen 7 mg/dL (8-26) Creatinine 1.0 mg/dL (0.7-1.3) Estimated GFR (Cockcroft-Gault) 76.2 BUN/Creatinine Ratio 7 (6-20) Glucose Level 90 mg/dL (70-99) Calcium Level 8.9 mg/dL (8.5-10.1) Total Bilirubin 0.3 mg/dL (0.2-1.0) Aspartate Amino Transf (AST/SGOT) 30 U/L (15-37) Alanine Aminotransferase (ALT/SGPT) 23 U/L (16-63) Alkaline Phosphatase 74 U/L (46-116) Troponin I Quantitative < 0.017 ng/mL (0.000-0.055) Total Protein 7.3 g/dL (6.4-8.2) Albumin 2.8 g/dL (3.4-5.0) Albumin/Globulin Ratio 0.6 (1.0-1.7) VTE Prophylaxis Ordered VTE Prophylaxis Devices: No VTE Pharmacological Prophylaxi: Yes Assessment/Plan Assessment/Plan Supratherapeutic INR History DVT/PE on warfarin Chronic sacral cubitus ulcer Normocytic anemia Thrombocytosis HTN Moderate malnutrition History of multiple sclerosis Plan: Will monitor INR, continue to hold warfarin and resume when therapeutic (INR 23) Wound care to chronic decubitus ulcer Will consult pharmacy to help with possible monitoring of warfarin Resume home medications FEN - Cardiac diet PPX - Warfarin FULL CODE Dispo - inpatient for above Patient names his mother (Vy Du) as surrogate decision-maker Justifications for Admission Other Justification MARJORIE BORREGO MD Jun 27, 2021 07:00
[2021-06-27] MEDS ORDERED: MAG HYDROX/ALUMINUM HYD/SIMETH 30 ML ORAL.SUSP PO PRN (07:15)
[2021-06-27] MEDS ORDERED: MAGNESIUM HYDROXIDE 2,400 MG/30 ML ORAL.SUSP. PO PRN (07:15)
[2021-06-27] MEDS ORDERED: CALCIUM CARBONATE 500 MG TAB.CHEW PO PRN (07:15)
[2021-06-27] MEDS ORDERED: ONDANSETRON PF 4 MG/2 ML VIAL. IVP PRN (07:15)
[2021-06-27] MEDS ORDERED: ZOLPIDEM 5 MG TABLET. PO PRN (07:15)
[2021-06-27] MEDS: PANTOPRAZOLE 40 MG TABLET.DR. PO SCH (08:30)
[2021-06-27] MEDS: azaTHIOprine 50 MG TABLET PO SCH ×3 (08:30→20:57)
[2021-06-27] MEDS: DOCUSATE SODIUM 100 MG CAPSULE. PO SCH (08:30)
[2021-06-27] MEDS: FERROUS SULFATE 325 MG TABLET. PO SCH (08:30)
[2021-06-27] MEDS: LACTOBACILLUS RHAMNOSUS GG 1 CAPSULE. PO SCH ×2 (08:30→20:57)
[2021-06-27] MEDS ORDERED: COLLOIDAL OATMEAL TP SCH (09:00)
[2021-06-27] MEDS ORDERED: [UNRECOGNIZED DRUG - REMARK] PO SCH (09:00)
[2021-06-27] MEDS ORDERED: CRANBERRY EXTRACT 450 MG PO SCH (09:00)
[2021-06-27] MEDS: NYSTATIN TOPICAL POWDER 15GM BOTTLE. TP SCH ×2 (09:00→20:58)
--- NOTE | 2021-06-27 09:56 | NUR ---
Pharmacy Warfarin Dosing Note S:Pharmacy consulted to assist with anticoagulation therapy started with target INR: 2 -3 O:TODD RICO is a 60 year old M with h/o DVT/PE LABS: Last INR: 10.3 Last HGB: 11.8 Last HCT: 36.7 Last PLT: 536 Last dose held Previous Regimen: 7.5 mg daily Vitamin K given: no Ongoing Drug Interactions: n/a A:INR of 10.3 is above desired range. Target range for this patient is: 2 -3 P: Warfarin dose: Hold Today Bridge Therapy: None Next INR due 06/28/21 Pharmacy anticoagulation service will continue to follow. GENIE MONROY RPH, 06/27/21 [id number]
[2021-06-27] MEDS ORDERED: PHYTONADIONE 10 MG/ML ORAL SOLUTION. PO ONE (10:45)
[2021-06-27 11:00] VITALS: BP 123/70
--- NOTE | 2021-06-27 14:43 | NUR ---
SW following. Discussed with RN. BIBIANA verified pt is SNF resident at [facility] KCK, room air, cardiac diet. Wound care following. Pt will need a COVID to return to facility. SW will continue to follow.
[2021-06-27 15:00] VITALS: BP 122/55
--- NOTE | 2021-06-27 15:45 | NUR ---
Wound/Ostomy Care Wound Type/Assessment: Wound care consult for sacrum PU stage 3 and left buttocks maceration/excoriation. Pt known to wound care team from previous admission. Skin through out body is dry and flaky, pt known to have psoriasis. No other wound noted on head to toe skin assessment. All wounds cleansed and redressed, Cavilon applied to buttocks and sacrum's periwound today at time of assessment. Pt with an elevated INR, some bleeding noted when cleaning wound but stopped after applying Cavilon to skin. Sacrum wound appears to be healing compare to previous admission. Treatment Recommendations/Plan: Cleanse all wound and pat dry. Sacrum: skin prep to periwound, apply hydrofera blue ready to wound base (left in room), then cover with foam, change every 2-3 days. Buttocks: apply A&D ointment BID and prn Education provided: pt educated on PU healing, advised to turn q2h left to right only, pt to be on back only at meal times, pt verbalized understanding. Leg elevation to reduce swelling Offloading surface/device: P500 bed, purple wedge, pillow to elevate legs Recommended Referrals/Tests: n/a Discharge Recommendations for dressings: same as above.
[2021-06-27] MEDS: ASCORBIC ACID 500 MG TABLET PO SCH (20:58)
[2021-06-27] MEDS: VITS A & D/LANOLIN TOPICAL OINTMENT 42GM TUBE. TP SCH (21:03)
[2021-06-27 23:50] VITALS: BP 144/68
[2021-06-28 03:58] VITALS: BP 122/79
[2021-06-28 07:00] VITALS: BP 136/58
[2021-06-28] MEDS: LACTOBACILLUS RHAMNOSUS GG 1 CAPSULE. PO SCH ×2 (09:00→21:37)
[2021-06-28] MEDS: DOCUSATE SODIUM 100 MG CAPSULE. PO SCH (09:00)
--- NOTE | 2021-06-28 09:00 | NUR ---
Pt huggins catheter leaking around insertion site. Approx 50 cc yellow urine in tubing of huggins. Pt denies discomfort at this time.
[2021-06-28] MEDS: azaTHIOprine 50 MG TABLET PO SCH ×3 (09:34→21:37)
[2021-06-28] MEDS: PANTOPRAZOLE 40 MG TABLET.DR. PO SCH (09:34)
[2021-06-28] MEDS: ASCORBIC ACID 500 MG TABLET PO SCH ×2 (09:34→21:37)
[2021-06-28] MEDS: FERROUS SULFATE 325 MG TABLET. PO SCH (09:34)
[2021-06-28] MEDS: MULTIVITAMIN with MINERAL TABLET. PO SCH (09:34)
[2021-06-28] MEDS: VITS A & D/LANOLIN TOPICAL OINTMENT 42GM TUBE. TP SCH ×2 (09:35→21:37)
[2021-06-28] MEDS: NYSTATIN TOPICAL POWDER 15GM BOTTLE. TP SCH ×2 (09:35→21:37)
[2021-06-28 09:36] LABS: PROTHROMBIN TIME PATIENT 21.4 SEC (11.7-14.0)
[2021-06-28 09:39] LABS: BASO # 0.1 x10^3/uL (0.0-0.2); BASO % 1 % (0-3); EOS # 0.7 x10^3/uL (0.0-0.7); EOS % 7 % (0-3); HEMATOCRIT 36.7 % (39.0-53.0); HEMOGLOBIN 11.9 g/dL (13.0-17.5); LYMPH # 2.5 x10^3/uL (1.0-4.8); LYMPH % 27 % (24-48); MEAN CORPUSCULAR HEMOGLOBIN 28 pg (25-35); MEAN CORPUSCULAR HGB CONC 33 g/dL (31-37); MEAN CORPUSCULAR VOLUME 86 fL (79-100); MONO # 1.2 x10^3/uL (0.0-1.1); MONO % 13 % (0-9); NEUT # 4.8 x10^3/uL (1.8-7.7); NEUT % 52 % (31-73); PLATELET COUNT 510 x10^3/uL (140-400); RED BLOOD COUNT 4.28 x10^6/uL (4.30-5.70); RED CELL DISTRIBUTION WIDTH 18.3 % (11.5-14.5); WHITE BLOOD COUNT 9.3 x10^3/uL (4.0-11.0)
[2021-06-28 09:44] LABS: CALCIUM 9.2 mg/dL (8.5-10.1); CREATININE 1.2 mg/dL (0.7-1.3); GFR 61.8; POTASSIUM 4.4 mmol/L (3.5-5.1)
[2021-06-28 11:00] VITALS: BP 122/69
--- NOTE | 2021-06-28 11:17 | PDOC ---
[employer] PROGRESS NOTE Date of Service DOS: DATE: 06/28/21 TIME: 11:09 Chief Complaint Chief Complaint Supratherapeutic INR History DVT/PE on warfarin Chronic sacral cubitus ulcer Normocytic anemia Thrombocytosis HTN Moderate malnutrition History of multiple sclerosis Plan: Will monitor INR, continue to hold warfarin and resume when therapeutic (INR 23) Wound care to chronic decubitus ulcer Will consult pharmacy to help with possible monitoring of warfarin Resume home medications FEN - Cardiac diet PPX - Warfarin FULL CODE Dispo - inpatient for above Patient names his mother (Vy Du) as surrogate decision-maker History of Present Illness History of Present Illness Patient is a 60-year-old male with past medical history multiple sclerosis, lymphedema, HTN, DVT/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 He was receiving local wound care at his retirement when he was noted to have ongoing bleeding, for which she was sent to the ED. At his retirement bleeding was not noted to be severe or hemorrhagic, but was ongoing. At his retirement INR was reportedly 12. Labs upon arrival in the ED showed hemoglobin 11.8, hematocrit 36.7, platelet 536, albumin 2.8, INR 9.4, PT 73.2, PTT 142. Discussed with ED attending, due to no active bleeding upon his evaluation, vitamin K was held. Will admit patient for further medical management. 06/28/2021: Patient seen and evaluated with family at bedside. Feels tired, but no other complaints today. INR 1.9 today; will resume warfarin. No further bleeding. He is stable to discharge back to his retirement, but he does not want to return to [facility]. Will order PT/OT. Discussed with social worker delinquency prevention and RN. Vitals/I&O Vitals/I&O: Vital Signs Date Time Temp Pulse Resp B/P (MAP) Pulse Ox O2 Delivery O2 Flow Rate FiO2 06/28/21 07:00 98.0 56 18 136/58 (84) 95 Room Air 98.0 I & O 06/27/21 06/27/21 06/28/21 15:00 23:00 07:00 Output Total 250 ml Balance -250 ml Physical Exam General: Alert, Oriented X3, No acute distress Heart: Regular rate Lungs: Clear Abdomen: Soft Extremities: No clubbing, No cyanosis Skin: No rashes Labs Labs: Laboratory Tests Test 06/28/21 08:25 White Blood Count 9.3 x10^3/uL (4.0-11.0) Red Blood Count 4.28 x10^6/uL (4.30-5.70) Hemoglobin 11.9 g/dL (13.0-17.5) Hematocrit 36.7 % (39.0-53.0) Mean Corpuscular Volume 86 fL (79-100) Mean Corpuscular Hemoglobin 28 pg (25-35) Mean Corpuscular Hemoglobin Concent 33 g/dL (31-37) Red Cell Distribution Width 18.3 % (11.5-14.5) Platelet Count 510 x10^3/uL (140-400) Neutrophils (%) (Auto) 52 % (31-73) Lymphocytes (%) (Auto) 27 % (24-48) Monocytes (%) (Auto) 13 % (0-9) Eosinophils (%) (Auto) 7 % (0-3) Basophils (%) (Auto) 1 % (0-3) Neutrophils # (Auto) 4.8 x10^3/uL (1.8-7.7) Lymphocytes # (Auto) 2.5 x10^3/uL (1.0-4.8) Monocytes # (Auto) 1.2 x10^3/uL (0.0-1.1) Eosinophils # (Auto) 0.7 x10^3/uL (0.0-0.7) Basophils # (Auto) 0.1 x10^3/uL (0.0-0.2) Prothrombin Time 21.4 SEC (11.7-14.0) Prothromb Time International Ratio 1.9 (0.8-1.1) Sodium Level 144 mmol/L (136-145) Potassium Level 4.4 mmol/L (3.5-5.1) Chloride Level 109 mmol/L (98-107) Carbon Dioxide Level 25 mmol/L (21-32) Anion Gap 10 (6-14) Blood Urea Nitrogen 10 mg/dL (8-26) Creatinine 1.2 mg/dL (0.7-1.3) Estimated GFR (Cockcroft-Gault) 61.8 Glucose Level 99 mg/dL (70-99) Calcium Level 9.2 mg/dL (8.5-10.1) Assessment and Plan Assessmemt and Plan Problems Medical Problems: (1) Chronic ulcer of sacral region Status: Acute (2) History of deep vein thrombosis Status: Acute (3) History of pulmonary embolism Status: Acute (4) Supratherapeutic INR Status: Acute (5) Warfarin anticoagulation Status: Acute Comment Review of Relevant I have reviewed the following items taniya (where applicable) has been applied. Medications: Current Medications Medications (Trade) Dose Ordered Sig/Steve Route PRN Reason Start Time Stop Time Status Last Admin Dose Admin Vitamin A/Vitamin D (Vitamin A & D Ointment) 1 pedro BID TP 06/27/21 21:00 06/28/21 09:35 Multivitamins (Thera M Plus) 1 tab DAILY PO 06/28/21 09:00 06/28/21 09:34 Ascorbic Acid (Vitamin C) 500 mg BID PO 06/27/21 21:00 06/28/21 09:34 Justifications for Admission General Conditions Other justification for admit: Supratherapeutic INR, chronic sacral wounds Other Justification MARJORIE BORREGO MD Jun 28, 2021 11:17
--- NOTE | 2021-06-28 11:25 | NUR ---
Pharmacy Warfarin Dosing Note S:Pharmacy consulted to assist with anticoagulation therapy started with target INR: 2 -3 O:TODD RICO is a 60 year old M with h/o DVT/PE LABS: Last INR: 1.9 Last HGB: 11.9 Last HCT: 36.7 Last PLT: 510 Last dose of held Previous Regimen: 7.5 mg daily Vitamin K given: Y - 2.5 mg po (06/27) A:INR of 1.9 is below desired range. Target range for this patient is: 2 -3 P: Warfarin dose: 5 mg Today at 1600 Bridge Therapy: None Next INR due 06/29/21 Pharmacy anticoagulation service will continue to follow. GENIE MONROY [facility], 06/28/21 [id number]
--- NOTE | 2021-06-28 11:30 | NUR ---
Pt huggins catheter has increased amount of leakage around insertion site. Dr. Scott notified. Orders received to reinsert larger huggins catheter. Will continue to monitor.
[2021-06-28 15:00] VITALS: BP 125/62
--- NOTE | 2021-06-28 15:22 | NUR ---
SW following. Discussed with RN, pt came from [facility] SNF but does not want to return there. SW awaiting therapy notes and COVID result for alternate placement. Wound care following. SW will continue to follow.
[2021-06-28] MEDS ORDERED: WARFARIN 5 MG TABLET. PO ONE (16:00)
--- NOTE | 2021-06-28 16:00 | NUR ---
Previous 16F catheter removed and pt immediately started having urinary drainage at insertion site. 18 F Fields Catheter inserted per sterile procedure. Pt tolerated procedure without complaints. Pt had immediate return of approx 1400cc of straw colored urine in catheter. No leaking noted around catheter insertion site at this time. Linen and gown change done, wound dressing changed on cocyx. Pt pulled up in bed. Call light within reach. PT to work with patient now. Will continue to monitor.
[2021-06-28 19:39] VITALS: BP 135/65
[2021-06-28 23:39] VITALS: BP 132/67
[2021-06-29 03:35] VITALS: BP 119/57
[2021-06-29 07:00] VITALS: BP 148/62
--- NOTE | 2021-06-29 08:37 | PDOC ---
[employer] PROGRESS NOTE Date of Service DOS: DATE: 06/29/21 TIME: 08:34 Chief Complaint Chief Complaint Supratherapeutic INR History DVT/PE on warfarin Chronic sacral cubitus ulcer Normocytic anemia Thrombocytosis HTN Moderate malnutrition History of multiple sclerosis Plan: Will monitor INR, continue to hold warfarin and resume when therapeutic (INR 23) Wound care to chronic decubitus ulcer Will consult pharmacy to help with possible monitoring of warfarin Resume home medications FEN - Cardiac diet PPX - Warfarin FULL CODE Dispo - inpatient for above Patient names his mother (Vy Du) as surrogate decision-maker History of Present Illness History of Present Illness Patient is a 60-year-old male with past medical history multiple sclerosis, lymphedema, HTN, DVT/PE on warfarin, who presents from his skilled nursing for ongoing bleeding to his chronic chronic decubitus ulcer. He was receiving local wound care at his skilled nursing when he was noted to have ongoing bleeding, for which she was sent to the ED. At his skilled nursing bleeding was not noted to be severe or hemorrhagic, but was ongoing. At his skilled nursing INR was reportedly 12. Labs upon arrival in the ED showed hemoglobin 11.8, hematocrit 36.7, platelet 536, albumin 2.8, INR 9.4, PT 73.2, PTT 142. Discussed with ED attending, due to no active bleeding upon his evaluation, vitamin K was held. Will admit patient for further medical management. 06/28/2021: Patient seen and evaluated with family at bedside. Feels tired, but no other complaints today. INR 1.9 today; will resume warfarin. No further bleeding. He is stable to discharge back to his skilled nursing, but he does not want to return to [facility]. Will order PT/OT. Discussed with social worker aide and RN. 06/29/2021: Warfarin is been resumed yesterday, INR 1.9. No further bleeding. Patient does not want return to [facility]. Rapid COVID-19 negative, COVID-19 PCR pending. Worked with occupational therapy and recommended group home; PT recommendations pending. Wound care following. Vitals/I&O Vitals/I&O: Vital Signs Date Time Temp Pulse Resp B/P (MAP) Pulse Ox O2 Delivery O2 Flow Rate FiO2 06/29/21 03:35 97.8 72 18 119/57 (77) 96 Room Air 97.8 I & O 06/28/21 06/28/21 06/29/21 14:59 22:59 06:59 Intake Total 400 ml Output Total 1400 ml 1200 ml Balance -1400 ml -800 ml Physical Exam General: Alert, Oriented X3, No acute distress Heart: Regular rate Lungs: Clear Abdomen: Soft Extremities: No clubbing, No cyanosis Skin: No rashes Labs Labs: Laboratory Tests Test 06/28/21 16:00 SARS-CoV-2 Antigen (Rapid) Negative (NEGATIVE) Assessment and Plan Assessmemt and Plan Problems Medical Problems: (1) Chronic ulcer of sacral region Status: Acute (2) History of deep vein thrombosis Status: Acute (3) History of pulmonary embolism Status: Acute (4) Supratherapeutic INR Status: Acute (5) Warfarin anticoagulation Status: Acute Comment Review of Relevant I have reviewed the following items taniya (where applicable) has been applied. Medications: Current Medications Medications (Trade) Dose Ordered Sig/Steve Route PRN Reason Start Time Stop Time Status Last Admin Dose Admin Multivitamins (Thera M Plus) 1 tab DAILY PO 06/28/21 09:00 06/28/21 09:34 Warfarin Sodium (Coumadin) 5 mg 1X WARF ONCE PO 06/28/21 16:00 06/28/21 17:31 DC 06/28/21 16:00 Justifications for Admission General Conditions Other justification for admit: Supratherapeutic INR, chronic sacral wounds Other Justification MARJORIE BORREGO MD Jun 29, 2021 08:37
[2021-06-29 08:43] LABS: PROTHROMBIN TIME PATIENT 21.7 SEC (11.7-14.0)
[2021-06-29] MEDS: azaTHIOprine 50 MG TABLET PO SCH ×3 (08:45→23:38)
[2021-06-29] MEDS: MULTIVITAMIN with MINERAL TABLET. PO SCH (08:45)
[2021-06-29] MEDS: PANTOPRAZOLE 40 MG TABLET.DR. PO SCH (08:45)
[2021-06-29] MEDS: DOCUSATE SODIUM 100 MG CAPSULE. PO SCH (08:46)
[2021-06-29] MEDS: LACTOBACILLUS RHAMNOSUS GG 1 CAPSULE. PO SCH ×2 (08:46→23:38)
[2021-06-29] MEDS: NYSTATIN TOPICAL POWDER 15GM BOTTLE. TP SCH ×2 (08:46→23:40)
[2021-06-29] MEDS: FERROUS SULFATE 325 MG TABLET. PO SCH (08:46)
[2021-06-29] MEDS: ASCORBIC ACID 500 MG TABLET PO SCH ×2 (08:46→23:38)
[2021-06-29] MEDS: VITS A & D/LANOLIN TOPICAL OINTMENT 42GM TUBE. TP SCH ×2 (08:46→23:39)
[2021-06-29 11:00] VITALS: BP 124/71
[2021-06-29 15:00] VITALS: BP 141/77
[2021-06-29] MEDS: MINERAL OIL/PETROLATUM TOPICAL CREAM 113GM JAR. TP PRN (15:15)
--- NOTE | 2021-06-29 15:48 | NUR ---
Pharmacy Warfarin Dosing Note S: Pharmacy consulted to assist with anticoagulation therapy O: TODD RICO is a 60 year old M with DVT/PE LABS: Last INR: 1.9 Last HGB: 11.9 Last HCT: 36.7 Last PLT: 510 Last dose of 5 mg given on 06/28/21 at 1600 Vitamin K given: N 2.5 mg po (06/27) Ongoing Drug Interactions: A:INR of 1.9 is below desired range. Target range for this patient is: 2 -3 P: Warfarin dose: 5 mg Today at 1600 Bridge Therapy: None Next INR due tomorrow Pharmacy anticoagulation service will continue to follow. Loren Schwartz Benjamín, 06/29/21 [id number]
[2021-06-29] MEDS ORDERED: WARFARIN 5 MG TABLET. PO ONE (16:00)
[2021-06-29 19:00] VITALS: BP 125/63
[2021-06-29 23:00] VITALS: BP 125/56
[2021-06-30 03:00] VITALS: BP 123/51
[2021-06-30 07:00] VITALS: BP 133/74
[2021-06-30 08:51] LABS: PROTHROMBIN TIME PATIENT 23.6 SEC (11.7-14.0)
[2021-06-30] MEDS: DOCUSATE SODIUM 100 MG CAPSULE. PO SCH (09:00)
--- NOTE | 2021-06-30 10:18 | NUR ---
Pharmacy Warfarin Dosing Note S: Pharmacy consulted to assist with anticoagulation therapy O: TODD RICO is a 60 year old M with DVT/PE LABS: Last INR: 2.1 Last HGB: 11.9 Last HCT: 36.7 Last PLT: 510 Last dose of 5 mg given on 06/29/21 at 1642 Vitamin K given: N 2.5 mg po (06/27) Ongoing Drug Interactions: A:INR of 2.1 is within desired range. Target range for this patient is: 2 -3 P: Warfarin dose: 5 mg Today at 1600 Bridge Therapy: None Next INR due tomorrow Pharmacy anticoagulation service will continue to follow. Loren Schwartz RPH, 06/30/21 [id number]
[2021-06-30] MEDS: LACTOBACILLUS RHAMNOSUS GG 1 CAPSULE. PO SCH ×2 (10:44→21:31)
[2021-06-30] MEDS: ASCORBIC ACID 500 MG TABLET PO SCH ×2 (10:44→21:31)
[2021-06-30] MEDS: azaTHIOprine 50 MG TABLET PO SCH ×3 (10:45→21:31)
[2021-06-30] MEDS: FERROUS SULFATE 325 MG TABLET. PO SCH (10:45)
[2021-06-30] MEDS: PANTOPRAZOLE 40 MG TABLET.DR. PO SCH (10:45)
[2021-06-30] MEDS: MULTIVITAMIN with MINERAL TABLET. PO SCH (10:45)
[2021-06-30] MEDS: VITS A & D/LANOLIN TOPICAL OINTMENT 42GM TUBE. TP SCH ×2 (10:46→21:31)
[2021-06-30] MEDS: NYSTATIN TOPICAL POWDER 15GM BOTTLE. TP SCH ×2 (10:46→21:31)
[2021-06-30 11:00] VITALS: BP 147/65
--- NOTE | 2021-06-30 12:16 | NUR ---
colace held d/t patient having loose stools
--- NOTE | 2021-06-30 12:33 | PDOC ---
[employer] PROGRESS NOTE Date of Service DOS: DATE: 06/30/21 TIME: 12:31 Chief Complaint Chief Complaint Supratherapeutic INR History DVT/PE on warfarin Chronic sacral cubitus ulcer Normocytic anemia Thrombocytosis HTN Moderate malnutrition History of multiple sclerosis Plan: Will monitor INR, continue to hold warfarin and resume when therapeutic (INR 23) Wound care to chronic decubitus ulcer Will consult pharmacy to help with possible monitoring of warfarin Resume home medications FEN - Cardiac diet PPX - Warfarin FULL CODE Dispo - inpatient for above Patient names his mother (Vy Du) as surrogate decision-maker History of Present Illness History of Present Illness Patient is a 60-year-old male with past medical history multiple sclerosis, lymphedema, HTN, DVT/PE on warfarin, who [facility] to his chronic chronic decubitus ulcer. He was receiving local wound care at his [facility] when he was noted to have ongoing bleeding, for which she was sent to the ED. At his [facility] bleeding was not noted to be severe or hemorrhagic, but was ongoing. At his [facility] INR was reportedly 12. Labs upon arrival in the ED showed hemoglobin 11.8, hematocrit 36.7, platelet 536, albumin 2.8, INR 9.4, PT 73.2, PTT 142. Discussed with ED attending, due to no active bleeding upon his evaluation, vitamin K was held. Will admit patient for further medical management. 06/28/2021: Patient seen and evaluated with family at bedside. Feels tired, but no other complaints today. INR 1.9 today; will resume warfarin. No further bleeding. He is stable to discharge back to his [facility], but he does not want to return to [facility]. Will order PT/OT. Discussed with hospice social worker and RN. 06/29/2021: Warfarin is been resumed yesterday, INR 1.9. No further bleeding. Patient does not want return to [facility]. Rapid COVID-19 negative, COVID-19 PCR pending. Worked with occupational therapy and recommended assisted; PT recommendations pending. Wound care following. 06/30/2021: INR 2.1 today. Denies any further bleeding. He has no complaints today. Patient does not want to return to [facility]. business services sales agent to place referral to [facility] rehab. Vitals/I&O Vitals/I&O: Vital Signs Date Time Temp Pulse Resp B/P (MAP) Pulse Ox O2 Delivery O2 Flow Rate FiO2 06/30/21 07:00 97.7 80 18 133/74 (93) 94 Room Air 97.7 I & O 06/29/21 06/29/21 06/30/21 15:00 23:00 07:00 Intake Total 100 ml 200 ml Output Total 500 ml 200 ml Balance -400 ml 0 ml Physical Exam General: Alert, Oriented X3, No acute distress Heart: Regular rate Lungs: Clear Abdomen: Soft Extremities: No clubbing, No cyanosis Skin: No rashes Labs Labs: Laboratory Tests Test 06/30/21 06:45 Prothrombin Time 23.6 SEC (11.7-14.0) Prothromb Time International Ratio 2.1 (0.8-1.1) Assessment and Plan Assessmemt and Plan Problems Medical Problems: (1) Chronic ulcer of sacral region Status: Acute (2) History of deep vein thrombosis Status: Acute (3) History of pulmonary embolism Status: Acute (4) Supratherapeutic INR Status: Acute (5) Warfarin anticoagulation Status: Acute Comment Review of Relevant I have reviewed the following items taniya (where applicable) has been applied. Medications: Current Medications Medications (Trade) Dose Ordered Sig/Steve Route PRN Reason Start Time Stop Time Status Last Admin Dose Admin Multi-Ingredient Ointment (Hydrocerin, Eucerin Cream) 1 pedro PRN Q1HR PRN TP DRY SKIN / SCALING 06/29/21 14:45 06/29/21 15:15 Warfarin Sodium (Coumadin) 5 mg 1X WARF ONCE PO 06/29/21 16:00 06/29/21 16:01 DC 06/29/21 16:42 Justifications for Admission General Conditions Other justification for admit: Supratherapeutic INR, chronic sacral wounds Other Justification MARJORIE BORREGO MD Jun 30, 2021 12:33
[2021-06-30 14:53] VITALS: BP 122/58
[2021-06-30] MEDS ORDERED: WARFARIN 5 MG TABLET. PO ONE (16:00)
[2021-06-30 19:00] VITALS: BP 138/66
[2021-06-30] MEDS: MINERAL OIL/PETROLATUM TOPICAL CREAM 113GM JAR. TP PRN (21:35)
[2021-06-30 23:05] VITALS: BP 133/35
[2021-07-01 03:13] VITALS: BP 141/70
[2021-07-01] MEDS: HYDROcodone/APAP 5/325MG 1 TAB TABLET PO PRN ×4 (05:53→21:17)
[2021-07-01 07:00] VITALS: BP 144/85
[2021-07-01 07:58] LABS: PROTHROMBIN TIME PATIENT 23.2 SEC (11.7-14.0)
[2021-07-01] MEDS: LACTOBACILLUS RHAMNOSUS GG 1 CAPSULE. PO SCH ×2 (08:11→21:15)
[2021-07-01] MEDS: ASCORBIC ACID 500 MG TABLET PO SCH ×2 (08:12→21:15)
[2021-07-01] MEDS: PANTOPRAZOLE 40 MG TABLET.DR. PO SCH (08:12)
[2021-07-01] MEDS: FERROUS SULFATE 325 MG TABLET. PO SCH (08:12)
[2021-07-01] MEDS: azaTHIOprine 50 MG TABLET PO SCH ×3 (08:14→21:15)
[2021-07-01] MEDS: DOCUSATE SODIUM 100 MG CAPSULE. PO SCH (08:14)
[2021-07-01] MEDS: VITS A & D/LANOLIN TOPICAL OINTMENT 42GM TUBE. TP SCH ×2 (08:45→21:00)
[2021-07-01] MEDS: NYSTATIN TOPICAL POWDER 15GM BOTTLE. TP SCH ×2 (08:45→21:00)
[2021-07-01] MEDS: MULTIVITAMIN with MINERAL TABLET. PO SCH (08:46)
[2021-07-01 11:00] VITALS: BP 136/71
--- NOTE | 2021-07-01 11:10 | PDOC ---
[employer] PROGRESS NOTE Date of Service DOS: DATE: 07/01/21 TIME: 11:07 Chief Complaint Chief Complaint Supratherapeutic INR History DVT/PE on warfarin Chronic sacral cubitus ulcer Normocytic anemia Thrombocytosis HTN Moderate malnutrition History of multiple sclerosis Plan: Will monitor INR, continue to hold warfarin and resume when therapeutic (INR 23) Wound care to chronic decubitus ulcer Will consult pharmacy to help with possible monitoring of warfarin Resume home medications FEN - Cardiac diet PPX - Warfarin FULL CODE Dispo - inpatient for above Patient names his mother (Vy Du) as surrogate decision-maker History of Present Illness History of Present Illness Patient is a 60-year-old male with past medical history multiple sclerosis, lymphedema, HTN, DVT/PE on warfarin, who presents from his intermediate for ongoing bleeding to his chronic chronic decubitus ulcer. He was receiving local wound care at his intermediate when he was noted to have ongoing bleeding, for which she was sent to the ED. At his intermediate bleeding was not noted to be severe or hemorrhagic, but was ongoing. At his intermediate INR was reportedly 12. Labs upon arrival in the ED showed hemoglobin 11.8, hematocrit 36.7, platelet 536, albumin 2.8, INR 9.4, PT 73.2, PTT 142. Discussed with ED attending, due to no active bleeding upon his evaluation, vitamin K was held. Will admit patient for further medical management. 06/28/2021: Patient seen and evaluated with family at bedside. Feels tired, but no other complaints today. INR 1.9 today; will resume warfarin. No further bleeding. He is stable to discharge back to his intermediate, but he does not want to return to [facility]. Will order PT/OT. Discussed with social media sr strategy manager and RN. 06/29/2021: Warfarin is been resumed yesterday, INR 1.9. No further bleeding. Patient does not want return to [facility]. Rapid COVID-19 negative, COVID-19 PCR pending. Worked with occupational therapy and recommended fpc; PT recommendations pending. Wound care following. 06/30/2021: INR 2.1 today. Denies any further bleeding. He has no complaints today. Patient does not want to return to [facility]. customer services supervisor to place referral to [facility] rehab. 07/01/2021: Patient seen resting comfortably in bed. Afebrile. INR 2.1. plier worker has placed referral to [facility] rehab. Vitals/I&O Vitals/I&O: Vital Signs Date Time Temp Pulse Resp B/P (MAP) Pulse Ox O2 Delivery O2 Flow Rate FiO2 07/01/21 08:13 20 Room Air 07/01/21 07:00 99.2 85 144/85 (104) 92 99.2 I & O 06/30/21 06/30/21 07/01/21 15:00 23:00 07:00 Output Total 150 ml 100 ml 575 ml Balance -150 ml -100 ml -575 ml Physical Exam General: Alert, Oriented X3, No acute distress Heart: Regular rate Lungs: Clear Abdomen: Soft Extremities: No clubbing, No cyanosis Skin: No rashes Labs Labs: Laboratory Tests Test 07/01/21 06:00 Prothrombin Time 23.2 SEC (11.7-14.0) Prothromb Time International Ratio 2.1 (0.8-1.1) Assessment and Plan Assessmemt and Plan Problems Medical Problems: (1) Chronic ulcer of sacral region Status: Acute (2) History of deep vein thrombosis Status: Acute (3) History of pulmonary embolism Status: Acute (4) Supratherapeutic INR Status: Acute (5) Warfarin anticoagulation Status: Acute Comment Review of Relevant I have reviewed the following items taniya (where applicable) has been applied. Medications: Current Medications Medications (Trade) Dose Ordered Sig/Steve Route PRN Reason Start Time Stop Time Status Last Admin Dose Admin Warfarin Sodium (Coumadin) 5 mg 1X WARF ONCE PO 06/30/21 16:00 06/30/21 16:01 DC 06/30/21 15:39 Justifications for Admission General Conditions Other justification for admit: Supratherapeutic INR, chronic sacral wounds Other Justification MARJORIE BORREGO MD Jul 01, 2021 11:10
--- NOTE | 2021-07-01 14:07 | NUR ---
Pharmacy Warfarin Dosing Note S: Pharmacy consulted to assist with anticoagulation therapy started BENEFITS DIRECTOR O: TODD RICO is a 60 year old M with HX:DVT/PE LABS: Last INR: 2.1 Last HGB: 11.9 Last HCT: 36.7 Last PLT: 510 Last dose of 5 mg given on 06/30/21 at 1539 Vitamin K given: 2.5 mg po (06/27) A:INR of 2.1 is within desired range. Target range for this patient is: 2 -3 P: Warfarin dose: 5 mg Today at 1600 Bridge Therapy: None Next INR due 07/02/21 AM Pharmacy anticoagulation service will continue to follow. KLEVER SÁNCHEZ [facility], 07/01/21 [id number]
[2021-07-01 15:00] VITALS: BP 133/60
[2021-07-01] MEDS: IV NORMAL SALINE 1000ML BAG 1,000 ML IV SCH (15:20)
[2021-07-01 15:29] LABS: BILIRUBIN,URINE NEGATIVE (NEG); CLARITY,URINE TURBID; COLOR,URINE AMBER; NITRITE,URINE POSITIVE (NEG); PH,URINE 5.5 (<5.0-8.0); PROTEIN,URINE 100 mg/dL (NEG-TRACE); UROBILINOGEN,URINE 0.2 mg/dL (0.2 mg/dL)
[2021-07-01 15:45] LABS: AMORPHOUS SEDIMENT,UR PRESENT /HPF; BACTERIA,URINE MANY /HPF (0-FEW); RBC,URINE FIELD OBSCURED /HPF (0-2); WBC,URINE TNTC /HPF (0-4)
[2021-07-01] MEDS ORDERED: WARFARIN 5 MG TABLET. PO ONE (16:00)
[2021-07-01 17:19] LABS: INFLUENZA A PATIENT NEGATIVE (NEGATIVE); INFLUENZA B PATIENT NEGATIVE (NEGATIVE)
[2021-07-01 19:00] VITALS: BP 126/58
[2021-07-01] MEDS: cefTRIAXone IV Push 1 GM VIAL. IVP SCH (21:15)
[2021-07-01 21:17] LABS: BASO % 0 % (0-3); EOS # 0.1 x10^3/uL (0.0-0.7); EOS % 0 % (0-3); HEMATOCRIT 33.4 % (39.0-53.0); HEMOGLOBIN 10.8 g/dL (13.0-17.5); LYMPH # 1.9 x10^3/uL (1.0-4.8); LYMPH % 11 % (24-48); MEAN CORPUSCULAR HEMOGLOBIN 28 pg (25-35); MEAN CORPUSCULAR HGB CONC 32 g/dL (31-37); MEAN CORPUSCULAR VOLUME 86 fL (79-100); MONO % 11 % (0-9); NEUT % 78 % (31-73); PLATELET COUNT 315 x10^3/uL (140-400); RED BLOOD COUNT 3.87 x10^6/uL (4.30-5.70); RED CELL DISTRIBUTION WIDTH 18.5 % (11.5-14.5); WHITE BLOOD COUNT 17.9 x10^3/uL (4.0-11.0)
[2021-07-01 22:39] LABS: % BANDS 13 % (0-9); % LYMPHS 12 % (24-48); % MONOS 4 % (0-10); % SEGS 71 % (35-66); ANISOCYTOSIS SLIGHT; PLT ESTIMATE ADEQUATE (ADEQUATE)
[2021-07-01 22:41] LABS: POLYCHROMASIA SLIGHT
[2021-07-01 23:00] VITALS: BP 141/56
--- NOTE | 2021-07-01 23:13 | RAD ---
Single view chest dated 07/01/2021 11:10 PM: COMPARISON: 06/02/2021 Clinical Indication: Chest pain. Findings: Single upright portable exam of the chest was performed. Heart and mediastinal contours are stable. I nterval removal right-sided dialysis catheter. Patchy airspace disease at the perihilar regions and b ilateral lung bases, not significant changed. There is also some mild patchy opacity in the left uppe r lobe. No new infiltrate or pneumothorax. IMPRESSION: Mild patchy bilateral airspace disease, not significantly changed from prior study Electronically signed by: Nixon Dueñas MD (07/01/2021 11:11 PM) EUFEMIA
[2021-07-02] MEDS: IV NORMAL SALINE 1000ML BAG 1,000 ML IV SCH ×3 (00:11→16:39)
--- NOTE | 2021-07-02 00:37 | NUR ---
Approximately 1939 - Dr Scott calls and instructs pt to give NS bolus if pt has increased WBC or lactic < 2. Also ordered current huggins to be pulled and a new one placed. Orders read back to Dr Scott and verified. 2129: Old huggins d/c'ed - purulent drainage noted when huggins pulled out. Area cleaned per protocol and new huggins placed. 2234: Pt has temp of 100.5. 0025: RN checked labs and noted that WBC were 17.9 - bolus started at 0032. Pt lethargic and sleeping soundly. Will continue to monitor pt status closely.
[2021-07-02] MEDS ORDERED: IV NORMAL SALINE 1000ML BAG 1,000 ML IV ONE (00:45)
[2021-07-02] MEDS: HYDROcodone/APAP 5/325MG 1 TAB TABLET PO PRN ×4 (03:07→22:35)
[2021-07-02 03:27] VITALS: BP 155/70
--- NOTE | 2021-07-02 06:57 | PDOC ---
[employer] PROGRESS NOTE Date of Service DOS: DATE: 07/02/21 TIME: 06:48 Chief Complaint Chief Complaint Supratherapeutic INR History DVT/PE on warfarin Chronic sacral cubitus ulcer Normocytic anemia Thrombocytosis HTN Moderate malnutrition History of multiple sclerosis Sepsis Acute cystitis Plan: Will monitor INR, continue to hold warfarin and resume when therapeutic (INR 23) Wound care to chronic decubitus ulcer Will consult pharmacy to help with possible monitoring of warfarin Resume home medications FEN - Cardiac diet PPX - Warfarin FULL CODE Dispo - inpatient for above Patient names his mother (Vy Du) as surrogate decision-maker History of Present Illness History of Present Illness Patient is a 60-year-old male with past medical history multiple sclerosis, lymphedema, HTN, DVT/PE on warfarin, who presents from his [place] [facility] for ongoing bleeding to his chronic chronic decubitus ulcer. He was receiving local wound care at his [place] [facility] when he was noted to have ongoing bleeding, for which she was sent to the ED. At [place] [facility] bleeding was not noted to be severe or hemorrhagic, but was ongoing. At his [place] [facility] INR was reportedly 12. Labs upon arrival in the ED showed hemoglobin 11.8, hematocrit 36.7, platelet 536, albumin 2.8, INR 9.4, PT 73.2, PTT 142. Discussed with ED attending, due to no active bleeding upon his evaluation, vitamin K was held. Will admit patient for further medical management. 06/28/2021: Patient seen and evaluated with family at bedside. Feels tired, but no other complaints today. INR 1.9 today; will resume warfarin. No further bleeding. He is stable to discharge back to his [place] [facility], but he does not want to return to [facility]. Will order PT/OT. Discussed with social service worker and RN. 06/29/2021: Warfarin is been resumed yesterday, INR 1.9. No further bleeding. Patient does not want return to [facility]. Rapid COVID-19 negative, COVID-19 PCR pending. Worked with occupational therapy and recommended [facility]; PT recommendations pending. Wound care following. 06/30/2021: INR 2.1 today. Denies any further bleeding. He has no complaints today. Patient does not want to return to [facility]. computing services director to place referral to [facility] rehab. 07/01/2021: Patient seen resting comfortably in bed. Afebrile. INR 2.1. ornamental ironworker has placed referral to [facility] rehab. 07/02/2021: Somewhat somnolent this morning. Patient febrile overnight T-max 100.5 F. Source of infection appears to be UTI. Chest x-ray showed bilateral patchy infiltrates, unchanged from prior exam. He was treated with Rocephin 1 g overnight and IV fluid bolus; will continue treatment with Rocephin and follow urine cultures. Patient was initially slated to discharge to [facility] tomorrow, but recommend holding discharge until urine culture results. Vitals/I&O Vitals/I&O: Vital Signs Date Time Temp Pulse Resp B/P (MAP) Pulse Ox O2 Delivery O2 Flow Rate FiO2 07/02/21 03:27 98.4 80 20 155/70 (98) 92 Room Air 98.4 I & O 07/01/21 07/01/21 07/02/21 15:00 23:00 07:00 Intake Total 440 ml 0 ml Output Total 295 ml Balance 440 ml 0 ml -295 ml Physical Exam General: Alert, Cooperative, No acute distress Heart: Regular rate Lungs: Clear Abdomen: Soft Extremities: No clubbing, No cyanosis Skin: No rashes Labs Labs: Laboratory Tests Test 07/01/21 15:07 07/01/21 16:45 07/01/21 21:00 Urine Collection Type Unknown Urine Color Amirah Urine Clarity Turbid Urine pH 5.5 (<5.0-8.0) Urine Specific [place] 1.025 (1.000-1.030) Urine Protein 100 mg/dL (NEG-TRACE) Urine Glucose (UA) Negative mg/dL (NEG) Urine Ketones (Stick) 15 mg/dL (NEG) Urine Blood Small (NEG) Urine Nitrite Positive (NEG) Urine Bilirubin Negative (NEG) Urine Urobilinogen Dipstick 0.2 mg/dL (0.2 mg/dL) Urine Leukocyte Esterase Large (NEG) Urine RBC Field obscured /HPF (0-2) Urine WBC Tntc /HPF (0-4) Urine Amorphous Sediment Present /HPF Urine Bacteria Many /HPF (0-FEW) Urine Mucus Marked /LPF SARS-CoV-2 Antigen (Rapid) Negative (NEGATIVE) Influenza Type A Antigen Negative (NEGATIVE) Influenza Type B Antigen Negative (NEGATIVE) White Blood Count 17.9 x10^3/uL (4.0-11.0) Red Blood Count 3.87 x10^6/uL (4.30-5.70) Hemoglobin 10.8 g/dL (13.0-17.5) Hematocrit 33.4 % (39.0-53.0) Mean Corpuscular Volume 86 fL (79-100) Mean Corpuscular Hemoglobin 28 pg (25-35) Mean Corpuscular Hemoglobin Concent 32 g/dL (31-37) Red Cell Distribution Width 18.5 % (11.5-14.5) Platelet Count 315 x10^3/uL (140-400) Neutrophils (%) (Auto) 78 % (31-73) Lymphocytes (%) (Auto) 11 % (24-48) Monocytes (%) (Auto) 11 % (0-9) Eosinophils (%) (Auto) 0 % (0-3) Basophils (%) (Auto) 0 % (0-3) Neutrophils # (Auto) 14.0 x10^3/uL (1.8-7.7) Lymphocytes # (Auto) 1.9 x10^3/uL (1.0-4.8) Monocytes # (Auto) 2.0 x10^3/uL (0.0-1.1) Eosinophils # (Auto) 0.1 x10^3/uL (0.0-0.7) Basophils # (Auto) 0.0 x10^3/uL (0.0-0.2) Segmented Neutrophils % 71 % (35-66) Band Neutrophils % 13 % (0-9) Lymphocytes % 12 % (24-48) Monocytes % 4 % (0-10) Platelet Estimate Adequate (ADEQUATE) Polychromasia Slight Anisocytosis Slight Lactic Acid Level 1.3 mmol/L (0.4-2.0) Assessment and Plan Assessmemt and Plan Problems Medical Problems: (1) Chronic ulcer of sacral region Status: Acute (2) History of deep vein thrombosis Status: Acute (3) History of pulmonary embolism Status: Acute (4) Supratherapeutic INR Status: Acute (5) Warfarin anticoagulation Status: Acute Comment Review of Relevant I have reviewed the following items taniya (where applicable) has been applied. Medications: Current Medications Medications (Trade) Dose Ordered Sig/Steve Route PRN Reason Start Time Stop Time Status Last Admin Dose Admin Warfarin Sodium (Coumadin) 5 mg 1X WARF ONCE PO 07/01/21 16:00 07/01/21 16:01 DC 07/01/21 17:00 Sodium Chloride 1,000 ml @ 75 mls/hr [id number] IV 07/01/21 15:00 07/02/21 03:06 Ceftriaxone Sodium (Rocephin) 1 gm Q24H IVP 07/01/21 20:00 07/01/21 21:15 Sodium Chloride 1,000 ml @ 1,000 mls/hr 1X ONCE IV 07/02/21 00:45 07/02/21 01:44 DC 07/02/21 00:58 Justifications for Admission General Conditions Other justification for admit: Supratherapeutic INR, chronic sacral wounds Other Justification MARJORIE BORREGO MD Jul 02, 2021 06:57
[2021-07-02 07:00] VITALS: BP 144/64
[2021-07-02 07:02] LABS: BASO # 0.1 x10^3/uL (0.0-0.2); BASO % 0 % (0-3); EOS # 0.1 x10^3/uL (0.0-0.7); EOS % 1 % (0-3); HEMATOCRIT 31.8 % (39.0-53.0); HEMOGLOBIN 10.1 g/dL (13.0-17.5); LYMPH % 14 % (24-48); MEAN CORPUSCULAR HEMOGLOBIN 28 pg (25-35); MEAN CORPUSCULAR HGB CONC 32 g/dL (31-37); MEAN CORPUSCULAR VOLUME 87 fL (79-100); MONO # 1.8 x10^3/uL (0.0-1.1); MONO % 12 % (0-9); NEUT # 10.4 x10^3/uL (1.8-7.7); NEUT % 72 % (31-73); PLATELET COUNT 275 x10^3/uL (140-400); RED BLOOD COUNT 3.64 x10^6/uL (4.30-5.70); RED CELL DISTRIBUTION WIDTH 18.7 % (11.5-14.5); WHITE BLOOD COUNT 14.4 x10^3/uL (4.0-11.0)
[2021-07-02 07:25] LABS: CALCIUM 8.2 mg/dL (8.5-10.1); GFR 76.2
[2021-07-02 07:27] LABS: PROTHROMBIN TIME PATIENT 25.8 SEC (11.7-14.0)
[2021-07-02 08:55] LABS: C-REACTIVE PROTEIN 231.9 mg/L (0-3.3)
[2021-07-02] MEDS: VITS A & D/LANOLIN TOPICAL OINTMENT 42GM TUBE. TP SCH ×2 (09:00→22:24)
[2021-07-02] MEDS: NYSTATIN TOPICAL POWDER 15GM BOTTLE. TP SCH ×2 (09:00→22:24)
[2021-07-02] MEDS: ASCORBIC ACID 500 MG TABLET PO SCH ×2 (09:36→22:23)
[2021-07-02] MEDS: PANTOPRAZOLE 40 MG TABLET.DR. PO SCH (09:36)
[2021-07-02] MEDS: DOCUSATE SODIUM 100 MG CAPSULE. PO SCH (09:36)
[2021-07-02] MEDS: MULTIVITAMIN with MINERAL TABLET. PO SCH (09:36)
[2021-07-02] MEDS: LACTOBACILLUS RHAMNOSUS GG 1 CAPSULE. PO SCH ×2 (09:36→22:23)
[2021-07-02] MEDS: azaTHIOprine 50 MG TABLET PO SCH ×3 (09:36→22:23)
[2021-07-02] MEDS: FERROUS SULFATE 325 MG TABLET. PO SCH (09:36)
[2021-07-02 11:00] VITALS: BP 140/57
[2021-07-02 15:00] VITALS: BP 117/46
[2021-07-02] MEDS ORDERED: WARFARIN 5 MG TABLET. PO ONE (16:00)
--- NOTE | 2021-07-02 16:12 | NUR ---
Pharmacy Warfarin Dosing Note S:Pharmacy consulted to assist with anticoagulation therapy started with target INR: 2 -3 O:TODD RICO is a 60 year old M with DVT/PE LABS: Last INR: 2.4 Last HGB: 11.9 Last HCT: 36.7 Last PLT: 510 Last dose of 5 mg given on 07/01/21 at 1539 Previous Regimen: 7.5 mg daily Vitamin K given: N 2.5 mg po (06/27) Drug Interaction Changes: None Ongoing Drug Interactions: A:INR of 2.4 is within desired range. Target range for this patient is: 2 -3 P: Warfarin dose: 5 mg Today at 1600 Bridge Therapy: None Next INR due IN AM Pharmacy anticoagulation service will continue to follow. SOFIE CUELLO [facility], 07/02/21 [id number]
[2021-07-02 19:00] VITALS: BP 135/57
[2021-07-02] MEDS: cefTRIAXone IV Push 1 GM VIAL. IVP SCH (22:24)
[2021-07-02 23:00] VITALS: BP 135/62
[2021-07-03 03:10] VITALS: BP 144/62
[2021-07-03] MEDS: IV NORMAL SALINE 1000ML BAG 1,000 ML IV SCH ×2 (05:19→19:21)
[2021-07-03 06:44] LABS: BASO % 0 % (0-3); EOS # 0.6 x10^3/uL (0.0-0.7); EOS % 5 % (0-3); HEMATOCRIT 31.4 % (39.0-53.0); HEMOGLOBIN 10.2 g/dL (13.0-17.5); LYMPH # 1.9 x10^3/uL (1.0-4.8); LYMPH % 16 % (24-48); MEAN CORPUSCULAR HEMOGLOBIN 28 pg (25-35); MEAN CORPUSCULAR HGB CONC 33 g/dL (31-37); MEAN CORPUSCULAR VOLUME 86 fL (79-100); MONO # 1.5 x10^3/uL (0.0-1.1); MONO % 12 % (0-9); NEUT # 8.2 x10^3/uL (1.8-7.7); NEUT % 68 % (31-73); PLATELET COUNT 285 x10^3/uL (140-400); RED BLOOD COUNT 3.64 x10^6/uL (4.30-5.70); RED CELL DISTRIBUTION WIDTH 18.4 % (11.5-14.5); WHITE BLOOD COUNT 12.2 x10^3/uL (4.0-11.0)
[2021-07-03 07:00] VITALS: BP 141/64
[2021-07-03 07:01] LABS: CALCIUM 8.1 mg/dL (8.5-10.1); CREATININE 0.8 mg/dL (0.7-1.3); GFR 98.6; POTASSIUM 3.6 mmol/L (3.5-5.1)
[2021-07-03 07:08] LABS: PROTHROMBIN TIME PATIENT 28.8 SEC (11.7-14.0)
[2021-07-03] MEDS: PANTOPRAZOLE 40 MG TABLET.DR. PO SCH (07:53)
[2021-07-03] MEDS: azaTHIOprine 50 MG TABLET PO SCH ×3 (09:56→21:24)
[2021-07-03] MEDS: ASCORBIC ACID 500 MG TABLET PO SCH ×2 (09:56→21:24)
[2021-07-03] MEDS: LACTOBACILLUS RHAMNOSUS GG 1 CAPSULE. PO SCH ×2 (09:56→21:24)
[2021-07-03] MEDS: FERROUS SULFATE 325 MG TABLET. PO SCH (09:56)
[2021-07-03] MEDS: MULTIVITAMIN with MINERAL TABLET. PO SCH (09:56)
[2021-07-03] MEDS: DOCUSATE SODIUM 100 MG CAPSULE. PO SCH (09:56)
[2021-07-03] MEDS: NYSTATIN TOPICAL POWDER 15GM BOTTLE. TP SCH ×2 (09:57→21:00)
[2021-07-03] MEDS: VITS A & D/LANOLIN TOPICAL OINTMENT 42GM TUBE. TP SCH ×2 (09:57→21:00)
[2021-07-03 11:00] VITALS: BP 145/94
[2021-07-03] MEDS: POLYETHYLENE GLYCOL 3350 17 GM PACKET. PO SCH ×2 (11:34→16:36)
--- NOTE | 2021-07-03 12:59 | NUR ---
Pharmacy Warfarin Dosing Note S:Pharmacy consulted to assist with anticoagulation therapy started with target INR: 2 -3 O:TODD RICO is a 60 year old M with DVT/PE LABS: Last INR: 2.8 Last HGB: 10.2 Last HCT: 31.4 Last PLT: 285 Last dose of 5 mg given on 07/02/21 at 1641 Previous Regimen: 7.5 mg daily Vitamin K given: N 2.5 mg po (06/27) Drug Interaction Changes: None Ongoing Drug Interactions: A:INR of 2.8 is within desired range. Target range for this patient is: 2 -3 P: Warfarin dose: 3 mg Today at 1600 Bridge Therapy: None Next INR due IN AM Pharmacy anticoagulation service will continue to follow. WALTER MEYERS [facility], 07/03/21 [id number]
[2021-07-03 15:00] VITALS: BP 146/63
--- NOTE | 2021-07-03 15:34 | PDOC ---
[employer] PROGRESS NOTE Date of Service DOS: DATE: 07/03/21 TIME: 15:32 Chief Complaint Chief Complaint Supratherapeutic INR History DVT/PE on warfarin Chronic sacral cubitus ulcer Normocytic anemia Thrombocytosis HTN Moderate malnutrition History of multiple sclerosis Sepsis Acute cystitis Plan: Will monitor INR, continue to hold warfarin and resume when therapeutic (INR 23) Wound care to chronic decubitus ulcer Will consult pharmacy to help with possible monitoring of warfarin Resume home medications FEN - Cardiac diet PPX - Warfarin FULL CODE Dispo - inpatient for above Patient names his mother (Vy Du) as surrogate decision-maker History of Present Illness History of Present Illness Patient is a 60-year-old male with past medical history multiple sclerosis, lymphedema, HTN, DVT/PE on warfarin, who presents from his long-term for ongoing bleeding to his chronic chronic decubitus ulcer. He was receiving local wound care at his long-term when he was noted to have ongoing bleeding, for which she was sent to the ED. At his long-term bleeding was not noted to be severe or hemorrhagic, but was ongoing. At his long-term INR was reportedly 12. Labs upon arrival in the ED showed hemoglobin 11.8, hematocrit 36.7, platelet 536, albumin 2.8, INR 9.4, PT 73.2, PTT 142. Discussed with ED attending, due to no active bleeding upon his evaluation, vitamin K was held. Will admit patient for further medical management. 06/28/2021: Patient seen and evaluated with family at bedside. Feels tired, but no other complaints today. INR 1.9 today; will resume warfarin. No further bleeding. He is stable to discharge back to his long-term, but he does not want to return to [facility]. Will order PT/OT. Discussed with rn social services and RN. 06/29/2021: Warfarin is been resumed yesterday, INR 1.9. No further bleeding. Patient does not want return to [facility]. Rapid COVID-19 negative, COVID-19 PCR pending. Worked with occupational therapy and recommended snf; PT recommendations pending. Wound care following. 06/30/2021: INR 2.1 today. Denies any further bleeding. He has no complaints today. Patient does not want to return to [facility]. emergency services director to place referral to [facility] rehab. 07/01/2021: Patient seen resting comfortably in bed. Afebrile. INR 2.1. foundry worker apprentice has placed referral to [facility] rehab. 07/02/2021: Somewhat somnolent this morning. Patient febrile overnight T-max 100.5 F. Source of infection appears to be UTI. Chest x-ray showed bilateral patchy infiltrates, unchanged from prior exam. He was treated with Rocephin 1 g overnight and IV fluid bolus; will continue treatment with Rocephin and follow urine cultures. Patient was initially slated to discharge to [facility] tomorrow, but recommend holding discharge until urine culture results. 07/03/21 No acute events overnight. No BM for 6 days. started on miralax until BM. Continue with Rocpehin IV and pending Sensitivities and speciation from Urine Cx. Vitals/I&O Vitals/I&O: Vital Signs Date Time Temp Pulse Resp B/P (MAP) Pulse Ox O2 Delivery O2 Flow Rate FiO2 07/03/21 11:00 98.6 88 18 145/94 (111) 92 Room Air 98.6 I & O 07/02/21 07/02/21 07/03/21 15:00 23:00 07:00 Intake Total 1000 ml Output Total 1000 ml Balance 0 ml Physical Exam General: Alert, Cooperative, No acute distress Heart: Regular rate Lungs: Clear Abdomen: Soft Extremities: No clubbing, No cyanosis Skin: No rashes Labs Labs: Laboratory Tests Test 07/03/21 06:10 White Blood Count 12.2 x10^3/uL (4.0-11.0) Red Blood Count 3.64 x10^6/uL (4.30-5.70) Hemoglobin 10.2 g/dL (13.0-17.5) Hematocrit 31.4 % (39.0-53.0) Mean Corpuscular Volume 86 fL (79-100) Mean Corpuscular Hemoglobin 28 pg (25-35) Mean Corpuscular Hemoglobin Concent 33 g/dL (31-37) Red Cell Distribution Width 18.4 % (11.5-14.5) Platelet Count 285 x10^3/uL (140-400) Neutrophils (%) (Auto) 68 % (31-73) Lymphocytes (%) (Auto) 16 % (24-48) Monocytes (%) (Auto) 12 % (0-9) Eosinophils (%) (Auto) 5 % (0-3) Basophils (%) (Auto) 0 % (0-3) Neutrophils # (Auto) 8.2 x10^3/uL (1.8-7.7) Lymphocytes # (Auto) 1.9 x10^3/uL (1.0-4.8) Monocytes # (Auto) 1.5 x10^3/uL (0.0-1.1) Eosinophils # (Auto) 0.6 x10^3/uL (0.0-0.7) Basophils # (Auto) 0.0 x10^3/uL (0.0-0.2) Prothrombin Time 28.8 SEC (11.7-14.0) Prothromb Time International Ratio 2.8 (0.8-1.1) Sodium Level 134 mmol/L (136-145) Potassium Level 3.6 mmol/L (3.5-5.1) Chloride Level 100 mmol/L (98-107) Carbon Dioxide Level 23 mmol/L (21-32) Anion Gap 11 (6-14) Blood Urea Nitrogen 7 mg/dL (8-26) Creatinine 0.8 mg/dL (0.7-1.3) Estimated GFR (Cockcroft-Gault) 98.6 Glucose Level 76 mg/dL (70-99) Calcium Level 8.1 mg/dL (8.5-10.1) Assessment and Plan Assessmemt and Plan Problems Medical Problems: (1) Chronic ulcer of sacral region Status: Acute (2) History of deep vein thrombosis Status: Acute (3) History of pulmonary embolism Status: Acute (4) Supratherapeutic INR Status: Acute (5) Warfarin anticoagulation Status: Acute Comment Review of Relevant I have reviewed the following items taniya (where applicable) has been applied. Medications: Current Medications Medications (Trade) Dose Ordered Sig/Steve Route PRN Reason Start Time Stop Time Status Last Admin Dose Admin Warfarin Sodium (Coumadin) 5 mg 1X WARF ONCE PO 07/02/21 16:00 07/02/21 16:01 DC 07/02/21 16:41 Polyethylene Glycol (miraLAX PACKET) 17 gm Q6HRS PO 07/03/21 12:00 07/03/21 11:34 Justifications for Admission General Conditions Other justification for admit: Supratherapeutic INR, chronic sacral wounds Other Justification QUAN WOLF MD Jul 03, 2021 15:34
[2021-07-03] MEDS ORDERED: WARFARIN 3 MG TABLET. PO ONE (16:00)
[2021-07-03 19:00] VITALS: BP 141/66
[2021-07-03] MEDS: cefTRIAXone IV Push 1 GM VIAL. IVP SCH (21:24)
[2021-07-03 23:32] VITALS: BP 134/53
[2021-07-04 03:35] VITALS: BP 124/61
[2021-07-04] MEDS: POLYETHYLENE GLYCOL 3350 17 GM PACKET. PO SCH ×3 (06:00→09:44)
[2021-07-04 07:00] VITALS: BP 152/59
[2021-07-04 07:08] LABS: BASO % 0 % (0-3); EOS # 0.9 x10^3/uL (0.0-0.7); EOS % 8 % (0-3); HEMATOCRIT 30.8 % (39.0-53.0); HEMOGLOBIN 9.9 g/dL (13.0-17.5); LYMPH # 1.8 x10^3/uL (1.0-4.8); LYMPH % 16 % (24-48); MEAN CORPUSCULAR HEMOGLOBIN 28 pg (25-35); MEAN CORPUSCULAR HGB CONC 32 g/dL (31-37); MEAN CORPUSCULAR VOLUME 86 fL (79-100); MONO # 1.2 x10^3/uL (0.0-1.1); MONO % 11 % (0-9); NEUT % 64 % (31-73); PLATELET COUNT 336 x10^3/uL (140-400); RED CELL DISTRIBUTION WIDTH 18.3 % (11.5-14.5); WHITE BLOOD COUNT 10.9 x10^3/uL (4.0-11.0)
[2021-07-04 07:26] LABS: CALCIUM 7.9 mg/dL (8.5-10.1); CREATININE 0.8 mg/dL (0.7-1.3); GFR 98.6; POTASSIUM 3.4 mmol/L (3.5-5.1)
[2021-07-04 07:34] LABS: PROTHROMBIN TIME PATIENT 32.3 SEC (11.7-14.0)
[2021-07-04] MEDS: DOCUSATE SODIUM 100 MG CAPSULE. PO SCH (09:44)
[2021-07-04] MEDS: PANTOPRAZOLE 40 MG TABLET.DR. PO SCH (09:44)
[2021-07-04] MEDS: azaTHIOprine 50 MG TABLET PO SCH ×3 (09:44→22:07)
[2021-07-04] MEDS: FERROUS SULFATE 325 MG TABLET. PO SCH (09:44)
[2021-07-04] MEDS: MULTIVITAMIN with MINERAL TABLET. PO SCH (09:44)
[2021-07-04] MEDS: LACTOBACILLUS RHAMNOSUS GG 1 CAPSULE. PO SCH ×2 (09:44→22:07)
[2021-07-04] MEDS: ASCORBIC ACID 500 MG TABLET PO SCH ×2 (09:44→22:07)
[2021-07-04] MEDS: VITS A & D/LANOLIN TOPICAL OINTMENT 42GM TUBE. TP SCH ×2 (09:45→21:00)
[2021-07-04] MEDS: NYSTATIN TOPICAL POWDER 15GM BOTTLE. TP SCH ×2 (09:45→21:00)
[2021-07-04 11:00] VITALS: BP 113/52
--- NOTE | 2021-07-04 11:41 | NUR ---
Disregard discharge information applied 3 mins ago, wrong patient.
--- NOTE | 2021-07-04 12:42 | NUR ---
Pharmacy Warfarin Dosing Note S: Pharmacy consulted to assist with anticoagulation therapy O: TODD RICO is a 60 year old M with history of DVT/PE LABS: Last INR: 3.2 Last HGB: 9.9 Last HCT: 30.8 Last PLT: 336 Last dose of 3 mg given on 07/03/21 at 1559 Vitamin K given: N 2.5 mg po (06/27) Ongoing Drug Interactions: none A:INR of 3.2 is above desired range. Target range for this patient is: 2 - 3 P: HOLD warfarin dose today Bridge Therapy: None Next INR due 07/05/21 Pharmacy anticoagulation service will continue to follow. RUIZ JULIAN [facility], 07/04/21 [id number]
--- NOTE | 2021-07-04 12:47 | PDOC ---
[employer] PROGRESS NOTE Date of Service DOS: DATE: 07/04/21 TIME: 12:46 Chief Complaint Chief Complaint Supratherapeutic INR History DVT/PE on warfarin Chronic sacral cubitus ulcer Normocytic anemia Thrombocytosis HTN Moderate malnutrition History of multiple sclerosis Sepsis Acute cystitis Plan: Will monitor INR, continue to hold warfarin and resume when therapeutic (INR 23) Wound care to chronic decubitus ulcer Will consult pharmacy to help with possible monitoring of warfarin Resume home medications FEN - Cardiac diet PPX - Warfarin FULL CODE Dispo - inpatient for above Patient names his mother (Vy Du) as surrogate decision-maker History of Present Illness History of Present Illness Patient is a 60-year-old male with past medical history multiple sclerosis, lymphedema, HTN, DVT/PE on warfarin, who presents from his care home for ongoing bleeding to his chronic chronic decubitus ulcer. He was receiving local wound care at his care home when he was noted to have ongoing bleeding, for which she was sent to the ED. At his care home bleeding was not noted to be severe or hemorrhagic, but was ongoing. At his care home INR was reportedly 12. Labs upon arrival in the ED showed hemoglobin 11.8, hematocrit 36.7, platelet 536, albumin 2.8, INR 9.4, PT 73.2, PTT 142. Discussed with ED attending, due to no active bleeding upon his evaluation, vitamin K was held. Will admit patient for further medical management. 06/28/2021: Patient seen and evaluated with family at bedside. Feels tired, but no other complaints today. INR 1.9 today; will resume warfarin. No further bleeding. He is stable to discharge back to his care home, but he does not want to return to [facility]. Will order PT/OT. Discussed with social worker psychiatric and RN. 06/29/2021: Warfarin is been resumed yesterday, INR 1.9. No further bleeding. Patient does not want return to [facility]. Rapid COVID-19 negative, COVID-19 PCR pending. Worked with occupational therapy and recommended long term; PT recommendations pending. Wound care following. 06/30/2021: INR 2.1 today. Denies any further bleeding. He has no complaints today. Patient does not want to return to [facility]. supervisor volunteer services to place referral to [facility] rehab. 07/01/2021: Patient seen resting comfortably in bed. Afebrile. INR 2.1. trailhead construction worker has placed referral to [facility] rehab. 07/02/2021: Somewhat somnolent this morning. Patient febrile overnight T-max 100.5 F. Source of infection appears to be UTI. Chest x-ray showed bilateral patchy infiltrates, unchanged from prior exam. He was treated with Rocephin 1 g overnight and IV fluid bolus; will continue treatment with Rocephin and follow urine cultures. Patient was initially slated to discharge to [facility] tomorrow, but recommend holding discharge until urine culture results. 07/03/21 No acute events overnight. No BM for 6 days. started on miralax until BM. Continue with Rocpehin IV and pending Sensitivities and speciation from Urine Cx. 07/04/2021 No acute events overnight. Patient seen and examined bedside. Patient did have a bowel movement yesterday. Switched IV Rocephin to Levaquin. Pending PT OT evaluation for possible rehab. Patient's chart, labs, images were reviewed and discussed with RN Vitals/I&O Vitals/I&O: Vital Signs Date Time Temp Pulse Resp B/P (MAP) Pulse Ox O2 Delivery O2 Flow Rate FiO2 07/04/21 11:00 98.1 96 18 113/52 (72) 95 Room Air 98.1 I & O 07/03/21 07/03/21 07/04/21 15:00 23:00 07:00 Output Total 750 ml 500 ml Balance -750 ml -500 ml Physical Exam General: Alert, Cooperative, No acute distress Heart: Regular rate Lungs: Clear Abdomen: Soft Extremities: No clubbing, No cyanosis Skin: No rashes Labs Labs: Laboratory Tests Test 07/04/21 06:00 White Blood Count 10.9 x10^3/uL (4.0-11.0) Red Blood Count 3.60 x10^6/uL (4.30-5.70) Hemoglobin 9.9 g/dL (13.0-17.5) Hematocrit 30.8 % (39.0-53.0) Mean Corpuscular Volume 86 fL (79-100) Mean Corpuscular Hemoglobin 28 pg (25-35) Mean Corpuscular Hemoglobin Concent 32 g/dL (31-37) Red Cell Distribution Width 18.3 % (11.5-14.5) Platelet Count 336 x10^3/uL (140-400) Neutrophils (%) (Auto) 64 % (31-73) Lymphocytes (%) (Auto) 16 % (24-48) Monocytes (%) (Auto) 11 % (0-9) Eosinophils (%) (Auto) 8 % (0-3) Basophils (%) (Auto) 0 % (0-3) Neutrophils # (Auto) 7.0 x10^3/uL (1.8-7.7) Lymphocytes # (Auto) 1.8 x10^3/uL (1.0-4.8) Monocytes # (Auto) 1.2 x10^3/uL (0.0-1.1) Eosinophils # (Auto) 0.9 x10^3/uL (0.0-0.7) Basophils # (Auto) 0.0 x10^3/uL (0.0-0.2) Prothrombin Time 32.3 SEC (11.7-14.0) Prothromb Time International Ratio 3.2 (0.8-1.1) Sodium Level 137 mmol/L (136-145) Potassium Level 3.4 mmol/L (3.5-5.1) Chloride Level 104 mmol/L (98-107) Carbon Dioxide Level 23 mmol/L (21-32) Anion Gap 10 (6-14) Blood Urea Nitrogen 6 mg/dL (8-26) Creatinine 0.8 mg/dL (0.7-1.3) Estimated GFR (Cockcroft-Gault) 98.6 Glucose Level 90 mg/dL (70-99) Calcium Level 7.9 mg/dL (8.5-10.1) Assessment and Plan Assessmemt and Plan Problems Medical Problems: (1) Chronic ulcer of sacral region Status: Acute (2) History of deep vein thrombosis Status: Acute (3) History of pulmonary embolism Status: Acute (4) Supratherapeutic INR Status: Acute (5) Warfarin anticoagulation Status: Acute Comment Review of Relevant I have reviewed the following items taniya (where applicable) has been applied. Medications: Current Medications Medications (Trade) Dose Ordered Sig/Steve Route PRN Reason Start Time Stop Time Status Last Admin Dose Admin Warfarin Sodium (Coumadin) 3 mg 1X WARF ONCE PO 10/4/21 16:00 07/03/21 16:01 DC 07/03/21 15:59 Justifications for Admission General Conditions Other justification for admit: Supratherapeutic INR, chronic sacral wounds Other Justification QUNA WOLF MD Jul 04, 2021 12:47
[2021-07-04 15:00] VITALS: BP 128/56
--- NOTE | 2021-07-04 15:33 | NUR ---
Wound/Ostomy Care Wound Type/Assessment: Wound care consult for sacrum PU stage 3. Buttocks maceration/excoriation has resolved, redness is still noted but blanchable. Skin through out body is still dry and flaky, but appears to be better than previous assessment, Eucerin was order for pt per notes. No other wound noted on head to toe skin assessment. Sacrum wound cleansed and redressed with hydrofera blue, foam and tegaderm to keep in place and fluid resistant. Pt and nurse stated that he has had multiple BMs after getting some laxatives, advised that if loose stools continue to switch to A&D ointment bid until loose BMs resolve. Treatment Recommendations/Plan: Cleanse wound and pat dry. Sacrum: skin prep to periwound, apply hydrofera blue ready to wound base (left in room), then cover with foam and tegaderm change every 2-3 days. Switch to A&D ointment if pt continues to have multiple BMs Apply A&D ointment BID and prn to bilateral buttocks to help with redness Education provided: pt educated on PU healing, advised to turn q2h left to right only, pt to be on back only at meal times, pt verbalized understanding. Leg elevation to reduce swelling Offloading surface/device: P500 bed, purple wedge, pillow to elevate legs Recommended Referrals/Tests: n/a Discharge Recommendations for dressings: same as above.
[2021-07-04 19:00] VITALS: BP 130/49
[2021-07-04] MEDS: CEFDINIR 300 MG CAPSULE PO SCH (22:07)
[2021-07-04 23:10] VITALS: BP 94/37
[2021-07-05 03:00] VITALS: BP 120/53
[2021-07-05 07:00] VITALS: BP 127/70
[2021-07-05] MEDS: DOCUSATE SODIUM 100 MG CAPSULE. PO SCH (07:48)
[2021-07-05 07:53] LABS: BASO # 0.1 x10^3/uL (0.0-0.2); BASO % 0 % (0-3); EOS # 0.8 x10^3/uL (0.0-0.7); EOS % 7 % (0-3); HEMATOCRIT 30.3 % (39.0-53.0); HEMOGLOBIN 9.7 g/dL (13.0-17.5); LYMPH % 18 % (24-48); MEAN CORPUSCULAR HEMOGLOBIN 27 pg (25-35); MEAN CORPUSCULAR HGB CONC 32 g/dL (31-37); MEAN CORPUSCULAR VOLUME 85 fL (79-100); MONO # 1.1 x10^3/uL (0.0-1.1); MONO % 10 % (0-9); NEUT # 7.5 x10^3/uL (1.8-7.7); NEUT % 65 % (31-73); PLATELET COUNT 367 x10^3/uL (140-400); RED BLOOD COUNT 3.56 x10^6/uL (4.30-5.70); RED CELL DISTRIBUTION WIDTH 18.5 % (11.5-14.5); WHITE BLOOD COUNT 11.5 x10^3/uL (4.0-11.0)
[2021-07-05 07:59] LABS: PROTHROMBIN TIME PATIENT 30.8 SEC (11.7-14.0)
[2021-07-05 08:09] LABS: CALCIUM 8.1 mg/dL (8.5-10.1); CREATININE 0.7 mg/dL (0.7-1.3); POTASSIUM 3.4 mmol/L (3.5-5.1)
[2021-07-05] MEDS: IV NORMAL SALINE 1000ML BAG 1,000 ML IV SCH ×2 (08:29→21:00)
[2021-07-05] MEDS: ASCORBIC ACID 500 MG TABLET PO SCH ×2 (08:30→20:55)
[2021-07-05] MEDS: azaTHIOprine 50 MG TABLET PO SCH ×3 (08:30→20:55)
[2021-07-05] MEDS: LACTOBACILLUS RHAMNOSUS GG 1 CAPSULE. PO SCH ×2 (08:30→20:55)
[2021-07-05] MEDS: CEFDINIR 300 MG CAPSULE PO SCH ×2 (08:30→20:55)
[2021-07-05] MEDS: MULTIVITAMIN with MINERAL TABLET. PO SCH (08:30)
[2021-07-05] MEDS: FERROUS SULFATE 325 MG TABLET. PO SCH (08:30)
[2021-07-05] MEDS: PANTOPRAZOLE 40 MG TABLET.DR. PO SCH (08:30)
[2021-07-05] MEDS: NYSTATIN TOPICAL POWDER 15GM BOTTLE. TP SCH ×2 (09:00→20:55)
[2021-07-05] MEDS: VITS A & D/LANOLIN TOPICAL OINTMENT 42GM TUBE. TP SCH ×2 (09:00→20:57)
--- NOTE | 2021-07-05 10:17 | NUR ---
Pharmacy Warfarin Dosing Note S:Pharmacy consulted to assist with anticoagulation therapy started with target INR: 2 -3 O:TODD RICO is a 60 year old M with h/o DVT/PE LABS: Last INR: 3 Last HGB: 9.7 Last HCT: 30.3 Last PLT: 367 Last dose held 07/04/21 Previous Regimen: 7.5 mg daily Vitamin K given: Y - 2.5 mg po (06/27) Drug Interaction Changes: None Ongoing Drug Interactions: n/a A:INR of 3 is within desired range. Target range for this patient is: 2 -3 P: Warfarin dose: 3 mg Today at 1600 Bridge Therapy: None Next INR due 07/06/21 Pharmacy anticoagulation service will continue to follow. GENIE MONROY RPH, 07/05/21 [id number]
[2021-07-05 11:00] VITALS: BP 130/78
[2021-07-05] MEDS: DICLOFENAC SODIUM 1% TOPICAL GEL 100GM TUBE. TP SCH ×2 (11:00→20:55)
[2021-07-05 15:00] VITALS: BP 139/66
[2021-07-05] MEDS ORDERED: WARFARIN 3 MG TABLET. PO ONE (16:00)
--- NOTE | 2021-07-05 16:16 | PDOC ---
[employer] PROGRESS NOTE Date of Service DOS: DATE: 07/05/21 TIME: 16:14 Chief Complaint Chief Complaint Supratherapeutic INR History DVT/PE on warfarin Chronic sacral cubitus ulcer Normocytic anemia Thrombocytosis HTN Moderate malnutrition History of multiple sclerosis Sepsis Acute cystitis urine cultures positive for Klebsiella pneumonia Plan: Continue with p.o. cefdinir Will monitor INR, continue to hold warfarin and resume when therapeutic (INR 23) Wound care to chronic decubitus ulcer Will consult pharmacy to help with possible monitoring of warfarin Resume home medications FEN - Cardiac diet PPX - Warfarin FULL CODE Dispo - inpatient for above Patient names his mother (Vy Du) as surrogate decision-maker History of Present Illness History of Present Illness Patient is a 60-year-old male with past medical history multiple sclerosis, lymphedema, HTN, DVT/PE on warfarin, who presents from his [facility] for ongoing bleeding to his chronic chronic decubitus ulcer. He was receiving local wound care at his [facility] when he was noted to have ongoing bleeding, for which she was sent to the ED. At his [facility] bleeding was not noted to be severe or hemorrhagic, but was ongoing. At his [facility] INR was reportedly 12. Labs upon arrival in the ED showed hemoglobin 11.8, hematocrit 36.7, platelet 536, albumin 2.8, INR 9.4, PT 73.2, PTT 142. Discussed with ED attending, due to no active bleeding upon his evaluation, vitamin K was held. Will admit patient for further medical management. 06/28/2021: Patient seen and evaluated with family at bedside. Feels tired, but no other complaints today. INR 1.9 today; will resume warfarin. No further bleeding. He is stable to discharge back to his [facility], but he does not want to return to [facility]. Will order PT/OT. Discussed with social work assistant and RN. 06/29/2021: Warfarin is been resumed yesterday, INR 1.9. No further bleeding. Patient does not want return to [facility]. Rapid COVID-19 negative, COVID-19 PCR pending. Worked with occupational therapy and recommended group home; PT recommendations pending. Wound care following. 06/30/2021: INR 2.1 today. Denies any further bleeding. He has no complaints today. Patient does not want to return to [facility]. event services manager to place referral to [facility] rehab. 07/01/2021: Patient seen resting comfortably in bed. Afebrile. INR 2.1. iron worker has placed referral to [facility] rehab. 07/02/2021: Somewhat somnolent this morning. Patient febrile overnight T-max 100.5 F. Source of infection appears to be UTI. Chest x-ray showed bilateral patchy infiltrates, unchanged from prior exam. He was treated with Rocephin 1 g overnight and IV fluid bolus; will continue treatment with Rocephin and follow urine cultures. Patient was initially slated to discharge to [facility] tomorrow, but recommend holding discharge until urine culture results. 07/03/21 No acute events overnight. No BM for 6 days. started on miralax until BM. Continue with Rocpehin IV and pending Sensitivities and speciation from Urine Cx. 07/04/2021 No acute events overnight. Patient seen and examined bedside. Patient did have a bowel movement yesterday. Switched IV Rocephin to Levaquin. Pending PT OT evaluation for possible rehab. Patient's chart, labs, images were reviewed and discussed with RN 07/05/2021 No acute events overnight. Patient seen and examined bedside. Continued p.o. cefdinir. Avoid Levaquin due to interactions with warfarin. Patient's chart, labs, images were reviewed and discussed with RN Vitals/I&O Vitals/I&O: Vital Signs Date Time Temp Pulse Resp B/P (MAP) Pulse Ox O2 Delivery O2 Flow Rate FiO2 07/05/21 11:00 98.3 75 18 130/78 (95) 93 Room Air 98.3 I & O 07/04/21 07/04/21 07/05/21 15:00 23:00 07:00 Intake Total 200 ml 90 ml 0 ml Output Total 500 ml 500 ml Balance -300 ml 90 ml -500 ml Physical Exam General: Alert, Cooperative, No acute distress Heart: Regular rate Lungs: Clear Abdomen: Soft Extremities: No clubbing, No cyanosis Skin: No rashes Labs Labs: Laboratory Tests Test 07/05/21 06:05 White Blood Count 11.5 x10^3/uL (4.0-11.0) Red Blood Count 3.56 x10^6/uL (4.30-5.70) Hemoglobin 9.7 g/dL (13.0-17.5) Hematocrit 30.3 % (39.0-53.0) Mean Corpuscular Volume 85 fL (79-100) Mean Corpuscular Hemoglobin 27 pg (25-35) Mean Corpuscular Hemoglobin Concent 32 g/dL (31-37) Red Cell Distribution Width 18.5 % (11.5-14.5) Platelet Count 367 x10^3/uL (140-400) Neutrophils (%) (Auto) 65 % (31-73) Lymphocytes (%) (Auto) 18 % (24-48) Monocytes (%) (Auto) 10 % (0-9) Eosinophils (%) (Auto) 7 % (0-3) Basophils (%) (Auto) 0 % (0-3) Neutrophils # (Auto) 7.5 x10^3/uL (1.8-7.7) Lymphocytes # (Auto) 2.0 x10^3/uL (1.0-4.8) Monocytes # (Auto) 1.1 x10^3/uL (0.0-1.1) Eosinophils # (Auto) 0.8 x10^3/uL (0.0-0.7) Basophils # (Auto) 0.1 x10^3/uL (0.0-0.2) Prothrombin Time 30.8 SEC (11.7-14.0) Prothromb Time International Ratio 3.0 (0.8-1.1) Sodium Level 141 mmol/L (136-145) Potassium Level 3.4 mmol/L (3.5-5.1) Chloride Level 106 mmol/L (98-107) Carbon Dioxide Level 23 mmol/L (21-32) Anion Gap 12 (6-14) Blood Urea Nitrogen 5 mg/dL (8-26) Creatinine 0.7 mg/dL (0.7-1.3) Estimated GFR (Cockcroft-Gault) 115.0 Glucose Level 96 mg/dL (70-99) Calcium Level 8.1 mg/dL (8.5-10.1) Assessment and Plan Assessmemt and Plan Problems Medical Problems: (1) Chronic ulcer of sacral region Status: Acute (2) History of deep vein thrombosis Status: Acute (3) History of pulmonary embolism Status: Acute (4) Supratherapeutic INR Status: Acute (5) Warfarin anticoagulation Status: Acute Comment Review of Relevant I have reviewed the following items taniya (where applicable) has been applied. Medications: Current Medications Medications (Trade) Dose Ordered Sig/Steve Route PRN Reason Start Time Stop Time Status Last Admin Dose Admin Cefdinir (Omnicef) 300 mg BID PO 07/04/21 21:00 07/05/21 08:30 Justifications for Admission General Conditions Other justification for admit: Supratherapeutic INR, chronic sacral wounds Other Justification QUAN WOLF MD Jul 05, 2021 16:16
[2021-07-05] MEDS ORDERED: POTASSIUM CHLORIDE 20 MEQ TABLET.ER. PO ONE (16:30)
[2021-07-05 19:00] VITALS: BP 144/68
[2021-07-05 23:00] VITALS: BP 147/63
[2021-07-06] MEDS: IV NORMAL SALINE 1000ML BAG 1,000 ML IV SCH (01:40)
[2021-07-06 03:00] VITALS: BP 129/68
[2021-07-06 07:00] VITALS: BP 156/65
[2021-07-06 07:24] LABS: BASO % 0 % (0-3); EOS # 1.1 x10^3/uL (0.0-0.7); EOS % 11 % (0-3); HEMATOCRIT 30.6 % (39.0-53.0); HEMOGLOBIN 9.6 g/dL (13.0-17.5); LYMPH # 2.1 x10^3/uL (1.0-4.8); LYMPH % 21 % (24-48); MEAN CORPUSCULAR HEMOGLOBIN 27 pg (25-35); MEAN CORPUSCULAR HGB CONC 32 g/dL (31-37); MEAN CORPUSCULAR VOLUME 85 fL (79-100); MONO % 10 % (0-9); NEUT # 5.9 x10^3/uL (1.8-7.7); NEUT % 58 % (31-73); PLATELET COUNT 451 x10^3/uL (140-400); RED BLOOD COUNT 3.59 x10^6/uL (4.30-5.70); RED CELL DISTRIBUTION WIDTH 17.9 % (11.5-14.5); WHITE BLOOD COUNT 10.2 x10^3/uL (4.0-11.0)
[2021-07-06 08:12] LABS: PROTHROMBIN TIME PATIENT 31.3 SEC (11.7-14.0)
[2021-07-06 08:28] LABS: CALCIUM 8.1 mg/dL (8.5-10.1); CREATININE 0.7 mg/dL (0.7-1.3); POTASSIUM 3.3 mmol/L (3.5-5.1)
[2021-07-06] MEDS: DICLOFENAC SODIUM 1% TOPICAL GEL 100GM TUBE. TP SCH ×2 (09:00→21:48)
--- NOTE | 2021-07-06 09:20 | PDOC ---
[employer] PROGRESS NOTE Date of Service DOS: DATE: 07/06/21 TIME: 09:16 Chief Complaint Chief Complaint Supratherapeutic INR History DVT/PE on warfarin Chronic sacral cubitus ulcer Normocytic anemia Thrombocytosis HTN Moderate malnutrition History of multiple sclerosis Sepsis Acute cystitis urine cultures positive for Klebsiella pneumonia Plan: Continue with p.o. cefdinir Will monitor INR, continue to hold warfarin and resume when therapeutic (INR 23) Wound care to chronic decubitus ulcer Will consult pharmacy to help with possible monitoring of warfarin Resume home medications FEN - Cardiac diet PPX - Warfarin FULL CODE Dispo - inpatient for above Patient names his mother (Vy Du) as surrogate decision-maker History of Present Illness History of Present Illness See withPatient is a 60-year-old male with past medical history multiple sclerosis, lymphedema, HTN, DVT/PE on warfarin, who [facility] from his [facility] for ongoing bleeding to his chronic chronic decubitus ulcer. He was receiving local wound care at his [facility] when he was noted to have ongoing bleeding, for which she was sent to the ED. At his snf bleeding was not noted to be severe or hemorrhagic, but was ongoing. At his snf INR was reportedly 12. Labs upon arrival in the ED showed hemoglobin 11.8, hematocrit 36.7, platelet 536, albumin 2.8, INR 9.4, PT 73.2, PTT 142. Discussed with ED attending, due to no active bleeding upon his evaluation, vitamin K was held. Will admit patient for further medical management. 06/28/2021: Patient seen and evaluated with family at bedside. Feels tired, but no other complaints today. INR 1.9 today; will resume warfarin. No further bleeding. He is stable to discharge back to his snf, but he does not want to return to [facility]. Will order PT/OT. Discussed with social insurance analyst and RN. 06/29/2021: Warfarin is been resumed yesterday, INR 1.9. No further bleeding. Patient does not want return to [facility]. Rapid COVID-19 negative, COVID-19 PCR pending. Worked with occupational therapy and recommended detention; PT recommendations pending. Wound care following. 06/30/2021: INR 2.1 today. Denies any further bleeding. He has no complaints today. Patient does not want to return to [facility]. check services clerk to [place] referral to [facility] rehab. 07/01/2021: Patient seen resting comfortably in bed. Afebrile. INR 2.1. plate put in worker has placed referral to [facility] rehab. 07/02/2021: Somewhat somnolent this morning. Patient febrile overnight T-max 100.5 F. Source of infection appears to be UTI. Chest x-ray showed bilateral patchy infiltrates, unchanged from prior exam. He was treated with Rocephin 1 g overnight and IV fluid bolus; will continue treatment with Rocephin and follow urine cultures. Patient was initially slated to discharge to [facility] tomorrow, but recommend holding discharge until urine culture results. 07/03/21 No acute events overnight. No BM for 6 days. started on miralax until BM. Continue with Rocpehin IV and pending Sensitivities and speciation from Urine Cx. 07/04/2021 No acute events overnight. Patient seen and examined bedside. Patient did have a bowel movement yesterday. Switched IV Rocephin to Levaquin. Pending PT OT evaluation for possible rehab. Patient's chart, labs, images were reviewed and discussed with RN 07/05/2021 No acute events overnight. Patient seen and examined bedside. Continued p.o. c efdinir. Avoid Levaquin due to interactions with warfarin. Patient's chart, labs, images were reviewed and discussed with RN 07/06/21 No acute events overnight. Patient seen and examined bedside. No complaints at this time. Discontinued IV fluids. Continue working with PT OT. Patient's chart, labs, images were reviewed and discussed with RN Vitals/I&O Vitals/I&O: Vital Signs Date Time Temp Pulse Resp B/P (MAP) Pulse Ox O2 Delivery O2 Flow Rate FiO2 07/06/21 07:00 98.0 77 20 156/65 (95) 91 Room Air 98.0 I & O 07/05/21 07/05/21 07/06/21 15:00 23:00 07:00 Intake Total 200 ml 500 ml Output Total 150 ml 75 ml 400 ml Balance -150 ml 125 ml 100 ml Physical Exam General: Alert, Cooperative, No acute distress Heart: Regular rate Lungs: Clear Abdomen: Soft Extremities: No clubbing, No cyanosis Skin: No rashes Labs Labs: Laboratory Tests Test 07/06/21 06:25 White Blood Count 10.2 x10^3/uL (4.0-11.0) Red Blood Count 3.59 x10^6/uL (4.30-5.70) Hemoglobin 9.6 g/dL (13.0-17.5) Hematocrit 30.6 % (39.0-53.0) Mean Corpuscular Volume 85 fL (79-100) Mean Corpuscular Hemoglobin 27 pg (25-35) Mean Corpuscular Hemoglobin Concent 32 g/dL (31-37) Red Cell Distribution Width 17.9 % (11.5-14.5) Platelet Count 451 x10^3/uL (140-400) Neutrophils (%) (Auto) 58 % (31-73) Lymphocytes (%) (Auto) 21 % (24-48) Monocytes (%) (Auto) 10 % (0-9) Eosinophils (%) (Auto) 11 % (0-3) Basophils (%) (Auto) 0 % (0-3) Neutrophils # (Auto) 5.9 x10^3/uL (1.8-7.7) Lymphocytes # (Auto) 2.1 x10^3/uL (1.0-4.8) Monocytes # (Auto) 1.0 x10^3/uL (0.0-1.1) Eosinophils # (Auto) 1.1 x10^3/uL (0.0-0.7) Basophils # (Auto) 0.0 x10^3/uL (0.0-0.2) Prothrombin Time 31.3 SEC (11.7-14.0) Prothromb Time International Ratio 3.1 (0.8-1.1) Sodium Level 142 mmol/L (136-145) Potassium Level 3.3 mmol/L (3.5-5.1) Chloride Level 108 mmol/L (98-107) Carbon Dioxide Level 24 mmol/L (21-32) Anion Gap 10 (6-14) Blood Urea Nitrogen 5 mg/dL (8-26) Creatinine 0.7 mg/dL (0.7-1.3) Estimated GFR (Cockcroft-Gault) 115.0 Glucose Level 91 mg/dL (70-99) Calcium Level 8.1 mg/dL (8.5-10.1) Assessment and Plan Assessmemt and Plan Problems Medical Problems: (1) Chronic ulcer of sacral region Status: Acute (2) History of deep vein thrombosis Status: Acute (3) History of pulmonary embolism Status: Acute (4) Supratherapeutic INR Status: Acute (5) Warfarin anticoagulation Status: Acute Comment Review of Relevant I have reviewed the following items taniya (where applicable) has been applied. Medications: Current Medications Medications (Trade) Dose Ordered Sig/Steve Route PRN Reason Start Time Stop Time Status Last Admin Dose Admin Warfarin Sodium (Coumadin) 3 mg 1X WARF ONCE PO 07/05/21 16:00 07/05/21 16:01 DC 07/05/21 17:20 Diclofenac Sodium (Voltaren) 1 pedro BID TP 07/05/21 11:00 07/05/21 20:55 Potassium Chloride (Klor-Con) 40 meq 1X ONCE PO 07/05/21 16:30 07/05/21 16:31 DC 07/05/21 17:17 Justifications for Admission General Conditions Other justification for admit: Supratherapeutic INR, chronic sacral wounds Other Justification QUAN WOLF MD Jul 06, 2021 09:20
--- NOTE | 2021-07-06 09:49 | NUR ---
Pharmacy Warfarin Dosing Note S:Pharmacy consulted to assist with anticoagulation therapy started with target INR: 2 -3 O:TODD RICO is a 60 year old M with DVT/PE LABS: Last INR: 3.1 Last HGB: 9.6 Last HCT: 30.6 Last PLT: 451 Last dose of 3 mg given on 07/05/21 at 1720 Previous Regimen: 7.5 mg daily Vitamin K given: Y 2.5 mg po (06/27) Drug Interaction Changes: None Ongoing Drug Interactions: n/a A:INR of 3.1 is above desired range. Target range for this patient is: 2 -3 P: Warfarin dose: Hold Today Bridge Therapy: None Next INR due 07/07/21 Pharmacy anticoagulation service will continue to follow. GENIE MONROY RPH, 07/06/21 [id number]
[2021-07-06] MEDS: DOCUSATE SODIUM 100 MG CAPSULE. PO SCH (09:58)
[2021-07-06] MEDS: CEFDINIR 300 MG CAPSULE PO SCH ×2 (09:58→21:48)
[2021-07-06] MEDS: azaTHIOprine 50 MG TABLET PO SCH ×3 (09:59→21:49)
[2021-07-06] MEDS: FERROUS SULFATE 325 MG TABLET. PO SCH (09:59)
[2021-07-06] MEDS: ASCORBIC ACID 500 MG TABLET PO SCH ×2 (09:59→21:48)
[2021-07-06] MEDS: PANTOPRAZOLE 40 MG TABLET.DR. PO SCH (09:59)
[2021-07-06] MEDS: LACTOBACILLUS RHAMNOSUS GG 1 CAPSULE. PO SCH ×2 (09:59→21:48)
[2021-07-06] MEDS: MULTIVITAMIN with MINERAL TABLET. PO SCH (09:59)
[2021-07-06] MEDS: VITS A & D/LANOLIN TOPICAL OINTMENT 42GM TUBE. TP SCH ×2 (10:00→21:00)
[2021-07-06] MEDS: NYSTATIN TOPICAL POWDER 15GM BOTTLE. TP SCH ×2 (10:00→21:49)
[2021-07-06 11:00] VITALS: BP 153/67
[2021-07-06 15:00] VITALS: BP 154/68
[2021-07-06] MEDS ORDERED: LIDOCAINE 1% Multi-Dose 20 ML VIAL. INJ ONE (16:00)
[2021-07-06 19:00] VITALS: BP 129/54
[2021-07-06 23:00] VITALS: BP 146/58
[2021-07-07 03:00] VITALS: BP 117/57
[2021-07-07 07:00] VITALS: BP 133/60
[2021-07-07 07:51] LABS: PROTHROMBIN TIME PATIENT 27.4 SEC (11.7-14.0)
[2021-07-07] MEDS: DOCUSATE SODIUM 100 MG CAPSULE. PO SCH (09:00)
[2021-07-07] MEDS: azaTHIOprine 50 MG TABLET PO SCH ×3 (10:07→22:17)
[2021-07-07] MEDS: CEFDINIR 300 MG CAPSULE PO SCH ×2 (10:07→22:16)
[2021-07-07] MEDS: FERROUS SULFATE 325 MG TABLET. PO SCH (10:07)
[2021-07-07] MEDS: LACTOBACILLUS RHAMNOSUS GG 1 CAPSULE. PO SCH ×2 (10:07→22:16)
[2021-07-07] MEDS: ASCORBIC ACID 500 MG TABLET PO SCH ×2 (10:07→22:16)
[2021-07-07] MEDS: MULTIVITAMIN with MINERAL TABLET. PO SCH (10:07)
[2021-07-07] MEDS: NYSTATIN TOPICAL POWDER 15GM BOTTLE. TP SCH ×2 (10:08→22:18)
[2021-07-07] MEDS: PANTOPRAZOLE 40 MG TABLET.DR. PO SCH (10:09)
[2021-07-07] MEDS: DICLOFENAC SODIUM 1% TOPICAL GEL 100GM TUBE. TP SCH ×2 (10:10→22:17)
[2021-07-07] MEDS: VITS A & D/LANOLIN TOPICAL OINTMENT 42GM TUBE. TP SCH ×2 (10:12→21:00)
[2021-07-07 11:00] VITALS: BP 135/58
--- NOTE | 2021-07-07 12:29 | NUR ---
Pharmacy Warfarin Dosing Note S:Pharmacy consulted to assist with anticoagulation therapy started with target INR: 2 -3 O:TODD RICO is a 60 year old M with DVT/PE LABS: Last INR: 2.6 Last HGB: 9.6 Last HCT: 30.6 Last PLT: 451 Last dose of Hold given on 07/06/21 at 1720 Previous Regimen: 7.5 mg daily Vitamin K given: N 2.5 mg po (06/27) Drug Interaction Changes: None Ongoing Drug Interactions: A:INR of 2.6 is within desired range. Target range for this patient is: 2 -3 P: Warfarin dose: 2.5 mg Today at 1600 Bridge Therapy: None Next INR due NEEDED Pharmacy anticoagulation service will continue to follow. SO[facility], 07/07/21 [id number]
--- NOTE | 2021-07-07 13:26 | PDOC ---
[employer] PROGRESS NOTE Date of Service DOS: DATE: 07/07/21 TIME: 13:25 Chief Complaint Chief Complaint Supratherapeutic INR History DVT/PE on warfarin Chronic sacral cubitus ulcer Normocytic anemia Thrombocytosis HTN Moderate malnutrition History of multiple sclerosis Sepsis Acute cystitis urine cultures positive for Klebsiella pneumonia Plan: Continue with p.o. cefdinir Will monitor INR, continue to hold warfarin and resume when therapeutic (INR 23) Wound care to chronic decubitus ulcer Will consult pharmacy to help with possible monitoring of warfarin Resume home medications FEN - Cardiac diet PPX - Warfarin FULL CODE Dispo - inpatient for above Patient names his mother (Vy Du) as surrogate decision-maker History of Present Illness History of Present Illness Patient is a 60-year-old male with past medical history multiple sclerosis, lymphedema, HTN, DVT/PE on warfarin, [facility] to his chronic chronic decubitus ulcer. He was receiving local wound care at his jail when he was noted to have ongoing bleeding, for which she was sent to the ED. At his jail bleeding was not noted to be severe or hemorrhagic, but was ongoing. At his jail INR was reportedly 12. Labs upon arrival in the ED showed hemoglobin 11.8, hematocrit 36.7, platelet 536, albumin 2.8, INR 9.4, PT 73.2, PTT 142. Discussed with ED attending, due to no active bleeding upon his evaluation, vitamin K was held. Will admit patient for further medical management. 06/28/2021: Patient seen and evaluated with family at bedside. Feels tired, but no other complaints today. INR 1.9 today; will resume warfarin. No further bleeding. He is stable to discharge back to his jail, but he does not want to return to [facility]. Will order PT/OT. Discussed with social welfare administrator and RN. 06/29/2021: Warfarin is been resumed yesterday, INR 1.9. No further bleeding. Patient does not want return to [facility]. Rapid COVID-19 negative, COVID-19 PCR pending. Worked with occupational therapy and recommended intermediate; PT recommendations pending. Wound care following. 06/30/2021: INR 2.1 today. Denies any further bleeding. He has no complaints today. Patient does not want to return to [facility]. business services intern to place referral to [facility] rehab. 07/01/2021: Patient seen resting comfortably in bed. Afebrile. INR 2.1. hydroponics worker has placed referral to [facility] rehab. 07/02/2021: Somewhat somnolent this morning. Patient febrile overnight T-max 100.5 F. Source of infection appears to be UTI. Chest x-ray showed bilateral patchy infiltrates, unchanged from prior exam. He was treated with Rocephin 1 g overnight and IV fluid bolus; will continue treatment with Rocephin and follow urine cultures. Patient was initially slated to discharge to [facility] tomorrow, but recommend holding discharge until urine culture results. 07/03/21 No acute events overnight. No BM for 6 days. started on miralax until BM. Continue with Rocpehin IV and pending Sensitivities and speciation from Urine Cx. 07/04/2021 No acute events overnight. Patient seen and examined bedside. Patient did have a bowel movement yesterday. Switched IV Rocephin to Levaquin. Pending PT OT evaluation for possible rehab. Patient's chart, labs, images were reviewed and discussed with RN 07/05/2021 No acute events overnight. Patient seen and examined bedside. Continued p.o. cefdinir. Avoid Levaquin due to interactions with warfarin. Patient's chart, labs, images were reviewed and discussed with RN 07/06/21 No acute events overnight. Patient seen and examined bedside. No complaints at this time. Discontinued IV fluids. Continue working with PT OT. Patient's chart, labs, images were reviewed and discussed with RN 07/07/2021 No acute events overnight. Patient seen and examined bedside. No concerns with nursing. INR within therapeutic range. Patient's chart, labs, images were re viewed and discussed with RN Vitals/I&O Vitals/I&O: Vital Signs Date Time Temp Pulse Resp B/P (MAP) Pulse Ox O2 Delivery O2 Flow Rate FiO2 07/07/21 11:00 97.8 72 20 135/58 (83) 94 Room Air 97.8 I & O 07/06/21 07/06/21 07/07/21 15:00 23:00 07:00 Intake Total 400 ml 200 ml 0 ml Balance 400 ml 200 ml 0 ml Physical Exam General: Alert, Cooperative, No acute distress Heart: Regular rate Lungs: Clear Abdomen: Soft Extremities: No clubbing, No cyanosis Skin: No rashes Labs Labs: Laboratory Tests Test 07/07/21 06:20 Prothrombin Time 27.4 SEC (11.7-14.0) Prothromb Time International Ratio 2.6 (0.8-1.1) Assessment and Plan Assessmemt and Plan Problems Medical Problems: (1) Chronic ulcer of sacral region Status: Acute (2) History of deep vein thrombosis Status: Acute (3) History of pulmonary embolism Status: Acute (4) Supratherapeutic INR Status: Acute (5) Warfarin anticoagulation Status: Acute Comment Review of Relevant I have reviewed the following items taniya (where applicable) has been applied. Justifications for Admission General Conditions Other justification for admit: Supratherapeutic INR, chronic sacral wounds Other Justification QUAN WOLF MD Jul 07, 2021 13:26
[2021-07-07 15:00] VITALS: BP 144/69
[2021-07-07] MEDS ORDERED: WARFARIN 2.5 MG TABLET. PO ONE (16:00)
[2021-07-07 19:00] VITALS: BP 133/55
[2021-07-07] MEDS: MINERAL OIL/PETROLATUM TOPICAL CREAM 113GM JAR. TP PRN (22:18)
[2021-07-07 23:00] VITALS: BP 144/64
[2021-07-08 03:00] VITALS: BP 130/55
[2021-07-08 07:00] VITALS: BP 141/54
[2021-07-08 08:35] LABS: PROTHROMBIN TIME PATIENT 27.1 SEC (11.7-14.0)
[2021-07-08] MEDS: DOCUSATE SODIUM 100 MG CAPSULE. PO SCH (09:00)
[2021-07-08] MEDS: azaTHIOprine 50 MG TABLET PO SCH ×3 (09:10→23:42)
[2021-07-08] MEDS: CEFDINIR 300 MG CAPSULE PO SCH ×2 (09:10→23:42)
[2021-07-08] MEDS: ASCORBIC ACID 500 MG TABLET PO SCH ×2 (09:10→23:42)
[2021-07-08] MEDS: LACTOBACILLUS RHAMNOSUS GG 1 CAPSULE. PO SCH ×2 (09:10→23:42)
[2021-07-08] MEDS: PANTOPRAZOLE 40 MG TABLET.DR. PO SCH (09:10)
[2021-07-08] MEDS: FERROUS SULFATE 325 MG TABLET. PO SCH (09:10)
[2021-07-08] MEDS: MULTIVITAMIN with MINERAL TABLET. PO SCH (09:10)
[2021-07-08] MEDS: NYSTATIN TOPICAL POWDER 15GM BOTTLE. TP SCH ×2 (09:13→23:42)
[2021-07-08] MEDS: VITS A & D/LANOLIN TOPICAL OINTMENT 42GM TUBE. TP SCH ×2 (09:13→23:40)
[2021-07-08] MEDS: DICLOFENAC SODIUM 1% TOPICAL GEL 100GM TUBE. TP SCH ×2 (09:14→23:42)
[2021-07-08 11:00] VITALS: BP 135/63
--- NOTE | 2021-07-08 11:15 | PDOC ---
[employer] PROGRESS NOTE Date of Service DOS: DATE: 07/08/21 TIME: 11:15 Chief Complaint Chief Complaint Supratherapeutic INR History DVT/PE on warfarin Chronic sacral cubitus ulcer Normocytic anemia Thrombocytosis HTN Moderate malnutrition History of multiple sclerosis Sepsis Acute cystitis urine cultures positive for Klebsiella pneumonia Plan: Continue with p.o. cefdinir Will monitor INR, continue to hold warfarin and resume when therapeutic (INR 23) Wound care to chronic decubitus ulcer Will consult pharmacy to help with possible monitoring of warfarin Resume home medications FEN - Cardiac diet PPX - Warfarin FULL CODE Dispo - inpatient for above Patient names his mother (Vy Du) as surrogate decision-maker History of Present Illness History of Present Illness Patient is a 60-year-old male with past medical history multiple sclerosis, lymphedema, HTN, DVT/PE on warfarin, who presents from his skilled nursing for ongoing bleeding to his chronic chronic decubitus ulcer. He was receiving local wound care at his skilled nursing when he was noted to have ongoing bleeding, for which she was sent to the ED. At his skilled nursing bleeding was not noted to be severe or hemorrhagic, but was ongoing. At his skilled nursing INR was reportedly 12. Labs upon arrival in the ED showed hemoglobin 11.8, hematocrit 36.7, platelet 536, albumin 2.8, INR 9.4, PT 73.2, PTT 142. Discussed with ED attending, due to no active bleeding upon his evaluation, vitamin K was held. Will admit patient for further medical management. 06/28/2021: Patient seen and evaluated with family at bedside. Feels tired, but no other complaints today. INR 1.9 today; will resume warfarin. No further bleeding. He is stable to discharge back to his skilled nursing, but he does not want to return to [facility]. Will order PT/OT. Discussed with social services director and RN. 06/29/2021: Warfarin is been resumed yesterday, INR 1.9. No further bleeding. Patient does not want return to [facility]. Rapid COVID-19 negative, COVID-19 PCR pending. Worked with occupational therapy and recommended custodial; PT recommendations pending. Wound care following. 06/30/2021: INR 2.1 today. Denies any further bleeding. He has no complaints today. Patient does not want to return to [facility]. technology services manager to place referral to [facility] rehab. 07/01/2021: Patient seen resting comfortably in bed. Afebrile. INR 2.1. industrial services worker has placed referral to [facility] rehab. 07/02/2021: Somewhat somnolent this morning. Patient febrile overnight T-max 100.5 F. Source of infection appears to be UTI. Chest x-ray showed bilateral patchy infiltrates, unchanged from prior exam. He was treated with Rocephin 1 g overnight and IV fluid bolus; will continue treatment with Rocephin and follow urine cultures. Patient was initially slated to discharge to [facility] tomorrow, but recommend holding discharge until urine culture results. 07/03/21 No acute events overnight. No BM for 6 days. started on miralax until BM. Continue with Rocpehin IV and pending Sensitivities and speciation from Urine Cx. 07/04/2021 No acute events overnight. Patient seen and examined bedside. Patient did have a bowel movement yesterday. Switched IV Rocephin to Levaquin. Pending PT OT evaluation for possible rehab. Patient's chart, labs, images were reviewed and discussed with RN 07/05/2021 No acute events overnight. Patient seen and examined bedside. Continued p.o. cefdinir. Avoid Levaquin due to interactions with warfarin. Patient's chart, labs, images were reviewed and discussed with RN 07/06/21 No acute events overnight. Patient seen and examined bedside. No complaints at this time. Discontinued IV fluids. Continue working with PT OT. Patient's chart, labs, images were reviewed and discussed with RN 07/07/2021 No acute events overnight. Patient seen and examined bedside. No concerns with nursing. INR within therapeutic range. Patient's chart, labs, images were re viewed and discussed with RN 07/08/2021 No acute events overnight. Patient seen and examined bedside. No complaints at this time. INR is in therapeutic range. Pending SNF placement. Patient's chart, labs, images were reviewed and discussed with RN Vitals/I&O Vitals/I&O: Vital Signs Date Time Temp Pulse Resp B/P (MAP) Pulse Ox O2 Delivery O2 Flow Rate FiO2 07/08/21 08:10 Room Air 07/08/21 07:00 97.7 60 141/54 (83) 93 97.7 07/08/21 03:00 18 I & O 07/07/21 07/07/21 07/08/21 15:00 23:00 07:00 Intake Total 300 ml 200 ml Output Total 350 ml Balance 300 ml 200 ml -350 ml Physical Exam General: Alert, Cooperative, No acute distress Heart: Regular rate Lungs: Clear Abdomen: Soft Extremities: No clubbing, No cyanosis Skin: No rashes Labs Labs: Laboratory Tests Test 07/08/21 06:45 Prothrombin Time 27.1 SEC (11.7-14.0) Prothromb Time International Ratio 2.6 (0.8-1.1) Assessment and Plan Assessmemt and Plan Problems Medical Problems: (1) Chronic ulcer of sacral region Status: Acute (2) History of deep vein thrombosis Status: Acute (3) History of pulmonary embolism Status: Acute (4) Supratherapeutic INR Status: Acute (5) Warfarin anticoagulation Status: Acute Comment Review of Relevant I have reviewed the following items taniya (where applicable) has been applied. Medications: Current Medications Medications (Trade) Dose Ordered Sig/Steve Route PRN Reason Start Time Stop Time Status Last Admin Dose Admin Warfarin Sodium (Coumadin) 2.5 mg 1X WARF ONCE PO 07/07/21 16:00 07/07/21 16:01 DC 07/07/21 16:20 Justifications for Admission General Conditions Other justification for admit: Supratherapeutic INR, chronic sacral wounds Other Justification QUAN WOLF MD Jul 08, 2021 11:15
[2021-07-08 15:00] VITALS: BP 146/49
[2021-07-08] MEDS: WARFARIN 1 MG TABLET. PO SCH (16:51)
[2021-07-08 19:46] VITALS: BP 143/58
[2021-07-08] MEDS: MINERAL OIL/PETROLATUM TOPICAL CREAM 113GM JAR. TP PRN (23:46)
[2021-07-08 23:50] VITALS: BP 137/53
[2021-07-09 03:40] VITALS: BP 135/60
[2021-07-09 07:00] VITALS: BP 129/61
[2021-07-09] MEDS: VITS A & D/LANOLIN TOPICAL OINTMENT 42GM TUBE. TP SCH ×2 (07:49→21:00)
[2021-07-09 09:23] LABS: PROTHROMBIN TIME PATIENT 25.4 SEC (11.7-14.0)
[2021-07-09] MEDS: CEFDINIR 300 MG CAPSULE PO SCH ×2 (10:49→22:02)
[2021-07-09] MEDS: azaTHIOprine 50 MG TABLET PO SCH ×3 (10:50→22:02)
[2021-07-09] MEDS: MULTIVITAMIN with MINERAL TABLET. PO SCH (10:50)
[2021-07-09] MEDS: PANTOPRAZOLE 40 MG TABLET.DR. PO SCH (10:50)
[2021-07-09] MEDS: LACTOBACILLUS RHAMNOSUS GG 1 CAPSULE. PO SCH ×2 (10:50→22:02)
[2021-07-09] MEDS: FERROUS SULFATE 325 MG TABLET. PO SCH (10:50)
[2021-07-09] MEDS: ASCORBIC ACID 500 MG TABLET PO SCH ×2 (10:51→22:02)
[2021-07-09] MEDS: NYSTATIN TOPICAL POWDER 15GM BOTTLE. TP SCH ×2 (10:51→22:02)
[2021-07-09] MEDS: DOCUSATE SODIUM 100 MG CAPSULE. PO SCH (10:51)
[2021-07-09] MEDS: DICLOFENAC SODIUM 1% TOPICAL GEL 100GM TUBE. TP SCH ×2 (10:52→22:02)
[2021-07-09 11:00] VITALS: BP 150/76
--- NOTE | 2021-07-09 11:13 | PDOC ---
[employer] PROGRESS NOTE Date of Service DOS: DATE: 07/09/21 TIME: 11:11 Chief Complaint Chief Complaint Supratherapeutic INR History DVT/PE on warfarin Chronic sacral cubitus ulcer Normocytic anemia Thrombocytosis HTN Moderate malnutrition History of multiple sclerosis Sepsis Acute cystitis urine cultures positive for Klebsiella pneumonia Plan: Continue with p.o. cefdinir Will monitor INR, continue to hold warfarin and resume when therapeutic (INR 23) Wound care to chronic decubitus ulcer Will consult pharmacy to help with possible monitoring of warfarin Resume home medications FEN - Cardiac diet PPX - Warfarin FULL CODE Dispo - inpatient for above Patient names his mother (Vy Du) as surrogate decision-maker History of Present Illness History of Present Illness Patient is a 60-year-old male with past medical history multiple sclerosis, lymphedema, HTN, DVT/PE on warfarin, who presents from his intermediate for ongoing bleeding to his chronic chronic decubitus ulcer. He was receiving local wound care at his intermediate when he was noted to have ongoing bleeding, for which she was sent to the ED. At his intermediate bleeding was not noted to be severe or hemorrhagic, but was ongoing. At his intermediate INR was reportedly 12. Labs upon arrival in the ED showed hemoglobin 11.8, hematocrit 36.7, platelet 536, albumin 2.8, INR 9.4, PT 73.2, PTT 142. Discussed with ED attending, due to no active bleeding upon his evaluation, vitamin K was held. Will admit patient for further medical management. 06/28/2021: Patient seen and evaluated with family at bedside. Feels tired, but no other complaints today. INR 1.9 today; will resume warfarin. No further bleeding. He is stable to discharge back to his intermediate, but he does not want to return to [facility]. Will order PT/OT. Discussed with social work case manager and RN. 06/29/2021: Warfarin is been resumed yesterday, INR 1.9. No further bleeding. Patient does not want return to [facility]. Rapid COVID-19 negative, COVID-19 PCR pending. Worked with occupational therapy and recommended nursing home; PT recommendations pending. Wound care following. 06/30/2021: INR 2.1 today. Denies any further bleeding. He has no complaints today. Patient does not want to return to [facility]. food services manager to place referral to [facility] rehab. 07/01/2021: Patient seen resting comfortably in bed. Afebrile. INR 2.1. before and after school daycare worker has placed referral to [facility] rehab. 07/02/2021: Somewhat somnolent this morning. Patient febrile overnight T-max 100.5 F. Source of infection appears to be UTI. Chest x-ray showed bilateral patchy infiltrates, unchanged from prior exam. He was treated with Rocephin 1 g overnight and IV fluid bolus; will continue treatment with Rocephin and follow urine cultures. Patient was initially slated to discharge to [facility] tomorrow, but recommend holding discharge until urine culture results. 07/03/21 No acute events overnight. No BM for 6 days. started on miralax until BM. Continue with Rocpehin IV and pending Sensitivities and speciation from Urine Cx. 07/04/2021 No acute events overnight. Patient seen and examined bedside. Patient did have a bowel movement yesterday. Switched IV Rocephin to Levaquin. Pending PT OT evaluation for possible rehab. Patient's chart, labs, images were reviewed and discussed with RN 07/05/2021 No acute events overnight. Patient seen and examined bedside. Continued p.o. cefdinir. Avoid Levaquin due to interactions with warfarin. Patient's chart, labs, images were reviewed and discussed with RN 07/06/21 No acute events overnight. Patient seen and examined bedside. No complaints at this time. Discontinued IV fluids. Continue working with PT OT. Patient's chart, labs, images were reviewed and discussed with RN 07/07/2021 No acute events overnight. Patient seen and examined bedside. No concerns with nursing. INR within therapeutic range. Patient's chart, labs, images were r eviewed and discussed with RN 07/08/2021 No acute events overnight. Patient seen and examined bedside. No complaints at this time. INR is in therapeutic range. Pending SNF placement. Patient's chart, labs, images were reviewed and discussed with RN 07/09/2021 No acute events overnight. Afebrile. Patient seen and examined bedside. No concerns nursing. INR still within therapeutic range. Patient's chart, labs, images were reviewed and discussed with RN Vitals/I&O Vitals/I&O: Vital Signs Date Time Temp Pulse Resp B/P (MAP) Pulse Ox O2 Delivery O2 Flow Rate FiO2 07/09/21 07:00 98.1 68 17 129/61 (83) 91 Room Air 98.1 I & O 07/08/21 07/08/21 07/09/21 15:00 23:00 07:00 Intake Total 240 ml Output Total 250 ml 400 ml Balance 240 ml -250 ml -400 ml Physical Exam General: Alert, Cooperative, No acute distress Heart: Regular rate Lungs: Clear Abdomen: Soft Extremities: No clubbing, No cyanosis Skin: No rashes Labs Labs: Laboratory Tests Test 07/09/21 08:15 Prothrombin Time 25.4 SEC (11.7-14.0) Prothromb Time International Ratio 2.4 (0.8-1.1) Assessment and Plan Assessmemt and Plan Problems Medical Problems: (1) Chronic ulcer of sacral region Status: Acute (2) History of deep vein thrombosis Status: Acute (3) History of pulmonary embolism Status: Acute (4) Supratherapeutic INR Status: Acute (5) Warfarin anticoagulation Status: Acute Comment Review of Relevant I have reviewed the following items taniya (where applicable) has been applied. Medications: Current Medications Medications (Trade) Dose Ordered Sig/Steve Route PRN Reason Start Time Stop Time Status Last Admin Dose Admin Warfarin Sodium (Coumadin) 1 mg DAILY16 PO 07/08/21 16:00 07/08/21 16:51 Justifications for Admission General Conditions Other justification for admit: Supratherapeutic INR, chronic sacral wounds Other Justification QUAN WOLF MD Jul 09, 2021 11:13
[2021-07-09 15:00] VITALS: BP 160/69
[2021-07-09] MEDS: WARFARIN 1 MG TABLET. PO SCH (17:23)
[2021-07-09 19:52] VITALS: BP 136/52
[2021-07-09 23:25] VITALS: BP 143/67
[2021-07-10 03:57] VITALS: BP 144/71
[2021-07-10 07:00] VITALS: BP 159/69
[2021-07-10] MEDS: VITS A & D/LANOLIN TOPICAL OINTMENT 42GM TUBE. TP SCH ×2 (07:57→21:00)
[2021-07-10] MEDS: DICLOFENAC SODIUM 1% TOPICAL GEL 100GM TUBE. TP SCH ×2 (09:00→21:10)
[2021-07-10 09:09] LABS: PROTHROMBIN TIME PATIENT 22.6 SEC (11.7-14.0)
[2021-07-10] MEDS: LACTOBACILLUS RHAMNOSUS GG 1 CAPSULE. PO SCH ×2 (10:41→21:08)
[2021-07-10] MEDS: MULTIVITAMIN with MINERAL TABLET. PO SCH (10:42)
[2021-07-10] MEDS: azaTHIOprine 50 MG TABLET PO SCH ×3 (10:42→21:08)
[2021-07-10] MEDS: CEFDINIR 300 MG CAPSULE PO SCH ×2 (10:42→21:08)
[2021-07-10] MEDS: NYSTATIN TOPICAL POWDER 15GM BOTTLE. TP SCH ×2 (10:43→21:12)
[2021-07-10] MEDS: PANTOPRAZOLE 40 MG TABLET.DR. PO SCH (10:43)
[2021-07-10] MEDS: FERROUS SULFATE 325 MG TABLET. PO SCH (10:43)
[2021-07-10] MEDS: DOCUSATE SODIUM 100 MG CAPSULE. PO SCH (10:43)
[2021-07-10] MEDS: ASCORBIC ACID 500 MG TABLET PO SCH ×2 (10:43→21:08)
[2021-07-10 11:00] VITALS: BP 137/59
--- NOTE | 2021-07-10 11:45 | NUR ---
Pharmacy Warfarin Dosing Note S:Pharmacy consulted to assist with anticoagulation therapy started with target INR: 2 -3 O:TODD RICO is a 60 year old M with DVT/PE LABS: Last INR: 2 Last HGB: 9.6 Last HCT: 30.6 Last PLT: 451 Last dose of 1 mg given on 07/09/21 at 1723 Previous Regimen: 7.5 mg daily Vitamin K given: Y 2.5 mg po (06/27) Drug Interaction Changes: None A:INR of 2 is within desired range. Target range for this patient is: 2 -3 P: Warfarin dose: 1 mg Today at [address] Therapy: None Next INR due 07/11/21 Pharmacy anticoagulation service will continue to follow. GENIE MONROY RPH, 07/10/21 [id number]
--- NOTE | 2021-07-10 12:39 | PDOC ---
[employer] PROGRESS NOTE Date of Service DOS: DATE: 07/10/21 TIME: 12:36 Chief Complaint Chief Complaint Klebsiella UTI - Acute cystitis urine cultures positive for Klebsiella pneumonia. 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 Will add marinol for appetite, anxiety, nausea Plan: Continue with p.o. cefdinir Will monitor INR, continue to hold warfarin and resume when therapeutic (INR 23) Wound care to chronic decubitus ulcer Will consult pharmacy to help with possible monitoring of warfarin Resume home medications FEN - Cardiac diet PPX - Warfarin FULL CODE Dispo - inpatient for above Patient names his mother (Vy Du) as surrogate decision-maker History of Present Illness History of Present Illness Mr Du is a 60 year old male with PMHx Multiple sclerosis, lymphedema, HTN, RLE DVT and PE (2013) who was brought here by EMS from [facility] for ongoing bleeding to his chronic chronic decubitus ulcer. He was receiving local wound care at his fpc when he was noted to have ongoing bleeding, for which she was sent to the ED. At his fpc bleeding was not noted to be severe or hemorrhagic, but was ongoing. At his fpc INR was reportedly 12. Labs upon arrival in the ED showed hemoglobin 11.8, hematocrit 36.7, platelet 536, albumin 2.8, INR 9.4, PT 73.2, PTT 142. Discussed with ED attending, due to no active bleeding upon his evaluation, vitamin K was held. Will admit patient for further medical management. 06/28: Feels tired, but no other complaints today. INR 1.9 today; will resume warfarin. No further bleeding. Will order PT/OT. 06/29: Warfarin is been resumed yesterday, INR 1.9. No further bleeding. Patient does not want return to [facility]. Rapid COVID-19 negative, COVID-19 PCR pending. Worked with occupational therapy and recommended intermediate; PT recommendations pending. Wound care following. 06/30: INR 2.1 today. Denies any further bleeding. He has no complaints today. Patient does not want to return to [facility]. SW to place referral to [facility] rehab. 07/01: Patient seen resting comfortably in bed. Afebrile. INR 2.1. optical goods worker has placed referral to [facility] rehab. 07/02: Somewhat somnolent this morning. Patient febrile overnight T-max 100.5 F. Source of infection appears to be UTI. Chest x-ray showed bilateral patchy infiltrates, unchanged from prior exam. He was treated with Rocephin 1 g overnight and IV fluid bolus; will continue treatment with Rocephin and follow urine cultures. Patient was initially slated to discharge to [facility] tomorrow, but recommend holding discharge until urine culture results. 07/03: No acute events overnight. No BM for 6 days. started on miralax until BM. Continue with Rocpehin IV and pending Sensitivities and speciation from Urine Cx. 07/04: No acute events overnight. Patient seen and examined bedside. Patient did have a bowel movement yesterday. Switched IV Rocephin to Levaquin. Pending PT OT eval 07/05: No acute events overnight. Patient seen and examined bedside. Continued p.o. cefdinir. Avoid Levaquin due to interactions with warfarin. 07/06: No acute events overnight. Patient seen and examined bedside. No complaints at this time. Discontinued IV fluids. Continue working with PT OT. 07/07: No acute events overnight. Patient seen and examined bedside. No concerns with nursing. INR within therapeutic range. 07/08: No acute events overnight. Patient seen and examined bedside. No complaints at this time. INR is in therapeutic range. Pending SNF placement. 07/09: No acute events overnight. Afebrile. Patient seen and examined bedside. No concerns nursing. INR still within therapeutic range. Afebrile. INR 2. Had some loose stools, wishes to stop stool softeners for the day. Wound stable. Having some nausea and loss of appetite today, asking for marinol to restart. Vitals/I&O Vitals/I&O: Vital Signs Date Time Temp Pulse Resp B/P (MAP) Pulse Ox O2 Delivery O2 Flow Rate FiO2 07/10/21 11:00 97.3 52 16 137/59 (85) 94 Room Air 97.3 I & O 07/09/21 07/09/21 07/10/21 15:00 23:00 07:00 Output Total 200 ml 100 ml 600 ml Balance -200 ml -100 ml -600 ml Physical Exam General: Alert, Cooperative, No acute distress Heart: Regular rate Lungs: Clear Abdomen: Soft Extremities: No clubbing, No cyanosis Skin: No rashes Labs Labs: Laboratory Tests Test 07/10/21 08:20 Prothrombin Time 22.6 SEC (11.7-14.0) Prothromb Time International Ratio 2.0 (0.8-1.1) Assessment and Plan Assessmemt and Plan Problems Medical Problems: (1) Chronic ulcer of sacral region Status: Acute (2) History of deep vein thrombosis Status: Acute (3) History of pulmonary embolism Status: Acute (4) Supratherapeutic INR Status: Acute (5) Warfarin anticoagulation Status: Acute Comment Review of Relevant I have reviewed the following items taniya (where applicable) has been applied. Justifications for Admission General Conditions Other justification for admit: Supratherapeutic INR, chronic sacral wounds Other Justification STEPHANIA LOZA MD Jul 10, 2021 12:39
[2021-07-10 15:00] VITALS: BP 132/75
[2021-07-10] MEDS: WARFARIN 1 MG TABLET. PO SCH (17:51)
[2021-07-10] MEDS: DRONABINOL 2.5 MG CAPSULE. PO SCH (17:57)
[2021-07-10] MEDS: MICONAZOLE NITRATE 2% TOPICAL CREAM 30GM TUBE. TP SCH ×2 (17:57→21:12)
[2021-07-10 19:00] VITALS: BP 142/56
[2021-07-10] MEDS: MINERAL OIL/PETROLATUM TOPICAL CREAM 113GM JAR. TP PRN (21:12)
[2021-07-10 23:00] VITALS: BP 136/62
[2021-07-11 03:00] VITALS: BP 140/62
[2021-07-11] MEDS: PANTOPRAZOLE 40 MG TABLET.DR. PO SCH ×2 (06:19→09:56)
[2021-07-11 07:00] VITALS: BP 144/61
--- NOTE | 2021-07-11 07:24 | PDOC ---
[employer] PROGRESS NOTE Date of Service DOS: DATE: 07/11/21 TIME: 07:24 Chief Complaint Chief Complaint Klebsiella UTI - Acute cystitis urine cultures positive for Klebsiella pneumonia. 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 added marinol for appetite, anxiety, nausea Plan: Continue with p.o. cefdinir Will monitor INR, continue to hold warfarin and resume when therapeutic (INR 23) Wound care to chronic decubitus ulcer Will consult pharmacy to help with possible monitoring of warfarin Resume home medications FEN - Cardiac diet PPX - Warfarin FULL CODE Dispo - inpatient for above Patient names his mother (Vy Du) as surrogate decision-maker 37 MIN PT exam, chart review, > 50% of time spent with exam, chart review, pt care coordination. History of Present Illness History of Present Illness Mr Du is a 60 year old male with PMHx Multiple sclerosis, lymphedema, HTN, RLE DVT and PE (2013) who was brought here by EMS from SNF for ongoing bleeding to his chronic chronic decubitus ulcer. He was receiving local wound care at his alf when he was noted to have ongoing bleeding, for which she was sent to the ED. At his alf bleeding was not noted to be severe or hemorrhagic, but was ongoing. At his alf INR was reportedly 12. Labs upon arrival in the ED showed hemoglobin 11.8, hematocrit 36.7, platelet 536, albumin 2.8, INR 9.4, PT 73.2, PTT 142. Discussed with ED attending, due t o no active bleeding upon his evaluation, vitamin K was held. Will admit patient for further medical management. 06/28: Feels tired, but no other complaints today. INR 1.9 today; will resume warfarin. No further bleeding. Will order PT/OT. 06/29: Warfarin is been resumed yesterday, INR 1.9. No further bleeding. Patient does not want return to [facility]. Rapid COVID-19 negative, COVID-19 PCR pending. Worked with occupational therapy and recommended long term; PT recommendations pending. Wound care following. 06/30: INR 2.1 today. Denies any further bleeding. He has no complaints today. Patient does not want to return to [facility]. SW to place referral to [facility] rehab. 07/01: Patient seen resting comfortably in bed. Afebrile. INR 2.1. forensic social worker has placed referral to [facility] rehab. 07/02: Somewhat somnolent this morning. Patient febrile overnight T-max 100.5 F. Source of infection appears to be UTI. Chest x-ray showed bilateral patchy infiltrates, unchanged from prior exam. He was treated with Rocephin 1 g overnight and IV fluid bolus; will continue treatment with Rocephin and follow urine cultures. Patient was initially slated to discharge to [facility] tomorrow, but recommend holding discharge until urine culture results. 07/03: No acute events overnight. No BM for 6 days. started on miralax until BM. Continue with Rocpehin IV and pending Sensitivities and speciation from Urine Cx. 07/04: No acute events overnight. Patient seen and examined bedside. Patient did have a bowel movement yesterday. Switched IV Rocephin to Levaquin. Pending PT OT eval 07/05: No acute events overnight. Patient seen and examined bedside. Continued p.o. cefdinir. Avoid Levaquin due to interactions with warfarin. 07/06: No acute events overnight. Patient seen and examined bedside. No complaints at this time. Discontinued IV fluids. Continue working with PT OT. 07/07: No acute events overnight. Patient seen and examined bedside. No concerns with nursing. INR within therapeutic range. 07/08: No acute events overnight. Patient seen and examined bedside. No complaints at this time. INR is in therapeutic range. Pending SNF placement. 07/09: No acute events overnight. Afebrile. Patient seen and examined bedside. No concerns nursing. INR still within therapeutic range. 07/10: Afebrile. INR 2. Had some loose stools, wishes to stop stool softeners for the day. Wound stable. Having some nausea and loss of appetite today, asking for marinol to restart. Afebrile. Completed 10-day course for Klebsiella UTI in male. INR 1.8 today. He is in good spirits slept reasonably well. Sacral wound stable. Nausea im proved. Vitals/I&O Vitals/I&O: Vital Signs Date Time Temp Pulse Resp B/P (MAP) Pulse Ox O2 Delivery O2 Flow Rate FiO2 07/11/21 03:00 97.6 65 20 140/62 (88) 93 Room Air 97.6 I & O 0 07/10/21 07/10/21 07/11/21 15:00 23:00 07:00 Intake Total 400 ml 440 ml 220 ml Output Total 100 ml 500 ml Balance 300 ml 440 ml -280 ml Physical Exam General: Alert, Cooperative, No acute distress Heart: Regular rate Lungs: Clear Abdomen: Soft Extremities: No clubbing, No cyanosis Skin: No rashes Labs Labs: Laboratory Tests Test 07/10/21 08:20 Prothrombin Time 22.6 SEC (11.7-14.0) Prothromb Time International Ratio 2.0 (0.8-1.1) Assessment and Plan Assessmemt and Plan Problems Medical Problems: (1) Chronic ulcer of sacral region Status: Acute (2) History of deep vein thrombosis Status: Acute (3) History of pulmonary embolism Status: Acute (4) Supratherapeutic INR Status: Acute (5) Warfarin anticoagulation Status: Acute Comment Review of Relevant I have reviewed the following items taniya (where applicable) has been applied. Medications: Current Medications Medications (Trade) Dose Ordered Sig/Steve Route PRN Reason Start Time Stop Time Status Last Admin Dose Admin Miconazole Nitrate (Monistat-Derm) 1 pedro BID TP 07/10/21 14:00 07/17/21 13:59 07/10/21 21:12 Dronabinol (Marinol) 5 mg BIDACLD PO 07/10/21 16:30 07/10/21 17:57 Justifications for Admission General Conditions Other justification for admit: Supratherapeutic INR, chronic sacral wounds Other Justification STEPHANIA LOZA MD Jul 11, 2021 07:24
[2021-07-11] MEDS: VITS A & D/LANOLIN TOPICAL OINTMENT 42GM TUBE. TP SCH ×2 (07:45→21:00)
[2021-07-11] MEDS: DICLOFENAC SODIUM 1% TOPICAL GEL 100GM TUBE. TP SCH ×2 (09:00→21:47)
[2021-07-11] MEDS: MULTIVITAMIN with MINERAL TABLET. PO SCH (09:56)
[2021-07-11] MEDS: azaTHIOprine 50 MG TABLET PO SCH ×3 (09:56→21:44)
[2021-07-11] MEDS: ASCORBIC ACID 500 MG TABLET PO SCH ×2 (09:57→21:44)
[2021-07-11] MEDS: FERROUS SULFATE 325 MG TABLET. PO SCH (09:57)
[2021-07-11] MEDS: LACTOBACILLUS RHAMNOSUS GG 1 CAPSULE. PO SCH ×2 (09:57→21:44)
[2021-07-11] MEDS: DOCUSATE SODIUM 100 MG CAPSULE. PO SCH (09:57)
[2021-07-11] MEDS: MICONAZOLE NITRATE 2% TOPICAL CREAM 30GM TUBE. TP SCH ×2 (09:58→21:46)
[2021-07-11] MEDS: NYSTATIN TOPICAL POWDER 15GM BOTTLE. TP SCH ×2 (09:58→21:46)
[2021-07-11 10:40] VITALS: BP 130/72
--- NOTE | 2021-07-11 11:44 | NUR ---
Pharmacy Warfarin Dosing Note S:Pharmacy consulted to assist with anticoagulation therapy started with target INR: 2 -3 O:TODD RICO is a 60 year old M with DVT/PE LABS: Last INR: 1.8 Last HGB: 9.6 Last HCT: 30.6 Last PLT: 451 Last dose of 1 mg given on 07/10/21 at 1751 Previous Regimen: 7.5 mg daily Vitamin K given: Y 2.5 mg po (06/27) Drug Interaction Changes: None Ongoing Drug Interactions: A:INR of 1.8 is below desired range. Target range for this patient is: 2 -3 P: Warfarin dose: 2 mg Today at 1600. Bridge Therapy: None Next INR due tomorrow. Pharmacy anticoagulation service will continue to follow. Christiano Cast [facility], 07/11/21 [id number]
[2021-07-11] MEDS: DRONABINOL 2.5 MG CAPSULE. PO SCH ×2 (12:15→17:10)
--- NOTE | 2021-07-11 14:38 | NUR ---
Wound/Ostomy Care Wound Type/Assessment: Wound care follow for sacrum PU stage 3. Buttocks maceration/excoriation has resolved, redness is still noted but blanchable. Skin appears to be better than previous assessment, No other wound noted on head to toe skin assessment. Sacrum wound cleansed and redressed with hydrofera blue and foam dressing. Nystatin powder and antifungal cream also being used to groins/pannus/intertrigo areas. All the patient's skin has improved. Treatment Recommendations/Plan: Cleanse wound and pat dry. Sacrum: skin prep to periwound, apply hydrofera blue ready to wound base (left in room), then cover with foam dressing. Change on Saturday and Saturday. Apply A&D ointment if needed to reddened or excoriated areas. Education provided: pt educated on PU healing, advised to turn q2h left to right only, pt to be on back only at meal times, pt verbalized understanding. Leg elevation to reduce swelling Offloading surface/device: P500 bed, purple wedge, pillows to elevate legs Recommended Referrals/Tests: n/a Discharge Recommendations for dressings: Dressing change instructions left in room. as well as extra Hydrofera Blue for next dressing changes. Bed lowered and call light in reach. Wound care will follow up on 07/19/21.
[2021-07-11 15:00] VITALS: BP 150/76
[2021-07-11] MEDS ORDERED: WARFARIN 2 MG TABLET. PO ONE (16:00)
[2021-07-11 19:00] VITALS: BP 120/57
[2021-07-11] MEDS: MINERAL OIL/PETROLATUM TOPICAL CREAM 113GM JAR. TP PRN (21:46)
[2021-07-11 23:09] VITALS: BP 138/66
[2021-07-12 03:12] VITALS: BP 146/65
--- NOTE | 2021-07-12 06:56 | PDOC ---
[employer] PROGRESS NOTE Date of Service DOS: DATE: 07/12/21 TIME: 06:56 Chief Complaint Chief Complaint Klebsiella UTI - Acute cystitis urine cultures positive for Klebsiella pneumonia. 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 added marinol for appetite, anxiety, nausea Plan: Continue with p.o. cefdinir Will monitor INR, continue to hold warfarin and resume when therapeutic (INR 23) Wound care to chronic decubitus ulcer Will consult pharmacy to help with possible monitoring of warfarin Resume home medications FEN - Cardiac diet PPX - Warfarin FULL CODE Dispo - inpatient for above Patient names his mother (yV Du) as surrogate decision-maker 37 MIN PT exam, chart review, > 50% of time spent with exam, chart review, pt care coordination. History of Present Illness History of Present Illness Mr Du is a 60 year old male with PMHx Multiple sclerosis, lymphedema, HTN, RLE DVT and PE (2013) who was brought here by EMS from SNF for ongoing bleeding to his chronic chronic decubitus ulcer. [facility] he was noted to have ongoing bleeding, for which she was sent to the ED. At [facility] jail bleeding was not noted to be severe or hemorrhagic, but was ongoing. At his jail INR was reportedly 12. Labs upon arrival in the ED showed hemoglobin 11.8, hematocrit 36.7, platelet 536, albumin 2.8, INR 9.4, PT 73.2, PTT 142. Discussed with ED attending, due t o no active bleeding upon his evaluation, vitamin K was held. Will admit patient for further medical management. 06/28: Feels tired, but no other complaints today. INR 1.9 today; will resume warfarin. No further bleeding. Will order PT/OT. 06/29: Warfarin is been resumed yesterday, INR 1.9. No further bleeding. Patient does not want return to [facility]. Rapid COVID-19 negative, COVID-19 PCR pending. Worked with occupational therapy and recommended [facility]; PT recommendations pending. Wound care following. 06/30: INR 2.1 today. Denies any further bleeding. He has no complaints today. Patient does not want to return to [facility]. SW to place referral to [facility] rehab. 07/01: Patient seen resting comfortably in bed. Afebrile. INR 2.1. brewery worker has placed referral to [facility] rehab. 07/02: Somewhat somnolent this morning. Patient febrile overnight T-max 100.5 F. Source of infection appears to be UTI. Chest x-ray showed bilateral patchy infiltrates, unchanged from prior exam. He was treated with Rocephin 1 g overnight and IV fluid bolus; will continue treatment with Rocephin and follow urine cultures. Patient was initially slated to discharge to [facility] tomorrow, but recommend holding discharge until urine culture results. 07/03: No acute events overnight. No BM for 6 days. started on miralax until BM. Continue with Rocpehin IV and pending Sensitivities and speciation from Urine Cx. 07/04: No acute events overnight. Patient seen and examined bedside. Patient did have a bowel movement yesterday. Switched IV Rocephin to Levaquin. Pending PT OT eval 07/05: No acute events overnight. Patient seen and examined bedside. Continued p.o. cefdinir. Avoid Levaquin due to interactions with warfarin. 07/06: No acute events overnight. Patient seen and examined bedside. No complaints at this time. Discontinued IV fluids. Continue working with PT OT. 07/07: No acute events overnight. Patient seen and examined bedside. No concerns with nursing. INR within therapeutic range. 07/08: No acute events overnight. Patient seen and examined bedside. No complaints at this time. INR is in therapeutic range. Pending SNF placement. 07/09: No acute events overnight. Afebrile. Patient seen and examined bedside. No concerns nursing. INR still within therapeutic range. 07/10: Afebrile. INR 2. Had some loose stools, wishes to stop stool softeners for the day. Wound stable. Having some nausea and loss of appetite today, asking for marinol to restart. 07/11: Afebrile. Completed 10-day course for Klebsiella UTI in male. INR 1.8 today. He is in good spirits slept reasonably well. Sacral wound stable. Nausea improved. Afebrile. Slept well has some left foot swelling has not been elevated. INR 1.7. Sacral wound with no redness. Nausea and appetite improving. Vitals/I&O Vitals/I&O: Vital Signs Date Time Temp Pulse Resp B/P (MAP) Pulse Ox O2 Delivery O2 Flow Rate FiO2 07/12/21 03:12 97.5 56 20 146/65 (92) 95 Room Air 97.5 I & O 07/11/21 07/11/21 07/12/21 15:00 23:00 07:00 Intake Total 480 ml 200 ml Output Total 150 ml 350 ml Balance 330 ml 200 ml -350 ml Physical Exam General: Alert, Cooperative, No acute distress Heart: Regular rate Lungs: Clear Abdomen: Soft Extremities: No clubbing, No cyanosis Skin: No rashes Labs Labs: Laboratory Tests Test 07/11/21 07:30 Prothrombin Time 21.0 SEC (11.7-14.0) Prothromb Time International Ratio 1.8 (0.8-1.1) Assessment and Plan Assessmemt and Plan Problems Medical Problems: (1) Chronic ulcer of sacral region Status: Acute (2) History of deep vein thrombosis Status: Acute (3) History of pulmonary embolism Status: Acute (4) Supratherapeutic INR Status: Acute (5) Warfarin anticoagulation Status: Acute Comment Review of Relevant I have reviewed the following items taniya (where applicable) has been applied. Medications: Current Medications Medications (Trade) Dose Ordered Sig/Steve Route PRN Reason Start Time Stop Time Status Last Admin Dose Admin Warfarin Sodium (Coumadin) 2 mg 1X WARF ONCE PO 07/11/21 16:00 07/11/21 16:01 DC 07/11/21 15:30 Justifications for Admission General Conditions Other justification for admit: Supratherapeutic INR, chronic sacral wounds Other Justification STEPHANIA LOZA MD Jul 12, 2021 06:56
[2021-07-12 07:00] VITALS: BP 184/60
[2021-07-12 07:46] LABS: PROTHROMBIN TIME PATIENT 19.6 SEC (11.7-14.0)
[2021-07-12] MEDS: VITS A & D/LANOLIN TOPICAL OINTMENT 42GM TUBE. TP SCH ×2 (09:00→21:00)
[2021-07-12] MEDS: DICLOFENAC SODIUM 1% TOPICAL GEL 100GM TUBE. TP SCH ×2 (09:00→21:00)
[2021-07-12] MEDS: DRONABINOL 2.5 MG CAPSULE. PO SCH ×2 (10:26→17:06)
[2021-07-12] MEDS: DOCUSATE SODIUM 100 MG CAPSULE. PO SCH (10:26)
[2021-07-12] MEDS: LACTOBACILLUS RHAMNOSUS GG 1 CAPSULE. PO SCH ×2 (10:27→22:15)
[2021-07-12] MEDS: azaTHIOprine 50 MG TABLET PO SCH ×3 (10:27→22:15)
[2021-07-12] MEDS: FERROUS SULFATE 325 MG TABLET. PO SCH (10:27)
[2021-07-12] MEDS: PANTOPRAZOLE 40 MG TABLET.DR. PO SCH (10:27)
[2021-07-12] MEDS: MULTIVITAMIN with MINERAL TABLET. PO SCH (10:27)
[2021-07-12] MEDS: ASCORBIC ACID 500 MG TABLET PO SCH ×2 (10:28→22:15)
[2021-07-12] MEDS: MICONAZOLE NITRATE 2% TOPICAL CREAM 30GM TUBE. TP SCH ×2 (10:46→22:15)
[2021-07-12] MEDS: NYSTATIN TOPICAL POWDER 15GM BOTTLE. TP SCH ×2 (10:46→22:16)
[2021-07-12 11:00] VITALS: BP 153/72
[2021-07-12 15:00] VITALS: BP 145/68
--- NOTE | 2021-07-12 15:54 | NUR ---
Pharmacy Warfarin Dosing Note S: Pharmacy consulted to assist with anticoagulation therapy O: TODD RICO is a 60 year old M with DVT/PE LABS: Last INR: 1.7 Last HGB: 9.6 Last HCT: 30.6 Last PLT: 451 Last dose of 2 mg given on 07/11/21 at 1530 Vitamin K given: Y 2.5 mg po (06/27) Ongoing Drug Interactions: A:INR of 1.7 is below desired range. Target range for this patient is: 2 -3 P: Warfarin dose: 2.5 mg Today at 1600 Bridge Therapy: None Next INR due tomorrow Pharmacy anticoagulation service will continue to follow. Loren Schwartz [facility], 07/12/21 [id number]
[2021-07-12] MEDS ORDERED: WARFARIN 2.5 MG TABLET. PO ONE (16:00)
[2021-07-12 19:00] VITALS: BP 148/67
[2021-07-12 23:39] VITALS: BP 132/71
[2021-07-13 03:43] VITALS: BP 112/57
[2021-07-13 07:00] VITALS: BP 162/70
[2021-07-13] MEDS: VITS A & D/LANOLIN TOPICAL OINTMENT 42GM TUBE. TP SCH ×2 (09:00→21:00)
[2021-07-13] MEDS: DICLOFENAC SODIUM 1% TOPICAL GEL 100GM TUBE. TP SCH ×2 (09:00→21:00)
[2021-07-13 09:11] LABS: PROTHROMBIN TIME PATIENT 17.8 SEC (11.7-14.0)
--- NOTE | 2021-07-13 10:19 | PDOC ---
[employer] PROGRESS NOTE Date of Service DOS: DATE: 07/13/21 TIME: 10:17 Chief Complaint Chief Complaint Klebsiella UTI - Acute cystitis urine cultures positive for Klebsiella pneumonia. 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 added marinol for appetite, anxiety, nausea Plan: Continue with p.o. cefdinir Will monitor INR, continue to hold warfarin and resume when therapeutic (INR 23) Wound care to chronic decubitus ulcer Will consult pharmacy to help with possible monitoring of warfarin Resume home medications FEN - Cardiac diet PPX - Warfarin FULL CODE Dispo - inpatient for above Patient names his mother (Vy Du) as surrogate decision-maker 37 MIN PT exam, chart review, > 50% of time spent with exam, chart review, pt care coordination. History of Present Illness History of Present Illness Mr Du is a 60 year old male with PMHx Multiple sclerosis, lymphedema, HTN, RLE DVT and PE (2013) who was brought here by EMS from SNF for ongoing bleeding to his chronic chronic decubitus ulcer. He was receiving local wound care at his [place] [facility] when he was noted to have ongoing bleeding, for which she was sent to the ED. [place] [facility] [place] bleeding was not noted to be severe or hemorrhagic, but was ongoing. At his [place] [facility] INR was reportedly 12. Labs upon arrival in the ED showed hemoglobin 11.8, hematocrit 36.7, platelet 536, albumin 2.8, INR 9.4, PT 73.2, PTT 142. Discussed with ED attending, due t o no active bleeding upon his evaluation, vitamin K was held. Will admit patient for further medical management. 06/28: Feels tired, but no other complaints today. INR 1.9 today; will resume warfarin. No further bleeding. Will order PT/OT. 06/29: Warfarin is been resumed yesterday, INR 1.9. No further bleeding. Patient does not want return to [facility]. Rapid COVID-19 negative, COVID-19 PCR pending. Worked with occupational therapy and recommended [place] [facility]; PT recommendations pending. Wound care following. 06/30: INR 2.1 today. Denies any further bleeding. He has no complaints today. Patient does not want to return to [facility]. SW to place referral to [facility] rehab. 07/01: Patient seen resting comfortably in bed. Afebrile. INR 2.1. grain elevator worker has placed referral to [facility] rehab. 07/02: Somewhat somnolent this morning. Patient febrile overnight T-max 100.5 F. Source of infection appears to be UTI. Chest x-ray showed bilateral patchy infiltrates, unchanged from prior exam. He was treated with Rocephin 1 g overnight and IV fluid bolus; will continue treatment with Rocephin and follow urine cultures. Patient was initially slated to discharge to [facility] tomorrow, but recommend holding discharge until urine culture results. 07/03: No acute events overnight. No BM for 6 days. started on miralax until BM. Continue with Rocpehin IV and pending Sensitivities and speciation from Urine Cx. 07/04: No acute events overnight. Patient seen and examined bedside. Patient did have a bowel movement yesterday. Switched IV Rocephin to Levaquin. Pending PT OT eval 07/05: No acute events overnight. Patient seen and examined bedside. Continued p.o. cefdinir. Avoid Levaquin due to interactions with warfarin. 07/06: No acute events overnight. Patient seen and examined bedside. No complaints at this time. Discontinued IV fluids. Continue working with PT OT. 07/07: No acute events overnight. Patient seen and examined bedside. No concerns with nursing. INR within therapeutic range. 07/08: No acute events overnight. Patient seen and examined bedside. No complaints at this time. INR is in therapeutic range. Pending SNF placement. 07/09: No acute events overnight. Afebrile. Patient seen and examined bedside. No concerns nursing. INR still within therapeutic range. 07/10: Afebrile. INR 2. Had some loose stools, wishes to stop stool softeners for the day. Wound stable. Having some nausea and loss of appetite today, asking for marinol to restart. 07/11: Afebrile. Completed 10-day course for Klebsiella UTI in male. INR 1.8 today. He is in good spirits slept reasonably well. Sacral wound stable. Nausea improved. 07/12: Afebrile. Slept well has some left foot swelling has not been elevated. INR 1.7. Sacral wound with no redness, dressing change with wound care. Nausea and appetite improving. Afebrile overnight. NR 1.5. Wound stage III about the same. Nausea and appetite improved. Still awaiting placement. Vitals/I&O Vitals/I&O: Vital Signs Date Time Temp Pulse Resp B/P (MAP) Pulse Ox O2 Delivery O2 Flow Rate FiO2 07/13/21 07:00 98.0 59 20 162/70 (100) 95 Room Air 98.0 I & O 07/12/21 07/12/21 07/13/21 15:00 23:00 07:00 Intake Total 220 ml 200 ml 0 ml Output Total 500 ml 400 ml Balance 220 ml -300 ml -400 ml Physical Exam General: Alert, Cooperative, No acute distress Heart: Regular rate Lungs: Clear Abdomen: Soft Extremities: No clubbing, No cyanosis Skin: No rashes Labs Labs: Laboratory Tests Test 07/13/21 07:30 Prothrombin Time 17.8 SEC (11.7-14.0) Prothromb Time International Ratio 1.5 (0.8-1.1) Assessment and Plan Assessmemt and Plan Problems Medical Problems: (1) Chronic ulcer of sacral region Status: Acute (2) History of deep vein thrombosis Status: Acute (3) History of pulmonary embolism Status: Acute (4) Supratherapeutic INR Status: Acute (5) Warfarin anticoagulation Status: Acute Comment Review of Relevant I have reviewed the following items taniya (where applicable) has been applied. Medications: Current Medications Medications (Trade) Dose Ordered Sig/Steve Route PRN Reason Start Time Stop Time Status Last Admin Dose Admin Warfarin Sodium (Coumadin) 2.5 mg 1X WARF ONCE PO 07/12/21 16:00 07/12/21 16:01 DC 07/12/21 17:07 Justifications for Admission General Conditions Other justification for admit: Supratherapeutic INR, chronic sacral wounds Other Justification STEPHANIA LOZA MD Jul 13, 2021 10:19
[2021-07-13 11:00] VITALS: BP 137/67
[2021-07-13] MEDS: FERROUS SULFATE 325 MG TABLET. PO SCH (12:13)
[2021-07-13] MEDS: MULTIVITAMIN with MINERAL TABLET. PO SCH (12:13)
[2021-07-13] MEDS: DRONABINOL 2.5 MG CAPSULE. PO SCH ×2 (12:13→18:43)
[2021-07-13] MEDS: LACTOBACILLUS RHAMNOSUS GG 1 CAPSULE. PO SCH ×2 (12:13→21:27)
[2021-07-13] MEDS: ASCORBIC ACID 500 MG TABLET PO SCH ×2 (12:14→21:27)
[2021-07-13] MEDS: DOCUSATE SODIUM 100 MG CAPSULE. PO SCH (12:14)
[2021-07-13] MEDS: PANTOPRAZOLE 40 MG TABLET.DR. PO SCH (12:14)
[2021-07-13] MEDS: azaTHIOprine 50 MG TABLET PO SCH ×3 (12:14→21:27)
[2021-07-13] MEDS: MICONAZOLE NITRATE 2% TOPICAL CREAM 30GM TUBE. TP SCH ×2 (12:15→21:29)
[2021-07-13] MEDS: NYSTATIN TOPICAL POWDER 15GM BOTTLE. TP SCH ×2 (12:15→21:29)
[2021-07-13 15:11] VITALS: BP 142/64
--- NOTE | 2021-07-13 16:03 | NUR ---
Pharmacy Warfarin Dosing Note S: Pharmacy consulted to assist with anticoagulation therapy O: TODD RICO is a 60 year old M with DVT/PE LABS: Last INR: 1.5 Last HGB: 9.6 Last HCT: 30.6 Last PLT: 451 Last dose of 2.5 mg given on 07/12/21 at 1707 Vitamin K given: Y 2.5 mg po (06/27) Ongoing Drug Interactions: A:INR of 1.5 is below desired range. Target range for this patient is: 2 -3 P: Warfarin dose: 3 mg Today at 1600 Bridge Therapy: None Next INR due tomorrow Pharmacy anticoagulation service will continue to follow. Loren Schwartz, [facility], 07/13/21 [id number]
[2021-07-13] MEDS ORDERED: WARFARIN 3 MG TABLET. PO ONE (17:00)
[2021-07-13 19:00] VITALS: BP 137/68
[2021-07-13 23:22] VITALS: BP 133/67
[2021-07-14 03:31] VITALS: BP 149/47
[2021-07-14 07:00] VITALS: BP 153/60
--- NOTE | 2021-07-14 07:46 | PDOC ---
[employer] PROGRESS NOTE Date of Service DOS: DATE: 07/14/21 TIME: 07:46 Chief Complaint Chief Complaint Klebsiella UTI - Acute cystitis urine cultures positive for Klebsiella pneumonia. 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 added marinol for appetite, anxiety, nausea Plan: Continue with p.o. cefdinir Will monitor INR, continue to hold warfarin and resume when therapeutic (INR 23) Wound care to chronic decubitus ulcer Will consult pharmacy to help with possible monitoring of warfarin Resume home medications FEN - Cardiac diet PPX - Warfarin FULL CODE Dispo - inpatient for above Patient names his mother (Vy Du) as surrogate decision-maker 37 MIN PT exam, chart review, > 50% of time spent with exam, chart review, pt care coordination. History of Present Illness History of Present Illness Mr Du is a 60 year old male with PMHx Multiple sclerosis, lymphedema, HTN, RLE DVT and PE (2013) who was brought here by EMS from SNF for ongoing bleeding to his chronic chronic decubitus ulcer. He was receiving local wound care at his [facility] when he was noted to have ongoing bleeding, for which she was sent to the ED. At his [facility] bleeding was not noted to be severe or hemorrhagic, but was ongoing. At his [facility]dc INR was reportedly 12. Labs upon arrival in the ED showed hemoglobin 11.8, hematocrit 36.7, platelet 536, albumin 2.8, INR 9.4, PT 73.2, PTT 142. Discussed with ED attending, due t o no active bleeding upon his evaluation, vitamin K was held. Will admit patient for further medical management. 06/28: Feels tired, but no other complaints today. INR 1.9 today; will resume warfarin. No further bleeding. Will order PT/OT. 06/29: Warfarin is been resumed yesterday, INR 1.9. No further bleeding. Patient does not want return to [facility]. Rapid COVID-19 negative, COVID-19 PCR pending. Worked with occupational therapy and recommended care home; PT recommendations pending. Wound care following. 06/30: INR 2.1 today. Denies any further bleeding. He has no complaints today. Patient does not want to return to [facility]. SW to place referral to [facility] rehab. 07/01: Patient seen resting comfortably in bed. Afebrile. INR 2.1. boom stick worker has placed referral to [facility] rehab. 07/02: Somewhat somnolent this morning. Patient febrile overnight T-max 100.5 F. Source of infection appears to be UTI. Chest x-ray showed bilateral patchy infiltrates, unchanged from prior exam. He was treated with Rocephin 1 g overnight and IV fluid bolus; will continue treatment with Rocephin and follow urine cultures. Patient was initially slated to discharge to [facility] tomorrow, but recommend holding discharge until urine culture results. 07/03: No acute events overnight. No BM for 6 days. started on miralax until BM. Continue with Rocpehin IV and pending Sensitivities and speciation from Urine Cx. 07/04: No acute events overnight. Patient seen and examined bedside. Patient did have a bowel movement yesterday. Switched IV Rocephin to Levaquin. Pending PT OT eval 07/05: No acute events overnight. Patient seen and examined bedside. Continued p.o. cefdinir. Avoid Levaquin due to interactions with warfarin. 07/06: No acute events overnight. Patient seen and examined bedside. No complaints at this time. Discontinued IV fluids. Continue working with PT OT. 07/07: No acute events overnight. Patient seen and examined bedside. No concerns with nursing. INR within therapeutic range. 07/08: No acute events overnight. Patient seen and examined bedside. No complaints at this time. INR is in therapeutic range. Pending SNF placement. 07/09: No acute events overnight. Afebrile. Patient seen and examined bedside. No concerns nursing. INR still within therapeutic range. 07/10: Afebrile. INR 2. Had some loose stools, wishes to stop stool softeners for the day. Wound stable. Having some nausea and loss of appetite today, asking for marinol to restart. 07/11: Afebrile. Completed 10-day course for Klebsiella UTI in male. INR 1.8 today. He is in good spirits slept reasonably well. Sacral wound stable. Nausea improved. 07/12: Afebrile. Slept well has some left foot swelling has not been elevated. INR 1.7. Sacral wound with no redness, dressing change with wound care. Nausea and appetite improving. 07/13: Afebrile overnight. I NR 1.5. Wound stage III about the same. Nausea and appetite improved. Still awaiting placement. Afebrile overnight. INR 1.5K low at 3.5. Wound about the same. Slept well. Still awaiting placement. Warfarin and potassium adjustment necessary. Vitals/I&O Vitals/I&O: Vital Signs Date Time Temp Pulse Resp B/P (MAP) Pulse Ox O2 Delivery O2 Flow Rate FiO2 07/14/21 03:31 98.3 77 18 149/47 (81) 97 Room Air 98.3 I & O 07/13/21 07/13/21 07/14/21 15:00 23:00 07:00 Intake Total 320 ml 200 ml Output Total 250 ml Balance 320 ml 200 ml -250 ml Physical Exam General: Alert, Cooperative, No acute distress Heart: Regular rate Lungs: Clear Abdomen: Soft Extremities: No clubbing, No cyanosis Skin: No rashes Assessment and Plan Assessmemt and Plan Problems Medical Problems: (1) Chronic ulcer of sacral region Status: Acute (2) History of deep vein thrombosis Status: Acute (3) History of pulmonary embolism Status: Acute (4) Supratherapeutic INR Status: Acute (5) Warfarin anticoagulation Status: Acute Comment Review of Relevant I have reviewed the following items taniya (where applicable) has been applied. Medications: Current Medications Medications (Trade) Dose Ordered Sig/Steve Route PRN Reason Start Time Stop Time Status Last Admin Dose Admin Warfarin Sodium (Coumadin) 3 mg 1X WARF ONCE PO 07/13/21 17:00 07/13/21 17:01 DC 07/13/21 18:47 Justifications for Admission General Conditions Other justification for admit: Supratherapeutic INR, chronic sacral wounds Other Justification STEPHANIA LOZA MD Jul 14, 2021 07:46
[2021-07-14 08:14] LABS: PROTHROMBIN TIME PATIENT 17.9 SEC (11.7-14.0)
[2021-07-14 08:30] LABS: CALCIUM 8.4 mg/dL (8.5-10.1); CREATININE 0.7 mg/dL (0.7-1.3); POTASSIUM 3.5 mmol/L (3.5-5.1)
[2021-07-14] MEDS: ASCORBIC ACID 500 MG TABLET PO SCH ×2 (08:41→22:13)
[2021-07-14] MEDS: MICONAZOLE NITRATE 2% TOPICAL CREAM 30GM TUBE. TP SCH ×2 (08:41→22:15)
[2021-07-14] MEDS: MULTIVITAMIN with MINERAL TABLET. PO SCH (08:41)
[2021-07-14] MEDS: DOCUSATE SODIUM 100 MG CAPSULE. PO SCH (08:41)
[2021-07-14] MEDS: FERROUS SULFATE 325 MG TABLET. PO SCH (08:41)
[2021-07-14] MEDS: azaTHIOprine 50 MG TABLET PO SCH ×3 (08:41→22:13)
[2021-07-14] MEDS: LACTOBACILLUS RHAMNOSUS GG 1 CAPSULE. PO SCH ×2 (08:41→22:13)
[2021-07-14] MEDS: VITS A & D/LANOLIN TOPICAL OINTMENT 42GM TUBE. TP SCH ×2 (08:42→21:00)
[2021-07-14] MEDS: DICLOFENAC SODIUM 1% TOPICAL GEL 100GM TUBE. TP SCH ×2 (08:42→22:15)
[2021-07-14] MEDS: NYSTATIN TOPICAL POWDER 15GM BOTTLE. TP SCH ×2 (08:42→22:15)
[2021-07-14 11:00] VITALS: BP 151/65
[2021-07-14] MEDS: DRONABINOL 2.5 MG CAPSULE. PO SCH ×2 (12:04→16:07)
--- NOTE | 2021-07-14 12:45 | NUR ---
Pharmacy Warfarin Dosing Note S:Pharmacy consulted to assist with anticoagulation therapy started with target INR: 2 -3 O:TODD RICO is a 60 year old M with DVT/PE LABS: Last INR: 1.5 Last HGB: 9.6 Last HCT: 30.6 Last PLT: 451 Last dose of 3 mg given on 07/13/21 at 1847 Previous Regimen: 7.5 mg daily Vitamin K given: Y 2.5 mg po (06/27) Drug Interaction Changes: None Ongoing Drug Interactions: A:INR of 1.5 is below desired range. Target range for this patient is: 2 -3 P: Warfarin dose: 4 mg Today at 1600 Bridge Therapy: None Next INR due 07/15/21. Pharmacy anticoagulation service will continue to follow. MANI WANG [facility], 07/14/21 [id number]
[2021-07-14] MEDS ORDERED: POTASSIUM BICARB 20 MEQ EFFERVESCENT TABLET. PO ONE (13:15)
[2021-07-14 15:00] VITALS: BP 125/66
[2021-07-14] MEDS ORDERED: WARFARIN 4 MG TABLET. PO ONE (16:00)
[2021-07-14 19:00] VITALS: BP 106/51
[2021-07-14 23:00] VITALS: BP 111/56
[2021-07-15 03:00] VITALS: BP 120/61
[2021-07-15 07:00] VITALS: BP 144/59
[2021-07-15 07:48] LABS: PROTHROMBIN TIME PATIENT 17.5 SEC (11.7-14.0)
[2021-07-15] MEDS: DICLOFENAC SODIUM 1% TOPICAL GEL 100GM TUBE. TP SCH ×2 (09:00→21:00)
[2021-07-15] MEDS: NYSTATIN TOPICAL POWDER 15GM BOTTLE. TP SCH ×2 (09:00→21:35)
[2021-07-15] MEDS: VITS A & D/LANOLIN TOPICAL OINTMENT 42GM TUBE. TP SCH ×2 (09:00→21:00)
[2021-07-15] MEDS: MICONAZOLE NITRATE 2% TOPICAL CREAM 30GM TUBE. TP SCH ×2 (09:00→21:35)
[2021-07-15] MEDS: DOCUSATE SODIUM 100 MG CAPSULE. PO SCH (09:00)
[2021-07-15] MEDS: FERROUS SULFATE 325 MG TABLET. PO SCH (09:41)
[2021-07-15] MEDS: ASCORBIC ACID 500 MG TABLET PO SCH ×2 (09:41→21:34)
[2021-07-15] MEDS: MULTIVITAMIN with MINERAL TABLET. PO SCH (09:42)
[2021-07-15] MEDS: LACTOBACILLUS RHAMNOSUS GG 1 CAPSULE. PO SCH ×2 (09:42→21:34)
[2021-07-15] MEDS: azaTHIOprine 50 MG TABLET PO SCH ×3 (09:42→21:34)
[2021-07-15] MEDS: PANTOPRAZOLE 40 MG TABLET.DR. PO SCH (09:44)
[2021-07-15 11:00] VITALS: BP 130/70
[2021-07-15] MEDS: DRONABINOL 2.5 MG CAPSULE. PO SCH ×2 (12:32→16:14)
--- NOTE | 2021-07-15 13:06 | PDOC ---
[employer] PROGRESS NOTE Date of Service DOS: DATE: 07/15/21 TIME: 13:04 Chief Complaint Chief Complaint Klebsiella UTI - Acute cystitis urine cultures positive for Klebsiella pneumonia. 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 added marinol for appetite, anxiety, nausea Plan: Continue with p.o. cefdinir Will monitor INR, continue to hold warfarin and resume when therapeutic (INR 23) Wound care to chronic decubitus ulcer Will consult pharmacy to help with possible monitoring of warfarin Resume home medications FEN - Cardiac diet PPX - Warfarin FULL CODE Dispo - inpatient for above Patient names his mother (Vy Du) as surrogate decision-maker 37 MIN PT exam, chart review, > 50% of time spent with exam, chart review, pt care coordination. History of Present Illness History of Present Illness Mr Du is a 60 year old male with PMHx Multiple sclerosis, lymphedema, HTN, RLE DVT and PE (2013) who was brought here by EMS from SNF for ongoing bleeding to his chronic chronic decubitus ulcer. He was receiving local wound care at [facility] when he was noted to have ongoing bleeding, for which she was sent to the ED. [facility] bleeding was not noted to be severe or hemorrhagic, but was ongoing. At his [facility] INR was reportedly 12. Labs upon arrival in the ED showed hemoglobin 11.8, hematocrit 36.7, platelet 536, albumin 2.8, INR 9.4, PT 73.2, PTT 142. Discussed with ED attending, due t o no active bleeding upon his evaluation, vitamin K was held. Will admit patient for further medical management. 06/28: Feels tired, but no other complaints today. INR 1.9 today; will resume warfarin. No further bleeding. Will order PT/OT. 06/29: Warfarin is been resumed yesterday, INR 1.9. No further bleeding. Patient does not want return to [facility]. Rapid COVID-19 negative, COVID-19 PCR pending. Worked with occupational therapy and recommended senior care; PT recommendations pending. Wound care following. 06/30: INR 2.1 today. Denies any further bleeding. He has no complaints today. Patient does not want to return to [facility]. SW to place referral to [facility] rehab. 07/01: Patient seen resting comfortably in bed. Afebrile. INR 2.1. ash pit worker has placed referral to [facility] rehab. 07/02: Somewhat somnolent this morning. Patient febrile overnight T-max 100.5 F. Source of infection appears to be UTI. Chest x-ray showed bilateral patchy infiltrates, unchanged from prior exam. He was treated with Rocephin 1 g overnight and IV fluid bolus; will continue treatment with Rocephin and follow urine cultures. Patient was initially slated to discharge to [facility] tomorrow, but recommend holding discharge until urine culture results. 07/03: No acute events overnight. No BM for 6 days. started on miralax until BM. Continue with Rocpehin IV and pending Sensitivities and speciation from Urine Cx. 07/04: No acute events overnight. Patient seen and examined bedside. Patient did have a bowel movement yesterday. Switched IV Rocephin to Levaquin. Pending PT OT eval 07/05: No acute events overnight. Patient seen and examined bedside. Continued p.o. cefdinir. Avoid Levaquin due to interactions with warfarin. 07/06: No acute events overnight. Patient seen and examined bedside. No complaints at this time. Discontinued IV fluids. Continue working with PT OT. 07/07: No acute events overnight. Patient seen and examined bedside. No concerns with nursing. INR within therapeutic range. 07/08: No acute events overnight. Patient seen and examined bedside. No complaints at this time. INR is in therapeutic range. Pending SNF placement. 07/09: No acute events overnight. Afebrile. Patient seen and examined bedside. No concerns nursing. INR still within therapeutic range. 07/10: Afebrile. INR 2. Had some loose stools, wishes to stop stool softeners for the day. Wound stable. Having some nausea and loss of appetite today, asking for marinol to restart. 07/11: Afebrile. Completed 10-day course for Klebsiella UTI in male. INR 1.8 today. He is in good spirits slept reasonably well. Sacral wound stable. Nausea improved. 07/12: Afebrile. Slept well has some left foot swelling has not been elevated. INR 1.7. Sacral wound with no redness, dressing change with wound care. Nausea and appetite improving. 07/13: Afebrile overnight. I NR 1.5. Wound stage III about the same. Nausea and appetite improved. Still awaiting placement. 07/14: Afebrile overnight. INR 1.5K low at 3.5. Wound about the same. Slept well. Still awaiting placement. Warfarin and potassium adjustment necessary. [facility]ose [facility] for SNF authorization pending Afebrile overnight. No pain complaints. Legs less swollen. INR still 1.5. He would like to request his COVID-19 booster which would be appropriate soon as his first was 06/23/2021 Vitals/I&O Vitals/I&O: Vital Signs Date Time Temp Pulse Resp B/P (MAP) Pulse Ox O2 Delivery O2 Flow Rate FiO2 07/15/21 11:00 98.9 71 20 130/70 (90) 93 Room Air 98.9 I & O 07/14/21 07/14/21 07/15/21 15:00 23:00 07:00 Output Total 500 ml 275 ml Balance -500 ml -275 ml Physical Exam General: Alert, Cooperative, No acute distress Heart: Regular rate Lungs: Clear Abdomen: Soft Extremities: No clubbing, No cyanosis Skin: No rashes Labs Labs: Laboratory Tests Test 07/15/21 06:00 Prothrombin Time 17.5 SEC (11.7-14.0) Prothromb Time International Ratio 1.5 (0.8-1.1) Assessment and Plan Assessmemt and Plan Problems Medical Problems: (1) Chronic ulcer of sacral region Status: Acute (2) History of deep vein thrombosis Status: Acute (3) History of pulmonary embolism Status: Acute (4) Supratherapeutic INR Status: Acute (5) Warfarin anticoagulation Status: Acute Comment Review of Relevant I have reviewed the following items taniya (where applicable) has been applied. Medications: Current Medications Medications (Trade) Dose Ordered Sig/Steve Route PRN Reason Start Time Stop Time Status Last Admin Dose Admin Warfarin Sodium (Coumadin) 4 mg 1X WARF ONCE PO 07/14/21 16:00 07/14/21 16:01 DC 07/14/21 16:07 Potassium Bicarbonate (Potassium Effervescent Tablet) 40 meq 1X ONCE PO 07/14/21 13:15 07/14/21 13:16 DC 07/14/21 14:13 Justifications for Admission General Conditions Other justification for admit: Supratherapeutic INR, chronic sacral wounds Other Justification STEPHANIA LOZA MD Jul 15, 2021 13:06
[2021-07-15 15:00] VITALS: BP 111/63
[2021-07-15] MEDS ORDERED: WARFARIN 3 MG TABLET. PO ONE (16:00)
--- NOTE | 2021-07-15 16:05 | NUR ---
Pharmacy Warfarin Dosing Note S:Pharmacy consulted to assist with anticoagulation therapy started with target INR: 2 -3 O:TODD RICO is a 60 year old M with DVT/PE LABS: Last INR: 1.5 Last HGB: 9.6 Last HCT: 30.6 Last PLT: 451 Last dose of 4 mg given on 07/14/21 at 1607 Previous Regimen: 7.5 mg daily Vitamin K given: Y 2.5 mg po (06/27) Drug Interaction Changes: None Ongoing Drug Interactions: A:INR of 1.5 is below desired range. Target range for this patient is: 2 -3 P: Warfarin dose: 6 mg Today at 1600 Bridge Therapy: None Next INR due IN AM Pharmacy anticoagulation service will continue to follow. WALTER MEYERS, [facility], 07/15/21 1608
[2021-07-15 19:56] VITALS: BP 120/64
[2021-07-15 23:28] VITALS: BP 116/64
[2021-07-16] VITALS (7 sets, daily range): BP systolic 54–153; BP diastolic 42–69
[2021-07-16 08:27] LABS: PROTHROMBIN TIME PATIENT 17.1 SEC (11.7-14.0)
[2021-07-16] MEDS: PANTOPRAZOLE 40 MG TABLET.DR. PO SCH (08:31)
[2021-07-16] MEDS: ASCORBIC ACID 500 MG TABLET PO SCH ×2 (08:31→21:47)
[2021-07-16] MEDS: LACTOBACILLUS RHAMNOSUS GG 1 CAPSULE. PO SCH ×2 (08:31→21:46)
[2021-07-16] MEDS: azaTHIOprine 50 MG TABLET PO SCH ×3 (08:31→21:47)
[2021-07-16] MEDS: MULTIVITAMIN with MINERAL TABLET. PO SCH (08:31)
[2021-07-16] MEDS: FERROUS SULFATE 325 MG TABLET. PO SCH (08:31)
[2021-07-16] MEDS: MICONAZOLE NITRATE 2% TOPICAL CREAM 30GM TUBE. TP SCH ×2 (08:31→21:51)
[2021-07-16] MEDS: DOCUSATE SODIUM 100 MG CAPSULE. PO SCH (08:31)
[2021-07-16] MEDS: NYSTATIN TOPICAL POWDER 15GM BOTTLE. TP SCH ×2 (08:31→21:58)
[2021-07-16] MEDS: VITS A & D/LANOLIN TOPICAL OINTMENT 42GM TUBE. TP SCH ×2 (08:31→20:23)
[2021-07-16] MEDS: DICLOFENAC SODIUM 1% TOPICAL GEL 100GM TUBE. TP SCH ×2 (08:32→20:23)
--- NOTE | 2021-07-16 11:03 | NUR ---
Pharmacy Warfarin Dosing Note S:Pharmacy consulted to assist with anticoagulation therapy started with target INR: 2 -3 O:TODD RICO is a 60 year old M with DVT/PE LABS: Last INR: 1.4 Last HGB: 9.6 Last HCT: 30.6 Last PLT: 451 Last dose of 6 mg given on 07/15/21 at 1614 Previous Regimen: 7.5 mg daily Vitamin K given: Y 2.5 mg po (06/27) Drug Interaction Changes: None Ongoing Drug Interactions: A:INR of 1.4 is below desired range. Target range for this patient is: 2 -3 P: Warfarin dose: 9MG Today at 1600 Bridge Therapy: None Next INR due IN AM Pharmacy anticoagulation service will continue to follow. WALTER MEYERS, [facility], 07/16/21 [id number]
--- NOTE | 2021-07-16 11:23 | PDOC ---
[employer] PROGRESS NOTE Date of Service DOS: DATE: 07/16/21 TIME: 11:20 Chief Complaint Chief Complaint Klebsiella UTI - Acute cystitis urine cultures positive for Klebsiella pneumonia. 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 added marinol for appetite, anxiety, nausea Plan: Continue with p.o. cefdinir Will monitor INR, continue to hold warfarin and resume when therapeutic (INR 23) Wound care to chronic decubitus ulcer Will consult pharmacy to help with possible monitoring of warfarin Resume home medications FEN - Cardiac diet PPX - Warfarin FULL CODE Dispo - inpatient for above Patient names his mother (Vy Du) as surrogate decision-maker 32 MIN PT exam, chart review, > 50% of time spent with exam, chart review, pt care coordination. History of Present Illness History of Present Illness Mr Du is a 60 year old male with PMHx Multiple sclerosis, lymphedema, HTN, RLE DVT and PE (2013) who was brought here by EMS from SNF for ongoing bleeding to his chronic chronic decubitus ulcer. He was receiving local wound care at his [place] [facility] when he was noted to have ongoing bleeding, for which she was sent to the ED. At his [place] [facility] bleeding was not noted to be severe or hemorrhagic, but was ongoing. At his [place] [facility] INR was reportedly 12. Labs upon arrival in the ED showed hemoglobin 11.8, hematocrit 36.7, platelet 536, albumin 2.8, INR 9.4, PT 73.2, PTT 142. Discussed with ED attending, due t o no active bleeding upon his evaluation, vitamin K was held. Will admit patient for further medical management. 06/28: Feels tired, but no other complaints today. INR 1.9 today; will resume warfarin. No further bleeding. Will order PT/OT. 06/29: Warfarin is been resumed yesterday, INR 1.9. No further bleeding. Patient does not want return to [facility]. Rapid COVID-19 negative, COVID-19 PCR pending. Worked with occupational therapy and recommended care home; PT recommendations pending. Wound care following. 06/30: INR 2.1 today. Denies any further bleeding. He has no complaints today. Patient does not want to return to [facility]. SW to place referral to [facility] rehab. 07/01: Patient seen resting comfortably in bed. Afebrile. INR 2.1. social worker palliative care has placed referral to [facility] rehab. 07/02: Somewhat somnolent this morning. Patient febrile overnight T-max 100.5 F. Source of infection appears to be UTI. Chest x-ray showed bilateral patchy infiltrates, unchanged from prior exam. He was treated with Rocephin 1 g overnight and IV fluid bolus; will continue treatment with Rocephin and follow urine cultures. Patient was initially slated to discharge to [facility] tomorrow, but recommend holding discharge until urine culture results. 07/03: No acute events overnight. No BM for 6 days. started on miralax until BM. Continue with Rocpehin IV and pending Sensitivities and speciation from Urine Cx. 07/04: No acute events overnight. Patient seen and examined bedside. Patient did have a bowel movement yesterday. Switched IV Rocephin to Levaquin. Pending PT OT eval 07/05: No acute events overnight. Patient seen and examined bedside. Continued p.o. cefdinir. Avoid Levaquin due to interactions with warfarin. 07/06: No acute events overnight. Patient seen and examined bedside. No complaints at this time. Discontinued IV fluids. Continue working with PT OT. 07/07: No acute events overnight. Patient seen and examined bedside. No concerns with nursing. INR within therapeutic range. 07/08: No acute events overnight. Patient seen and examined bedside. No complaints at this time. INR is in therapeutic range. Pending SNF placement. 07/09: No acute events overnight. Afebrile. Patient seen and examined bedside. No concerns nursing. INR still within therapeutic range. 07/10: Afebrile. INR 2. Had some loose stools, wishes to stop stool softeners for the day. Wound stable. Having some nausea and loss of appetite today, asking for marinol to restart. 07/11: Afebrile. Completed 10-day course for Klebsiella UTI in male. INR 1.8 today. He is in good spirits slept reasonably well. Sacral wound stable. Nausea improved. 07/12: Afebrile. Slept well, left foot swelling has not been elevated. INR 1.7. Sacral wound with no redness, dressing change with wound care. Nausea and appetite improving. 07/13: Afebrile overnight. I NR 1.5. Wound stage III about the same. Nausea and appetite improved. Still awaiting placement. 07/14: Afebrile overnight. INR 1.5, K low at 3.5. Wound the same. Slept well. Warfarin and potassium adjustment necessary. Chose [facility] for SNF authorization 1016: Afebrile. No pain complaints. Legs less swollen. INR still 1.5. He would like to request his COVID-19 booster which would be appropriate soon as his first was 06/23/2021. Afebrile. No pain. INR 1.4. Repeat COVID-19 testing negative. No complaints today. Awaiting placement. Vitals/I&O Vitals/I&O: Vital Signs Date Time Temp Pulse Resp B/P (MAP) Pulse Ox O2 Delivery O2 Flow Rate FiO2 07/16/21 08:00 Room Air 07/16/21 07:00 97.9 65 20 134/69 (90) 93 97.9 I & O 07/15/21 07/15/21 07/16/21 15:00 23:00 07:00 Intake Total 200 ml 120 ml 60 ml Output Total 250 ml Balance 200 ml 120 ml -190 ml Physical Exam General: Alert, Cooperative, No acute distress Heart: Regular rate Lungs: Clear Abdomen: Soft Extremities: No clubbing, No cyanosis Skin: No rashes Labs Labs: Laboratory Tests Test 07/16/21 06:50 Prothrombin Time 17.1 SEC (11.7-14.0) Prothromb Time International Ratio 1.4 (0.8-1.1) Assessment and Plan Assessmemt and Plan Problems Medical Problems: (1) Chronic ulcer of sacral region Status: Acute (2) History of deep vein thrombosis Status: Acute (3) History of pulmonary embolism Status: Acute (4) Supratherapeutic INR Status: Acute (5) Warfarin anticoagulation Status: Acute Comment Review of Relevant I have reviewed the following items taniya (where applicable) has been applied. Medications: Current Medications Medications (Trade) Dose Ordered Sig/Steve Route PRN Reason Start Time Stop Time Status Last Admin Dose Admin Warfarin Sodium (Coumadin) 6 mg 1X WARF ONCE PO 07/15/21 16:00 07/15/21 16:01 DC 07/15/21 16:00 Justifications for Admission General Conditions Other justification for admit: Supratherapeutic INR, chronic sacral wounds Other Justification STEPHANIA LOZA MD Jul 16, 2021 11:23
[2021-07-16] MEDS: DRONABINOL 2.5 MG CAPSULE. PO SCH ×2 (12:06→16:28)
[2021-07-16] MEDS ORDERED: WARFARIN 3 MG TABLET. PO ONE (16:00)
[2021-07-17 03:20] VITALS: BP 112/64
[2021-07-17 07:00] VITALS: BP 123/66
[2021-07-17 07:17] LABS: PROTHROMBIN TIME PATIENT 19.7 SEC (11.7-14.0)
[2021-07-17] MEDS: PANTOPRAZOLE 40 MG TABLET.DR. PO SCH (08:24)
[2021-07-17] MEDS: VITS A & D/LANOLIN TOPICAL OINTMENT 42GM TUBE. TP SCH ×2 (09:00→21:00)
[2021-07-17] MEDS: FERROUS SULFATE 325 MG TABLET. PO SCH (09:59)
[2021-07-17] MEDS: ASCORBIC ACID 500 MG TABLET PO SCH ×2 (09:59→21:21)
[2021-07-17] MEDS: LACTOBACILLUS RHAMNOSUS GG 1 CAPSULE. PO SCH ×2 (09:59→21:21)
[2021-07-17] MEDS: MULTIVITAMIN with MINERAL TABLET. PO SCH (09:59)
[2021-07-17] MEDS: DOCUSATE SODIUM 100 MG CAPSULE. PO SCH (09:59)
[2021-07-17] MEDS: azaTHIOprine 50 MG TABLET PO SCH ×3 (09:59→21:21)
[2021-07-17] MEDS: MICONAZOLE NITRATE 2% TOPICAL CREAM 30GM TUBE. TP SCH (10:00)
[2021-07-17] MEDS: DICLOFENAC SODIUM 1% TOPICAL GEL 100GM TUBE. TP SCH ×2 (10:00→21:00)
[2021-07-17] MEDS: MINERAL OIL/PETROLATUM TOPICAL CREAM 113GM JAR. TP PRN (10:01)
[2021-07-17 11:00] VITALS: BP 136/63
--- NOTE | 2021-07-17 12:06 | PDOC ---
[facility] PROGRESS NOTE Date of Service DOS: DATE: 07/17/21 TIME: 12:05 Chief Complaint Chief Complaint Klebsiella UTI - Acute cystitis urine cultures positive for Klebsiella pneumonia. 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 added marinol for appetite, anxiety, nausea Plan: Continue warfarin INR goal 2-3 Wound care to chronic decubitus ulcer Will consult pharmacy to help with possible monitoring of warfarin Resume home medications FEN - Cardiac diet PPX - Warfarin FULL CODE Dispo - inpatient for above Patient names his mother (Vy Du) as surrogate decision-maker History of Present Illness History of Present Illness Mr Du is a 60 year old male with PMHx Multiple sclerosis, lymphedema, HTN, RLE DVT and PE (2013) who was brought here by EMS from for ongoing bleeding to his chronic chronic decubitus ulcer. He was receiving local wound care at his longterm when he was noted to have ongoing bleeding, for which she was sent to the ED. At his longterm bleeding was not noted to be severe or hemorrhagic, but was ongoing. At his longterm INR was reportedly 12. Labs upon arrival in the ED showed hemoglobin 11.8, hematocrit 36.7, platelet 5 36, albumin 2.8, INR 9.4, PT 73.2, PTT 142. Discussed with ED attending, due to no active bleeding upon his evaluation, vitamin K was held. Will admit patient for further medical management. 06/28: Feels tired, but no other complaints today. INR 1.9 today; will resume warfarin. No further bleeding. Will order PT/OT. 06/29: Warfarin is been resumed yesterday, INR 1.9. No further bleeding. Patient does not want return to [facility]. Rapid COVID-19 negative, COVID-19 PCR pending. Worked with occupational therapy and recommended halfway; PT recommendations pending. Wound care following. 06/30: INR 2.1 today. Denies any further bleeding. He has no complaints today. Patient does not want to return to [facility]. SW to place referral to [facility] rehab. 07/01: Patient seen resting comfortably in bed. Afebrile. INR 2.1. personnel worker has placed referral to [facility] rehab. 07/02: Somewhat somnolent this morning. Patient febrile overnight T-max 100.5 F. Source of infection appears to be UTI. Chest x-ray showed bilateral patchy infiltrates, unchanged from prior exam. He was treated with Rocephin 1 g overnight and IV fluid bolus; will continue treatment with Rocephin and follow urine cultures. Patient was initially slated to discharge to [facility] tomorrow, but recommend holding discharge until urine culture results. 07/03: No acute events overnight. No BM for 6 days. started on miralax until BM. Continue with Rocpehin IV and pending Sensitivities and speciation from Urine Cx. 07/04: No acute events overnight. Patient seen and examined bedside. Patient did have a bowel movement yesterday. Switched IV Rocephin to Levaquin. Pending PT OT eval 07/05: No acute events overnight. Patient seen and examined bedside. Continued p.o. cefdinir. Avoid Levaquin due to interactions with warfarin. 07/06: No acute events overnight. Patient seen and examined bedside. No compl aints at this time. Discontinued IV fluids. Continue working with PT OT. 07/07: No acute events overnight. Patient seen and examined bedside. No concerns with nursing. INR within therapeutic range. 07/08: No acute events overnight. Patient seen and examined bedside. No complaints at this time. INR is in therapeutic range. Pending SNF placement. 07/09: No acute events overnight. Afebrile. Patient seen and examined bedside. No concerns nursing. INR still within therapeutic range. 07/10: Afebrile. INR 2. Had some loose stools, wishes to stop stool softeners for the day. Wound stable. Having some nausea and loss of appetite today, asking for marinol to restart. 07/11: Afebrile. Completed 10-day course for Klebsiella UTI in male. INR 1.8 today. He is in good spirits slept reasonably well. Sacral wound stable. Nausea improved. 07/12: Afebrile. Slept well, left foot swelling has not been elevated. INR 1.7. Sacral wound with no redness, dressing change with wound care. Nausea and appetite improving. 07/13: Afebrile overnight. I NR 1.5. Wound stage III about the same. Nausea and appetite improved. Still awaiting placement. 07/14: Afebrile overnight. INR 1.5, K low at 3.5. Wound the same. Slept well. Warfarin and potassium adjustment necessary. [facility] for SNF authorization 1016: Afebrile. No pain complaints. Legs less swollen. INR still 1.5. He would like to request his COVID-19 booster which would be appropriate soon as his first was 06/23/2021. Afebrile. No pain. INR 1.4. Repeat COVID-19 testing negative. No complaints today. Awaiting placement. 07/17 Patient evaluated and examined at bedside. Afebrile overnight. Remains on warfarin no complaints overall today. Waiting for placement.. Vitals/I&O Vitals/I&O: Vital Signs Date Time Temp Pulse Resp B/P (MAP) Pulse Ox O2 Delivery O2 Flow Rate FiO2 07/17/21 07:00 97.5 66 18 123/66 (85) 93 97.5 07/17/21 03:20 Room Air I & O 07/16/21 07/16/21 07/17/21 15:00 23:00 07:00 Intake Total 240 ml 200 ml 60 ml Output Total 350 ml Balance 240 ml 200 ml -290 ml Physical Exam General: Alert, Cooperative, No acute distress Heart: Regular rate Lungs: Clear Abdomen: Soft Extremities: No clubbing, No cyanosis Skin: No rashes Labs Labs: Laboratory Tests Test 07/17/21 06:10 Prothrombin Time 19.7 SEC (11.7-14.0) Prothromb Time International Ratio 1.7 (0.8-1.1) Assessment and Plan Assessmemt and Plan Problems Medical Problems: (1) Chronic ulcer of sacral region Status: Acute (2) History of deep vein thrombosis Status: Acute (3) History of pulmonary embolism Status: Acute (4) Supratherapeutic INR Status: Acute (5) Warfarin anticoagulation Status: Acute Comment Review of Relevant I have reviewed the following items taniya (where applicable) has been applied. Medications: Current Medications Medications (Trade) Dose Ordered Sig/Steve Route PRN Reason Start Time Stop Time Status Last Admin Dose Admin Warfarin Sodium (Coumadin) 9 mg 1X WARF ONCE PO 07/16/21 16:00 07/16/21 16:01 DC 07/16/21 16:28 Justifications for Admission General Conditions Other justification for admit: Supratherapeutic INR, chronic sacral wounds Other Justification STEPHANIA HORTA MD Jul 17, 2021 12:06
[2021-07-17] MEDS: DRONABINOL 2.5 MG CAPSULE. PO SCH ×2 (12:19→16:28)
[2021-07-17] MEDS: NYSTATIN TOPICAL POWDER 15GM BOTTLE. TP SCH ×2 (12:19→21:22)
[2021-07-17 15:00] VITALS: BP 130/68
[2021-07-17] MEDS ORDERED: WARFARIN 7.5 MG TABLET. PO ONE (16:00)
[2021-07-17 19:00] VITALS: BP 132/51
[2021-07-17 23:00] VITALS: BP 132/59
[2021-07-18 03:00] VITALS: BP 101/49
[2021-07-18 04:40] LABS: PROTHROMBIN TIME PATIENT 23.1 SEC (11.7-14.0)
[2021-07-18 07:00] VITALS: BP 145/63
[2021-07-18] MEDS: LACTOBACILLUS RHAMNOSUS GG 1 CAPSULE. PO SCH (08:57)
[2021-07-18] MEDS: MULTIVITAMIN with MINERAL TABLET. PO SCH (08:57)
[2021-07-18] MEDS: FERROUS SULFATE 325 MG TABLET. PO SCH (08:57)
[2021-07-18] MEDS: ASCORBIC ACID 500 MG TABLET PO SCH (08:57)
[2021-07-18] MEDS: PANTOPRAZOLE 40 MG TABLET.DR. PO SCH (08:57)
[2021-07-18] MEDS: azaTHIOprine 50 MG TABLET PO SCH ×2 (08:57→14:17)
[2021-07-18] MEDS: DOCUSATE SODIUM 100 MG CAPSULE. PO SCH (08:58)
[2021-07-18] MEDS: DICLOFENAC SODIUM 1% TOPICAL GEL 100GM TUBE. TP SCH (08:58)
[2021-07-18] MEDS: VITS A & D/LANOLIN TOPICAL OINTMENT 42GM TUBE. TP SCH (08:58)
[2021-07-18] MEDS: NYSTATIN TOPICAL POWDER 15GM BOTTLE. TP SCH (08:58)
[2021-07-18 11:00] VITALS: BP 136/69
[2021-07-18] MEDS ORDERED: Dronabinol PO (11:16)
--- NOTE | 2021-07-18 11:16 | SNU/HH DC ---
DISCHARGE ORDERS DISCHARGE INFORMATION: DISCHARGE DATE: Jul 18, 2021 FINAL DIAGNOSIS Problems Medical Problems: (1) Chronic ulcer of sacral region Status: Acute (2) History of deep vein thrombosis Status: Acute (3) History of pulmonary embolism Status: Acute (4) Supratherapeutic INR Status: Acute (5) Warfarin anticoagulation Status: Acute CONDITION ON DISCHARGE: Stable CODE STATUS: Code Status: Full FDC: SNF STAY <30 DAYS: Yes POST DISCHARGE ORDERS: ACTIVITY ORDERS: Activity as tolerated WEIGHT BEARING STATUS: As tolerated DIET AFTER DISCHARGE: Cardiac WOUND/INCISION CARE: Change dressing FOLLOW-UP: ADDITIONAL FOLLOW-UP: Primary Care Physician as needed TREATMENT/EQUIPMENT ORDERS: ADAPTIVE EQUIPMENT NEEDED: None Physical Therapy For: Evalulation/Treatment Occupational Therapy For: Evaluation/Treatment DISCHARGE MEDICATIONS: Home Meds Active Scripts Hydrocodone Bit/Acetaminophen (HYDROCODONE-APAP 5-325 ) 1 Tab Tablet, 1 TAB PO PRN Q4HRS PRN for PAIN for 30 Days, #30 TAB Prov:STEPHANIA HORTA MD 07/18/21 [Diclofenac Sodium 1% Topical] 100 GM GEL..GRAM. No Conflict Check, 1 CELY TP BID, #1 EACH Prov:STEPHANIA HORTA MD 07/18/21 [Dronabinol] 2.5 MG CAPSULE No Conflict Check, 5 MG PO BIDACLD for 30 Days, #60 Prov:STEPHANIA HORTA MD 07/18/21 Pantoprazole Sodium (PANTOPRAZOLE SODIUM ) 40 Mg Tablet.dr, 40 MG PO DAILYAC for Gastritis for 60 Days, #60 TAB.SR 0 Refills Prov:MARJORIE BORREGO MD 06/13/21 Docusate Sodium (DOCUSATE SODIUM) 100 Mg Capsule, 1 CAP PO DAILY for constipation for 30 Days, #30 CAP 0 Refills Prov:MARJORIE BORREGO MD 06/13/21 Ferrous Sulfate (FERROUS SULFATE) 325 Mg Tablet, 1 TAB PO DAILY for Anemia, #30 TAB 3 Refills Prov:MARJORIE BORREGO MD 06/13/21 Nystatin (NYAMYC) 15 Gm Powder, 1 CELY TP BID for . for 30 Days, #1 MISC Prov:CASTLE,NIAL K III DO 06/07/21 Reported Medications Amino Acids/Protein Hydrolys (PROSOURCE NO CARB LIQUID PKT) 30 Ml Liquid.pkt, 30 ML PO DAILY for wound healing, PKT 06/27/21 Lactobacillus Combo No.10 (PROBIOTIC) 1 Each Capsule, 1 EACH PO BID for supplement, CAP 06/27/21 Cranberry Extract (CRANBERRY) 250 Mg Capsule, 450 MG PO BID for urinary, CAP 06/27/21 Ascorbic Acid (VITAMIN C) 500 Mg Capsule.er, 500 MG PO DAILY for wound healing, CAP.SR 06/27/21 Colloidal Oatmeal (Eucerin Eczema Relief) 226 Gm Cream..g., 1 CELY TP BID for psoriasis, EACH 06/27/21 Cholecalciferol (Vitamin D3) (Vitamin D3 ) 25 Mcg Tablet, 25 MCG PO DAILY for SUPPLEMENT, TAB 1,000 UNITS = 25 MCG 06/02/21 Azathioprine (IMURAN) 50 Mg Tablet, 50 MG PO TID for MS, TAB 06/02/21 Warfarin Sodium (WARFARIN SODIUM) 7.5 Mg Tablet, 7.5 MG PO DAILY for PE/DVT, TAB 06/02/21 Discontinued Reported Medications Fluconazole (FLUCONAZOLE) 100 Mg Tablet, 100 MG PO DAILY for cellulitis, TAB 06/27/21 Discontinued Scripts Amoxicillin/Potassium Clav (AMOX TR-K CLV 500-125 MG TAB) 1 Each Tablet, 1 TAB PO BID for . for 14 Days, #28 TAB Prov:XIAO WILSON III DO 06/07/21 STEPHANIA HORTA MD Jul 18, 2021 11:16
[2021-07-18] MEDS ORDERED: HYDR-2761 PO (11:44)
[2021-07-18] MEDS ORDERED: Diclofenac Sodium TP (11:44)
--- NOTE | 2021-07-18 11:48 | PDOC3 ---
[facility]-Discharge Summary Date of Admission: Date of Admission: Jun 27, 2021 Date of Discharge: Date of Discharge: Jul 18, 2021 Admission Diagnosis: Problems: (1) Chronic ulcer of sacral region (2) Supratherapeutic INR Discharge Diagnosis: Discharge Diagnosis: Same Hospital Course: Hospital Course: Chief Complaint Klebsiella UTI - Acute cystitis urine cultures positive for Klebsiella pneumonia. 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 added marinol for appetite, anxiety, nausea Plan: Continue warfarin INR goal 2-3 Wound care to chronic decubitus ulcer Will consult pharmacy to help with possible monitoring of warfarin Resume home medications FEN - Cardiac diet PPX - Warfarin FULL CODE Dispo - inpatient for above Patient names his mother (Vy Du) as surrogate decision-maker History of Present Illness History of Present Illness Mr Du is a 60 year old male with PMHx Multiple sclerosis, lymphedema, HTN, RLE DVT and PE (2013) who was brought here by EMS from SNF for ongoing bleeding to his chronic chronic decubitus ulcer. [facility] when he was noted to have ongoing bleeding, for which she was sent to the ED. At his [facility]iary bleeding was not noted to be severe or hemorrhagic, but was ongoing. At his [facility]iary INR was reportedly 12. Labs upon arrival in the ED showed hemoglobin 11.8, hematocrit 36.7, platelet 536, albumin 2.8, INR 9.4, PT 73.2, PTT 142. Discussed with ED attending, due to no active bleeding upon his evaluation, vitamin K was held. Will admit patient for further medical management. 06/28: Feels tired, but no other complaints today. INR 1.9 today; will resume warfarin. No further bleeding. Will order PT/OT. 06/29: Warfarin is been resumed yesterday, INR 1.9. No further bleeding. Patient does not want return to [facility]. Rapid COVID-19 negative, COVID-19 PCR pending. Worked with occupational therapy and recommended custodial; PT recommendations pending. Wound care following. 06/30: INR 2.1 today. Denies any further bleeding. He has no complaints today. Patient does not want to return to [facility]. SW to place referral to [facility] rehab. 07/01: Patient seen resting comfortably in bed. Afebrile. INR 2.1. service worker helper has placed referral to [facility] rehab. 07/02: Somewhat somnolent this morning. Patient febrile overnight T-max 100.5 F. Source of infection appears to be UTI. Chest x-ray showed bilateral patchy infiltrates, unchanged from prior exam. He was treated with Rocephin 1 g overnight and IV fluid bolus; will continue treatment with Rocephin and follow urine cultures. Patient was initially slated to discharge to [facility] tomorrow, but recommend holding discharge until urine culture results. 07/03: No acute events overnight. No BM for 6 days. started on miralax until BM. Continue with Rocpehin IV and pending Sensitivities and speciation from Urine Cx. 07/04: No acute events overnight. Patient seen and examined bedside. Patient did have a bowel movement yesterday. Switched IV Rocephin to Levaquin. Pending PT OT eval 07/05: No acute events overnight. Patient seen and examined bedside. Continued p.o. cefdinir. Avoid Levaquin due to interactions with warfarin. 07/06: No acute events overnight. Patient seen and examined bedside. No complaints at this time. Discontinued IV fluids. Continue working with PT OT. 07/07: No acute events overnight. Patient seen and examined bedside. No concerns with nursing. INR within therapeutic range. 07/08: No acute events overnight. Patient seen and examined bedside. No complaints at this time. INR is in therapeutic range. Pending SNF placement. 07/09: No acute events overnight. Afebrile. Patient seen and examined bedside. No concerns nursing. INR still within therapeutic range. 07/10: Afebrile. INR 2. Had some loose stools, wishes to stop stool softeners for the day. Wound stable. Having some nausea and loss of appetite today, asking for marinol to restart. 07/11: Afebrile. Completed 10-day course for Klebsiella UTI in male. INR 1.8 today. He is in good spirits slept reasonably well. Sacral wound stable. Nausea improved. 07/12: Afebrile. Slept well, left foot swelling has not been elevated. INR 1.7. Sacral wound with no redness, dressing change with wound care. Nausea and appetite improving. 07/13: Afebrile overnight. I NR 1.5. Wound stage III about the same. Nausea and appetite improved. Still awaiting placement. 07/14: Afebrile overnight. INR 1.5, K low at 3.5. Wound the same. Slept well. Warfarin and potassium adjustment necessary. [facility] for SNF authorization 1016: Afebrile. No pain complaints. Legs less swollen. INR still 1.5. He would like to request his COVID-19 booster which would be appropriate soon as his first was 06/23/2021. Afebrile. No pain. INR 1.4. Repeat COVID-19 testing negative. No complaints today. Awaiting placement. 07/17 Patient evaluated and examined at bedside. Afebrile overnight. Remains on warfarin no complaints overall today. Waiting for placement.. 07/18 Patient evaluated and examined at bedside. No major clinical changes. Insurance approval SNF placement thus will discharge to SNF today. Patient agreeable. Spent approximately 35 minutes planning coordinating and [id number] with the patient regarding discharge. Disposition: Disposition/Orders: D/C to Another Facility Activity: Activity: Resume previous activity Diet: Diet: Regular Medications: Home Meds Active Scripts Hydrocodone Bit/Acetaminophen (HYDROCODONE-APAP 5-325 ) 1 Tab Tablet, 1 TAB PO PRN Q4HRS PRN for PAIN for 30 Days, #30 TAB Prov:STEPHANIA HORTA MD 07/18/21 [Diclofenac Sodium 1% Topical] 100 GM GEL..GRAM. No Conflict Check, 1 CELY TP BID, #1 EACH Prov:STEPHANIA HORTA MD 07/18/21 [Dronabinol] 2.5 MG CAPSULE No Conflict Check, 5 MG PO BIDACLD for 30 Days, #60 Prov:STEPHANIA HORTA MD 07/18/21 Pantoprazole Sodium (PANTOPRAZOLE SODIUM ) 40 Mg Tablet.dr, 40 MG PO DAILYAC for Gastritis for 60 Days, #60 TAB.SR 0 Refills Prov:BORREGO,MARJORIE A MD 06/13/21 Docusate Sodium (DOCUSATE SODIUM) 100 Mg Capsule, 1 CAP PO DAILY for constipation for 30 Days, #30 CAP 0 Refills Prov:MARJORIE BORREGO MD 06/13/21 Ferrous Sulfate (FERROUS SULFATE) 325 Mg Tablet, 1 TAB PO DAILY for Anemia, #30 TAB 3 Refills Prov:MARJORIE BORREGO MD 06/13/21 Nystatin (NYAMYC) 15 Gm Powder, 1 CELY TP BID for . for 30 Days, #1 MISC Prov:CASTLE,NIAL K III DO 06/07/21 Reported Medications Amino Acids/Protein Hydrolys (PROSOURCE NO CARB LIQUID PKT) 30 Ml Liquid.pkt, 30 ML PO DAILY for wound healing, PKT 06/27/21 Lactobacillus Combo No.10 (PROBIOTIC) 1 Each Capsule, 1 EACH PO BID for supplement, CAP 06/27/21 Cranberry Extract (CRANBERRY) 250 Mg Capsule, 450 MG PO BID for urinary, CAP 06/27/21 Ascorbic Acid (VITAMIN C) 500 Mg Capsule.er, 500 MG PO DAILY for wound healing, CAP.SR 06/27/21 Colloidal Oatmeal (Eucerin Eczema Relief) 226 Gm Cream..g., 1 CELY TP BID for psoriasis, EACH 06/27/21 Cholecalciferol (Vitamin D3) (Vitamin D3 ) 25 Mcg Tablet, 25 MCG PO DAILY for SUPPLEMENT, TAB 1,000 UNITS = 25 MCG 06/02/21 Azathioprine (IMURAN) 50 Mg Tablet, 50 MG PO TID for MS, TAB 06/02/21 Warfarin Sodium (WARFARIN SODIUM) 7.5 Mg Tablet, 7.5 MG PO DAILY for PE/DVT, TAB 06/02/21 Discontinued Reported Medications Fluconazole (FLUCONAZOLE) 100 Mg Tablet, 100 MG PO DAILY for cellulitis, TAB 06/27/21 Discontinued Scripts Amoxicillin/Potassium Clav (AMOX TR-K CLV 500-125 MG TAB) 1 Each Tablet, 1 TAB PO BID for . for 14 Days, #28 TAB Prov:CASTLE,NIAL K III DO 06/07/21 Scheduled Amino Acids/Protein Hydrolys (Prosource No Carb Liquid Pkt), 30 ML PO DAILY, (Re ported) Ascorbic Acid (Vitamin C), 500 MG PO DAILY, (Reported) Azathioprine (Imuran), 50 MG PO TID, (Reported) Cholecalciferol (Vitamin D3) (Vitamin D3 ), 25 MCG PO DAILY, (Reported) Colloidal Oatmeal (Eucerin Eczema Relief), 1 CELY TP BID, (Reported) Cranberry Extract (Cranberry), 450 MG PO BID, (Reported) Docusate Sodium (Docusate Sodium), 1 CAP PO DAILY Ferrous Sulfate (Ferrous Sulfate), 1 TAB PO DAILY Lactobacillus Combo No.10 (Probiotic), 1 EACH PO BID, (Reported) Nystatin (Nyamyc), 1 CELY TP BID Pantoprazole Sodium (Pantoprazole Sodium ), 40 MG PO DAILYAC Warfarin Sodium (Warfarin Sodium), 7.5 MG PO DAILY, (Reported) [Diclofenac Sodium], 1 CELY TP BID [Dronabinol], 5 MG PO BIDACLD Scheduled PRN Hydrocodone Bit/Acetaminophen (Hydrocodone-Apap 5-325 ), 1 TAB PO PRN Q4HRS PRN for PAIN Discontinued Medications Amoxicillin/Potassium Clav (Amox Tr-K Clv 500-125 Mg Tab), 1 TAB PO BID Fluconazole (Fluconazole), 100 MG PO DAILY, (Reported) Justicifation of Admission Dx: Justifications for Admission: Justification of Admission Dx: Yes STEHPANIA HORTA MD Jul 18, 2021 11:48
[2021-07-18] MEDS: DRONABINOL 2.5 MG CAPSULE. PO SCH ×2 (12:02→16:40)
--- NOTE | 2021-07-18 13:34 | NUR ---
Pharmacy Warfarin Dosing Note S: Pharmacy consulted to assist with anticoagulation therapy started TEXTILE WORKER O: TODD RICO is a 60 year old M with DVT/PE LABS: Last INR: 2.1 Last HGB: 9.6 Last HCT: 30.6 Last PLT: 451 Last dose of 7.5 mg given on 07/17/21 at 1628 Vitamin K given: Y 2.5 mg po (06/27) A:INR of 2.1 is within desired range. Target range for this patient is: 2 -3 P: Warfarin dose: 7.5 mg Prior to Discharge Bridge Therapy: None Next INR due per primary physician Pharmacy anticoagulation service will continue to follow. KLEVER SÁNCHEZ [facility], 07/18/21 [id number]
[2021-07-18 15:00] VITALS: BP 118/61
[2021-07-18] MEDS ORDERED: WARFARIN 7.5 MG TABLET. PO ONE (16:00)
--- NOTE | 2021-07-18 17:00 | NUR ---
Report called to PRAVEEN Roberson at [facility]. PIV removed, and dressing change completed. Pt mom Vy notified. Awaiting pickup from stretcher through [facility]-college football coach.
== END 2021-07-18 19:30 | disposition still patient (30) | DRG 871 ==
LOC: ER 23:38 → 5 NORTH 06-27 00:34
PROVIDERS: ADMIT Family Medicine; ATTEND Family Medicine
DX: A41.9 Sepsis, unspecified organism (principal); L89.153 Pressure ulcer of sacral region, stage 3; E44.0 Moderate protein-calorie malnutrition; N30.00 Acute cystitis without hematuria; B96.1 Klebsiella pneumoniae [K. pneumoniae] as the cause of diseases classified elsewhere; D64.9 Anemia, unspecified; B36.9 Superficial mycosis, unspecified; D75.839 Thrombocytosis, unspecified; E66.01 Morbid (severe) obesity due to excess calories; F41.9 Anxiety disorder, unspecified; G35 Multiple sclerosis; I10 Essential (primary) hypertension; L98.429 Non-pressure chronic ulcer of back with unspecified severity; N19 Unspecified kidney failure; Z20.822 Contact with and (suspected) exposure to COVID-19; Z79.01 Long term (current) use of anticoagulants; Z82.49 Family history of ischemic heart disease and other diseases of the circulatory system; Z86.711 Personal history of pulmonary embolism; Z86.718 Personal history of other venous thrombosis and embolism; Z87.891 Personal history of nicotine dependence; M79.89 Other specified soft tissue disorders
CPT/HCPCS: 36415; 71045; 80048; 80053; 81001; 83605; 83735; 84145; 84484; 85007; 85025; 85610; 85730; 86140; 87040; 87077; 87086; 87186; 87426; 87804; 93005; J0696; J7030; J7500; U0003; U0005; 97110-GO; 97110-GP; 97530-GO; 97535-GO; 99285-25; G0378; Q0167